=== PATIENT | female | born 1975 | race Caucasian/White ===

== ENCOUNTER 2016-02-19 14:07 | Inpatient (IN) ==
--- NOTE | 2016-02-19 14:31 | Emergency Department Note ---
Disposition Clinical Impression: Rib pain on right side, Anxiety, Acute chest wall pain, Nonproductive cough Asthma Qualifiers: Asthma severity: moderate persistent Asthma complication type: uncomplicated Qualified Code(s): J45.40 - Moderate persistent asthma, uncomplicated COPD (chronic obstructive pulmonary disease) Qualifiers: COPD type: chronic bronchitis Chronic bronchitis type: simple Qualified Code(s) : J41.0 - Simple chronic bronchitis Disposition: Home, Self-Care Condition: Good Reasons to Return/Additional Instructions: Follow-up with Dr. Barnes within 5 days. If her symptoms worsen please come back to the ED for reevaluation. Referrals: Mundo Barnes MD [Primary Care Provider] - Forms: ED Satisfaction Letter General Adult HPI - General Chief complaint: ED Asthma Stated complaint: breathing problems Time Seen by Provider: 02/19/16 14:21 Source: EMS Limitations: no limitations Nursing Notes Reviewed: Yes Vital Signs Reviewed: Yes - History of Present Illness HPI Narrative: Patient is a 41-year-old female complains of right-sided chest pain 1 hour ago. Patient has a past medical history for COPD and asthma. Patient records show that patient has had prior echocardiogram with a EF of 60% secondary to previous chest pain admission. Patient states that last night she had a very bad asthma attack which required the use of 3 inhalers before she can get it to stop. Patient states that earlier this afternoon she had sudden onset of lower rib pain that extends from the anterior right side of her lower costal region to the back along the wrist to her spine but does not cross midline. She states this has never happened before. Pain Scale: 5 - Related Data Home Medications Medication Instructions Recorded Confirmed Docusate [Colace] 100 mg PO BID PRN 02/23/15 12/17/15 Levothyroxine [Synthroid] 125 mcg PO DAILY 02/23/15 12/17/15 Ranitidine HCl [Zantac] 150 mg PO BID 02/23/15 12/17/15 Furosemide [Lasix] 20 mg PO DAILY 12/06/15 12/17/15 Lamotrigine 200 mg PO BID 12/06/15 12/17/15 Potassium Chloride [Klor-Con 10] 10 meq PO DAILY 12/06/15 12/17/15 Trihexyphenidyl HCl 5 mg PO TID 12/06/15 12/17/15 Albuterol Sulfate [Proair 2 puff IH Q4-6H PRN 12/07/15 12/17/15 Respiclick] Aspirin [Ecotrin] 81 mg PO DAILY 12/07/15 12/17/15 Atorvastatin [Lipitor] 40 mg PO HS 12/07/15 12/17/15 Budesonide/Formoterol 160/4.5 2 puff IH BID 12/07/15 12/17/15 [Symbicort 160/4.5] Cetirizine HCl [All Day Allergy] 5 mg PO HS 12/07/15 12/17/15 ClonazePAM [Klonopin] 0.5 mg PO BID 12/07/15 12/17/15 Cyclobenzaprine [Flexeril] 10 mg PO BID 12/07/15 12/17/15 Escitalopram [Lexapro] 20 mg PO DAILY 12/07/15 12/17/15 Gabapentin [Neurontin] 300 mg PO BID 12/07/15 12/17/15 Iloperidone [Fanapt] 8 mg PO BID 12/07/15 12/17/15 L.acidoph,Paracasei, B.lactis 1 cap PO DAILY 12/07/15 12/17/15 [Probiotic] Montelukast [Singulair] 10 mg PO HS 12/07/15 12/17/15 Acetaminophen [Tylenol] 500 mg PO Q6HR PRN 12/17/15 12/17/15 Previous Rx's Medication Instructions Recorded OxyCODONE/APAP 10/325 [Percocet 1 each PO Q6HR PRN #12 tablet 12/17/15 10/325 MG] Allergies Allergy/AdvReac Type Severity Reaction Status Date / Time aripiprazole [From Abilify] Allergy Hallucinati Verified 02/19/16 14:20 ng aspartame Allergy See Verified 02/19/16 14:20 Comments aspirin Allergy See Verified 02/19/16 14:20 Comments Cefprozil [From Cefzil] Allergy See Verified 02/19/16 14:20 Comments codeine Allergy See Verified 02/19/16 14:20 Comments duloxetine [From Cymbalta] Allergy See Verified 02/19/16 14:20 Comments Erythromycin Base Allergy See Verified 02/19/16 14:20 Comments esomeprazole [From Nexium] Allergy See Verified 02/19/16 14:20 Comments oxybutynin Allergy Dizziness Verified 02/19/16 14:20 Penicillins Allergy See Verified 02/19/16 14:20 Comments pregabalin [From Lyrica] Allergy Hallucinati Verified 02/19/16 14:20 ng Sulfa (Sulfonamide Allergy See Verified 02/19/16 14:20 Antibiotics) Comments ziprasidone [From Geodon] Allergy Hallucinati Verified 02/19/16 14:20 ng celecoxib [From Celebrex] AdvReac Hallucinati Verified 02/19/16 14:20 ng metformin AdvReac Diarrhea Verified 02/19/16 14:20 All systems ED: reviewed and negative except as stated. Constitutional: Denies: fever, chills, weakness Eyes: Denies: eye pain, eye discharge ENT ED: Denies: ear pain, throat pain, congestion Cardiovascular: Denies: chest pain, palpitations, syncope Respiratory: Denies: cough, dyspnea, wheezes, hemoptysis, sputum production Gastrointestinal: Reports: nausea. Denies: abdominal pain, vomiting Genitourinary: Denies: urgency, dysuria, frequency Musculoskeletal: Reports: back pain, myalgia. Denies: neck pain, joint swelling Integumentary: Denies: rash, abrasion, lesions Neurological: Denies: headache, weakness Psychiatric: Reports: anxiety Endocrine: Denies: fatigue, heat or cold intolerance Hematological/Lymphatic: Denies: easy bleeding, easy bruising Allergic/Immunologic: Denies: facial swelling, urticaria Past Medical History - Past Medical History Attestation: Yes The following information was validated with the patient. 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: Reports: no SUPERVISOR POULTRY PROCESSING history - Social History Smoking Status: Never smoker Smokeless Tobacco Status: No Alcohol use: Reports: none Drug use: Reports: none Physical Exam Vital Signs Temperature 97.3 F L 02/19/16 14:11 Pulse Rate 112 02/19/16 14:11 Respiratory Rate 18 02/19/16 14:11 Blood Pressure 132/68 02/19/16 14:11 O2 Sat by Pulse Oximetry 94 L 02/19/16 14:11 Temperature 97.3 F L 02/19/16 14:11 Pulse Rate 103 02/19/16 14:20 Respiratory Rate 14 02/19/16 14:20 Blood Pressure 125/77 02/19/16 14:20 O2 Sat by Pulse Oximetry 94 L 02/19/16 14:20 Oxygen Delivery Oxygen Delivery Room Air -General Appearance: Patient is a 41-year-old female who is alert and oriented 3 and in no acute distress. Patient appears comfortable -Neurological exam: Cranial nerves II-12 intact, no focal deficits observed, - Head Head exam: atraumatic, normocephalic, normal inspection - Eye Eye exam: Present: normal appearance, PERRL, EOMI, negative for scleral icterus negative for conjunctival pallor - ENT ENT exam: normal exam, normal oropharynx, mucous membranes dry patient has greenish blue tongue secondary to candy cane consumption - Neck Neck exam: Present: normal inspection, full ROM, trachea midline, negative JVD - Chest Chest inspection: Present: Patient has bilateral equal rise and fall of chest wall. Chest wall tender to palpation along the lower costal margin of the right side of ribs extending from sternum to thoracic spine no cross midline - Respiratory Respiratory exam: Clear to auscultation bilaterally without wheezes rales or rhonchi Cardiovascular Cardiovascular exam: Present: regular rate, normal rhythm, normal heart sounds, without murmurs rubs or gallops. - Abdominal Exam Abdominal exam: Present: soft, nondistended, large pannus Non-Tender light and deep palpation in all quadrants nonspecific. Patient did not have complaints of abdominal pain prior to me palpating. Bowel sounds normoactive throughout all 4 quadrants. Negative for hyper or hyperresonance. - Extremities Exam Extremities exam: Present: normal inspection, full ROM, pedal pulses equal intact regular. Radial pulses equal intact regular. - Back Exam Back exam: Present: normal inspection, full ROM. Absent: tenderness, CVA tenderness (R), CVA tenderness (L) - Psychiatric Psychiatric exam: Present: normal affect, normal mood - Skin Skin exam: Present: warm, dry, intact, normal color - General Limitations: no limitations General appearance: alert, in no apparent distress Course Course Narrative: Patient seen and examined. Chest x-ray CBC BMP and troponin ordered. The patient sitting upright and appears mildly uncomfortable - Reevaluation(s) Reevaluation #1: Patient reassessed. Patient is asking for a diet [place]. Patient was offered water. Time: 15:00 Reevaluation #2: Patient reassessed. Patient's heart rate 92, respirations 14. Patient complaining of throat pain is where an upper chest pain around her clavicles. Patient is still dry. Patient did not want any water earlier. She did except ice chips. Ordered nitroglycerin to see if it helps her pain symptoms. Time: 15:20 Vital Signs Temperature 97.3 F L 02/19/16 14:11 Pulse Rate 112 02/19/16 14:11 Respiratory Rate 18 02/19/16 14:11 Blood Pressure 132/68 02/19/16 14:11 O2 Sat by Pulse Oximetry 94 L 02/19/16 14:11 Temperature 97.3 F L 02/19/16 14:11 Pulse Rate 83 02/19/16 15:49 Respiratory Rate 12 02/19/16 15:49 Blood Pressure 141/83 02/19/16 15:49 O2 Sat by Pulse Oximetry 96 02/19/16 15:49 Oxygen Delivery Oxygen Delivery Room Air Medical Decision Making - [facility] Narrative Medical decision making narrative: Ms. Parkinson is a 41-year-old female who presented with complaints of right- sided chest wall pain that started an hour ago. Patient states that she had a pretty bad asthmatic attack last night which resulted in multiple bouts of heavy coughing and finally resolved secondary to 3 inhalers. Patient's rib pain extends from anterior along the right side of his sternum to the right side of her spine and thoracic region T8 T10. No midline tenderness. Patient has increase in rib pain symptoms with deep breathing. Patient's condition is concerning for possible skeletal rib pain and subcostal pain/irritation secondary to bronchitis, pneumonia. However we will consider possibility of cardiac causes of atypical chest pain, PE, COPD exacerbation, pneumonia. Patient presents afebrile but tachycardic at 112 minute with recheck at 103 beats a minute. Patient appears very well-appearing and does not have an increased work of breathing. Patient is neither coughing currently or has audible wheezing. Patient's SPO2 is 95% at time of examination. Lung sounds clear to auscultation bilaterally. Patient has no complaints of abdominal pain or extremity pain. Patient's local test probability for PE with just tachycardia alone. Chest x-ray Patient denies any precordial chest pain or pressure. Patient denies any radiation of pain symptoms outside of the area previously described. EKG shows a normal sinus rhythm Patient started complaining about pain in her neck along the anterior portion of her neck around her sternal notch up into the anterior throat area. Patient was given 0.4 sublingual nitroglycerin which she says she has had continuous relief after 3 minutes of nitroglycerin administration. Patient's troponin was 0.00. Patient's CBC was positive for a WBC of 14.0. Ordered d-dimer to rule out PE. Patient has a negative d-dimer at 448. His also has low test probability for PE. Patient currently not having any symptoms of tachycardia. Recommended admission for cardiac rule out since patient has resolution of symptoms secondary to nitroglycerin administration. The patient was accepted for admission by . - Medical Records Medical records reviewed: Yes I reviewed the patient's medical records. - Lab Data Lab results reviewed: Yes I reviewed the patient's lab results. Lab results narrative: Short CBC 02/19/16 Range/Units 14:52 WBC 12.4 H (4.3-11.1) K/mcL Hgb 12.0 (11.5-15.4) g/dL Hct 38.3 (35.3-44.9) % Plt Count 320 (140-400) K/mcL Neutrophils # 9.2 H (1.6-8.9) K/mcL BMP 02/19/16 Range/Units 14:52 Sodium 138 (136-145) mEq/L Potassium 3.8 (3.5-4.5) mEq/L Chloride 106 (98-109) mEq/L Carbon Dioxide 23 (19-29) mEq/L BUN 5 L (7-20) mg/dL Creatinine 0.69 (0.57-1.11) mg/dL Glucose 101 H (70-99) mg/dL Calcium 9.2 (8.6-10.8) mg/dL Cardiac Enzymes 02/19/16 Range/Units 14:52 Troponin I 0.00 (0-0.03) ng/mL Result diagrams: 02/19/16 14:52 02/19/16 14:52 Lab Results 02/19/16 02/19/16 02/19/16 Range/Units 14:52 14:52 14:52 WBC 12.4 H (4.3-11.1) K/mcL RBC 4.68 (3.82-4.97) M/mcL Hgb 12.0 (11.5-15.4) g/dL Hct 38.3 (35.3-44.9) % MCV 81.8 L (83.0-100.0) fL MCH 25.6 L (28.0-33.3) pg MCHC 31.3 L (31.6-35.5) g/dL RDW 16.1 H (11.5-14.5) % Plt Count 320 (140-400) K/mcL MPV 8.6 L (9.4-12.4) fL Immature Gran % 0.4 (0-4) % Seg Neutrophils % 74.4 % Lymphocytes % 16.5 % Monocytes % 5.8 % Eosinophils % 2.5 % Basophils % 0.4 % Neutrophils # 9.2 H (1.6-8.9) K/mcL Lymphocytes # 2.1 (0.6-4.6) K/mcL Monocytes # 0.7 (0.0-1.3) K/mcL Eosinophils # 0.3 (0.0-0.6) K/mcL Basophils # 0.1 (0.0-0.2) K/mcL D-Dimer (0-500) ng/mLFEU Sodium 138 (136-145) mEq/L Potassium 3.8 (3.5-4.5) mEq/L Chloride 106 (98-109) mEq/L Carbon Dioxide 23 (19-29) mEq/L BUN 5 L (7-20) mg/dL Creatinine 0.69 (0.57-1.11) mg/dL Est GFR ( Amer) > 60 (> 60) Est GFR (Non-Af Amer) > 60 (> 60) BUN/Creatinine Ratio 7 (6-26) Glucose 101 H (70-99) mg/dL Calculated Osmolality 283 (280-300) Calcium 9.2 (8.6-10.8) mg/dL Troponin I 0.00 (0-0.03) ng/mL 02/19/16 Range/Units 16:14 WBC (4.3-11.1) K/mcL RBC (3.82-4.97) M/mcL Hgb (11.5-15.4) g/dL Hct (35.3-44.9) % MCV (83.0-100.0) fL MCH (28.0-33.3) pg MCHC (31.6-35.5) g/dL RDW (11.5-14.5) % Plt Count (140-400) K/mcL MPV (9.4-12.4) fL Immature Gran % (0-4) % Seg Neutrophils % % Lymphocytes % % Monocytes % % Eosinophils % % Basophils % % Neutrophils # (1.6-8.9) K/mcL Lymphocytes # (0.6-4.6) K/mcL Monocytes # (0.0-1.3) K/mcL Eosinophils # (0.0-0.6) K/mcL Basophils # (0.0-0.2) K/mcL D-Dimer 448 (0-500) ng/mLFEU Sodium (136-145) mEq/L Potassium (3.5-4.5) mEq/L Chloride (98-109) mEq/L Carbon Dioxide (19-29) mEq/L BUN (7-20) mg/dL Creatinine (0.57-1.11) mg/dL Est GFR ( Amer) (> 60) Est GFR (Non-Af Amer) (> 60) BUN/Creatinine Ratio (6-26) Glucose (70-99) mg/dL Calculated Osmolality (280-300) Calcium (8.6-10.8) mg/dL Troponin I (0-0.03) ng/mL - Radiology Data Radiology results reviewed: Yes I reviewed the patient's radiology results. Chest X-Ray 02/19/16 14:25 IMPRESSION: No acute cardiopulmonary process. D/ / 02/19/2016 14:58:54 Lele Mclain MD / Jacqueline Pickens Interpreting Provider: Lele Mclain MD - EKG Data EKG #1 EKG attestation: Yes I reviewed and interpreted this EKG. EKG results narrative: EKG taken in 02/19/2016 at 1413 hrs. shows a ventricular rate of 104 beats a minute with underlying sinus rhythm. Patient's sinus tachycardia with no ST abnormalities. Previous EKG shows sinus rhythm with first-degree AV block at a rate of [address] elevations or depressions, QRS widening or QT prolongation.
[2016-02-19 15:00] LABS: Basophils # 0.1 K/mcL (0.0-0.2); Basophils % 0.4 %; Eosinophils # 0.3 K/mcL (0.0-0.6); Eosinophils % 2.5 %; Hematocrit 38.3 % (35.3-44.9); Immature Granulocytes % 0.4 % (0-4); Lymphocytes # 2.1 K/mcL (0.6-4.6); Lymphocytes % 16.5 %; Mean Corpuscular HGB Conc 31.3 g/dL (31.6-35.5); Mean Corpuscular Hemoglobin 25.6 pg (28.0-33.3); Mean Corpuscular Volume 81.8 fL (83.0-100.0); Mean Platelet Volume 8.6 fL (9.4-12.4); Monocytes # 0.7 K/mcL (0.0-1.3); Monocytes % 5.8 %; Neutrophils # 9.2 K/mcL (1.6-8.9); Platelet Count 320 K/mcL (140-400); Red Blood Count 4.68 M/mcL (3.82-4.97); Red Cell Distribution Width 16.1 % (11.5-14.5); Segmented Neutrophils % 74.4 %
[2016-02-19] MEDS ORDERED: Nitroglycerin 0.4 MG TAB.SUBL SL PRN (15:09)
[2016-02-19 15:13] LABS: BUN/Creatinine Ratio 7 (6-26); Calcium 9.2 mg/dL (8.6-10.8); Carbon Dioxide 23 mEq/L (19-29); Chloride 106 mEq/L (98-109); Glucose 101 mg/dL (70-99); Osmolality,Calculated 283 (280-300); Potassium 3.8 mEq/L (3.5-4.5); Sodium 138 mEq/L (136-145); eGFR For African Americans > 60 (> 60); eGFR For Non-African Americans > 60 (> 60)
[2016-02-19 15:14] LABS: Blood Urea Nitrogen 5 mg/dL (7-20)
[2016-02-19] MEDS ORDERED: Ondansetron ODT 4 MG TAB.RAPDIS SL ONE (15:14)
--- NOTE | 2016-02-19 15:16 | Emergency Department Note ---
Disposition Clinical Impression: Rib pain on right side, Anxiety, Acute chest wall pain, Nonproductive cough Asthma Qualifiers: Asthma severity: moderate persistent Asthma complication type: uncomplicated Qualified Code(s): J45.40 - Moderate persistent asthma, uncomplicated COPD (chronic obstructive pulmonary disease) Qualifiers: COPD type: chronic bronchitis Chronic bronchitis type: simple Qualified Code(s) : J41.0 - Simple chronic bronchitis Disposition: Home, Self-Care Condition: Good General Adult HPI - General Chief complaint: ED Asthma Stated complaint: breathing problems Time Seen by Provider: 02/19/16 14:21 Source: EMS Limitations: no limitations Nursing Notes Reviewed: Yes Vital Signs Reviewed: Yes - History of Present Illness Pain Scale: 5 - Related Data Home Medications Medication Instructions Recorded Confirmed Docusate [Colace] 100 mg PO BID PRN 02/23/15 02/19/16 Levothyroxine [Synthroid] 125 mcg PO DAILY 02/23/15 02/19/16 Ranitidine HCl [Zantac] 150 mg PO BID 02/23/15 02/19/16 Furosemide [Lasix] 20 mg PO DAILY 12/06/15 02/19/16 Lamotrigine 200 mg PO BID 12/06/15 02/19/16 Potassium Chloride [Klor-Con 10] 10 meq PO DAILY 12/06/15 02/19/16 Trihexyphenidyl HCl 5 mg PO TID 12/06/15 02/19/16 Albuterol Sulfate [Proair 2 puff IH Q4-6H PRN 12/07/15 02/19/16 Respiclick] Aspirin [Ecotrin] 81 mg PO DAILY 12/07/15 02/19/16 Atorvastatin [Lipitor] 40 mg PO HS 12/07/15 02/19/16 Cetirizine HCl [All Day Allergy] 5 mg PO HS 12/07/15 02/19/16 ClonazePAM [Klonopin] 0.5 mg PO BID 12/07/15 02/19/16 Cyclobenzaprine [Flexeril] 10 mg PO BID 12/07/15 02/19/16 Escitalopram [Lexapro] 20 mg PO DAILY 12/07/15 02/19/16 Gabapentin [Neurontin] 300 mg PO HS 12/07/15 02/19/16 L.acidoph,Paracasei, B.lactis 1 cap PO DAILY 12/07/15 02/19/16 [Probiotic] Montelukast [Singulair] 10 mg PO HS 12/07/15 02/19/16 Iloperidone [Fanapt] 10 mg PO BID 02/19/16 02/19/16 Mometasone/Formoterol [Dulera 200 1 puff IH BID 02/19/16 02/19/16 Mcg/5 Mcg Inhaler] Naproxen [Naprosyn] 500 mg PO BID 02/19/16 02/19/16 SUMAtriptan [Imitrex] 50 mg PO DAILY PRN 02/19/16 02/19/16 Allergies Allergy/AdvReac Type Severity Reaction Status Date / Time aripiprazole [From Abilify] Allergy Hallucinati Verified 02/19/16 14:20 ng aspartame Allergy See Verified 02/19/16 14:20 Comments aspirin Allergy See Verified 02/19/16 14:20 Comments Cefprozil [From Cefzil] Allergy See Verified 02/19/16 14:20 Comments codeine Allergy See Verified 02/19/16 14:20 Comments duloxetine [From Cymbalta] Allergy See Verified 02/19/16 14:20 Comments Erythromycin Base Allergy See Verified 02/19/16 14:20 Comments esomeprazole [From Nexium] Allergy See Verified 02/19/16 14:20 Comments oxybutynin Allergy Dizziness Verified 02/19/16 14:20 Penicillins Allergy See Verified 02/19/16 14:20 Comments pregabalin [From Lyrica] Allergy Hallucinati Verified 02/19/16 14:20 ng Sulfa (Sulfonamide Allergy See Verified 02/19/16 14:20 Antibiotics) Comments ziprasidone [From Geodon] Allergy Hallucinati Verified 02/19/16 14:20 ng celecoxib [From Celebrex] AdvReac Hallucinati Verified 02/19/16 14:20 ng metformin AdvReac Diarrhea Verified 02/19/16 14:20 Constitutional: Denies: fever, chills, weakness Eyes: Denies: eye pain, eye discharge ENT ED: Denies: ear pain, throat pain, congestion Cardiovascular: Denies: chest pain, palpitations, syncope Respiratory: Denies: cough, dyspnea, wheezes, hemoptysis, sputum production Gastrointestinal: Reports: nausea. Denies: abdominal pain, vomiting Genitourinary: Denies: urgency, dysuria, frequency Musculoskeletal: Reports: back pain, myalgia. Denies: neck pain, joint swelling Integumentary: Denies: rash, abrasion, lesions Neurological: Denies: headache, weakness Psychiatric: Reports: anxiety Endocrine: Denies: fatigue, heat or cold intolerance Hematological/Lymphatic: Denies: easy bleeding, easy bruising Allergic/Immunologic: Denies: facial swelling, urticaria Past Medical History - Past Medical History Medical history: Reports: asthma, diabetes, fibromyalgia, GERD, hyperlipidemia, kidney stones, migraine, seizures, thyroid disease Surgical history: Reports: cholecystectomy Psychiatric history: Reports: anxiety, bipolar, depression, schizophrenia, previous psychiatric hospitalization 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: no PROCESSING ASSISTANT history - Social History Smoking Status: Never smoker Smokeless Tobacco Status: No Alcohol use: Reports: none Drug use: Reports: none Physical Exam - General Limitations: no limitations General appearance: alert, in no apparent distress Course Vital Signs Temperature 97.3 F L 02/19/16 14:11 Pulse Rate 112 02/19/16 14:11 Respiratory Rate 18 02/19/16 14:11 Blood Pressure 132/68 02/19/16 14:11 O2 Sat by Pulse Oximetry 94 L 02/19/16 14:11 Temperature 97.3 F L 02/19/16 14:11 Pulse Rate 83 02/19/16 15:49 Respiratory Rate 12 02/19/16 15:49 Blood Pressure 141/83 02/19/16 15:49 O2 Sat by Pulse Oximetry 96 02/19/16 15:49 Oxygen Delivery Oxygen Delivery Room Air Medical Decision Making - MDM Narrative Medical decision making narrative: I examined this patient and my medical decision-making was reviewed with the INFECTION CONTROL MANAGER/PA/Advanced Practice Nurse/Resident Physician. I agree with the documented findings, disposition and treatment plan as described except to the extent set forth below. Evaluated this patient with Dr. Charles, I agree with his evaluation and management plan, supervise care the patient's stay. Patient presents today with pain along her diaphragm besides. She been coughing here recently and wheezing. Medics that she did not need a breathing treatment she does take aspirin at home despite apparent allergy to she denies any cardiac history. She is resting comfortably at this time. Negative cardiac workup on her then reassess. She is in agreement with this plan. 1650 hrs.: Patient's d-dimer is negative per well's criteria is low. I do not think she needs a CT at this time we will go ahead and continue with admission. Chest X-Ray 02/19/16 14:25 IMPRESSION: No acute cardiopulmonary process. D/ : / 02/19/2016 14:58:54 Lele Mclain MD / Jacqueline Pickens Interpreting Provider: Lele Mclain MD Chest X-Ray 02/19/16 14:25 IMPRESSION: No acute cardiopulmonary process. D/ /19/2016 14:58:54 Lele Mclain MD / Jacqueline Pickens Interpreting Provider: Lele Mclain MD - Lab Data Result diagrams: 02/19/16 14:52 02/19/16 14:52 Lab Results 02/19/16 02/19/16 02/19/16 Range/Units 14:52 14:52 14:52 WBC 12.4 H (4.3-11.1) K/mcL RBC 4.68 (3.82-4.97) M/mcL Hgb 12.0 (11.5-15.4) g/dL Hct 38.3 (35.3-44.9) % MCV 81.8 L (83.0-100.0) fL MCH 25.6 L (28.0-33.3) pg MCHC 31.3 L (31.6-35.5) g/dL RDW 16.1 H (11.5-14.5) % Plt Count 320 (140-400) K/mcL MPV 8.6 L (9.4-12.4) fL Immature Gran % 0.4 (0-4) % Seg Neutrophils % 74.4 % Lymphocytes % 16.5 % Monocytes % 5.8 % Eosinophils % 2.5 % Basophils % 0.4 % Neutrophils # 9.2 H (1.6-8.9) K/mcL Lymphocytes # 2.1 (0.6-4.6) K/mcL Monocytes # 0.7 (0.0-1.3) K/mcL Eosinophils # 0.3 (0.0-0.6) K/mcL Basophils # 0.1 (0.0-0.2) K/mcL D-Dimer (0-500) ng/mLFEU Sodium 138 (136-145) mEq/L Potassium 3.8 (3.5-4.5) mEq/L Chloride 106 (98-109) mEq/L Carbon Dioxide 23 (19-29) mEq/L BUN 5 L (7-20) mg/dL Creatinine 0.69 (0.57-1.11) mg/dL Est GFR ( Amer) > 60 (> 60) Est GFR (Non-Af Amer) > 60 (> 60) BUN/Creatinine Ratio 7 (6-26) Glucose 101 H (70-99) mg/dL Calculated Osmolality 283 (280-300) Calcium 9.2 (8.6-10.8) mg/dL Troponin I 0.00 (0-0.03) ng/mL 02/19/16 Range/Units 16:14 WBC (4.3-11.1) K/mcL RBC (3.82-4.97) M/mcL Hgb (11.5-15.4) g/dL Hct (35.3-44.9) % MCV (83.0-100.0) fL MCH (28.0-33.3) pg MCHC (31.6-35.5) g/dL RDW (11.5-14.5) % Plt Count (140-400) K/mcL MPV (9.4-12.4) fL Immature Gran % (0-4) % Seg Neutrophils % % Lymphocytes % % Monocytes % % Eosinophils % % Basophils % % Neutrophils # (1.6-8.9) K/mcL Lymphocytes # (0.6-4.6) K/mcL Monocytes # (0.0-1.3) K/mcL Eosinophils # (0.0-0.6) K/mcL Basophils # (0.0-0.2) K/mcL D-Dimer 448 (0-500) ng/mLFEU Sodium (136-145) mEq/L Potassium (3.5-4.5) mEq/L Chloride (98-109) mEq/L Carbon Dioxide (19-29) mEq/L BUN (7-20) mg/dL Creatinine (0.57-1.11) mg/dL Est GFR ( Amer) (> 60) Est GFR (Non-Af Amer) (> 60) BUN/Creatinine Ratio (6-26) Glucose (70-99) mg/dL Calculated Osmolality (280-300) Calcium (8.6-10.8) mg/dL Troponin I (0-0.03) ng/mL
[2016-02-19] MEDS ORDERED: Naloxone 0.4 MG/ML INJ IVP PRN (19:13)
[2016-02-19] MEDS ORDERED: Acetaminophen 325 MG TABLET PO PRN (19:13)
[2016-02-19] MEDS ORDERED: Ondansetron ODT 4 MG TAB.RAPDIS SL PRN (19:13)
[2016-02-19] MEDS ORDERED: SUMAtriptan succinate 50 MG TABLET PO PRN (19:18)
[2016-02-19] MEDS ORDERED: Albuterol 2.5 MG/3 ML NEBULIZER IH PRN (19:28)
--- NOTE | 2016-02-19 19:51 | Internal Med History&Physical ---
Date of Encounter: 02/19/16 Time of Encounter: 19:36 Assessment and Plan (1) Acute chest wall pain Current visit: Yes Status: Acute Patient reporting new right sided chest pain radiated around to her back, along with shortness of breath. She reports she has an asthma attack last night with severe coughing. She was tachycardic with HR 104-112, satting 92-96% on room air. CXR showed no acute cardiopulmonary process. EKG showed Sinus tachycardia at [address] abnormalities. D-Dimer normal at 448, troponin negative at 0.0. Lungs clear to auscultation bilaterally. Heart with regular rate and rhythm, tender to palpation on right side. Chest pain differential includes costochondritis related to asthma attack last night, pleurisy, hepatic inflammation, but will rule out ACS as well. Serial troponins for trend continuous clinical research monitor titrate O2 to maintain O2 sat > 92% CT Chest to further evaluate for pleurisy or pneumonia LFTs, CRP ordered (2) Dysuria Current visit: Yes Status: Acute Patient reports some mild burning with urination the last few days. She has a history of multiple UTIs in the past. UA with reflex to culture ordered. (3) Asthma Current visit: Yes Status: Acute Patient reports asthma attack last evening. Today, having shortness of breath, but no coughing. Continue home dose Symbicort. Budesonide/formotorol BID. duoneb treatments QIDR Albuterol nebulizer Q2hr PRN titrate O2 to maintain O2 sat > 92% Qualifiers: Asthma severity: moderate persistent Asthma complication type: uncomplicated Qualified Code(s): J45.40 - Moderate persistent asthma, uncomplicated (4) Dysphagia Current visit: Yes Status: Acute Patient complaining of pain with swallowing. No coughing, choking with eating and able to eat full dinner. Speech evaluation ordered for swallow study. Qualifiers: Dysphagia type: unspecified Qualified Code(s): R13.10 - Dysphagia, unspecified (5) DVT prophylaxis Current visit: No Status: Acute Encourage ambulation anti-embolic stockings 5,000u heparin SQ BID Internal Medicine - H&P: HPI Chief complaint: chest pain Admitted From: Emergency Dept Plans for Post Hospital Care: Home History of present illness: Ms. Parkinson is a 41 year old female with morbid obesity, asthma/COPD, diet controlled diabetes, chronic back pain, hypertension, depression, anxiety and schizoaffective disorder presented to the ED this morning with complaint of pain to her right rib radiating to her back. She reports she had a bad asthma attack last night, with severe coughing which was eventually relieved with her inhalers and a nebulizer treatment. Today, she noted this right sided pain, along with increased shortness of breath. She describes the pain as sharp, and it comes and goes. She denies any coughing today. She denies any fever, chills , night sweats. She states she is having some mild nausea when she eats, along with painful swallowing which just started today as well. She denies any dizziness, lightheadedness. She also endorses some mild burning with urination for the past 2 days. Evaluation in the ED was significant for mildly elevated WBC count of 12.4. She was tachycardic with HR 104-112. Satting 92-95% on room air. CXR showed no acute cardiopulmonary process. EKG showed sinus tachycardia with HR of [address] abnormalities. D-Dimer was negative at 448 and troponin was negative at 0.0. On exam, the patient is alert and oriented X3 in no distress. She is not having any pain currently, but does complain of throat pain when swallowing. Lungs are clear bilaterally and heart has regular rate and rhythm. Past Med Surg Social Fam HX - Past Medical History Medical history: asthma, diabetes, fibromyalgia, GERD, hyperlipidemia, kidney stones, migraine, seizures, thyroid disease Psychiatric history: anxiety, bipolar, depression, schizophrenia, previous psychiatric hospitalization - Past Surgical History Surgical History: cholecystectomy - Social History Smoking Status: Never smoker Smokeless Tobacco Status: No Alcohol use: none Drug use: none - Family History Mother Family Member Ethnicity: Non- Living Status: Still Living Hx Family Cardiac Disorders: Yes Hx Family Respiratory Disorders: Yes Hx Family Cancer: No Hx Family GI Disorders: No Hx Family Endocrine Disorder: Yes (diabetes, adrenal insufficiency) Hx Family Neuromuscular Disorders: No Hx Family Neurologic Disorders: No Hx Family HEENT Disorders: No Hx Family Autoimmune Disorders: Yes Father Family Member Ethnicity: Non- Living Status: Unknown Hx Family Cardiac Disorders: Yes (PR, HTN) Hx Family Respiratory Disorders: Yes (Enphesyma, COPD, Asthma) Hx Family Cancer: Yes (Unknown) Hx Family GI Disorders: Yes (Lactos Intolerant) Hx Family Endocrine Disorder: No Hx Family Neuromuscular Disorders: No Hx Family Neurologic Disorders: No Hx Family HEENT Disorders: No Hx Family Autoimmune Disorders: No Brother Family Member Ethnicity: Non- Living Status: Still Living Hx Family Cardiac Disorders: Yes (heart attack age 29) Internal Medicine - H&P: Meds Docusate [Colace] 100 mg PO BID PRN 02/23/15 [History] Levothyroxine [Synthroid] 125 mcg PO DAILY 02/23/15 [History] Ranitidine HCl [Zantac] 150 mg PO BID 02/23/15 [History] Furosemide [Lasix] 20 mg PO DAILY 12/06/15 [History] Lamotrigine 200 mg PO BID 12/06/15 [History] Potassium Chloride [Klor-Con 10] 10 meq PO DAILY 12/06/15 [History] Trihexyphenidyl HCl 5 mg PO TID 12/06/15 [History] Albuterol Sulfate [Proair Respiclick] 2 puff IH Q4-6H PRN 12/07/15 [History] Aspirin [Ecotrin] 81 mg PO DAILY 12/07/15 [History] Atorvastatin [Lipitor] 40 mg PO HS 12/07/15 [History] Cetirizine HCl [All Day Allergy] 5 mg PO HS 12/07/15 [History] ClonazePAM [Klonopin] 0.5 mg PO BID 12/07/15 [History] Cyclobenzaprine [Flexeril] 10 mg PO BID 12/07/15 [History] Escitalopram [Lexapro] 20 mg PO DAILY 12/07/15 [History] Gabapentin [Neurontin] 300 mg PO HS 12/07/15 [History] L.acidoph,Paracasei, B.lactis [Probiotic] 1 cap PO DAILY 12/07/15 [History] Montelukast [Singulair] 10 mg PO HS 12/07/15 [History] Iloperidone [Fanapt] 10 mg PO BID 02/19/16 [History] Mometasone/Formoterol [Dulera 200 Mcg/5 Mcg Inhaler] 1 puff IH BID 02/19/16 [ History] Naproxen [Naprosyn] 500 mg PO BID 02/19/16 [History] SUMAtriptan [Imitrex] 50 mg PO DAILY PRN 02/19/16 [History] Allergies aripiprazole [From Abilify] Allergy (Verified 02/19/16 14:20) Hallucinating aspartame Allergy (Verified 02/19/16 14:20) See Comments aspirin Allergy (Verified 02/19/16 14:20) See Comments patient states low dose aspirin is ok Cefprozil [From Cefzil] Allergy (Verified 02/19/16 14:20) See Comments codeine Allergy (Verified 02/19/16 14:20) See Comments duloxetine [From Cymbalta] Allergy (Verified 02/19/16 14:20) See Comments Erythromycin Base Allergy (Verified 02/19/16 14:20) See Comments esomeprazole [From Nexium] Allergy (Verified 02/19/16 14:20) See Comments oxybutynin Allergy (Verified 02/19/16 14:20) Dizziness Penicillins Allergy (Verified 02/19/16 14:20) See Comments pregabalin [From Lyrica] Allergy (Verified 02/19/16 14:20) Hallucinating Sulfa (Sulfonamide Antibiotics) Allergy (Verified 02/19/16 14:20) See Comments ziprasidone [From Geodon] Allergy (Verified 02/19/16 14:20) Hallucinating celecoxib [From Celebrex] Adverse Reaction (Verified 02/19/16 14:20) Hallucinating metformin Adverse Reaction (Verified 02/19/16 14:20) Diarrhea All Systems PM: A 10-system review of systems was performed and is negative for pertinent findings except as documented above in the HPI. - Constitutional Constitutional: no chills, no fever(s), no night sweats - EENT Eyes: no change in vision, no discharge, no pain, no photophobia Ears: no ear discharge, no ear pain, no tinnitus Nose, mouth and throat: dysphagia, neck pain, no nasal discharge, no sore throat - Cardiovascular Cardiovascular ROS IM: chest pain, dyspnea, no diaphoresis, no lightheadedness, no palpitations, no syncope - Respiratory Respiratory: dyspnea, no cough, no wheezing, no excessive phlegm production - Gastrointestinal Gastrointestinal: nausea, no abdominal pain, no diarrhea, no hematemesis, no hematochezia, no melena, no vomiting - Genitourinary Genitourinary: dysuria, no change in urinary stream, no flank pain, no hematuria - Musculoskeletal Musculoskeletal ROS IM: back pain, numbness (BLE neuropathy), no tingling - Integumentary Integumentary IM: no rash, no unusual bruising - Neurological Neurological ROS: numbness (BLE neuropathy - chronic), no confusion, no convulsions, no focal weakness, no tingling, no tremor(s) - Hematologic/Lymphatic Hematologic/Lymphatic: no easy bruising - Constitutional Vitals: Temp Pulse Resp BP Pulse Ox 97.9 F 94 14 120/76 92 L 02/19/16 18:58 02/19/16 18:58 02/19/16 18:58 02/19/16 18:58 02/19/16 18:58 General appearance: Present: A&O X 3, morbidly obese, no acute distress - Head Head exam: Present: atraumatic, normocephalic - Eye Eye exam: Present: PERRL, conjuntiva pink, sclera anicteric Pupils: Present: PERRL - Neck Neck exam general surgery: Present: supple, trachea midline. Absent: lymphadenopathy - Respiratory Respiratory exam: Present: CTAB. Absent: accessory muscle use, rales, rhonchi, wheezes - Cardiovascular Cardiovascular exam: Present: RRR, +S1, +S2. Absent: diastolic murmur, gallop, rubs, systolic murmur - GI/Abdominal GI/Abdominal exam: Present: normal bowel sounds, soft, tenderness (right sided) , no peritoneal signs. Absent: distended - Extremities Exam Extremities exam: Present: warm, radial pulses palpable and symetrical. Absent : calf tenderness, cyanotic, pedal edema - Neurological Exam Neurological exam: Present: CN II-XII intact, oriented X3, no focal deficits. Absent: pronater drift, facial droop, speech deficit - Skin Skin exam: Present: dry, intact Internal Med - H&P Results - Labs CBC & Chem 7: 02/19/16 14:52 02/19/16 14:52
[2016-02-19] MEDS ORDERED: NON-FORMULARY MEDICATION 1 EACH EACH (Mometasone/Formoterol [Dulera 200 Mcg/5 Mcg Inhaler] IH SCH (21:00)
[2016-02-19 21:08] LABS: Bilirubin,Urine Negative (Negative); Blood,Urine Negative (Negative); Clarity,Urine Clear (Clear); Color,Urine Yellow (Yellow); Glucose,Urine (UA) Normal (Normal); Ketones,Urine Negative (Negative); Leukocyte Esterase,Urine Negative (Negative); Nitrite,Urine Negative (Negative); Protein,Urine Negative (Neg-Trace); Specific Gravity,Urine 1.008 (1.010-1.025); Urobilinogen,Urine Normal (Normal)
[2016-02-19] MEDS: Ipratropium/Albuterol Neb 3 ML IH SCH (22:08)
[2016-02-19] MEDS: clonazePAM 0.5 MG TABLET PO SCH (22:16)
[2016-02-19] MEDS: Gabapentin 300 MG CAPSULE PO SCH (22:17)
[2016-02-19] MEDS: Famotidine 20 MG TABLET PO SCH (22:17)
[2016-02-19] MEDS: Loratadine 10 MG TABLET PO SCH (22:18)
[2016-02-19 22:19] LABS: Albumin 3.1 g/dL (3.5-5.0); Bilirubin,Direct 0.1 mg/dL (0.0-0.5); Bilirubin,Indirect 0.3 mg/dL (0.0-1.2); Bilirubin,Total 0.4 mg/dL (0.2-1.2); Globulin 3.2 g/dL (2.4-3.5); Total Protein 6.3 g/dL (6.0-8.3)
[2016-02-19] MEDS: lamoTRIgine 100 MG TABLET PO SCH (22:19)
[2016-02-19] MEDS: ILOPERIDONE PO SCH (22:20)
[2016-02-20 04:16] LABS: Basophils % 0.4 %; Eosinophils # 0.3 K/mcL (0.0-0.6); Eosinophils % 2.9 %; Hematocrit 35.9 % (35.3-44.9); Hemoglobin 10.9 g/dL (11.5-15.4); Immature Granulocytes % 0.4 % (0-4); Lymphocytes # 1.9 K/mcL (0.6-4.6); Lymphocytes % 17.1 %; Mean Corpuscular HGB Conc 30.4 g/dL (31.6-35.5); Mean Corpuscular Hemoglobin 25.3 pg (28.0-33.3); Mean Corpuscular Volume 83.5 fL (83.0-100.0); Mean Platelet Volume 9.5 fL (9.4-12.4); Monocytes # 0.6 K/mcL (0.0-1.3); Monocytes % 5.7 %; Neutrophils # 8.1 K/mcL (1.6-8.9); Platelet Count 279 K/mcL (140-400); Red Cell Distribution Width 16.4 % (11.5-14.5); Segmented Neutrophils % 73.5 %
[2016-02-20 04:30] LABS: BUN/Creatinine Ratio 8 (6-26); Blood Urea Nitrogen 6 mg/dL (7-20); Calcium 8.6 mg/dL (8.6-10.8); Carbon Dioxide 23 mEq/L (19-29); Chloride 104 mEq/L (98-109); Glucose 115 mg/dL (70-99); Osmolality,Calculated 285 (280-300); Potassium 3.8 mEq/L (3.5-4.5); Sodium 138 mEq/L (136-145); eGFR For African Americans > 60 (> 60); eGFR For Non-African Americans > 60 (> 60)
[2016-02-20] MEDS: Ipratropium/Albuterol Neb 3 ML IH SCH ×4 (04:47→23:16)
[2016-02-20] MEDS: *HR* Heparin 5,000 UNIT/ML VIAL SQ SCH ×2 (06:19→17:55)
--- NOTE | 2016-02-20 07:39 | Internal Med Progress Note ---
Date of Encounter: 02/20/16 Time of Encounter: 07:35 - Assessment and plan (1) Acute chest wall pain Current Visit: Yes Status: Acute Assessment and plan: Patient is a chest wall pain. Patient has a jaw pain. Echocardiogram 12/07/2015: Ejection fraction 55%. Troponin 3 negative. Plan: -We will get a pharmacological stress test done. -A distress this is positive then we will involve cardiology. -The reason for stress test is within 1 year patient has a second admission for similar symptoms. -Year-old echocardiogram is within normal limits she he has a great potential for underlying coronary artery disease/ischemic heart disease. (2) Right upper quadrant pain Current Visit: Yes Status: Acute Assessment and plan: Patient underwent upper quadrant pain. Noted that patient's liver function is within normal limit. Her CRP is mildly elevated. Plan: -We will get a right upper quadrant ultrasound done. - we will keep patient NPO (3) Bipolar 1 disorder Current Visit: No Status: Acute Assessment and plan: Presently stable. (4) Hypertension Current Visit: No Status: Chronic Assessment and plan: We will continue home dose. Qualifiers: Hypertension type: essential hypertension Qualified Code(s): I10 - Essential (primary) hypertension (5) Obesity, morbid, BMI 50 or higher Current Visit: Yes Status: Acute Assessment and plan: She is morbidly obese. BMI is more than 50. As outpatient she needs a bariatric surgery. (6) DVT prophylaxis Current Visit: No Status: Acute Assessment and plan: On heparin. Medical decision making: Patient has [id number] risk of worsening in spite of being on appropriate. - Subjective Interval history: Patient seen and examined. Chart reviewed. Discussed with the appropriate remember were actively involved in patient care. Patient has a jaw pain. She also has a right-sided chest pain. Patient is a previous admission for chest pain in the month of November 2015. Patient also complained of right upper quadrant abdominal pain. - Constitutional Vitals: Temp Pulse Resp BP Pulse Ox 97.9 F 84 16 109/67 92 L 02/20/16 06:35 02/20/16 06:35 02/20/16 06:35 02/20/16 06:35 02/20/16 06:35 General appearance: Present: A&O X 3, morbidly obese, no acute distress - Head Head exam: Present: atraumatic, normocephalic - Eye Eye exam: Present: PERRL, conjuntiva pink, sclera anicteric Pupils: Present: PERRL - Neck Neck exam general surgery: Present: supple, trachea midline. Absent: lymphadenopathy - Respiratory Respiratory exam: Present: CTAB. Absent: accessory muscle use, rales, rhonchi, wheezes - Cardiovascular Cardiovascular exam: Present: RRR, +S1, +S2. Absent: diastolic murmur, gallop, rubs, systolic murmur - GI/Abdominal GI/Abdominal exam: Present: normal bowel sounds, soft, no peritoneal signs. Absent: distended, tenderness Additional comments: Right upper quadrant abdominal tenderness - Extremities Exam Extremities exam: Present: warm, radial pulses palpable and symetrical. Absent : calf tenderness, cyanotic, pedal edema - Neurological Exam Neurological exam: Present: CN II-XII intact, oriented X3, no focal deficits. Absent: pronater drift, facial droop, speech deficit - Skin Skin exam: Present: dry, intact Internal Medicine: Result - Labs CBC & Chem 7: 02/20/16 03:24 02/20/16 03:24 Labs: Short CBC 02/20/16 Range/Units 03:24 WBC 11.0 (4.3-11.1) K/mcL Hgb 10.9 L (11.5-15.4) g/dL Hct 35.9 (35.3-44.9) % Plt Count 279 (140-400) K/mcL Neutrophils # 8.1 (1.6-8.9) K/mcL BMP 02/20/16 03:24 Sodium 138 Potassium 3.8 Chloride 104 Carbon Dioxide 23 BUN 6 L Creatinine 0.73 Glucose 115 H Calcium 8.6 Cardiac Enzymes 02/19/16 02/20/16 Range/Units 21:48 03:24 Troponin I 0.00 0.01 (0-0.03) ng/mL Liver Function 02/19/16 Range/Units 21:48 Total Bilirubin 0.4 (0.2-1.2) mg/dL Direct Bilirubin 0.1 (0.0-0.5) mg/dL AST 7 (5-34) Units/L ALT 6 (0-55) Units/L Alkaline Phosphatase 66 (38-126) Units/L Albumin 3.1 L (3.5-5.0) g/dL Urine 02/19/16 Range/Units 20:55 Urine Color Yellow (Yellow) Urine Clarity Clear (Clear) Urine pH 6.0 (5.0-8.0) pH Units Ur Specific [place] 1.008 L (1.010-1.025) Urine Protein Negative (Neg-Trace) mg/dL Urine Glucose (UA) Normal (Normal) mg/dL Reviewed - ABG Interpretation ABG results: PT/INR, D-dimer D-Dimer 448 ng/mLFEU (0-500) 02/19/16 16:14 - Impressions Impressions Chest CT 02/19/16 20:42 IMPRESSION: 1. Stable chest CT. No acute thoracic abnormality. 2. Evidence of old granulomatous disease. 3. Stable left lower lobe parenchymal scarring and trace pleural effusion. D/ / 02/19/2016 21:46:24 Ron Davila MD / ankit Interpreting Provider: Ron Davila MD Consult Discharge Plan - Plan Referrals: Mundo Barnes MD [Primary Care Provider] -
[2016-02-20] MEDS: ILOPERIDONE PO SCH ×2 (08:12→20:36)
[2016-02-20] MEDS ORDERED: Regadenoson 0.4 MG/5 ML SYRINGE IVP ONE (10:15)
[2016-02-20 11:05] LABS: Alanine Aminotransferase 8 Units/L (0-55); Alkaline Phosphatase 62 Units/L (38-126); Aspartate Amino Transferase 14 Units/L (5-34); BUN/Creatinine Ratio 6 (6-26); Bilirubin,Total 0.4 mg/dL (0.2-1.2); Calcium 8.6 mg/dL (8.6-10.8); Carbon Dioxide 25 mEq/L (19-29); Chloride 106 mEq/L (98-109); Globulin 3.1 g/dL (2.4-3.5); Glucose 95 mg/dL (70-99); Osmolality,Calculated 285 (280-300); Potassium 4.2 mEq/L (3.5-4.5); Sodium 139 mEq/L (136-145); Total Protein 6.1 g/dL (6.0-8.3); eGFR For African Americans > 60 (> 60); eGFR For Non-African Americans > 60 (> 60)
[2016-02-20 11:06] LABS: Blood Urea Nitrogen 5 mg/dL (7-20)
[2016-02-20] MEDS: lamoTRIgine 100 MG TABLET PO SCH ×2 (12:36→20:35)
[2016-02-20] MEDS: Famotidine 20 MG TABLET PO SCH ×2 (12:36→20:35)
[2016-02-20] MEDS: Furosemide 20 MG TABLET PO SCH (12:36)
[2016-02-20] MEDS: Lactobacillus 1 EACH CAP.SPRINK PO SCH (12:36)
[2016-02-20] MEDS: Aspirin Enteric Coated 81 MG Tablet PO SCH (12:36)
[2016-02-20] MEDS: clonazePAM 0.5 MG TABLET PO SCH ×2 (12:36→20:35)
[2016-02-20] MEDS: Gabapentin 300 MG CAPSULE PO SCH (20:35)
[2016-02-20] MEDS: Loratadine 10 MG TABLET PO SCH (20:36)
[2016-02-21 04:28] LABS: Basophils % 0.3 %; Eosinophils # 0.2 K/mcL (0.0-0.6); Eosinophils % 2.8 %; Hematocrit 35.7 % (35.3-44.9); Hemoglobin 10.9 g/dL (11.5-15.4); Immature Granulocytes % 0.4 % (0-4); Lymphocytes # 1.2 K/mcL (0.6-4.6); Mean Corpuscular HGB Conc 30.5 g/dL (31.6-35.5); Mean Corpuscular Hemoglobin 25.5 pg (28.0-33.3); Mean Corpuscular Volume 83.6 fL (83.0-100.0); Mean Platelet Volume 8.8 fL (9.4-12.4); Monocytes # 0.6 K/mcL (0.0-1.3); Monocytes % 8.1 %; Neutrophils # 4.9 K/mcL (1.6-8.9); Platelet Count 273 K/mcL (140-400); Red Blood Count 4.27 M/mcL (3.82-4.97); Red Cell Distribution Width 16.4 % (11.5-14.5); Segmented Neutrophils % 71.4 %
[2016-02-21] MEDS: Ipratropium/Albuterol Neb 3 ML IH SCH ×4 (04:42→23:38)
[2016-02-21] MEDS: *HR* Heparin 5,000 UNIT/ML VIAL SQ SCH ×2 (05:44→16:40)
[2016-02-21] MEDS ORDERED: Regadenoson 0.4 MG/5 ML SYRINGE IVP ONE (07:20)
[2016-02-21] MEDS ORDERED: 0.9 % Sodium Chloride 500 ML IVC ONE (08:46)
[2016-02-21] MEDS: ILOPERIDONE PO SCH ×2 (09:31→20:27)
[2016-02-21] MEDS: lamoTRIgine 100 MG TABLET PO SCH ×2 (09:33→20:24)
[2016-02-21] MEDS: Lactobacillus 1 EACH CAP.SPRINK PO SCH (09:34)
[2016-02-21] MEDS: clonazePAM 0.5 MG TABLET PO SCH ×2 (09:34→20:27)
[2016-02-21] MEDS: Famotidine 20 MG TABLET PO SCH ×2 (09:34→20:24)
[2016-02-21] MEDS: Aspirin Enteric Coated 81 MG Tablet PO SCH (09:34)
--- NOTE | 2016-02-21 15:06 | Internal Med Progress Note ---
Date of Encounter: 02/21/16 Time of Encounter: 15:02 - Assessment and plan (1) Acute chest wall pain Current Visit: Yes Status: Acute Assessment and plan: Patient is a chest wall pain. Patient has a jaw pain. Echocardiogram 12/07/2015: Ejection fraction 55%. Troponin 3 negative. Plan: -We will get a pharmacological stress test done. - stress this is positive then we will involve cardiology. -The reason for stress test is within 1 year patient has a second admission for similar symptoms. -Year-old echocardiogram is within normal limits she he has a great potential for underlying coronary artery disease/ischemic heart disease. 02/21/2016 - no more chest pain - noted that she was hypotensive at the time of chest pain and hence stress test was abolished. - will hold lasix and antiHTN meds and will get stress test done tomorrow - if stress test is positive then will get cardiology evaluation. (2) Right upper quadrant pain Current Visit: Yes Status: Acute Assessment and plan: Patient underwent upper quadrant pain. Noted that patient's liver function is within normal limit. Her CRP is mildly elevated. Plan: -We will get a right upper quadrant ultrasound done. - we will keep patient NPO 02/21/2016 - occasional right upper quadrant pain. - US right upper quadrant is negative - will continue symptomatic management (3) Bipolar 1 disorder Current Visit: No Status: Acute Assessment and plan: Presently stable. (4) Hypertension Current Visit: No Status: Chronic Assessment and plan: We will continue home dose. Qualifiers: Hypertension type: essential hypertension Qualified Code(s): I10 - Essential (primary) hypertension (5) Obesity, morbid, BMI 50 or higher Current Visit: Yes Status: Acute Assessment and plan: She is morbidly obese. BMI is more than 50. As outpatient she needs a bariatric surgery. (6) DVT prophylaxis Current Visit: No Status: Acute Assessment and plan: On heparin. Medical decision making: Patient has [id number] risk of worsening in spite of being on appropriate. - Subjective Interval history: Patient seen and examined. Chart reviewed. Discussed with the appropriate remember were actively involved in patient care. Patient has a jaw pain. She also has a right-sided chest pain. Patient is a previous admission for chest pain in the month of November 2015. Patient also complained of right upper quadrant abdominal pain. 02/21/2016 seen and examined. still has occasional abdominal pain denies chest pain - Constitutional Vitals: Temp Pulse Resp BP Pulse Ox 97.7 F 104 15 105/63 93 L 02/21/16 11:21 02/21/16 11:21 02/21/16 11:21 02/21/16 11:21 02/21/16 11:21 General appearance: Present: A&O X 3, morbidly obese, no acute distress - Head Head exam: Present: atraumatic, normocephalic - Eye Eye exam: Present: PERRL, conjuntiva pink, sclera anicteric Pupils: Present: PERRL - Neck Neck exam general surgery: Present: supple, trachea midline. Absent: lymphadenopathy - Respiratory Respiratory exam: Present: CTAB. Absent: accessory muscle use, rales, rhonchi, wheezes - Cardiovascular Cardiovascular exam: Present: RRR, +S1, +S2. Absent: diastolic murmur, gallop, rubs, systolic murmur - GI/Abdominal GI/Abdominal exam: Present: normal bowel sounds, soft, no peritoneal signs. Absent: distended, tenderness - Extremities Exam Extremities exam: Present: warm, radial pulses palpable and symetrical. Absent : calf tenderness, cyanotic, pedal edema - Neurological Exam Neurological exam: Present: CN II-XII intact, oriented X3, no focal deficits. Absent: pronater drift, facial droop, speech deficit - Skin Skin exam: Present: dry, intact Internal Medicine: Result - Labs CBC & Chem 7: 02/21/16 03:47 02/20/16 09:53 Labs: Short CBC 02/21/16 Range/Units 03:47 WBC 6.8 (4.3-11.1) K/mcL Hgb 10.9 L (11.5-15.4) g/dL Hct 35.7 (35.3-44.9) % Plt Count 273 (140-400) K/mcL Neutrophils # 4.9 (1.6-8.9) K/mcL - ABG Interpretation ABG results: PT/INR, D-dimer D-Dimer 448 ng/mLFEU (0-500) 02/19/16 16:14 Consult Discharge Plan - Plan Referrals: Mundo Barnes MD [Primary Care Provider] -
[2016-02-21] MEDS: Loratadine 10 MG TABLET PO SCH (20:24)
[2016-02-21] MEDS: Gabapentin 300 MG CAPSULE PO SCH (20:27)
[2016-02-22] MEDS: Ipratropium/Albuterol Neb 3 ML IH SCH ×4 (04:13→23:13)
[2016-02-22 05:31] LABS: Basophils % 0.3 %; Eosinophils # 0.2 K/mcL (0.0-0.6); Eosinophils % 3.6 %; Hematocrit 34.4 % (35.3-44.9); Hemoglobin 10.5 g/dL (11.5-15.4); Immature Granulocytes % 0.5 % (0-4); Lymphocytes # 1.2 K/mcL (0.6-4.6); Lymphocytes % 20.2 %; Mean Corpuscular HGB Conc 30.5 g/dL (31.6-35.5); Mean Corpuscular Hemoglobin 26.4 pg (28.0-33.3); Mean Corpuscular Volume 86.6 fL (83.0-100.0); Mean Platelet Volume 9.7 fL (9.4-12.4); Monocytes # 0.6 K/mcL (0.0-1.3); Monocytes % 10.6 %; Neutrophils # 3.9 K/mcL (1.6-8.9); Red Blood Count 3.97 M/mcL (3.82-4.97); Red Cell Distribution Width 16.5 % (11.5-14.5); Segmented Neutrophils % 64.8 %
[2016-02-22 05:43] LABS: Alanine Aminotransferase 11 Units/L (0-55); Albumin 2.6 g/dL (3.5-5.0); Albumin/Globulin Ratio 0.9 (1.1-2.2); Alkaline Phosphatase 53 Units/L (38-126); Aspartate Amino Transferase 15 Units/L (5-34); BUN/Creatinine Ratio 13 (6-26); Bilirubin,Total 0.4 mg/dL (0.2-1.2); Blood Urea Nitrogen 9 mg/dL (7-20); Calcium 8.3 mg/dL (8.6-10.8); Carbon Dioxide 20 mEq/L (19-29); Chloride 106 mEq/L (98-109); Glucose 74 mg/dL (70-99); Osmolality,Calculated 281 (280-300); Potassium 3.8 mEq/L (3.5-4.5); Sodium 137 mEq/L (136-145); Total Protein 5.6 g/dL (6.0-8.3); eGFR For African Americans > 60 (> 60); eGFR For Non-African Americans > 60 (> 60)
[2016-02-22 05:58] LABS: Platelet Count 215 K/mcL (140-400)
[2016-02-22] MEDS ORDERED: 0.9 % Sodium Chloride 500 ML IVC ONE (06:00)
[2016-02-22] MEDS ORDERED: Regadenoson 0.4 MG/5 ML SYRINGE IVP ONE (06:09)
[2016-02-22] MEDS: *HR* Heparin 5,000 UNIT/ML VIAL SQ SCH ×2 (06:14→18:25)
--- NOTE | 2016-02-22 09:19 | Electrocardiograph Report ---
[facility] Test Date: 2016-02-19 Pat Name: DERIC PEPPER Department: [id number] Room: 3B22 Gender: F Information Assurance Manager: ANDREW : 1975 Requested By: Mel Santos Order Number: [id number] Reading MD: Colton Castaneda MD Measurements Intervals Corn Rate: 104 P: 19 ID: [id number] QRS: 49 QRSD: 93 T: 40 QT: 353 QTc: 414 Interpretive Statements SINUS TACHYCARDIA NONSPECIFIC T-WAVE ABNORMALITY Electronically Signed On 02-22-16 09:17:58 EST by Colton Castaneda MD
--- NOTE | 2016-02-22 10:14 | Internal Med Progress Note ---
<Celso Palafox - Last Filed: 02/22/16 17:41> Date of Encounter: 02/22/16 Time of Encounter: 07:30 - Assessment and plan (1) Painful swallowing Status: Acute Assessment and plan: -Pain for last couple of months, worse over the last couple of weeks. Hallitosis. Trouble swallowing. GI consulted for possible EGD. Patient placed on NPO tonight just in case. Please give daily medication. (2) Acute chest wall pain Status: Acute Assessment and plan: -Patient is a chest wall pain. -Patient has a jaw pain. -Echocardiogram 12/07/2015: Ejection fraction 55%. -Troponin 3 negative. -Stress test negative. No need for another test because of BMI -Plan for discharge home once GI consult for tomorrow is completed. (3) Obesity, morbid, BMI 50 or higher Status: Acute Assessment and plan: She is morbidly obese. BMI is more than 50. As outpatient consider bariatric surgery. (4) Bipolar 1 disorder Status: Acute Assessment and plan: Presently stable. - Subjective Interval history: Patient denies CP, admits to SOB. Her biggest complaint is when she swallows. States that she has been having swallowing difficulty and pain for a few months , worse over the last couple of weeks. States it is worse with swallowing solid food, such as crackers and [employer]. Admits to foul smelling breath and feels like something is caught in her thought. Denies hemophysis or recent injury to the area. Has had an EDG many years ago that "revealed gastritis or something". The SOB has improved since yesterday. Worse with sitting up or doing activity. Alleviated by rest. She is not concerned about it. - Constitutional Vitals: Temp Pulse Resp BP Pulse Ox 98.5 F 70 17 117/77 92 L 02/22/16 06:46 02/22/16 06:59 02/22/16 06:46 02/22/16 06:59 02/22/16 06:46 General appearance: Present: A&O X 3, morbidly obese, no acute distress - Head Head exam: Present: atraumatic, normal inspection - Respiratory Respiratory exam: Present: CTAB. Absent: accessory muscle use - Cardiovascular Cardiovascular exam: Present: RRR. Absent: diastolic murmur, irregular rhythm, systolic murmur - Psychiatric Psychiatric exam: Present: normal affect, normal mood - Other Additional findings: Sitting up at the edge of the bed. Able to complete sentences without being out of breath. Internal Medicine: Result - Labs CBC & Chem 7: 02/22/16 03:31 02/22/16 03:31 Labs: Short CBC 02/22/16 Range/Units 03:31 WBC 6.0 (4.3-11.1) K/mcL Hgb 10.5 L (11.5-15.4) g/dL Hct 34.4 L (35.3-44.9) % Plt Count 215 (140-400) K/mcL Neutrophils # 3.9 (1.6-8.9) K/mcL BMP 02/22/16 03:31 Sodium 137 Potassium 3.8 Chloride 106 Carbon Dioxide 20 BUN 9 Creatinine 0.69 Glucose 74 Calcium 8.3 L Liver Function 02/22/16 Range/Units 03:31 Total Bilirubin 0.4 (0.2-1.2) mg/dL AST 15 (5-34) Units/L ALT 11 (0-55) Units/L Alkaline Phosphatase 53 (38-126) Units/L Albumin 2.6 L (3.5-5.0) g/dL - ABG Interpretation ABG results: PT/INR, D-dimer D-Dimer 448 ng/mLFEU (0-500) 02/19/16 16:14 Consult Discharge Plan - Plan Instructions: Chest Pain (DC), Mood Disorders (DC), Chronic Dysphagia (DC), Chronic Hypertension (DC) Additional Instructions: Follow-up with gastroenterology for esophageal ulcers in 2-3 weeks Referrals: Mundo Barnes MD [Primary Care Provider] - 02/29/16 9:45 am Prescriptions: GI Cocktail [Gi Cocktail] 40 ml PO TID #1000 ml <Silvano Boland P - Last Filed: 02/27/16 23:13> - Assessment and plan (1) Acute chest wall pain Status: Acute (2) Right upper quadrant pain Status: Acute (3) Bipolar 1 disorder Status: Acute (4) Hypertension Status: Chronic Assessment and plan: Controlled Qualifiers: Hypertension type: essential hypertension Qualified Code(s): I10 - Essential (primary) hypertension (5) Obesity, morbid, BMI 50 or higher Status: Chronic (6) DVT prophylaxis Status: Acute - Constitutional Vitals: Temp Pulse Resp BP Pulse Ox 98.0 F 107 18 131/77 99 02/22/16 15:57 02/22/16 15:57 02/22/16 16:53 02/22/16 15:57 02/22/16 16:53 Internal Medicine: Result - Labs CBC & Chem 7: 02/25/16 03:58 02/25/16 03:58 Labs: Short CBC 02/22/16 Range/Units 03:31 WBC 6.0 (4.3-11.1) K/mcL Hgb 10.5 L (11.5-15.4) g/dL Hct 34.4 L (35.3-44.9) % Plt Count 215 (140-400) K/mcL Neutrophils # 3.9 (1.6-8.9) K/mcL BMP 02/22/16 03:31 Sodium 137 Potassium 3.8 Chloride 106 Carbon Dioxide 20 BUN 9 Creatinine 0.69 Glucose 74 Calcium 8.3 L Liver Function 02/22/16 Range/Units 03:31 Total Bilirubin 0.4 (0.2-1.2) mg/dL AST 15 (5-34) Units/L ALT 11 (0-55) Units/L Alkaline Phosphatase 53 (38-126) Units/L Albumin 2.6 L (3.5-5.0) g/dL - ABG Interpretation ABG results: PT/INR, D-dimer D-Dimer 448 ng/mLFEU (0-500) 02/19/16 16:14 - Attending Attestation I examined this patient and my medical decision-making was reviewed with the SEALS ENGRAVER/PA/Advanced Practice Nurse/Resident Physician. I agree with the documented findings, disposition and treatment plan as described except to the extent set forth below.
--- NOTE | 2016-02-22 12:21 | Nuclear Medicine Stress Report ---
Regadenoson Nuclear 2 day Name: DERIC PEPPER Date of Study: 02/20/2016 Date: 1975 Ht: 61.0 in Medical Record#: [id number] Age: 41 Wt: 308.0 lb Gender: Female Order #: [id number] Location: [facility] Room: [facility] Supervising Provider: Drew Diana CNP Reading Physician: Karen Zaldivar DO Ordering Physician: Silvano Boland MD Primary Care Physician: Mundo Barnes MD Stress Technologist: Cece Castañeda, SUPERVISOR OPENING [employer] PICKING, CCT, CPFT Registrar Assistant: Julisa Uriarte Indications: Chest Pain Impression: Technically challenging 2-day study due to body habitus and tachycardia during exam. There is a small sized moderate intensity perfusion defect in the anterolateral wall in which ischemia cannot be ruled out. Hot spot artifact in the lateral wall may be due to breast attenuation. Pharmacologic ECG does not demonstrate ischemic abnormalities. Sinus tachycardia during exam. Gated EF = 59%. Recommend clinical correlation. History: Hypertension Diabetes Hypercholesteremia Stress Test Summary: Stress Test Type: Pharmacologic Regadenoson 0.4mg/5ml given IV Baseline Information: Initial Heart Rate: 97 Blood Pressure: 108/70 Stress Information: Test Terminated Due to (primary): As per protocol Maximum Blood Pressure: 104/60 Maximum Heart Rate: 122 Percent Maximum Heart Rate Achieved: 69 Double Product: 26031 METS Reached: 1 Symptoms: No symptoms Nuclear Summary: SPECT myocardial perfusion imaging using Tc99m Sestamibi given intravenously was performed at rest and following cardiac stress testing. The resting images were obtained following initial dose of 34.8 mCi. Following stress an additional dose of 33.5 mCi was given at peak exercise or 30 seconds post regadenoson infusion. Medication Given: Time Medication Dose Units Route Findings: Stress Note * Resting ECG demonstrated normal sinus rhythm with HR 97 bpm. Otherwise normal findings. * Pharmacologic stress ECG is negative for ischemia at level of heart rate achieved. * No arrhythmias were noted during stress. Sinus tachycardia during testing. * Patient had no chest pain during stress. Hemodynamic responses * Normal hemodynamic responses to pharmacologic stress. Study Quality * Technically difficult/limited study. Gated EF % * Gated EF = 59%. Left Ventricle * The left ventricle is not dilated. TID * No evidence of transient ischemic dilatation. Lung Uptake * There is no evidence of increase lung uptake. NORMALS * Normal wall motion. PERFUSION * There is a fixed defect of increased perfusion uptake in the lateral wall consistent with hot spot artifact. * There is a small sized medium intensity perfusion defect during stress involving the basal and mid anterolateral wall. * There is a medium sized mild intensity fixed defect in the basal to distal inferior wall probably from normalization. Updated by Karen Zaldivar on 02/22/2016 12:11:33 PM electronically signed on 02/22/2016 12:15:39 PM with status of Final
[2016-02-22] MEDS: Lactobacillus 1 EACH CAP.SPRINK PO SCH (13:48)
[2016-02-22] MEDS: Aspirin Enteric Coated 81 MG Tablet PO SCH (13:48)
[2016-02-22] MEDS: ILOPERIDONE PO SCH ×2 (13:49→20:35)
[2016-02-22] MEDS: Famotidine 20 MG TABLET PO SCH ×2 (13:49→20:33)
[2016-02-22] MEDS: clonazePAM 0.5 MG TABLET PO SCH ×2 (13:49→20:35)
[2016-02-22] MEDS: lamoTRIgine 100 MG TABLET PO SCH ×2 (13:49→20:32)
[2016-02-22] MEDS: Gabapentin 300 MG CAPSULE PO SCH (20:32)
[2016-02-22] MEDS: Loratadine 10 MG TABLET PO SCH (20:34)
[2016-02-23] MEDS: Ipratropium/Albuterol Neb 3 ML IH SCH ×4 (04:13→22:11)
[2016-02-23 04:55] LABS: Basophils % 0.4 %; Eosinophils # 0.2 K/mcL (0.0-0.6); Eosinophils % 4.1 %; Hematocrit 36.3 % (35.3-44.9); Immature Granulocytes % 0.6 % (0-4); Lymphocytes # 1.4 K/mcL (0.6-4.6); Lymphocytes % 26.8 %; Mean Corpuscular HGB Conc 30.3 g/dL (31.6-35.5); Mean Corpuscular Hemoglobin 25.6 pg (28.0-33.3); Mean Corpuscular Volume 84.4 fL (83.0-100.0); Mean Platelet Volume 9.3 fL (9.4-12.4); Monocytes # 0.7 K/mcL (0.0-1.3); Monocytes % 12.9 %; Platelet Count 239 K/mcL (140-400); Red Cell Distribution Width 16.8 % (11.5-14.5); Segmented Neutrophils % 55.2 %
[2016-02-23 05:01] LABS: BUN/Creatinine Ratio 9 (6-26); Blood Urea Nitrogen 6 mg/dL (7-20); Calcium 8.4 mg/dL (8.6-10.8); Carbon Dioxide 21 mEq/L (19-29); Chloride 108 mEq/L (98-109); Glucose 81 mg/dL (70-99); Osmolality,Calculated 287 (280-300); Potassium 3.7 mEq/L (3.5-4.5); Sodium 140 mEq/L (136-145); eGFR For African Americans > 60 (> 60); eGFR For Non-African Americans > 60 (> 60)
[2016-02-23] MEDS: *HR* Heparin 5,000 UNIT/ML VIAL SQ SCH ×2 (06:30→18:55)
--- NOTE | 2016-02-23 08:47 | Gastroenterology Consult Note ---
Date of Encounter: 02/23/16 Time of Encounter: 09:40 - Assessment and plan (1) Obesity, morbid, BMI 50 or higher Current Visit: Yes Status: Chronic (2) Painful swallowing Current Visit: Yes Status: Acute Assessment and plan: EGD today to r/o esophagitis, gastritis, duodenitis, PUD, nikolai infection, h. pylori infection, stricture or stenosis (3) Right upper quadrant pain Current Visit: Yes Status: Acute Assessment and plan: negative US GB. Proceed with EGD today to r/o esophagitis, gastritis, duodenitis , PUD (4) Chest pain Current Visit: No Status: Acute Assessment and plan: EGD to r/o esophagitis, gastritis, duodenitis, PUD, nikolai or h. pylori infection, stricture or stenosis Qualifiers: Chest pain type: precordial chest pain Qualified Code(s): R07.2 - Precordial pain - Time Spent With Patient Total time spent is greater than 50% in coordination of care (as documented) at patient's floor/unit and/or counseling patient: less than 15 minutes GI History of Present Illness - Data of Consult Patient: known to practice within the last 3 years Consult date: 02/23/16 Requesting Physician: Dominguez Shannon MD - Consult Narrative Reason for consult: Painful swallowing History of present illness: Ms. Parkinson is a 41 year old female with morbid obesity, asthma/COPD, diet controlled diabetes, chronic back pain, hypertension, depression, anxiety and schizoaffective disorder presented to the ED this morning with complaint of pain to her right rib radiating to her back. She reports she had a bad asthma attack last night, with severe coughing which was eventually relieved with her inhalers and a nebulizer treatment. She also reported R sided pain along with SOB. Mild nausea with food ingestion and painful swallowing which reportedly has been occuring for some time. She had a stress test during this admission which was negative. Mild hepatomegaly and possible hepatic steatosis noted on RUQ US, normal LFTs. Patient states that with food ingestion she feels as if the solid items become 'stuck' in the upper epigastric area causing pain. She must use liquids to get the item to 'pass', alleviating the pain. Pain shoots to RUQ and mid back locations. She does report indigestion/heartburn that is controlled on her current regimen. No N/V. Bowels are regular, daily 1-2x, stools are brown, not black or bloody. Denies lower abdominal pain/cramping. Colonoscopy: 2013 - [facility] - hyperplastic polyp,int hem; repeat 5 yrs EGD: 2013 - [facility] - fundic gland polyp Past Med Surg Social Fam HX - Past Medical History Medical history: asthma, diabetes, fibromyalgia, GERD, hyperlipidemia, kidney stones, migraine, seizures, thyroid disease Psychiatric history: anxiety, bipolar, depression, schizophrenia, previous psychiatric hospitalization - Past Surgical History Surgical History: cholecystectomy - Social History Smoking Status: Never smoker Smokeless Tobacco Status: No Alcohol use: none Drug use: none - Family History Mother Family Member Ethnicity: Non- Living Status: Still Living Hx Family Cardiac Disorders: Yes Hx Family Respiratory Disorders: Yes Hx Family Cancer: No Hx Family GI Disorders: No Hx Family Endocrine Disorder: Yes (diabetes, adrenal insufficiency) Hx Family Neuromuscular Disorders: No Hx Family Neurologic Disorders: No Hx Family HEENT Disorders: No Hx Family Autoimmune Disorders: Yes Father Family Member Ethnicity: Non- Living Status: Unknown Hx Family Cardiac Disorders: Yes (ND, HTN) Hx Family Respiratory Disorders: Yes (Enphesyma, COPD, Asthma) Hx Family Cancer: Yes (Unknown) Hx Family GI Disorders: Yes (Lactos Intolerant) Hx Family Endocrine Disorder: No Hx Family Neuromuscular Disorders: No Hx Family Neurologic Disorders: No Hx Family HEENT Disorders: No Hx Family Autoimmune Disorders: No Brother Family Member Ethnicity: Non- Living Status: Still Living Hx Family Cardiac Disorders: Yes (heart attack age 29) - Gastrointestinal NSAID use: None noted Anticoagulation Use: None noted Number of BM Per Day: 1-2 Gastrointestinal: Present: abdominal pain, dyspepsia - Constitutional Constitutional: as per HPI - EENT Eyes: as per HPI Ears: Present: as per HPI Nose, mouth and throat: Present: dysphagia Additional Comment: w/solids, edentulous - Cardiovascular Cardiovascular ROS: Present: as per HPI - Respiratory Respiratory IM: Present: as per HPI - Neurological ROS Neurological GI: Present: as per HPI - Hematologic/Lymphatic Hematologic/Lymphatic pediatric: Present: as per HPI - Musculoskeletal Musculoskeletal ROS GI: Present: as per HPI - Integumentary Integumentary GI: Present: as per HPI - Psychiatric ROS Psychiatric GI: Present: as per HPI - Endocrine Endocrine IM: Present: as per HPI - Constitutional Vitals: Temp Pulse Resp BP Pulse Ox 97.7 F 52 15 112/69 97 02/23/16 07:04 02/23/16 07:04 02/23/16 07:04 02/23/16 07:04 02/23/16 07:04 General appearance: Present: cooperative, A&O X 3, no acute distress, answers questions appropriately - Head Head exam: Present: atraumatic, normocephalic - Eye Eye exam: Present: normal appearance, sclera anicteric - ENT ENT exam: Present: mucous membranes moist - Neck Neck exam general surgery: Present: normal inspection, trachea midline - Respiratory Respiratory exam: Present: CTAB - Cardiovascular Cardiovascular exam: Present: RRR, +S1, +S2 - GI/Abdominal GI/Abdominal exam: Present: soft, tenderness, no peritoneal signs - Rectal Rectal exam: Present: deferred - Extremities Exam Extremities exam: Present: warm - Neurological Exam Neurological exam: Present: no focal deficits - Psychiatric Psychiatric exam: Present: normal affect, normal mood - Skin Skin exam: Present: dry, intact, normal color, warm Results - Labs CBC & Chem 7: 02/23/16 04:00 02/23/16 04:00 Labs: Last Result Calcium 8.4 mg/dL (8.6-10.8) L 02/23/16 04:00 Troponin I 0.01 ng/mL (0-0.03) 02/20/16 03:24 C-Reactive Protein 16 mg/L (Less than 5) H 02/19/16 21:48 Entire Visit Hgb 11.0 g/dL (11.5-15.4) L 02/23/16 04:00 Hct 36.3 % (35.3-44.9) 02/23/16 04:00 Total Bilirubin 0.4 mg/dL (0.2-1.2) 02/22/16 03:31 AST 15 Units/L (5-34) 02/22/16 03:31 ALT 11 Units/L (0-55) 02/22/16 03:31 - ABG ABG results: PT/INR, D-dimer D-Dimer 448 ng/mLFEU (0-500) 02/19/16 16:14 Consult Discharge Plan - Plan Referrals: Mundo Barnes MD [Primary Care Provider] - 02/29/16 9:45 am
[2016-02-23] MEDS: Famotidine 20 MG TABLET PO SCH ×2 (10:16→21:11)
[2016-02-23] MEDS: Furosemide 20 MG TABLET PO SCH (10:16)
[2016-02-23] MEDS: Aspirin Enteric Coated 81 MG Tablet PO SCH (10:16)
[2016-02-23] MEDS: clonazePAM 0.5 MG TABLET PO SCH ×2 (10:16→21:11)
[2016-02-23] MEDS: Lactobacillus 1 EACH CAP.SPRINK PO SCH (10:16)
[2016-02-23] MEDS: lamoTRIgine 100 MG TABLET PO SCH ×2 (10:16→21:11)
[2016-02-23] MEDS: ILOPERIDONE PO SCH ×2 (10:17→18:55)
--- NOTE | 2016-02-23 11:35 | Cardiology Consult Note ---
Date of Encounter: 02/23/16 Time of Encounter: 11:30 Assessment and Plan (1) Abnormal stress test Current Visit: Yes Status: Acute Stress test 2 day--poor quality study. There was a small sized, moderate intensity perfusion defect in anterolateral wall in which ischemia cannot be ruled out. Gated EF 59%. Diffuse flattening of ST-T waves noted on EKG compared with prior. Risk factors for CAD include obesity, strong family hx, DM and HLD. Symptoms somewhat atypical--midsternal CP and RUQ pain that mainly worsens after meals, although also noted on exertion at times. She does report worsening dyspnea over recent months. EF preserved on stress and on echo in 2016. Discussed medical management with ASA, statin, BB with outpt follow-up vs. C. Pt wishes to proceed with a C. ASA allergy is listed but pt has been on 81mg ASA during hospitalization, tolerating fine. EGD is scheduled for today. Given her GI symptoms and painful swallowing, recommend proceeding with EGD as planned. Her stress test is a low risk finding. If there are no significant findings on EGD, can proceed with C tomorrow. Will discuss with Dr. Recinos. (2) Chest pain Current Visit: Yes Status: Acute Mostly atypical, occurring after meals. Reports it is midsternal and also RUQ pain which radiates to back. Troponins negative. Low risk stress test findings as noted above. EGD today. If no significant findings, LHC tomorrow. Qualifiers: Chest pain type: precordial chest pain Qualified Code(s): R07.2 - Precordial pain Discussion w patient/family: The assessment and plan as outlined above was discussed with the patient and/or family members who expressed understanding and agreement. All questions were answered. Thank you for involving us in the care of your patient. Please call with any questions. I will discuss all the above with Dr. Recinos and make changes as necessary. History of Present Illness Consult date: 02/23/16 Consult reason: Abnormal stress test Chief complaint: chest pain, RUQ pain, painful swallowing History of present illness: Ms. Parkinson is a 41 year old female with PMH morbid obesity, asthma/COPD, diet controlled diabetes, hyperlipidemia, chronic back pain, depression, anxiety and schizoaffective disorder presented to the ED with complaint of pain to her right rib radiating to her back--described as pressure. She reports she had a bad asthma attack recently, with severe coughing which was eventually relieved with her inhalers and a nebulizer treatment. She admits to midsternal chest pain. She reports this pain and the RUQ pain are brought on by food intake and that she also notices it with exertion at times. Dyspnea has worsened over recent months. Mild nausea with food ingestion and painful swallowing, which reportedly has been occurring for months. Mild hepatomegaly and possible hepatic steatosis noted on RUQ US, normal LFTs. Patient states that with food ingestion she feels as if the solid items become 'stuck' in the upper epigastric area causing pain. She must use liquids to get the item to 'pass', alleviating the pain. Pt is scheduled for EGD later today. She had a stress test while inpt--small sized, moderate intensity perfusion defect in anterolateral wall in which ischemia cannot be ruled out. Gated EF 59--this was a poor quality 2 day study. Troponins negative. Strong family history of CAD-- brother had NV in his 40s, father from [place] in his 40s. Past Med Surg Social Fam HX - Past Medical History Medical history: asthma, diabetes, fibromyalgia, GERD, hyperlipidemia, kidney stones, migraine, seizures, thyroid disease Psychiatric history: anxiety, bipolar, depression, schizophrenia, previous psychiatric hospitalization - Past Surgical History Surgical History: cholecystectomy - Social History Smoking Status: Never smoker Smokeless Tobacco Status: No Alcohol use: none Drug use: none - Family History Mother Family Member Ethnicity: Non- Living Status: Still Living Hx Family Cardiac Disorders: Yes Hx Family Respiratory Disorders: Yes Hx Family Cancer: No Hx Family GI Disorders: No Hx Family Endocrine Disorder: Yes (diabetes, adrenal insufficiency) Hx Family Neuromuscular Disorders: No Hx Family Neurologic Disorders: No Hx Family HEENT Disorders: No Hx Family Autoimmune Disorders: Yes Father Family Member Ethnicity: Non- Living Status: Unknown Hx Family Cardiac Disorders: Yes (NV, HTN) Hx Family Respiratory Disorders: Yes (Enphesyma, COPD, Asthma) Hx Family Cancer: Yes (Unknown) Hx Family GI Disorders: Yes (Lactos Intolerant) Hx Family Endocrine Disorder: No Hx Family Neuromuscular Disorders: No Hx Family Neurologic Disorders: No Hx Family HEENT Disorders: No Hx Family Autoimmune Disorders: No Brother Family Member Ethnicity: Non- Living Status: Still Living Hx Family Cardiac Disorders: Yes (heart attack age 29) Medications and Allergies Docusate [Colace] 100 mg PO BID PRN 02/23/15 [History] Levothyroxine [Synthroid] 125 mcg PO DAILY 02/23/15 [History] Ranitidine HCl [Zantac] 150 mg PO BID 02/23/15 [History] Furosemide [Lasix] 20 mg PO DAILY 12/06/15 [History] Lamotrigine 200 mg PO BID 12/06/15 [History] Potassium Chloride [Klor-Con 10] 10 meq PO DAILY 12/06/15 [History] Trihexyphenidyl HCl 5 mg PO TID 12/06/15 [History] Albuterol Sulfate [Proair Respiclick] 2 puff IH Q4-6H PRN 12/07/15 [History] Aspirin [Ecotrin] 81 mg PO DAILY 12/07/15 [History] Atorvastatin [Lipitor] 40 mg PO HS 12/07/15 [History] Cetirizine HCl [All Day Allergy] 5 mg PO HS 12/07/15 [History] ClonazePAM [Klonopin] 0.5 mg PO BID 12/07/15 [History] Cyclobenzaprine [Flexeril] 10 mg PO BID 12/07/15 [History] Escitalopram [Lexapro] 20 mg PO DAILY 12/07/15 [History] Gabapentin [Neurontin] 300 mg PO HS 12/07/15 [History] L.acidoph,Paracasei, B.lactis [Probiotic] 1 cap PO DAILY 12/07/15 [History] Montelukast [Singulair] 10 mg PO HS 12/07/15 [History] Iloperidone [Fanapt] 10 mg PO BID 02/19/16 [History] Mometasone/Formoterol [Dulera 200 Mcg/5 Mcg Inhaler] 1 puff IH BID 02/19/16 [ History] Naproxen [Naprosyn] 500 mg PO BID 02/19/16 [History] SUMAtriptan [Imitrex] 50 mg PO DAILY PRN 02/19/16 [History] Allergies aripiprazole [From Abilify] Allergy (Verified 02/19/16 14:20) Hallucinating aspartame Allergy (Verified 02/19/16 14:20) See Comments aspirin Allergy (Verified 02/19/16 14:20) See Comments patient states low dose aspirin is ok Cefprozil [From Cefzil] Allergy (Verified 02/19/16 14:20) See Comments codeine Allergy (Verified 02/19/16 14:20) See Comments duloxetine [From Cymbalta] Allergy (Verified 02/19/16 14:20) See Comments Erythromycin Base Allergy (Verified 02/19/16 14:20) See Comments esomeprazole [From Nexium] Allergy (Verified 02/19/16 14:20) See Comments oxybutynin Allergy (Verified 02/19/16 14:20) Dizziness Penicillins Allergy (Verified 02/19/16 14:20) See Comments pregabalin [From Lyrica] Allergy (Verified 02/19/16 14:20) Hallucinating Sulfa (Sulfonamide Antibiotics) Allergy (Verified 02/19/16 14:20) See Comments ziprasidone [From Geodon] Allergy (Verified 02/19/16 14:20) Hallucinating celecoxib [From Celebrex] Adverse Reaction (Verified 02/19/16 14:20) Hallucinating metformin Adverse Reaction (Verified 02/19/16 14:20) Diarrhea All Systems Review: A 10-system review of systems was performed and is negative for pertinent findings except as documented above in the HPI. - Cardiovascular Cardiovascular: as per HPI, chest pain at rest, chest pain with exertion, dyspnea at rest, dyspnea on exertion - Respiratory Respiratory: dyspnea - Gastrointestinal Gastrointestinal: abdominal pain, nausea Physical Examination Vital Signs Temp Pulse Resp BP Pulse Ox 02/23/16 07:04 97.7 F 52 15 112/69 97 02/23/16 04:22 97.7 F 83 16 132/75 95 02/23/16 04:13 16 89 L 02/22/16 23:13 16 94 L 02/22/16 23:09 97.9 F 89 16 156/79 94 L 02/22/16 18:32 98.4 F 98 18 128/79 94 L 02/22/16 16:53 18 99 02/22/16 15:57 98.0 F 107 16 131/77 93 L 02/22/16 12:12 16 98 Intake and Output 02/22/16 02/23/16 02/23/16 23:59 07:59 15:59 Intake Total 1850 / 1850 Output Total 850 / 850 Balance 1000 / 1000 Intake: Oral 1849 / 0 Output: Urine 850 / 850 Other: Meal Dinner NPO for breakfast. Percent of Meal Consumed 90% Weight 127.913 kg Blood Glucose* 92 100 Patient Weight 02/23/16 23:59 Weight 127.913 kg General: Conversant, No Apparent Distress HEENT: Atraumatic, Normocephaly, Mucus Membranes Moist Neck: No JVD, Normal carotid pulses Cardiac: Reg Rate and Rhythm, Normal S1 and S2, No Murmur Lungs: Normal Breath Sounds, No Wheeze, Rales, Rhonchi Neuro: Alert and responsive, No focal deficits noted Abdomen: Soft, Non-Tender Skin: No rashes noted on visualized skin Musculoskeletal: No Chest Wall Tenderness Extremities: No Clubbing, No Cyanosis, No Edema, Normal Pulses Results 02/23/16 04:00 02/23/16 04:00 Lab Results 02/23/16 02/23/16 04:00 04:00 WBC 5.3 Hgb 11.0 L Hct 36.3 Plt Count 239 Sodium 140 Potassium 3.7 Chloride 108 Carbon Dioxide 21 BUN 6 L Creatinine 0.67 Glucose 81 Calcium 8.4 L Short CBC 02/23/16 Range/Units 04:00 WBC 5.3 (4.3-11.1) K/mcL Hgb 11.0 L (11.5-15.4) g/dL Hct 36.3 (35.3-44.9) % Plt Count 239 (140-400) K/mcL Neutrophils # 3.0 (1.6-8.9) K/mcL BMP 02/23/16 Range/Units 04:00 Sodium 140 (136-145) mEq/L Potassium 3.7 (3.5-4.5) mEq/L Chloride 108 (98-109) mEq/L Carbon Dioxide 21 (19-29) mEq/L BUN 6 L (7-20) mg/dL Creatinine 0.67 (0.57-1.11) mg/dL Glucose 81 (70-99) mg/dL Calcium 8.4 L (8.6-10.8) mg/dL Active Medications Acetaminophen (Tylenol) 650 mg PO Q6HR PRN PRN Reason: Mild Pain (1-3) Stop: 07/15/17 19:14 Albuterol Sulfate (Proventil Neb) 2.5 mg IH Q2H PRN; Protocol PRN Reason: Shortness Of Breath/Wheezing Stop: 08/20/16 19:29 Albuterol/Ipratropium (Duoneb) 3 ml IH QIDR [place] PRN Reason: Protocol Stop: 08/20/16 23:01 Last Admin: 02/23/16 10:52 Dose: 3 ml Aspirin (Aspirin Ec) 81 mg PO DAILY [place] Stop: 08/21/16 09:01 Last Admin: 02/23/16 10:16 Dose: 81 mg Atorvastatin Calcium (Lipitor) 40 mg PO HS [place] Stop: 08/20/16 21:01 Last Admin: 02/22/16 20:33 Dose: 40 mg Clonazepam (Klonopin) 0.5 mg PO BID [place] Stop: 08/20/16 21:01 Last Admin: 02/23/16 10:16 Dose: 0.5 mg Cyclobenzaprine HCl (Flexeril) 10 mg PO BID [place] Stop: 08/20/16 21:01 Last Admin: 02/23/16 10:16 Dose: 10 mg Docusate Sodium (Colace) 100 mg PO BID PRN PRN Reason: Constipation Stop: 08/20/16 19:14 Escitalopram Oxalate (Lexapro) 20 mg PO DAILY [place] Stop: 08/21/16 09:01 Last Admin: 02/23/16 10:15 Dose: 20 mg Famotidine (Pepcid) 20 mg PO BID [place] Stop: 08/20/16 21:01 Last Admin: 02/23/16 10:16 Dose: 20 mg Furosemide (Lasix) 20 mg PO DAILY [place] Stop: 08/21/16 09:01 Last Admin: 02/23/16 10:16 Dose: 20 mg Gabapentin (Neurontin) 300 mg PO HS [place] Stop: 08/20/16 21:01 Last Admin: 02/22/16 20:32 Dose: 300 mg Heparin Sodium (Porcine) (Heparin) 5,000 unit SQ Q12HR [place] Stop: 08/21/16 06:01 Last Admin: 02/23/16 06:30 Dose: 5,000 unit Lactobacillus Acidophilus/Rhamnosus (Culturelle) 1 each PO DAILY [facility] Stop: 08/21/16 09:01 Last Admin: 02/23/16 10:16 Dose: 1 each Lamotrigine (Lamictal) 200 mg PO BID [facility] Stop: 08/20/16 21:01 Last Admin: 02/23/16 10:16 Dose: 200 mg Levothyroxine Sodium (Synthroid) 125 mcg PO DAILY [facility] Stop: 08/21/16 09:01 Last Admin: 02/23/16 10:15 Dose: 125 mcg Loratadine (Claritin) 10 mg PO HS [facility] Stop: 08/20/16 21:01 Last Admin: 02/22/16 20:34 Dose: 10 mg Montelukast Sodium (Singulair) 10 mg PO HS [facility] Stop: 08/20/16 21:01 Last Admin: 02/22/16 20:32 Dose: 10 mg Naloxone HCl (Narcan) 0.4 mg IVP Q2MIN PRN PRN Reason: Opioid Reversal Stop: 08/20/16 19:14 Naproxen (Naprosyn) 500 mg PO BID [facility] PRN Reason: Protocol Stop: 08/20/16 21:01 Last Admin: 02/23/16 10:16 Dose: 500 mg Nitroglycerin (Nitroglycerin) 0.4 mg SL Q5MIN PRN PRN Reason: Chest Pain Stop: 08/20/16 15:10 Last Admin: 02/19/16 15:29 Dose: 0.4 mg (Iloperidone [Fanapt (] 10 Mg)) 10 mg PO BID [facility] Stop: 08/20/16 21:01 Last Admin: 02/23/16 10:17 Dose: Not Given Ondansetron HCl (Zofran Odt) 4 mg SL Q8HR PRN PRN Reason: Nausea And Vomiting Stop: 08/20/16 19:14 Last Admin: 02/19/16 22:16 Dose: 4 mg Potassium Chloride (Potassium Chloride) 10 meq PO DAILY [facility] Stop: 08/21/16 09:01 Last Admin: 02/23/16 10:16 Dose: 10 meq Sumatriptan Succinate (Imitrex) 50 mg PO DAILY PRN PRN Reason: Migraine Headache Stop: 08/20/16 19:19 Throat Lozenges (Cepacol Sore Throat Lozenge) 1 each MM Q2H PRN PRN Reason: Sore Throat Stop: 08/21/16 17:37 Last Admin: 02/20/16 21:44 Dose: 1 each Trihexyphenidyl HCl (Artane) 5 mg PO TID [facility] Stop: 08/20/16 21:01 Last Admin: 02/23/16 10:15 Dose: 5 mg - Imaging and Cardiology Chest Xray: report reviewed Stress Test: report reviewed (02/23/16--small sized, moderate intensity perfusion defect in the anterolateral wall in which ischemia cannot be ruled out. Gated EF 59%.) Echo: report reviewed (11/2015 EF 60%.) - EKG Interpretation EKG results cardiology: personally reviewed (SR, ST-T flattening noted diffusely throughout), other (12 hour tele AVG HR 89, SR, no significant pauses or arrhythmias.) Consult Discharge Plan - Plan Referrals: Mundo Barnes MD [Primary Care Provider] - 02/29/16 9:45 am
[2016-02-23] MEDS ORDERED: *HR* Propofol 200 MG/20 ML VIAL IVP ONE (12:22)
[2016-02-23] MEDS ORDERED: Lidocaine -MPF 2% 5 ML VIAL INFILT ONE (12:22)
--- NOTE | 2016-02-23 12:42 | Anesthesia Evaluation PreOp ---
Date of Encounter: 02/23/16 Time of Encounter: 12:40 - Past History Planned Operation: EGD Cardiac History: HTN, Hyperlipidemia Pulmonary History: Asthma, COPD [employer] History: Denies Any Significant HX Other Medical History: Thyroid, Other (Morbid Obesity, Schizo Affective Disorder ) Anesthesia History: No Prior Anesthetic Complications Alcohol Use: none Drug use: none Medications and Allergies Docusate [Colace] 100 mg PO BID PRN 02/23/15 [History] Levothyroxine [Synthroid] 125 mcg PO DAILY 02/23/15 [History] Ranitidine HCl [Zantac] 150 mg PO BID 02/23/15 [History] Furosemide [Lasix] 20 mg PO DAILY 12/06/15 [History] Lamotrigine 200 mg PO BID 12/06/15 [History] Potassium Chloride [Klor-Con 10] 10 meq PO DAILY 12/06/15 [History] Trihexyphenidyl HCl 5 mg PO TID 12/06/15 [History] Albuterol Sulfate [Proair Respiclick] 2 puff IH Q4-6H PRN 12/07/15 [History] Aspirin [Ecotrin] 81 mg PO DAILY 12/07/15 [History] Atorvastatin [Lipitor] 40 mg PO HS 12/07/15 [History] Cetirizine HCl [All Day Allergy] 5 mg PO HS 12/07/15 [History] ClonazePAM [Klonopin] 0.5 mg PO BID 12/07/15 [History] Cyclobenzaprine [Flexeril] 10 mg PO BID 12/07/15 [History] Escitalopram [Lexapro] 20 mg PO DAILY 12/07/15 [History] Gabapentin [Neurontin] 300 mg PO HS 12/07/15 [History] L.acidoph,Paracasei, B.lactis [Probiotic] 1 cap PO DAILY 12/07/15 [History] Montelukast [Singulair] 10 mg PO HS 12/07/15 [History] Iloperidone [Fanapt] 10 mg PO BID 02/19/16 [History] Mometasone/Formoterol [Dulera 200 Mcg/5 Mcg Inhaler] 1 puff IH BID 02/19/16 [ History] Naproxen [Naprosyn] 500 mg PO BID 02/19/16 [History] SUMAtriptan [Imitrex] 50 mg PO DAILY PRN 02/19/16 [History] Allergies aripiprazole [From Abilify] Allergy (Verified 02/19/16 14:20) Hallucinating aspartame Allergy (Verified 02/19/16 14:20) See Comments aspirin Allergy (Verified 02/19/16 14:20) See Comments patient states low dose aspirin is ok Cefprozil [From Cefzil] Allergy (Verified 02/19/16 14:20) See Comments codeine Allergy (Verified 02/19/16 14:20) See Comments duloxetine [From Cymbalta] Allergy (Verified 02/19/16 14:20) See Comments Erythromycin Base Allergy (Verified 02/19/16 14:20) See Comments esomeprazole [From Nexium] Allergy (Verified 02/19/16 14:20) See Comments oxybutynin Allergy (Verified 02/19/16 14:20) Dizziness Penicillins Allergy (Verified 02/19/16 14:20) See Comments pregabalin [From Lyrica] Allergy (Verified 02/19/16 14:20) Hallucinating Sulfa (Sulfonamide Antibiotics) Allergy (Verified 02/19/16 14:20) See Comments ziprasidone [From Geodon] Allergy (Verified 02/19/16 14:20) Hallucinating celecoxib [From Celebrex] Adverse Reaction (Verified 02/19/16 14:20) Hallucinating metformin Adverse Reaction (Verified 02/19/16 14:20) Diarrhea - Meds/Allergy Pre-op Review Medications Reviewed: Yes Allergies Reviewed: Yes Beta Blockers on Current Med List: No Anesthesia Results - Labs 02/23/16 04:00 02/23/16 04:00 - Imaging EKG: report reviewed (Sinus Tach non specific changes) Additional studies: EF 59% Anesthesia Exam O2 Sat Weight 127.913 kg O2 Sat by Pulse Oximetry 92 O2 Sat by Pulse Oximetry 97 O2 Sat by Pulse Oximetry 95 O2 Sat by Pulse Oximetry 89 O2 Sat by Pulse Oximetry 94 O2 Sat by Pulse Oximetry 94 O2 Sat by Pulse Oximetry 94 O2 Sat by Pulse Oximetry 99 O2 Sat by Pulse Oximetry 93 Vital Signs Temp Pulse Resp BP Pulse Ox 97.3 F L 112 18 132/68 94 L 02/19/16 14:11 02/19/16 14:11 02/19/16 14:11 02/19/16 14:11 02/19/16 14:11 Height: 5'1 Weight: 282 lbs NPO (# of Hours): MN - HEENT Pupil (Motor): Pupils equal, EOMI Mallampati: III Oral Opening: Less than or equal to 3 - [employer] LOC: Oriented [employer] Motor: Normal RUE, Normal LUE, Normal RLE, Normal LLE, Normal Face [employer] Sensory: Normal: RUE, LUE, RLE, LLE, Face - Cardiac Rhythm: Regular Murmur: None JVD: No Carotid Bruit: No - Pulmonary Breath Sounds: bilateral Clear Respiratory Effort: Symmetrical Anesthesia Assess/Plan ASA Score: 3 (MO Astma COPD) Modified Charu Scale for Level of Consciousness: Cooperative, oriented, and tranquil Anesthetic Plan: MAC Monitoring Plan: Standard Monitors Recovery Plan: Other (Discussed MAC, agrees to proceed)
[2016-02-23] MEDS ORDERED: 0.9 % Sodium Chloride 1,000 ML IVC SCH (13:00)
--- NOTE | 2016-02-23 14:37 | Anesthesia Evaluation Post Op ---
Date of Encounter: 02/23/16 Time of Encounter: 14:04 - Vital Signs Vital Signs: 129/76, HR 93, 91% (baseline), RR 16 - Lungs Lungs: Clear Ascult./Percussion - Airway Airway: Non-obstructed - Cardiovascular Regular Rate - Mental Status Mental Status: Asleep with brisk response to light stimulation - Pain Pain Scale: 4 Pain Scale used: Numeric (1 - 10) - Nausea Vomiting Nausea Vomiting: Not Present - Hydration Hydration: NPO, Has not voided - Discharge PostOp Status: Transfer Patient to floor
--- NOTE | 2016-02-23 15:41 | Internal Med Progress Note ---
Date of Encounter: 02/23/16 Time of Encounter: 12:15 - Assessment and plan (1) Acute chest wall pain Current Visit: Yes Status: Acute Assessment and plan: Patient does have chest wall tenderness. Continue supportive care and pain control. (2) Abnormal stress test Current Visit: Yes Status: Acute Assessment and plan: Consulted cardiology. Will follow their recommendations. (3) Bipolar 1 disorder Current Visit: No Status: Acute Assessment and plan: On Lamictal. (4) Hypertension Current Visit: No Status: Chronic Assessment and plan: Well-controlled. Qualifiers: Hypertension type: essential hypertension Qualified Code(s): I10 - Essential (primary) hypertension (5) Obesity, morbid, BMI 50 or higher Current Visit: Yes Status: Chronic (6) Painful swallowing Current Visit: Yes Status: Acute Assessment and plan: Awaiting upper GI endoscopy planned for later today. - Subjective Interval history: Patient is complaining of heaviness in her chest and trouble with eating. Denies any shortness of breath. No nausea or vomiting. No hematemesis. No melena. - Constitutional Vitals: Temp Pulse Resp BP Pulse Ox 97.6 F 86 16 125/77 93 L 02/23/16 13:55 02/23/16 14:10 02/23/16 14:10 02/23/16 14:10 02/23/16 14:10 General appearance: Present: A&O X 3, morbidly obese, no acute distress, answers questions appropriately - Respiratory Respiratory exam: Present: chest wall tenderness (In the sternal region), CTAB. Absent: accessory muscle use, rales, rhonchi, wheezes - Cardiovascular Cardiovascular exam: Present: RRR, +S1, +S2. Absent: diastolic murmur, gallop, rubs, systolic murmur - GI/Abdominal GI/Abdominal exam: Present: normal bowel sounds, soft, no peritoneal signs. Absent: distended, tenderness - Extremities Exam Extremities exam: Present: warm, radial pulses palpable and symetrical. Absent : calf tenderness, cyanotic, pedal edema - Neurological Exam Neurological exam: Present: CN II-XII intact, oriented X3, no focal deficits. Absent: facial droop, speech deficit Internal Medicine: Result - Labs CBC & Chem 7: 02/23/16 04:00 02/23/16 04:00 - ABG Interpretation ABG results: PT/INR, D-dimer D-Dimer 448 ng/mLFEU (0-500) 02/19/16 16:14 Consult Discharge Plan - Plan Referrals: Mundo Barnes MD [Primary Care Provider] - 02/29/16 9:45 am - Attending Attestation This document has been at least partially created by [employer] recognition technology by Dr. Shannon. Errors in grammar, wording or other phrases may exist. If errors are found after the documentation is signed, they will be addressed individually in the addendum section of this document when appropriate. Medical Decision Making - MDM Narrative Medical decision making narrative: Moderate risk for complications - Lab Data Lab results reviewed: Yes I reviewed the patient's lab results. Result diagrams: 02/23/16 04:00 02/23/16 04:00
[2016-02-23] MEDS: Gabapentin 300 MG CAPSULE PO SCH (21:10)
[2016-02-23] MEDS: Loratadine 10 MG TABLET PO SCH (21:11)
[2016-02-24] MEDS: Ipratropium/Albuterol Neb 3 ML IH SCH ×4 (04:15→22:54)
[2016-02-24] MEDS: *HR* Heparin 5,000 UNIT/ML VIAL SQ SCH ×2 (04:52→17:12)
[2016-02-24 05:23] LABS: Basophils % 0.4 %; Eosinophils # 0.2 K/mcL (0.0-0.6); Eosinophils % 3.8 %; Hematocrit 38.9 % (35.3-44.9); Hemoglobin 11.9 g/dL (11.5-15.4); Immature Granulocytes % 0.8 % (0-4); Lymphocytes # 1.7 K/mcL (0.6-4.6); Lymphocytes % 31.7 %; Mean Corpuscular HGB Conc 30.6 g/dL (31.6-35.5); Mean Corpuscular Hemoglobin 25.9 pg (28.0-33.3); Mean Corpuscular Volume 84.6 fL (83.0-100.0); Mean Platelet Volume 8.9 fL (9.4-12.4); Monocytes # 0.4 K/mcL (0.0-1.3); Monocytes % 8.4 %; Neutrophils # 2.9 K/mcL (1.6-8.9); Platelet Count 259 K/mcL (140-400); Red Cell Distribution Width 16.9 % (11.5-14.5); Segmented Neutrophils % 54.9 %
[2016-02-24 05:45] LABS: BUN/Creatinine Ratio 7 (6-26); Calcium 8.5 mg/dL (8.6-10.8); Carbon Dioxide 23 mEq/L (19-29); Chloride 109 mEq/L (98-109); Glucose 80 mg/dL (70-99); Osmolality,Calculated 290 (280-300); Potassium 3.5 mEq/L (3.5-4.5); Sodium 142 mEq/L (136-145); eGFR For African Americans > 60 (> 60); eGFR For Non-African Americans > 60 (> 60)
[2016-02-24 05:46] LABS: Blood Urea Nitrogen 5 mg/dL (7-20)
[2016-02-24] MEDS: clonazePAM 0.5 MG TABLET PO SCH ×2 (09:01→21:18)
[2016-02-24] MEDS: GI Cocktail 40 ML EACH PO SCH ×3 (09:02→21:24)
[2016-02-24] MEDS: Furosemide 20 MG TABLET PO SCH (09:02)
[2016-02-24] MEDS: Aspirin Enteric Coated 81 MG Tablet PO SCH (09:02)
[2016-02-24] MEDS: Lactobacillus 1 EACH CAP.SPRINK PO SCH (09:02)
[2016-02-24] MEDS: lamoTRIgine 100 MG TABLET PO SCH ×2 (09:02→21:18)
[2016-02-24] MEDS: Famotidine 20 MG TABLET PO SCH ×2 (09:02→21:19)
[2016-02-24] MEDS: ILOPERIDONE PO SCH ×2 (09:04→21:17)
--- NOTE | 2016-02-24 09:10 | Event Note ---
Date of Encounter: 02/24/16 Time of Encounter: 09:09 - Cardiology Event Note EGD results reviewed--nonbleeding ulcers noted on EGD that were biopsied. Discussed with Dr. Blackwood--okay to proceed with C and if PCI is necessary, okay to start DAPT today. LHC today. R/B/A discussed.
--- NOTE | 2016-02-24 11:59 | Internal Med Progress Note ---
Date of Encounter: 02/24/16 Time of Encounter: 11:00 - Assessment and plan (1) Acute chest wall pain Current Visit: Yes Status: Acute Assessment and plan: Plan for cardiac catheter today. (2) Abnormal stress test Current Visit: Yes Status: Acute Assessment and plan: Plan for cardiac cath today. (3) Bipolar 1 disorder Current Visit: No Status: Acute Assessment and plan: On usual home medication regimen (4) Hypertension Current Visit: Yes Status: Chronic Assessment and plan: Controlled Qualifiers: Hypertension type: essential hypertension Qualified Code(s): I10 - Essential (primary) hypertension (5) Obesity, morbid, BMI 50 or higher Current Visit: No Status: Chronic (6) Painful swallowing Current Visit: Yes Status: Acute Assessment and plan: Speech therapy evaluated patient. Recommended mechanically altered diet with thin liquids. Due to esophageal ulcers (7) Esophageal ulcer without bleeding Current Visit: Yes Status: Acute Assessment and plan: Treat with PPI and GI cocktail. - Subjective Interval history: The patient continues to have some chest discomfort. She received GI cocktail this morning with which improved her pain. Denies any palpitations or lightheadedness. She underwent upper GI endoscopy yesterday and was found to have esophageal ulcers. - Constitutional Vitals: Temp Pulse Resp BP Pulse Ox 98.1 F 99 18 90/59 91 L 02/24/16 11:47 02/24/16 11:47 02/24/16 11:47 02/24/16 11:47 02/24/16 11:47 General appearance: Present: A&O X 3, morbidly obese, no acute distress, answers questions appropriately - Respiratory Respiratory exam: Present: chest wall tenderness, CTAB. Absent: accessory muscle use, rales, rhonchi, wheezes - Cardiovascular Cardiovascular exam: Present: RRR, +S1, +S2. Absent: diastolic murmur, gallop, rubs, systolic murmur - GI/Abdominal GI/Abdominal exam: Present: normal bowel sounds, soft, no peritoneal signs. Absent: distended - Extremities Exam Extremities exam: Present: warm, radial pulses palpable and symetrical. Absent : calf tenderness, cyanotic, pedal edema - Neurological Exam Neurological exam: Present: oriented X3, no focal deficits. Absent: facial droop, speech deficit - Skin Skin exam: Present: dry, intact Internal Medicine: Result - Labs CBC & Chem 7: 02/24/16 04:15 02/24/16 04:15 Labs: Short CBC 02/24/16 Range/Units 04:15 WBC 5.2 (4.3-11.1) K/mcL Hgb 11.9 (11.5-15.4) g/dL Hct 38.9 (35.3-44.9) % Plt Count 259 (140-400) K/mcL Neutrophils # 2.9 (1.6-8.9) K/mcL BMP 02/24/16 04:15 Sodium 142 Potassium 3.5 Chloride 109 Carbon Dioxide 23 BUN 5 L Creatinine 0.68 Glucose 80 Calcium 8.5 L - ABG Interpretation ABG results: PT/INR, D-dimer D-Dimer 448 ng/mLFEU (0-500) 02/19/16 16:14 Consult Discharge Plan - Plan Referrals: Mundo Barnes MD [Primary Care Provider] - 02/29/16 9:45 am - Attending Attestation This document has been at least partially created by [employer] recognition technology by Dr. Shannon. Errors in grammar, wording or other phrases may exist. If errors are found after the documentation is signed, they will be addressed individually in the addendum section of this document when appropriate. Medical Decision Making - MDM Narrative Medical decision making narrative: Moderate risk for complications - Lab Data Lab results reviewed: Yes I reviewed the patient's lab results. Result diagrams: 02/24/16 04:15 02/24/16 04:15 Lab Results 02/23/16 02/24/16 02/24/16 Range/Units 17:11 04:15 04:15 WBC 5.2 (4.3-11.1) K/mcL RBC 4.60 (3.82-4.97) M/mcL Hgb 11.9 (11.5-15.4) g/dL Hct 38.9 (35.3-44.9) % MCV 84.6 (83.0-100.0) fL MCH 25.9 L (28.0-33.3) pg MCHC 30.6 L (31.6-35.5) g/dL RDW 16.9 H (11.5-14.5) % Plt Count 259 (140-400) K/mcL MPV 8.9 L (9.4-12.4) fL Immature Gran % 0.8 (0-4) % Seg Neutrophils % 54.9 % Lymphocytes % 31.7 % Monocytes % 8.4 % Eosinophils % 3.8 % Basophils % 0.4 % Neutrophils # 2.9 (1.6-8.9) K/mcL Lymphocytes # 1.7 (0.6-4.6) K/mcL Monocytes # 0.4 (0.0-1.3) K/mcL Eosinophils # 0.2 (0.0-0.6) K/mcL Basophils # 0.0 (0.0-0.2) K/mcL Sodium 142 (136-145) mEq/L Potassium 3.5 (3.5-4.5) mEq/L Chloride 109 (98-109) mEq/L Carbon Dioxide 23 (19-29) mEq/L BUN 5 L (7-20) mg/dL Creatinine 0.68 (0.57-1.11) mg/dL Est GFR ( Amer) > 60 (> 60) Est GFR (Non-Af Amer) > 60 (> 60) BUN/Creatinine Ratio 7 (6-26) Glucose 80 (70-99) mg/dL POC Glucose 82 (58-89) Calculated Osmolality 290 (280-300) Calcium 8.5 L (8.6-10.8) mg/dL 02/24/16 Range/Units 07:51 WBC (4.3-11.1) K/mcL RBC (3.82-4.97) M/mcL Hgb (11.5-15.4) g/dL Hct (35.3-44.9) % MCV (83.0-100.0) fL MCH (28.0-33.3) pg MCHC (31.6-35.5) g/dL RDW (11.5-14.5) % Plt Count (140-400) K/mcL MPV (9.4-12.4) fL Immature Gran % (0-4) % Seg Neutrophils % % Lymphocytes % % Monocytes % % Eosinophils % % Basophils % % Neutrophils # (1.6-8.9) K/mcL Lymphocytes # (0.6-4.6) K/mcL Monocytes # (0.0-1.3) K/mcL Eosinophils # (0.0-0.6) K/mcL Basophils # (0.0-0.2) K/mcL Sodium (136-145) mEq/L Potassium (3.5-4.5) mEq/L Chloride (98-109) mEq/L Carbon Dioxide (19-29) mEq/L BUN (7-20) mg/dL Creatinine (0.57-1.11) mg/dL Est GFR ( Amer) (> 60) Est GFR (Non-Af Amer) (> 60) BUN/Creatinine Ratio (6-26) Glucose (70-99) mg/dL POC Glucose 89 (58-89) Calculated Osmolality (280-300) Calcium (8.6-10.8) mg/dL
[2016-02-24] MEDS ORDERED: 0.9 % Sodium Chloride 1,000 ML ONE ×2 (13:45→14:13)
[2016-02-24] MEDS ORDERED: *HR* Heparin 10,000 UNIT/10 ML VIAL ONE (13:45)
[2016-02-24] MEDS ORDERED: Heparin 1,000 UNITS/500 mL NS 500 ML ONE (13:45)
[2016-02-24] MEDS ORDERED: *HR* Midazolam HCl 5 MG/5 ML VIAL IVP ONE (14:10)
[2016-02-24] MEDS ORDERED: *HR* FentaNYL (PF) 100 MCG/2 ML VIAL ONE (14:10)
[2016-02-24] MEDS ORDERED: Verapamil 5 MG/2 ML VIAL ONE (14:13)
[2016-02-24] MEDS ORDERED: Nitroglycerin 1,000 MCG/10 ML VIAL IV ONE (14:13)
--- NOTE | 2016-02-24 14:25 | Pre-Sedation Evaluation ---
Pre-sedation evaluation - Pre-sedation checklist Date of procedure: 02/24/16 Procedure: [facility] Recent Vitals: Last Vital Signs Temp 98.1 F 02/24/16 11:47 Pulse 99 02/24/16 11:47 Resp 18 02/24/16 11:47 BP 90/59 02/24/16 11:47 Pulse Ox 91 L 02/24/16 11:47 H&P (including ROS) documented in medical record: Yes Previous reaction to sedatives/anesthetics: No Dietary Status: NPO after Midnight Airway Assessment: Patient can open mouth completely, TMJ function normal ASA Classification *see protocol: CLASS II-Mild systemic disease Plan of Care: Pt appropriate candidate for procedure/moderate/conscious sedation , Risks/benefits of procedure/sedation discussed w/ patient/family
--- NOTE | 2016-02-24 14:48 | Event Note ---
Date of Encounter: 02/24/16 Time of Encounter: 14:47 - Cardiology Event Note LHC reveals normal coronaries. Cardiology is signing off. Reconsult PRN.
--- NOTE | 2016-02-24 15:00 | Invasive Diagnostic Lab Proc ---
Name: Radha Parkinson Date of Study: 02/24/2016 Date: 1975 Ht: 61.8in Medical Record#: [id number] Age: 41 Wt: 299.83lb Gender: Female BSA: 2.27 Order #: [id number] BMI: 55.17 Physicians Procedure Physician: Colton Castaneda MD, [facility] Referring MD: Referring MD: Staff Name Position Time In Barbara Donato RT (R) Monitor 02:18 PM Larry Shepherd RN Associate Professor Of Media [employer] 02:18 PM Dipika Michel RT Scrub 02:18 PM Indications Indication Abnormal Test - Stress Procedures Performed Procedure L HRT ARTERY/VENTRICLE ANGIO Pre-Procedure Checklist Informed consent is complete signed and on chart. H\\T\\P is on chart. ID band is on and ID verified with patient. Patient NPO for procedure The procedure was described for the patient and questions were answered. Blood Pressure: 98/65 ECG is on chart. Rhythm: NSR Plan of Care Patient will tolerate the procedure without complications. Adequate level of comfort will be maintained. Hemodynamics will remain stable Patient will recover from procedure without complications. Respiratory function will be maintained. Cardiac rhythm will remain stable. Patient temperature will be maintained. Patient and/or family have verbalized understanding of the procedure. Patient Education Intravenous Access Time IV Size Location DC'd Fluid/Drip Rate Units RN 01:35 PM 20g 1 02/09" Patent On Arrival Rt Antecubital 0.9NaCl 25 ml/hr Larry Shepherd RN Allergies aspirin aspartame PCN, NUTRASWEET,ASA,CODEINE,SULFA,EES Erythromycin Vital Signs Time BP (mmHg) HR (bpm) O2 Sat. RR (bpm) LOC 01:35 PM 98 / 65 88 94 % 18 5 = Fully awake and oriented or at pre-proc level 02:18 PM / % 5 = Fully awake and oriented or at pre-proc level 02:18 PM / % 4 = Oriented but drowsy 02:15 PM 138 / 73 76 97 % 18 02:20 PM 126 / 75 77 95 % 17 02:25 PM 134 / 76 78 95 % 16 02:30 PM 136 / 76 77 95 % 21 02:35 PM 123 / 71 88 95 % 14 02:40 PM 120 / 69 86 96 % 13 02:45 PM 127 / 70 78 96 % 17 Procedural Medications Time Medication Dose Units Method Given By 02:17 PM Oxygen 2 L/min nasal cannula Larry Shepherd RN 02:18 PM Versed 3 mg Intravenous Larry Shepherd RN 02:18 PM Fentanyl 50 mcg Intravenous Larry Shepherd RN 02:32 PM Lidocaine 2% 1 ml Subcutaneous Colton Castaneda MD, [facility] 02:34 PM Heparin 4000 units Nitroglycerin 200 mcg Verapamil 2.5 mg Intraarterial Colton Castaneda MD, [facility] ASA Classification: CLASS II- Mild systemic disease (i.e. well-controlled diabetes, hypertension, asthma, cigarette smoking) Darby Score Preprocedure Postprocedure Activity 2- Moves 4 extremities sustained head lift Activity 2- Moves 4 extremities sustained head lift Circulation 2- SBP +/= 20 points of pre-anesthetic level Circulation 2- SBP +/= 20 points of pre-anesthetic level Consciousness 2- Awake and alert oriented x 3 Consciousness 2- Awake and alert oriented x 3 O2 Saturation 2- Able to maintain O2 satruation of 92% on room air O2 Saturation 2- Able to maintain O2 satruation of 92% on room air Respiratory 2- Able to deep breathe and cough well Respiratory 2- Able to deep breathe and cough well Total Score 10 Total Score 10 Contrast Agent: Isovue Diagnostic Contrast: 48 ml Total Contrast: 48 ml Fluoro Dose: 280 mGy Procedure Log Time Note Enter By 02:09 PM Pt arrived to slab puller 2 at 14:09 [email or web address] 02:09 PM Physician arrived 14:09 [email or web address] 02:09 PM ASA Class CLASS II- Mild systemic disease (i.e. well-controlled diabetes, hypertension, asthma, cigarette smoking) [email or web address] 02:09 PM Meet and greet completed [email or web address] 02:09 PM Sign in performed according to hospital policy. [email or web address] 02:09 PM Procedure start 14:09 [email or web address] 02:09 PM CathStat 02:14 PM Vitals capture started with the following parameters, Patient=Adult, Interval=5 min, Initial Hrbhblge=024 mmHg, Deflation Rate=5 mmHg, Cuff placed on Right Arm 02:15 PM HR=76 bpm, IFKJ=138/73 mmhg, SpO2=97.0 %, Resp=18 B/min 02:17 PM Time: 14:17 Oxygen on at 2 L/min per nasal cannula by Larry Shepherd RN 02:18 PM Time: 14:18 Patient comfortable and pain free: Yes ilson :18 PM Time: 14:18LOC: 5 = Fully awake and oriented or at pre-proc level twilson :18 PM Barbara Donato RT (R) Position: Monitor Time in: :18 twilson 02:18 PM Larry Shepherd RN Position: Associate Professor Of Media [employer] Time in: 14:18 ilson 02:18 PM Dipika Michel RT Position: Scrub Time in: :18 twilson 02:18 PM Patient charges- Angio tray pack, Navilyst 3mm J, Pulse Oximetry and ACIST tubing and transducer twilson 02:18 PM Case Delayed no twilson :18 PM Hair removed from procedure site in procedure lab using clippers. Right wrist prepped with Chloraprep by Barbara Donato (R) then patient draped. Skin intact. ilson :18 PM Time: 14:18 Versed 3 mg Intravenous Given by Larry Shepherd RN ilson 02:19 PM Time: 14:18 Fentanyl 50 mcg Intravenous Given by Larry Shepherd RN twilson 02:20 PM HR=77 bpm, WXZS=593/75 mmhg, SpO2=95.0 %, Resp=17 B/min 02:22 PM Pressure channel 1 zeroed. 02:25 PM HR=78 bpm, AWPF=662/76 mmhg, SpO2=95.0 %, Resp=16 B/min 02:30 PM HR=77 bpm, TNEF=394/76 mmhg, SpO2=95.0 %, Resp=21 B/min 02:30 PM Recorded ECG: HR=78 Condition=Condition 1 02:31 PM Time out performed according to hospital policy twilson 02:32 PM Time: 14:32 1 ml Lidocaine 2% to right radial Subcutaneous Given by Colton Castaneda MD, [facility] twilson 02:33 PM Time: 14:18LOC: 4 = Oriented but drowsy twilson :33 PM Time: 14:18 Patient comfortable and pain free: Yes twilson 02:33 PM Access obtained by percutaneous puncture. 6Fr 10cm Terumo Glidesheath sheath placed in right Radial artery. [id number] twilson 02:34 PM Time: 14:34 Patient given 4,000 units Heparin, 200 mcg Nitroglycerin, and 2.5 mg Verapamil Intraarterial by Colton Castaneda MD, FACC twilson 02:35 PM 5Fr TIG catheter inserted over the wire [facility] twilson 02:35 PM Wire removed, intact. twilson 02:35 PM HR=88 bpm, UTLF=239/71 mmhg, SpO2=95.0 %, Resp=14 B/min 02:36 PM 0.035 150cm VSI Hiram-Torque wire [id number] twilson 02:38 PM Catheter selectively placed in left ventricle twilson 02:38 PM Pressure channel 1 zero failed. 02:38 PM Pressure channel 1 zero failed. 02:38 PM Pressure channel 1 zero failed. 02:38 PM Pressure channel 1 zero failed. 02:38 PM Pressure channel 1 zeroed. 02:38 PM Recorded Pressure: LV, HR=94, Condition=Condition 1 (Left Ventricle) LV 104/7/14 02:38 PM Bolus angiogram of left Ventricle complete: 10 ml/sec for a total of 25 mls twilson 02:39 PM Recorded Pressure: LV, Ao, HR=93, Condition=Condition 1 (Left Ventricle) LV 118/9/17, (Aorta) Ao 109/55/86 02:39 PM RCA angiography performed in multiple views. twilson 02:40 PM Recorded Pressure: Ao, HR=91, Condition=Condition 1 (Aorta) Ao 112/90/101 02:40 PM HR=86 bpm, IEWY=521/69 mmhg, SpO2=96.0 %, Resp=13 B/min 02:40 PM Catheter removed twilson 02:41 PM 5Fr FL3.5 catheter inserted over the wire [id number] twilson 02:42 PM Wire removed, intact. twilson 02:43 PM LCA angiography performed in multiple views. twilson 02:43 PM Recorded Pressure: Ao, HR=77, Condition=Condition 1 (Aorta) Ao 115/91/102 02:43 PM Coronary Dominance: right twilson 02:43 PM Wire reinserted and catheter removed twilson 02:44 PM Procedure completed at 14:44 twilson 02:44 PM Sign out completed: Radiation Dose 280.17 mGy Fluoro Time: 3.5 Isovue 370 - 200ml contrast 48 ml given by Colton Castaneda MD, [facility]. Complications: NoneCardiac Rehab Consult needed: NoConfirmed administered medications: Yes twilson 02:45 PM HR=78 bpm, IOFI=185/70 mmhg, SpO2=96.0 %, Resp=17 B/min 02:46 PM Isovue 370 - 200ml,1 Bottle(s) used. twilson 02:47 PM Arterial sheath pulled, Vasc Band closure device used and was Successful S/N. twilson 02:47 PM 14 ml air in Vasc Band. twilson 02:47 PM Post ECG NSR twilson 02:47 PM Post Blood Pressure 127/70 twilson 02:47 PM 14:47 Post Pulses Bilateral DP \\T\\ PT 2+ twilson 02:47 PM 14:47 Post Pulses Bilateral radial 2+ twilson 02:47 PM Information taught Cardiac Cath and Vasc Band twilson 02:48 PM Education needs Procedure, Plan of Care, and Responsibilities of Patient in Care twilson 02:48 PM Learning barriers :None twilson 02:48 PM Education Methods Verbal twilson 02:48 PM Education evaluation Able to repeat information twilson 02:48 PM Site status No bleeding/hematoma - Rt Wrist as reported by Dipika Michel RT at 14:48 twilson 02:48 PM Family placed in consult room. twilson 02:51 PM Report given to Dalia PARADA Pt taken to 3B Room #22. 14:51 twilson 02:53 PM Delay to floor No twilson 02:53 PM Patient out of room: 14:53 twilson Complications Complication None Hemodynamics Pressures Site Systolic/A Wave Diastolic/V Wave Mean LV 104 7 14 LV 118 9 17 AO 109 55 86 AO 112 90 101 AO 115 91 102 Post Procedure Information Blood Pressure: 127/70 mmHg Rhythm: NSR Post procedural instructions were given Closure Device Time Device Success/Fail 02/24/2016 2:45:00 PM Mechanical Compression Successful Site Checks Time Location Status Staff Sheath In? Note 02:48 PM Rt Wrist No bleeding/hematoma Dipika Michel RT Pulses Time Site Pre-Procedure Post-Procedure Note 02/24/2016 1:35:00 PM Bilateral DP \\T\\ PT 2+ 02/24/2016 1:35:00 PM Bilateral radial 2+ 2:47:00 PM Bilateral DP \\T\\ PT 2+ 2:47:00 PM Bilateral radial 2+ Updated by Barbara Donato RT (R) on 02/24/2016 2:53:43 PM electronically signed on 02/24/2016 2:54:32 PM with status of Final
[2016-02-24] MEDS: Gabapentin 300 MG CAPSULE PO SCH (21:17)
[2016-02-24] MEDS: Loratadine 10 MG TABLET PO SCH (21:19)
[2016-02-25] MEDS: Ipratropium/Albuterol Neb 3 ML IH SCH ×2 (03:34→11:20)
[2016-02-25 04:06] LABS: Basophils % 0.3 %; Eosinophils # 0.2 K/mcL (0.0-0.6); Eosinophils % 2.9 %; Hematocrit 37.1 % (35.3-44.9); Hemoglobin 11.5 g/dL (11.5-15.4); Immature Granulocytes % 0.4 % (0-4); Lymphocytes # 1.6 K/mcL (0.6-4.6); Lymphocytes % 20.6 %; Mean Corpuscular Hemoglobin 26.2 pg (28.0-33.3); Mean Corpuscular Volume 84.5 fL (83.0-100.0); Mean Platelet Volume 8.9 fL (9.4-12.4); Monocytes # 0.5 K/mcL (0.0-1.3); Monocytes % 5.9 %; Neutrophils # 5.5 K/mcL (1.6-8.9); Platelet Count 247 K/mcL (140-400); Red Blood Count 4.39 M/mcL (3.82-4.97); Red Cell Distribution Width 16.7 % (11.5-14.5); Segmented Neutrophils % 69.9 %
[2016-02-25 04:19] LABS: BUN/Creatinine Ratio 10 (6-26); Blood Urea Nitrogen 7 mg/dL (7-20); Carbon Dioxide 22 mEq/L (19-29); Chloride 109 mEq/L (98-109); Potassium 3.8 mEq/L (3.5-4.5); Sodium 141 mEq/L (136-145)
[2016-02-25 04:20] LABS: Calcium 8.4 mg/dL (8.6-10.8); Glucose 106 mg/dL (70-99); Osmolality,Calculated 290 (280-300); eGFR For African Americans > 60 (> 60); eGFR For Non-African Americans > 60 (> 60)
[2016-02-25] MEDS: *HR* Heparin 5,000 UNIT/ML VIAL SQ SCH (05:41)
[2016-02-25] MEDS: clonazePAM 0.5 MG TABLET PO SCH (08:29)
[2016-02-25] MEDS: Lactobacillus 1 EACH CAP.SPRINK PO SCH (08:35)
[2016-02-25] MEDS: Famotidine 20 MG TABLET PO SCH (08:36)
[2016-02-25] MEDS: Aspirin Enteric Coated 81 MG Tablet PO SCH (08:36)
[2016-02-25] MEDS: Furosemide 20 MG TABLET PO SCH (08:36)
[2016-02-25] MEDS: GI Cocktail 40 ML EACH PO SCH (08:37)
[2016-02-25] MEDS: lamoTRIgine 100 MG TABLET PO SCH (08:41)
[2016-02-25] MEDS: ILOPERIDONE PO SCH (10:49)
[2016-02-25 11:08] VITALS: BP 100/67
--- NOTE | 2016-02-25 11:22 | Discharge Summary ---
Date of Encounter: 02/25/16 Time of Encounter: 11:00 - Discharge Diagnosis (1) Esophageal ulcer without bleeding Priority: Primary Status: Acute (2) Acute chest wall pain Priority: Secondary Status: Acute (3) Abnormal stress test Priority: Secondary Status: Acute (4) Bipolar 1 disorder Priority: Secondary Status: Acute (5) Hypertension Priority: Secondary Status: Chronic Qualifiers: Hypertension type: essential hypertension Qualified Code(s): I10 - Essential (primary) hypertension (6) Obesity, morbid, BMI 50 or higher Priority: Secondary Status: Chronic (7) Painful swallowing Priority: Secondary Status: Acute - Discharge Medications Prescriptions: GI Cocktail [Gi Cocktail] 40 ml PO TID #1000 ml Home Medications: Docusate [Colace] 100 mg PO BID PRN 02/23/15 [History] Levothyroxine [Synthroid] 125 mcg PO DAILY 02/23/15 [History] Ranitidine HCl [Zantac] 150 mg PO BID 02/23/15 [History] Furosemide [Lasix] 20 mg PO DAILY 12/06/15 [History] Lamotrigine 200 mg PO BID 12/06/15 [History] Potassium Chloride [Klor-Con 10] 10 meq PO DAILY 12/06/15 [History] Trihexyphenidyl HCl 5 mg PO TID 12/06/15 [History] Albuterol Sulfate [Proair Respiclick] 2 puff IH Q4-6H PRN 12/07/15 [History] Aspirin [Ecotrin] 81 mg PO DAILY 12/07/15 [History] Atorvastatin [Lipitor] 40 mg PO HS 12/07/15 [History] Cetirizine HCl [All Day Allergy] 5 mg PO HS 12/07/15 [History] ClonazePAM [Klonopin] 0.5 mg PO BID 12/07/15 [History] Cyclobenzaprine [Flexeril] 10 mg PO BID 12/07/15 [History] Escitalopram [Lexapro] 20 mg PO DAILY 12/07/15 [History] Gabapentin [Neurontin] 300 mg PO HS 12/07/15 [History] L.acidoph,Paracasei, B.lactis [Probiotic] 1 cap PO DAILY 12/07/15 [History] Montelukast [Singulair] 10 mg PO HS 12/07/15 [History] Iloperidone [Fanapt] 10 mg PO BID 02/19/16 [History] Mometasone/Formoterol [Dulera 200 Mcg/5 Mcg Inhaler] 1 puff IH BID 02/19/16 [ History] SUMAtriptan [Imitrex] 50 mg PO DAILY PRN 02/19/16 [History] GI Cocktail [Gi Cocktail] 40 ml PO TID #1000 ml 02/25/16 [Rx] Allergies/Adverse Reactions: Allergies aripiprazole [From Abilify] Allergy (Verified 02/19/16 14:20) Hallucinating aspartame Allergy (Verified 02/19/16 14:20) See Comments aspirin Allergy (Verified 02/19/16 14:20) See Comments patient states low dose aspirin is ok Cefprozil [From Cefzil] Allergy (Verified 02/19/16 14:20) See Comments codeine Allergy (Verified 02/19/16 14:20) See Comments duloxetine [From Cymbalta] Allergy (Verified 02/19/16 14:20) See Comments Erythromycin Base Allergy (Verified 02/19/16 14:20) See Comments esomeprazole [From Nexium] Allergy (Verified 02/19/16 14:20) See Comments oxybutynin Allergy (Verified 02/19/16 14:20) Dizziness Penicillins Allergy (Verified 02/19/16 14:20) See Comments pregabalin [From Lyrica] Allergy (Verified 02/19/16 14:20) Hallucinating Sulfa (Sulfonamide Antibiotics) Allergy (Verified 02/19/16 14:20) See Comments ziprasidone [From Geodon] Allergy (Verified 02/19/16 14:20) Hallucinating celecoxib [From Celebrex] Adverse Reaction (Verified 02/19/16 14:20) Hallucinating metformin Adverse Reaction (Verified 02/19/16 14:20) Diarrhea Procedures/tests Complete & Pending: Procedures Performed prior 72 hours Category Date Time Status CL Cardiac Catheterization [CL] Routine 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 Date of admission: 02/23/16 14:28 Primary care physician: Mundo Barnes MD Consults: 02/24/16 14:49 Consult to Cardiac Rehabilitation-Phase1 [CONS] Routine Comment: Reason for Consult: post op cath Call Completed: Yes Discharging clinician: Dominguez Shannon Anticipated date of discharge: 02/25/16 - Patient Status Disposition: Home, Self-Care Condition: Good Functional capacity at discharge: independent ambulation Overall status at discharge: patient is progressing back to baseline - Discharge Instructions Instructions: Chest Pain (DC), Chronic Dysphagia (DC), Chronic Hypertension (DC ), Mood Disorders (DC) Follow Up With: Mundo Barnes MD [Primary Care Provider] - 02/29/16 9:45 am Additional Instructions: Follow-up with gastroenterology for esophageal ulcers in 2-3 weeks - Diet and Activity Activity: increase activity as tolerated Diet: low fat, low cholesterol, low salt diet Hospital course: Ms. Parkinson is a 41 year old female with history of obesity, bipolar disorder, hypertension who presented with complaints of acute chest pain. She was treated symptomatically and her troponins were trended. They have been negative. She then underwent cardiac stress test which was abnormal and suggestive of possible ischemia. Cardiology was consulted. After discussing with the patient, they decided to cardiac catheterization to look for any significant coronary artery disease. Patient underwent cardiac catheterization yesterday and did not have any significant blockage. As such cardiology recommended no further evaluation at this time. Patient also was evaluated by GI endoscopy as she had been having painful swallowing. She was found to have esophageal ulcers. Patient takes naproxen twice daily. This has now been stopped. Patient is also allergic to proton pump inhibitors. As such she will will be placed on GI cocktail and Pepcid to treat her symptoms. She will also follow up with GI for further management. - Time Spent with Patient Total time spent providing and/or coordinating discharge services: Greater than 30 minutes (40 min) - Constitutional Vitals: Temp Pulse Resp BP Pulse Ox 98.1 F 67 19 100/67 93 L 02/25/16 11:07 02/25/16 11:07 02/25/16 11:07 02/25/16 11:07 02/25/16 11:07 General appearance: Present: A&O X 3, morbidly obese, no acute distress, answers questions appropriately - Respiratory Respiratory exam: Present: CTAB. Absent: accessory muscle use, rales, rhonchi, wheezes - Cardiovascular Cardiovascular exam: Present: RRR, +S1, +S2. Absent: diastolic murmur, gallop, rubs, systolic murmur - GI/Abdominal GI/Abdominal exam: Present: normal bowel sounds, soft, tenderness (Epigastric), no peritoneal signs. Absent: distended - Attending Attestation This document has been at least partially created by [employer] recognition technology by Dr. Shannon. Errors in grammar, wording or other phrases may exist. If errors are found after the documentation is signed, they will be addressed individually in the addendum section of this document when appropriate.
--- NOTE | 2016-03-02 09:39 | Invasive Diagnostic Lab ---
Name: Radha Parkinson Date of Study: 02/24/2016 Date: 1975 Ht: 157.0 cm /61.8 in Medical Record#: [id number] Age: 41 Wt: 136. kg / 299.83 lb Account/Order#: [id number] Gender: Female BSA: 2.27 Order #: [id number] Fluoro Dose: 280 mGy BMI: 55.17 Procedure Physician: Colton Castaneda MD, [facility]ACC Referring MD: Referring MD: Procedures Performed: LEFT HEART CATH Moderate sedation Indications: Abnormal Test - Stress Impressions: Coronary arteries are angiographically normal. The left ventricle is normal and has normal contractility EF 50% Recommendations: Optimal medical therapy of patient's disease. Aggressive risk factor modification. History/Risk Factors: asthma GERD seizures Diabetes Dyslipidemia Procedure Access obtained in the right Radial artery by percutaneous puncture Complications: None Contrast: Isovue 48ml Closure Device: Mechanical Compression Hemodynamics: Pressures Site Systolic/ A Wave Diastolic/ V Wave End Diastolic/ Mean HR LV 104 7 14 94 LV 118 9 17 93 AO 109 55 86 92 AO 112 90 101 91 AO 115 91 102 77 LV Ventriculography Ejection Method: LV Gram Ejection Fraction: 50% Wall Motion: CALLAWAY Anterobasal Normal Anterolateral Normal Apical: Normal Inferoapical Normal Inferobasal Normal Coronary Dominance: right Lesion Findings/Interventions * Left Main Coronary Artery The LMCA is angiographically free of disease. * Left Anterior Descending The LAD is angiographically free of disease. The Mid-Distal LAD is small in size. The 1st Diagonal is angiographically free of disease. * Circumflex The Circumflex is angiographically free of disease. The 1st Marginal is angiographically free of disease. * Right Coronary Artery The RCA is angiographically free of disease. The Right PDA is angiographically free of disease. Updated by RT Elvis (R) on 02/24/2016 2:53:21 PM Colton Castaneda MD, FACC electronically signed on 03/02/2016 9:32:08 AM with status of Final
== END 2016-02-25 13:24 | disposition home or self-care (01) | DRG 381 ==
LOC: 3BNU 14:07 → EMEROO 14:07 → SUATTDRO 16:58 → 3BNU 17:50
PROVIDERS: ADMIT Internal Medicine; ATTEND Internal Medicine
PROC: ENDOEBX (2016-02-23 13:00)

== ENCOUNTER 2016-09-29 12:08 | Observation (INO) ==
--- NOTE | 2016-09-29 12:58 | Emergency Department Note ---
Disposition Clinical Impression: Vertigo, Loss of consciousness Disposition: Admitted As Inpatient Condition: Good Reasons to Return/Additional Instructions: Return to the ED if symptoms worsen or new symptoms arise. . Referrals: [facility] [Outside] Forms: ED Satisfaction Letter Dizziness HPI - General Chief Complaint: ED Dizziness Stated Complaint: FALL/DIZZINESS Time Seen by Provider: 09/29/16 12:14 Source: patient, EMS Limitations: no limitations Vital Signs Reviewed: Yes - History of Present Illness HPI Narrative: Patient is a 39-year-old female has medical history of seizures, schizoaffective presented to the ED today with vertigo and multiple episodes of syncope. Patient was in theED 09/25/16 for a bump on her head that she does not remember any associated trauma. CT of her head was negative. Patient was discharged home. Over the past 4 days patient has had new onset syncope about 4- 5 times perday that can occur when sitting or walking. Patient says that this morning around 8am she had a syncopal episode with loss of bladder and came in today due to worsening vertigo and feeling like she is on a rollercoaster. She denies recent illness but has been coughing with white sputum for a couple of days. She has had no recent changes in medications. She denies dysuria, hematuria, vomiting, SOB, CP, hemooptysis. Patient denies alcohol or drug use. - Related Data Home Medications Medication Instructions Recorded Confirmed Docusate [Colace] 100 mg PO BID PRN 02/23/15 02/19/16 Levothyroxine [Synthroid] 125 mcg PO DAILY 02/23/15 02/19/16 Ranitidine HCl [Zantac] 150 mg PO BID 02/23/15 02/19/16 Furosemide [Lasix] 20 mg PO DAILY 12/06/15 02/19/16 Potassium Chloride [Klor-Con 10] 10 meq PO DAILY 12/06/15 02/19/16 Trihexyphenidyl HCl 5 mg PO TID 12/06/15 02/19/16 lamoTRIgine [Lamotrigine] 200 mg PO BID 12/06/15 02/19/16 Albuterol Sulfate [Proair 2 puff IH Q4-6H PRN 12/07/15 02/19/16 Respiclick] Aspirin [Ecotrin] 81 mg PO DAILY 12/07/15 02/19/16 Atorvastatin [Lipitor] 40 mg PO HS 12/07/15 02/19/16 Cetirizine HCl [All Day Allergy] 5 mg PO HS 12/07/15 02/19/16 Cyclobenzaprine [Flexeril] 10 mg PO BID 12/07/15 02/19/16 Escitalopram [Lexapro] 20 mg PO DAILY 12/07/15 02/19/16 Gabapentin [Neurontin] 300 mg PO HS 12/07/15 02/19/16 L.acidoph,Paracasei, B.lactis 1 cap PO DAILY 12/07/15 02/19/16 [Probiotic] Montelukast [Singulair] 10 mg PO HS 12/07/15 02/19/16 clonazePAM [Klonopin] 0.5 mg PO BID 12/07/15 02/19/16 Iloperidone [Fanapt] 10 mg PO BID 02/19/16 02/19/16 Mometasone/Formoterol [Dulera 200 1 puff IH BID 02/19/16 02/19/16 Mcg/5 Mcg Inhaler] SUMAtriptan succinate [Imitrex] 50 mg PO DAILY PRN 02/19/16 02/19/16 Previous Rx's Medication Instructions Recorded GI Cocktail [Gi Cocktail] 40 ml PO TID #1000 ml 02/25/16 Azithromycin [Azithromycin 6-Tab 250 mg PO PER PKG DI #6 tab 06/12/16 Pack] GuaiFENesin ER [Mucinex] 1,200 mg PO BID #20 tbbp.12hr 06/12/16 Allergies Allergy/AdvReac Type Severity Reaction Status Date / Time aripiprazole [From Abilify] Allergy Hallucinati Verified 09/25/16 09:52 ng aspartame Allergy See Verified 09/25/16 09:52 Comments aspirin Allergy See Verified 09/25/16 09:52 Comments Cefprozil [From Cefzil] Allergy See Verified 09/25/16 09:52 Comments codeine Allergy See Verified 09/25/16 09:52 Comments duloxetine [From Cymbalta] Allergy See Verified 09/25/16 09:52 Comments Erythromycin Base Allergy See Verified 09/25/16 09:52 Comments esomeprazole [From Nexium] Allergy See Verified 09/25/16 09:52 Comments oxybutynin Allergy Dizziness Verified 09/25/16 09:52 Penicillins Allergy See Verified 09/25/16 09:52 Comments pregabalin [From Lyrica] Allergy Hallucinati Verified 09/25/16 09:52 ng Sulfa (Sulfonamide Allergy See Verified 09/25/16 09:52 Antibiotics) Comments ziprasidone [From Geodon] Allergy Hallucinati Verified 09/25/16 09:52 ng celecoxib [From Celebrex] AdvReac Hallucinati Verified 09/25/16 09:52 ng metformin AdvReac Diarrhea Verified 09/25/16 09:52 Review of Systems: ROS: constitutional: Denies fever, chills, weakness, dizziness HEENT: denies Headaches, changes in vision Resp: admits to coughing, denies shortness of breath, CV: Denies chest pain, lower extremity edema GI: admits to nausea, Denies vomiting, diarrhea, constipation, hematochezia, abdominal pain Skin: Denies rashes, new lesions All systems ED: reviewed and negative except as stated. Review of Systems: As Per HPI Past Medical History - Past Medical History Medical history: Reports: asthma, diabetes, GERD, hyperlipidemia, hypertension, other Surgical history: Reports: cholecystectomy Psychiatric history: Reports: anxiety, bipolar, depression, schizophrenia, previous psychiatric hospitalization [employer] history: Reports: no [employer] history - Social History Smoking Status: Never smoker Smokeless Tobacco Status: No Alcohol use: Reports: none Drug use: Reports: none Physical Exam Constitutional: Alert, in no acute distress, well nourished, well developed. Head: Normocephalic, atraumatic, normal contour and symmetric, no masses, lesions or scars EENT: mucous membranes dry with mild cracking, PERRL, EOMI, no nystagmus Heart: Normal, regular rate and rhythm, no murmurs Lungs: Clear to auscultation, no wheezes, rales, or rhonchi Abdomen: mild tenderness diffusely, Soft, nondistended, and no masses palpable , bowel sounds present and normal, no guarding or rigidity. Extremities: bilateral calf tenderness anteriorly and posteriorly, no erythema , increase warmth, or unilateral swelling, No clubbing, cyanosis, or edema, radial pulse +2/4, capillary refill <2sec. Skin: Skin warm and dry, no lesions, no rashes, no jaundice Neurologic: dizziness with raising arms and turning head, Cranial nerves II through XII intact, finger to nose test normal, no focal deficits, strength within normal limits in all extremities Psych: Cooperative with exam, good eye contact, cognitive function intact, judgment good insight good, speech clear, thought process logical, and goal directed - General Limitations: no limitations General appearance: alert Course Course Narrative: Cardiac workup was obtained and was negative. EKG showed normal sinus rhythm with no changes compared to prior EKG and troponin was negative. Chest x-ray was concerned for a mass but CT of chest confirmed not mass or acute process. CBCs showed no acute infectious process. CT of her head was determined unnecessary at this time due to prior study 4 days ago, and a GCS of 15. Urine drug screen negative. Ectopic was ruled out as test was negative. Due to patient's recurrent new onset of multiple episodes of loss of consciousness patient with uncertainty of seizure vs. syncope episode and patient living alone, patient will be admitted to the hospital floor. Dr. Welch the neurologist was contacted and agreed to consult on patient. Dr. Ruffin agreed to admit patient to the medical floor. - Consultations Consultation #1: Stressed with , who will see the patient in consult were going to admit the patient as the patient has had multiple episodes she lives by herself she's been blacking out it's unclear whether this represents seizure versus a syncopal episode. Time: 16:04 Vital Signs Temperature 98 F 09/29/16 12:13 Pulse Rate 93 09/29/16 12:13 Respiratory Rate 16 09/29/16 12:13 Blood Pressure 120/62 09/29/16 12:13 O2 Sat by Pulse Oximetry 94 09/29/16 12:13 Temperature 98 F 09/29/16 12:13 Pulse Rate 85 09/29/16 15:59 Respiratory Rate 16 09/29/16 14:26 Blood Pressure 104/58 09/29/16 15:59 O2 Sat by Pulse Oximetry 96 09/29/16 15:59 Oxygen Delivery Oxygen Delivery Room Air Dizziness - Medical Records Medical records reviewed: Yes I reviewed the patient's medical records. - Lab Data Lab results reviewed: Yes I reviewed the patient's lab results. Result diagrams: 09/29/16 12:57 09/29/16 12:57 Lab Results 09/29/16 09/29/16 09/29/16 Range/Units 12:57 12:57 12:57 WBC 9.8 (4.3-11.1) K/mcL RBC 4.75 (3.82-4.97) M/mcL Hgb 12.0 (11.5-15.4) g/dL Hct 39.9 (35.3-44.9) % MCV 84.0 (83.0-100.0) fL MCH 25.3 L (28.0-33.3) pg MCHC 30.1 L (31.6-35.5) g/dL RDW 15.9 H (11.5-14.5) % Plt Count 306 (140-400) K/mcL MPV 8.7 L (9.4-12.4) fL Immature Gran % 0.5 (0-4) % Seg Neutrophils % 75.8 % Lymphocytes % 14.1 % Monocytes % 6.7 % Eosinophils % 2.5 % Basophils % 0.4 % Neutrophils # 7.4 (1.6-8.9) K/mcL Lymphocytes # 1.4 (0.6-4.6) K/mcL Monocytes # 0.7 (0.0-1.3) K/mcL Eosinophils # 0.2 (0.0-0.6) K/mcL Basophils # 0.0 (0.0-0.2) K/mcL Sodium 140 (136-145) mEq/L Potassium 4.0 (3.5-4.5) mEq/L Chloride 105 (98-109) mEq/L Carbon Dioxide 26 (19-29) mEq/L BUN 5 L (7-20) mg/dL Creatinine 0.75 (0.57-1.11) mg/dL Est GFR ( Amer) > 60 (> 60) Est GFR (Non-Af Amer) > 60 (> 60) BUN/Creatinine Ratio 7 (6-26) Glucose 100 H (70-99) mg/dL Calculated Osmolality 287 (280-300) Calcium 8.9 (8.6-10.8) mg/dL Troponin I 0.00 (0-0.03) ng/mL Serum , Qual (Negative) Urine Color (Yellow) Urine Clarity (Clear) Urine pH (5.0-8.0) pH Units Ur Specific [place] (1.010-1.025) Urine Protein (Neg-Trace) mg/dL Urine Glucose (UA) (Normal) mg/dL Urine Ketones (Negative) mg/dL Urine Blood (Negative) Urine Nitrite (Negative) Urine Bilirubin (Negative) Urine Urobilinogen (Normal) mg/dL Ur Leukocyte Esterase (Negative) Urine Microscopic RBC (0-3) per hpf Urine Microscopic WBC (0-3) per hpf Ur Squamous Epith Cells (None-Few) per lpf Amorphous Sediment (Few) Urine Bacteria (None-Few) per hpf Ur Culture Indicated? (NO) Urine Opiates Screen (Znhyvf=607) ng/mL Ur Barbiturates Screen (Gzqxnm=662) ng/mL Ur Phencyclidine Scrn (Cutoff=25) ng/mL Ur Amphetamines Screen (Zdifqy=6966) ng/mL U Benzodiazepines Scrn (Pbtxjx=586) ng/mL Urine Cocaine Screen (Cutoff= 300) ng/mL U Marijuana (THC) Screen (Cutoff = 50) ng/mL 09/29/16 09/29/16 09/29/16 Range/Units 12:57 14:12 14:12 WBC (4.3-11.1) K/mcL RBC (3.82-4.97) M/mcL Hgb (11.5-15.4) g/dL Hct (35.3-44.9) % MCV (83.0-100.0) fL MCH (28.0-33.3) pg MCHC (31.6-35.5) g/dL RDW (11.5-14.5) % Plt Count (140-400) K/mcL MPV (9.4-12.4) fL Immature Gran % (0-4) % Seg Neutrophils % % Lymphocytes % % Monocytes % % Eosinophils % % Basophils % % Neutrophils # (1.6-8.9) K/mcL Lymphocytes # (0.6-4.6) K/mcL Monocytes # (0.0-1.3) K/mcL Eosinophils # (0.0-0.6) K/mcL Basophils # (0.0-0.2) K/mcL Sodium (136-145) mEq/L Potassium (3.5-4.5) mEq/L Chloride (98-109) mEq/L Carbon Dioxide (19-29) mEq/L BUN (7-20) mg/dL Creatinine (0.57-1.11) mg/dL Est GFR ( Amer) (> 60) Est GFR (Non-Af Amer) (> 60) BUN/Creatinine Ratio (6-26) Glucose (70-99) mg/dL Calculated Osmolality (280-300) Calcium (8.6-10.8) mg/dL Troponin I (0-0.03) ng/mL Serum , Qual Negative (Negative) Urine Color Yellow (Yellow) Urine Clarity Cloudy A (Clear) Urine pH 6.0 (5.0-8.0) pH Units Ur Specific [place] 1.011 (1.010-1.025) Urine Protein Trace (Neg-Trace) mg/dL Urine Glucose (UA) Normal (Normal) mg/dL Urine Ketones Negative (Negative) mg/dL Urine Blood Large H (Negative) Urine Nitrite Negative (Negative) Urine Bilirubin Negative (Negative) Urine Urobilinogen Normal (Normal) mg/dL Ur Leukocyte Esterase Trace H (Negative) Urine Microscopic RBC 5-15 H (0-3) per hpf Urine Microscopic WBC 0-3 (0-3) per hpf Ur Squamous Epith Cells Few (None-Few) per lpf Amorphous Sediment Few (Few) Urine Bacteria Few (None-Few) per hpf Ur Culture Indicated? YES A (NO) Urine Opiates Screen Negative (Kqibza=702) ng/mL Ur Barbiturates Screen Negative (Wcdpzm=106) ng/mL Ur Phencyclidine Scrn Negative (Cutoff=25) ng/mL Ur Amphetamines Screen Negative (Ftkdyg=8214) ng/mL U Benzodiazepines Scrn Negative (Jaeqtm=287) ng/mL Urine Cocaine Screen Negative (Cutoff= 300) ng/mL U Marijuana (THC) Screen Negative (Cutoff = 50) ng/mL - Radiology Data Radiology results reviewed: Yes I reviewed the patient's radiology results. Chest X-Ray 09/29/16 12:46 IMPRESSION: 1. Subtle asymmetric density involving the right apex, could represent evolving infiltrate or nodule. Chest CT correlation is recommended. D/ / 09/29/2016 13:45:19 Lele Mclain MD / nara Interpreting Provider: Lele Mclain MD - EKG Data EKG attestation: Yes I reviewed and interpreted this EKG. EKG shows normal: sinus rhythm Rate: normal Rhythm: NSR [place]/QRS: normal When compared to previous EKG there are: no significant changes Interpretation: normal EKG Attestation Statement - Attestation Attestation: I examined this patient and my medical decision-making was reviewed with the Resident Physician. I agree with the documented findings, disposition and treatment plan as described except to the extent set forth below. I had face to face time with the patient. Patient presents with multiple episodes of syncope states that she blacks out and dizziness. Patient didn't fall and hit her head was seen here had a CT scan that was negative. Currently the patient is awake and alert her Zach Coma Scale 15. He has no localizing signs on her exam. X- ray shows a possible mass or infiltrate in the apex of the lung. We will obtain a CT of the chest. Lab work all is within normal limits. Consultation Dr. Porter.
[2016-09-29 13:03] LABS: Basophils % 0.4 %; Eosinophils # 0.2 K/mcL (0.0-0.6); Eosinophils % 2.5 %; Hematocrit 39.9 % (35.3-44.9); Immature Granulocytes % 0.5 % (0-4); Lymphocytes # 1.4 K/mcL (0.6-4.6); Lymphocytes % 14.1 %; Mean Corpuscular HGB Conc 30.1 g/dL (31.6-35.5); Mean Corpuscular Hemoglobin 25.3 pg (28.0-33.3); Mean Platelet Volume 8.7 fL (9.4-12.4); Monocytes # 0.7 K/mcL (0.0-1.3); Monocytes % 6.7 %; Neutrophils # 7.4 K/mcL (1.6-8.9); Platelet Count 306 K/mcL (140-400); Red Blood Count 4.75 M/mcL (3.82-4.97); Red Cell Distribution Width 15.9 % (11.5-14.5); Segmented Neutrophils % 75.8 %
[2016-09-29] MEDS ORDERED: 0.9 % Sodium Chloride 1,000 ML IVC ONE (13:14)
[2016-09-29 13:20] LABS: BUN/Creatinine Ratio 7 (6-26); Calcium 8.9 mg/dL (8.6-10.8); Carbon Dioxide 26 mEq/L (19-29); Chloride 105 mEq/L (98-109); Glucose 100 mg/dL (70-99); Osmolality,Calculated 287 (280-300); Sodium 140 mEq/L (136-145); eGFR For African Americans > 60 (> 60); eGFR For Non-African Americans > 60 (> 60)
[2016-09-29 13:22] LABS: Blood Urea Nitrogen 5 mg/dL (7-20)
[2016-09-29 14:21] LABS: Bilirubin,Urine Negative (Negative); Blood,Urine Large (Negative); Clarity,Urine Cloudy (Clear); Color,Urine Yellow (Yellow); Glucose,Urine (UA) Normal (Normal); Ketones,Urine Negative (Negative); Leukocyte Esterase,Urine Trace (Negative); Nitrite,Urine Negative (Negative); Protein,Urine Trace mg/dL (Neg-Trace); Specific Gravity,Urine 1.011 (1.010-1.025); Urobilinogen,Urine Normal (Normal)
[2016-09-29 14:30] LABS: Amphetamine Screen,Urine Negative ng/mL (Cutoff=1000); Barbiturate Screen,Urine Negative ng/mL (Cutoff=200); Benzodiazepines Screen,Urine Negative ng/mL (Cutoff=200); Cannabinoid Screen,Urine Negative ng/mL (Cutoff = 50); Cocaine Screen,Urine Negative ng/mL (Cutoff= 300); Opiate Screen,Urine Negative ng/mL (Cutoff=300); Phencyclidine Screen,Urine Negative ng/mL (Cutoff=25)
[2016-09-29 14:46] LABS: Amorphous Sediment,Urine Few (Few); Bacteria,Urine Few per hpf (None-Few); Squamous Epithelial Cell,Urine Few per lpf (None-Few); WBC,Urine 0-3 per hpf (0-3)
[2016-09-29] MEDS ORDERED: Naloxone 0.4 MG/ML INJ IVP PRN (17:57)
[2016-09-29] MEDS ORDERED: *HR* LORazepam 2 MG/ML VIAL IVP PRN (17:59)
--- NOTE | 2016-09-29 18:35 | Internal Med History&Physical ---
Date of Encounter: 09/29/16 Time of Encounter: 18:20 Assessment and Plan (1) Seizure-like activity Current visit: Yes Status: Acute Patient had episode earlier today where she "blacked out" while watching television and was incontinent. She reports history of seizures in the past that were described as absence seizures. She reports no seizures in the last 17 years and reports she is not on any seizure medications. She does take lamictal for her bipolar disorder. She is on a lot of psychological medications for bipolar disorder, schizo-affective disorder. Seizure precautions 1mg Ativan IVP PRN for seizure activity CT head EEG neurology consult. (2) Loss of consciousness Current visit: Yes Status: Acute Patient reports "blacking out" while sitting and watching TV this morning and had incontinence of urine. EKG showed NSR. Troponin negative at 0.00. Concerning for seizure activity, but will also do syncope workup. continuous manager cardiac CT head echocardiogram carotid dopplers Neuro consult and EEG. (3) Asthma Current visit: Yes Status: Chronic Patient denies any increased shortness of breath or cough. Continue home doses of medications. Qualifiers: Asthma severity: unspecified severity Asthma complication type: uncomplicated Qualified Code(s): J45.909 - Unspecified asthma, uncomplicated (4) Bipolar 1 disorder Current visit: Yes Status: Chronic Continue home doses of medications. (5) Obesity, morbid, BMI 50 or higher Current visit: Yes Status: Chronic Nutrition consult ordered. (6) Vertigo Current visit: Yes Status: Acute Patient reports increased dizziness with room spinning and feeling like she is on a roller coaster while walking. Neurology consulted. (7) DVT prophylaxis Current visit: Yes Status: Acute anti-embolic stockings lovenox daily. Internal Medicine - H&P: HPI Chief complaint: seizure like activity Admitted From: Emergency Dept Plans for Post Hospital Care: Home History of present illness: Ms. Parkinson is a 41 year old female with hypertension, hyperlipidemia, asthma, thyroid disease, type 2 diabetes, history of seizure disorder in the past, schizoaffective disorder, bipolar disorder, anxiety and depression presented to the emergency department today with complaints of dizziness, lightheadedness, and an episode of losing consciousness. Patient reports that for the last several days she has had increased dizziness, and lightheadedness. She reports that she feels like the room is spinning or she is on a roller coaster when she is walking down the [place]. She reports that this morning she was sitting and watching TV and she "blacked out" and was incontinent of urine. She reports she had a history of seizures in the past that had similar activity but reports she has not had a seizure in 17 years. She reports she is not taking any medications for seizures however she is on Lamictal for bipolar disorder. She denies any chest pain, palpitations, increased shortness of breath, abdominal pain, diarrhea, numbness or tingling. She reports nausea. Evaluation in emergency department included an EKG which showed normal sinus rhythm. Chest x- ray showed questionable density in the right apex, CT of the chest was obtained and did not demonstrate any pneumonia or acute abnormality. Troponin was negative at 0.00. Dr. Porter of neurology was consulted and plans to see the patient. On exam, patient is alert and oriented, in no acute distress. She is morbidly obese, heart has regular rate and rhythm, lungs are clear bilaterally to auscultation. Cranial nerves are intact, strength is equal bilaterally, no focal neurological deficits. Past Med Surg Social Fam HX - Past Medical History Medical history: asthma, diabetes, GERD, hyperlipidemia, hypertension, seizures , other Psychiatric history: anxiety, bipolar, depression, schizophrenia, previous psychiatric hospitalization - Past Surgical History Surgical History: cholecystectomy - Social History Smoking Status: Never smoker Smokeless Tobacco Status: No Alcohol use: none Drug use: none - Family History Mother Name: Ester Alvarado Age: 59 Family Member Ethnicity: Non- Living Status: Still Living Hx Family Cardiac Disorders: Yes Hx Family Respiratory Disorders: Yes Hx Family Cancer: No Hx Family GI Disorders: No Hx Family Endocrine Disorder: Yes Hx Family Neuromuscular Disorders: No Hx Family Neurologic Disorders: No Hx Family HEENT Disorders: No Hx Family Autoimmune Disorders: Yes Father Family Member Ethnicity: Non- Living Status: Unknown Hx Family Cardiac Disorders: Yes (SC, HTN) Hx Family Respiratory Disorders: Yes (Enphesyma, COPD, Asthma) Hx Family Cancer: Yes (Unknown) Hx Family GI Disorders: Yes (Lactos Intolerant) Hx Family Endocrine Disorder: No Hx Family Neuromuscular Disorders: No Hx Family Neurologic Disorders: No Hx Family HEENT Disorders: No Hx Family Autoimmune Disorders: No Brother Family Member Ethnicity: Non- Living Status: Still Living Hx Family Cardiac Disorders: Yes (heart attack age 29) Internal Medicine - H&P: Meds Docusate [Colace] 100 mg PO BID PRN 02/23/15 [History] Levothyroxine [Synthroid] 125 mcg PO DAILY 02/23/15 [History] Ranitidine HCl [Zantac] 150 mg PO BID 02/23/15 [History] Furosemide [Lasix] 20 mg PO DAILY 12/06/15 [History] Potassium Chloride [Klor-Con 10] 10 meq PO DAILY 12/06/15 [History] Trihexyphenidyl HCl 5 mg PO TID 12/06/15 [History] lamoTRIgine [Lamotrigine] 200 mg PO BID 12/06/15 [History] Albuterol Sulfate [Proair Respiclick] 2 puff IH Q4-6H PRN 12/07/15 [History] Aspirin [Ecotrin] 81 mg PO DAILY 12/07/15 [History] Atorvastatin [Lipitor] 40 mg PO HS 12/07/15 [History] Cetirizine HCl [All Day Allergy] 5 mg PO HS 12/07/15 [History] Cyclobenzaprine [Flexeril] 10 mg PO BID 12/07/15 [History] Escitalopram [Lexapro] 20 mg PO DAILY 12/07/15 [History] Gabapentin [Neurontin] 300 mg PO HS 12/07/15 [History] L.acidoph,Paracasei, B.lactis [Probiotic] 1 cap PO DAILY 12/07/15 [History] Montelukast [Singulair] 10 mg PO HS 12/07/15 [History] clonazePAM [Klonopin] 0.5 mg PO BID 12/07/15 [History] Iloperidone [Fanapt] 10 mg PO BID 02/19/16 [History] SUMAtriptan succinate [Imitrex] 50 mg PO DAILY PRN 02/19/16 [History] Beclomethasone Diprop 40mcg [Qvar 40 mcg] 1 puff IH BID 09/29/16 [History] Cyanocobalamin (Vitamin B-12) [Vitamin B12] 2,500 mcg PO DAILY 09/29/16 [History ] Multivitamin [Multi-Day Vitamins] 1 each PO DAILY 09/29/16 [History] Norethindrone-E.estradiol-Iron [Junel Fe 1.5 mg-30 Mcg Tablet] 1 each PO DAILY 09/29/16 [History] Pantoprazole Sodium [Protonix] 40 mg PO DAILY 09/29/16 [History] Prazosin [Minipress] 1 mg PO HS 09/29/16 [History] 3 Allergy/AdvReac Type Severity Reaction Status Date / Time aripiprazole [From Abilify] Allergy Hallucinati Verified 09/25/16 09:52 ng aspartame Allergy See Verified 09/25/16 09:52 Comments aspirin Allergy See Verified 09/25/16 09:52 Comments Cefprozil [From Cefzil] Allergy See Verified 09/25/16 09:52 Comments codeine Allergy See Verified 09/25/16 09:52 Comments duloxetine [From Cymbalta] Allergy See Verified 09/25/16 09:52 Comments Erythromycin Base Allergy See Verified 09/25/16 09:52 Comments esomeprazole [From Nexium] Allergy See Verified 09/25/16 09:52 Comments oxybutynin Allergy Dizziness Verified 09/25/16 09:52 Penicillins Allergy See Verified 09/25/16 09:52 Comments pregabalin [From Lyrica] Allergy Hallucinati Verified 09/25/16 09:52 ng Sulfa (Sulfonamide Allergy See Verified 09/25/16 09:52 Antibiotics) Comments ziprasidone [From Geodon] Allergy Hallucinati Verified 09/25/16 09:52 ng celecoxib [From Celebrex] AdvReac Hallucinati Verified 09/25/16 09:52 ng metformin AdvReac Diarrhea Verified 09/25/16 09:52 All Systems PM: A 10-system review of systems was performed and is negative for pertinent findings except as documented above in the HPI. - Constitutional Constitutional: no chills, no fever(s), no night sweats - EENT Eyes: blurry vision, no change in vision, no discharge, no pain, no photophobia Ears: no ear discharge, no ear pain, no tinnitus Nose, mouth and throat: no dysphagia, no nasal discharge, no neck pain, no sore throat - Cardiovascular Cardiovascular ROS IM: lightheadedness, syncope, no chest pain, no diaphoresis, no dyspnea, no palpitations - Respiratory Respiratory: no cough, no dyspnea, no wheezing, no excessive phlegm production - Gastrointestinal Gastrointestinal: nausea, no abdominal pain, no diarrhea, no hematemesis, no hematochezia, no melena, no vomiting - Genitourinary Genitourinary: urinary incontinence, no change in urinary stream, no dysuria, no flank pain, no hematuria - Musculoskeletal Musculoskeletal ROS IM: no numbness, no tingling - Integumentary Integumentary IM: no rash, no unusual bruising - Neurological Neurological ROS: disequilibrium, dizziness, headache(s), no confusion, no convulsions, no focal weakness, no numbness, no tingling, no tremor(s) - Hematologic/Lymphatic Hematologic/Lymphatic: no easy bruising - Constitutional Vitals: Temp Pulse Resp BP Pulse Ox 97.3 F L 84 16 106/71 96 09/29/16 16:51 09/29/16 16:51 09/29/16 16:51 09/29/16 16:51 09/29/16 16:51 General appearance: Present: A&O X 3, morbidly obese, pleasant, no acute distress - Head Head exam: Present: atraumatic, normocephalic - Eye Eye exam: Present: PERRL, conjuntiva pink, sclera anicteric Pupils: Present: PERRL - Neck Neck exam general surgery: Present: supple, trachea midline. Absent: lymphadenopathy - Respiratory Respiratory exam: Present: CTAB. Absent: accessory muscle use, rales, rhonchi, wheezes - Cardiovascular Cardiovascular exam: Present: RRR, +S1, +S2. Absent: diastolic murmur, gallop, rubs, systolic murmur - GI/Abdominal GI/Abdominal exam: Present: normal bowel sounds, soft, no peritoneal signs. Absent: distended, tenderness - Extremities Exam Extremities exam: Present: warm, radial pulses palpable and symmetrical. Absent : calf tenderness, cyanotic, pedal edema - Neurological Exam Neurological exam: Present: CN II-XII intact, oriented X3, no focal deficits. Absent: pronater drift, facial droop, speech deficit - Expanded Neurological Exam Cranial Nerves: EOM's intact PM: Normal, gag reflex PM: Normal, nystagmus PM: Normal, tongue deviation PM: Normal Cerebellar function: finger to nose: Normal Neuro motor strength exam: LUE: 5, RUE: 5, LLE: 5, RLE: 5 - Skin Skin exam: Present: dry, intact Internal Med - H&P Results - Labs CBC & Chem 7: 09/29/16 12:57 09/29/16 12:57 Labs: All Lab Results (24 Hours) 09/29/16 09/29/16 09/29/16 Range/Units 12:57 12:57 12:57 WBC 9.8 (4.3-11.1) K/mcL RBC 4.75 (3.82-4.97) M/mcL Hgb 12.0 (11.5-15.4) g/dL Hct 39.9 (35.3-44.9) % MCV 84.0 (83.0-100.0) fL MCH 25.3 L (28.0-33.3) pg MCHC 30.1 L (31.6-35.5) g/dL RDW 15.9 H (11.5-14.5) % Plt Count 306 (140-400) K/mcL MPV 8.7 L (9.4-12.4) fL Immature Gran % 0.5 (0-4) % Seg Neutrophils % 75.8 % Lymphocytes % 14.1 % Monocytes % 6.7 % Eosinophils % 2.5 % Basophils % 0.4 % Neutrophils # 7.4 (1.6-8.9) K/mcL Lymphocytes # 1.4 (0.6-4.6) K/mcL Monocytes # 0.7 (0.0-1.3) K/mcL Eosinophils # 0.2 (0.0-0.6) K/mcL Basophils # 0.0 (0.0-0.2) K/mcL Sodium 140 (136-145) mEq/L Potassium 4.0 (3.5-4.5) mEq/L Chloride 105 (98-109) mEq/L Carbon Dioxide 26 (19-29) mEq/L BUN 5 L (7-20) mg/dL Creatinine 0.75 (0.57-1.11) mg/dL Est GFR ( Amer) > 60 (> 60) Est GFR (Non-Af Amer) > 60 (> 60) BUN/Creatinine Ratio 7 (6-26) Glucose 100 H (70-99) mg/dL Calculated Osmolality 287 (280-300) Calcium 8.9 (8.6-10.8) mg/dL Troponin I 0.00 (0-0.03) ng/mL Serum , Qual (Negative) Urine Color (Yellow) Urine Clarity (Clear) Urine pH (5.0-8.0) pH Units Ur Specific [place] (1.010-1.025) Urine Protein (Neg-Trace) mg/dL Urine Glucose (UA) (Normal) mg/dL Urine Ketones (Negative) mg/dL Urine Blood (Negative) Urine Nitrite (Negative) Urine Bilirubin (Negative) Urine Urobilinogen (Normal) mg/dL Ur Leukocyte Esterase (Negative) Urine Microscopic RBC (0-3) per hpf Urine Microscopic WBC (0-3) per hpf Ur Squamous Epith Cells (None-Few) per lpf Amorphous Sediment (Few) Urine Bacteria (None-Few) per hpf Ur Culture Indicated? (NO) Urine Opiates Screen ([place]=344) ng/mL Ur Barbiturates Screen (Qwjcie=873) ng/mL Ur Phencyclidine Scrn (Cutoff=25) ng/mL Ur Amphetamines Screen (Uxnmmn=1755) ng/mL U Benzodiazepines Scrn (Hnzbsg=849) ng/mL Urine Cocaine Screen (Cutoff= 300) ng/mL U Marijuana (THC) Screen (Cutoff = 50) ng/mL 09/29/16 09/29/16 09/29/16 Range/Units 12:57 14:12 14:12 WBC (4.3-11.1) K/mcL RBC (3.82-4.97) M/mcL Hgb (11.5-15.4) g/dL Hct (35.3-44.9) % MCV (83.0-100.0) fL MCH (28.0-33.3) pg MCHC (31.6-35.5) g/dL RDW (11.5-14.5) % Plt Count (140-400) K/mcL MPV (9.4-12.4) fL Immature Gran % (0-4) % Seg Neutrophils % % Lymphocytes % % Monocytes % % Eosinophils % % Basophils % % Neutrophils # (1.6-8.9) K/mcL Lymphocytes # (0.6-4.6) K/mcL Monocytes # (0.0-1.3) K/mcL Eosinophils # (0.0-0.6) K/mcL Basophils # (0.0-0.2) K/mcL Sodium (136-145) mEq/L Potassium (3.5-4.5) mEq/L Chloride (98-109) mEq/L Carbon Dioxide (19-29) mEq/L BUN (7-20) mg/dL Creatinine (0.57-1.11) mg/dL Est GFR ( Amer) (> 60) Est GFR (Non-Af Amer) (> 60) BUN/Creatinine Ratio (6-26) Glucose (70-99) mg/dL Calculated Osmolality (280-300) Calcium (8.6-10.8) mg/dL Troponin I (0-0.03) ng/mL Serum , Qual Negative (Negative) Urine Color Yellow (Yellow) Urine Clarity Cloudy A (Clear) Urine pH 6.0 (5.0-8.0) pH Units Ur Specific [place] 1.011 (1.010-1.025) Urine Protein Trace (Neg-Trace) mg/dL Urine Glucose (UA) Normal (Normal) mg/dL Urine Ketones Negative (Negative) mg/dL Urine Blood Large H (Negative) Urine Nitrite Negative (Negative) Urine Bilirubin Negative (Negative) Urine Urobilinogen Normal (Normal) mg/dL Ur Leukocyte Esterase Trace H (Negative) Urine Microscopic RBC 5-15 H (0-3) per hpf Urine Microscopic WBC 0-3 (0-3) per hpf Ur Squamous Epith Cells Few (None-Few) per lpf Amorphous Sediment Few (Few) Urine Bacteria Few (None-Few) per hpf Ur Culture Indicated? YES A (NO) Urine Opiates Screen Negative (Zjdlgv=352) ng/mL Ur Barbiturates Screen Negative (Qlfmuo=541) ng/mL Ur Phencyclidine Scrn Negative (Cutoff=25) ng/mL Ur Amphetamines Screen Negative (Dzkmyi=8458) ng/mL U Benzodiazepines Scrn Negative (Bbvfff=724) ng/mL Urine Cocaine Screen Negative (Cutoff= 300) ng/mL U Marijuana (THC) Screen Negative (Cutoff = 50) ng/mL - Diagnostic Studies Chest x-ray Additional comments: Chest X-Ray 09/29/16 12:46 IMPRESSION: 1. Subtle asymmetric density involving the right apex, could represent evolving infiltrate or nodule. Chest CT correlation is recommended. D/ / 09/29/2016 13:45:19 Lele Mclain MD / [facility] Interpreting Provider: Lele Mclain MD CT scan - chest Additional comments: Chest CT 09/29/16 14:01 IMPRESSION: 1. Stable left lower lobe posterior basal pleural thickening and chronic atelectasis versus scarring consistent with sequela of prior infectious/inflammatory process. There is no acute thoracic abnormality. 2. No finding concerning for thoracic malignancy. 3. The developing vague density of the right upper lobe seen on the recent chest radiograph may represent overlapping body wall soft tissues. D/ / 09/29/2016 16:03:54 Amrit Menjivar MD / [facility] Interpre[place] Provider: Amrit Menjivar MD
[2016-09-29] MEDS: Beclomethasone 40mcg MDI IH SCH (19:48)
[2016-09-29] MEDS: ILOPERIDONE PO SCH (21:21)
[2016-09-29] MEDS: clonazePAM 0.5 MG TABLET PO SCH (21:23)
[2016-09-29] MEDS: Gabapentin 300 MG CAPSULE PO SCH (21:24)
[2016-09-29] MEDS: Loratadine 10 MG TABLET PO SCH (21:24)
[2016-09-29] MEDS: Famotidine 20 MG TABLET PO SCH (21:24)
[2016-09-29] MEDS: lamoTRIgine 100 MG TABLET PO SCH (21:24)
[2016-09-29] MEDS: Acetaminophen 325 MG TABLET PO PRN (22:13)
[2016-09-30 03:29] LABS: Basophils # 0.1 K/mcL (0.0-0.2); Basophils % 0.5 %; Eosinophils # 0.3 K/mcL (0.0-0.6); Eosinophils % 3.4 %; Hemoglobin 11.5 g/dL (11.5-15.4); Immature Granulocytes % 0.6 % (0-4); Lymphocytes # 2.2 K/mcL (0.6-4.6); Lymphocytes % 23.5 %; Mean Corpuscular HGB Conc 30.3 g/dL (31.6-35.5); Mean Corpuscular Hemoglobin 25.6 pg (28.0-33.3); Mean Corpuscular Volume 84.4 fL (83.0-100.0); Mean Platelet Volume 8.7 fL (9.4-12.4); Monocytes # 0.8 K/mcL (0.0-1.3); Monocytes % 8.2 %; Platelet Count 303 K/mcL (140-400); Segmented Neutrophils % 63.8 %
[2016-09-30 03:42] LABS: BUN/Creatinine Ratio 8 (6-26); Blood Urea Nitrogen 6 mg/dL (7-20); Calcium 8.9 mg/dL (8.6-10.8); Carbon Dioxide 27 mEq/L (19-29); Chloride 105 mEq/L (98-109); Glucose 94 mg/dL (70-99); Osmolality,Calculated 291 (280-300); Potassium 3.8 mEq/L (3.5-4.5); Sodium 142 mEq/L (136-145); eGFR For African Americans > 60 (> 60); eGFR For Non-African Americans > 60 (> 60)
[2016-09-30 03:44] LABS: Magnesium 1.8 mg/dL (1.6-2.6); Phosphorous 4.4 mg/dL (2.3-4.7)
--- NOTE | 2016-09-30 06:29 | Electrocardiograph Report ---
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
[2016-09-30] MEDS: Beclomethasone 40mcg MDI IH SCH ×2 (07:36→19:56)
[2016-09-30] MEDS: Acetaminophen 325 MG TABLET PO PRN ×2 (08:59→17:43)
[2016-09-30] MEDS: Famotidine 20 MG TABLET PO SCH ×2 (08:59→21:01)
[2016-09-30] MEDS: Furosemide 20 MG TABLET PO SCH (08:59)
[2016-09-30] MEDS: Aspirin Enteric Coated 81 MG Tablet PO SCH (08:59)
[2016-09-30] MEDS: ILOPERIDONE PO SCH ×2 (09:00→21:00)
[2016-09-30] MEDS: ACIDOPH PARACASEI B LACTIS PO SCH (09:00)
[2016-09-30] MEDS: lamoTRIgine 100 MG TABLET PO SCH ×2 (09:00→21:02)
[2016-09-30] MEDS: (Pantoprazole Sodium [Protonix] 40 MG) PO SCH (09:00)
[2016-09-30] MEDS: clonazePAM 0.5 MG TABLET PO SCH ×2 (09:00→21:01)
[2016-09-30] MEDS ORDERED: SUMAtriptan succinate 50 MG TABLET PO PRN (09:56)
--- NOTE | 2016-09-30 11:11 | EEG/EMG/Oth Biometrics Report ---
EEG Procedure Report Date of procedure: 09/30/16 EEG Procedure: Routine EEG Procedure Note: Medication: no anticonvulsants listed. Report: This EEG was acquired with standard international 10-20 electrode placement system with EKG recording. The Background activity during this EEG was characterized by the presence of posterior dominant alpha rhythm with best frequency up to 11 Hz. The background activity was reactive to eye openings. Sleep stages were characterized by the presence of background fragmentation, Vertex waves, K-complexes and sleep spindles. There are no electrographic seizures identified during this tracing. There are, however, intermittent sharp/slow wave activity at the left anterior temporal region. Photic stimulation produced no abnormalities. HV not performed during this study. EKG tracing showed no significant cardiac dysarrhythmia. Impression: This is an abnormal EEG due to presence of intermittent focal sharp/ slow wave at the left anterior temporal region. Clinical Correlation: This EEG is consistent with focal neuronal dysfunction at the left anterior temporal region. This pattern can be as an interictal phenomenon of partial seizure disorder. Clinical correlation advised.
--- NOTE | 2016-09-30 16:14 | Neurology - Consult Note ---
Date of Encounter: 09/30/16 Time of Encounter: 16:03 Assessment and Plan (1) Loss of consciousness Current Visit: Yes Status: Acute Patient developed an episode of passing out spell with urinary incontinence. No convulsion, or motor activity reported. No tongue biting. EEG showed mild sharp/ slow wave at the left temporal region, which may be related to increased risk of partial epilepsy. However, patient has not had any seizures for more than 10 years and this episode does occur with ongoing medical conditions and considering the fact that she also takes lamotrigine and gabapentin and clonezapam it is my feeling that this episode likely not due to a seizure. At this time, will recommend no additional antiepilpetic therapy. Continue Lamotrigine 200mg bid and gabapentin 300mg bid and clonozepam. It is noted that her urine drug screen showed no benzo activity. Patient states that she takes clonopin regularly. Please continue medical and supportive care. She is to follow up with me i October/2016. Appointment already scheduled. History of Present Illness Chief complaint: passing out, dizziness HPI: Ms. Parkinson is a 41 year old female with PMH significant for obesity, seizure disorder, schizophrenia, migraine headaches who developed an episode of passing out while watching TV, associated with urinary incontinence. Also been experiencing dizziness described as vertigo, worse when sitting up. Patient known to me and she has bipolar disorder ad schizophrenia and has been treated with multiple psychotrophic medications. This include lamotrigine and clonazepam which she takes on regular basis for her psychiatric illnesses. She has history of 'absence seizure' when younger but she has not had any seizures since last at least 10 years. No tongue biting reported. CT of head was read as no acute intracranial abnormality. She has had MRI of brain last year, showed unremarkable study. Today EEG showed intermittent sharp/ slow wave activity which may be associated with increased risk of partial epilepsy Past Med Surg Social Fam HX - Past Medical History Medical history: asthma, diabetes, GERD, hyperlipidemia, hypertension, seizures , other Psychiatric history: anxiety, bipolar, depression, schizophrenia, previous psychiatric hospitalization - Past Surgical History Surgical History: cholecystectomy - Social History Smoking Status: Never smoker Smokeless Tobacco Status: No Alcohol use: none Drug use: none - Family History Mother Name: Ester Alvarado Age: 59 Family Member Ethnicity: Non- Living Status: Still Living Hx Family Cardiac Disorders: Yes Hx Family Respiratory Disorders: Yes Hx Family Cancer: No Hx Family GI Disorders: No Hx Family Endocrine Disorder: Yes Hx Family Neuromuscular Disorders: No Hx Family Neurologic Disorders: No Hx Family HEENT Disorders: No Hx Family Autoimmune Disorders: Yes Father Family Member Ethnicity: Non- Living Status: Unknown Hx Family Cardiac Disorders: Yes ([place], HTN) Hx Family Respiratory Disorders: Yes (Enphesyma, COPD, Asthma) Hx Family Cancer: Yes (Unknown) Hx Family GI Disorders: Yes (Lactos Intolerant) Hx Family Endocrine Disorder: No Hx Family Neuromuscular Disorders: No Hx Family Neurologic Disorders: No Hx Family HEENT Disorders: No Hx Family Autoimmune Disorders: No Brother Family Member Ethnicity: Non- Living Status: Still Living Hx Family Cardiac Disorders: Yes (heart attack age 29) Medications and Allergies Docusate [Colace] 100 mg PO BID PRN 02/23/15 [History] Levothyroxine [Synthroid] 125 mcg PO DAILY 02/23/15 [History] Ranitidine HCl [Zantac] 150 mg PO BID 02/23/15 [History] Furosemide [Lasix] 20 mg PO DAILY 12/06/15 [History] Potassium Chloride [Klor-Con 10] 10 meq PO DAILY 12/06/15 [History] Trihexyphenidyl HCl 5 mg PO TID 12/06/15 [History] lamoTRIgine [Lamotrigine] 200 mg PO BID 12/06/15 [History] Albuterol Sulfate [Proair Respiclick] 2 puff IH Q4-6H PRN 12/07/15 [History] Aspirin [Ecotrin] 81 mg PO DAILY 12/07/15 [History] Atorvastatin [Lipitor] 40 mg PO HS 12/07/15 [History] Cetirizine HCl [All Day Allergy] 5 mg PO HS 12/07/15 [History] Cyclobenzaprine [Flexeril] 10 mg PO BID 12/07/15 [History] Escitalopram [Lexapro] 20 mg PO DAILY 12/07/15 [History] Gabapentin [Neurontin] 300 mg PO HS 12/07/15 [History] L.acidoph,Paracasei, B.lactis [Probiotic] 1 cap PO DAILY 12/07/15 [History] Montelukast [Singulair] 10 mg PO HS 12/07/15 [History] clonazePAM [Klonopin] 0.5 mg PO BID 12/07/15 [History] Iloperidone [Fanapt] 10 mg PO BID 02/19/16 [History] SUMAtriptan succinate [Imitrex] 50 mg PO DAILY PRN 02/19/16 [History] Beclomethasone Diprop 40mcg [Qvar 40 mcg] 1 puff IH BID 09/29/16 [History] Cyanocobalamin (Vitamin B-12) [Vitamin B12] 2,500 mcg PO DAILY 09/29/16 [History ] Multivitamin [Multi-Day Vitamins] 1 each PO DAILY 09/29/16 [History] Norethindrone-E.estradiol-Iron [Junel Fe 1.5 mg-30 Mcg Tablet] 1 each PO DAILY 09/29/16 [History] Pantoprazole Sodium [Protonix] 40 mg PO DAILY 09/29/16 [History] Prazosin [Minipress] 1 mg PO HS 09/29/16 [History] 3 Allergy/AdvReac Type Severity Reaction Status Date / Time aripiprazole [From Abilify] Allergy Hallucinati Verified 09/25/16 09:52 ng aspartame Allergy See Verified 09/25/16 09:52 Comments aspirin Allergy See Verified 09/25/16 09:52 Comments Cefprozil [From Cefzil] Allergy See Verified 09/25/16 09:52 Comments codeine Allergy See Verified 09/25/16 09:52 Comments duloxetine [From Cymbalta] Allergy See Verified 09/25/16 09:52 Comments Erythromycin Base Allergy See Verified 09/25/16 09:52 Comments esomeprazole [From Nexium] Allergy See Verified 09/25/16 09:52 Comments oxybutynin Allergy Dizziness Verified 09/25/16 09:52 Penicillins Allergy See Verified 09/25/16 09:52 Comments pregabalin [From Lyrica] Allergy Hallucinati Verified 09/25/16 09:52 ng Sulfa (Sulfonamide Allergy See Verified 09/25/16 09:52 Antibiotics) Comments ziprasidone [From Geodon] Allergy Hallucinati Verified 09/25/16 09:52 ng celecoxib [From Celebrex] AdvReac Hallucinati Verified 09/25/16 09:52 ng metformin AdvReac Diarrhea Verified 09/25/16 09:52 All Systems: A 10-system review of systems was performed and is negative for pertinent findings except as documented above in the HPI. Physical Examination - Vital Signs Vital Signs: Initial Vital Signs Temp Pulse Resp BP Pulse Ox 98 F 93 16 120/62 94 09/29/16 12:13 09/29/16 12:13 09/29/16 12:13 09/29/16 12:13 09/29/16 12:13 - Constitutional General appearance: comfortable - Neurologic Sensorimotor examination: intact Detailed motor examination: full strength in all major muscle groups Motor examination - right side: 5/5: deltoids, biceps, triceps, wrist flexion, wrist extension, media services director, hip flexors, tibialis Anterior, quadriceps, toe extension (EHL), plantarflexion Motor examination - left side: 5/5: deltoids, biceps, triceps, wrist flexion, wrist extension, hip flexors, media services director, quadriceps, tibialis Anterior, toe extension (EHL), plantarflexion Detailed sensory examination: intact Posture: other (None) Reflexes: Biceps: 1+, Triceps: 1+, Brachioradialis: 1+, Patella: 1+, Achilles: 1 + Mental Status Examination: awake, alert, oriented to person, oriented to place, oriented to time, follows commands appropriately, answers questions appropriately, no agnosia, no aphasia, no aproxia Cranial nerve examination: PERRL, EOMI, visual alvarado intact, corneal reflexes brisk symmetrically, sensory to face intact, mastication intact, no facial asymmetry is present, no dysarthria, hearing is intact symmetrically, soft palate elevates bilaterally upon phonation, gag reflex intact, flexes SCM and trapezius muscles symmetrically with full power, tongue protrudes midline, no atrophy or facial fasiculations present Results - Laboratory Findings CBC and BMP: 09/30/16 02:43 09/30/16 02:43 Abnormal lab findings: Abnormal lab results MCH 25.6 pg (28.0-33.3) L 09/30/16 02:43 MCHC 30.3 g/dL (31.6-35.5) L 09/30/16 02:43 RDW 16.0 % (11.5-14.5) H 09/30/16 02:43 MPV 8.7 fL (9.4-12.4) L 09/30/16 02:43 BUN 6 mg/dL (7-20) L 09/30/16 02:43 POC Glucose 97 (58-89) H 09/30/16 11:18 Urine Clarity Cloudy (Clear) A 09/29/16 14:12 Urine Blood Large (Negative) H 09/29/16 14:12 Ur Leukocyte Esterase Trace (Negative) H 09/29/16 14:12 Urine Microscopic RBC 5-15 per hpf (0-3) H 09/29/16 14:12 Ur Culture Indicated? YES (NO) A 09/29/16 14:12 Consult Discharge Plan - Plan Referrals: NONE,PCP [Primary Care Provider] -
--- NOTE | 2016-09-30 17:56 | Internal Med Progress Note ---
Date of Encounter: 09/30/16 Time of Encounter: 16:00 - Assessment and plan (1) Loss of consciousness Current Visit: Yes Status: Acute Assessment and plan: Unclear causation at this time. Given that she was incontinent of urine, concern for possible seizure-like activity. Chest x-ray negative. Chest CT negative. Head CT negative. Head CT did reveal sinus infection. Patient endorsing sinus pressure and pain. Carotid duplex unremarkable. Echocardiogram unremarkable with ejection fraction of 55%. EEG abnormal and possibly consistent with seizure disorder. Patient stating she has not had seizures in approximately 15 years. Neurology is on board and do not feel that seizure medications are indicated at this time and they will follow up closely with her outpatient. Suspect UTI-repeating urinalysis at this time. Tox screen negative despite the fact that the patient is on benzos. She endorses compliance. Patient denies lightheadedness or dizziness at this time. Will observe overnight and likely discharge tomorrow pending clinical outcomes. ITS Impressions Chest X-Ray 09/29/16 12:46 IMPRESSION: 1. Subtle asymmetric density involving the right apex, could represent evolving infiltrate or nodule. Chest CT correlation is recommended. D/ / 09/29/2016 13:45:19 Lele Mclain MD / nara Interpreting Provider: Lele Mclain MD Chest CT 09/29/16 14:01 IMPRESSION: 1. Stable left lower lobe posterior basal pleural thickening and chronic atelectasis versus scarring consistent with sequela of prior infectious/inflammatory process. There is no acute thoracic abnormality. 2. No finding concerning for thoracic malignancy. 3. The developing vague density of the right upper lobe seen on the recent chest radiograph may represent overlapping body wall soft tissues. D/ / 09/29/2016 16:03:54 Amrit Menjivar MD / mikki Interpreting Provider: Amrit Menjivar MD Head CT 09/29/16 19:01 IMPRESSION: No acute intracranial abnormality. Continued evidence of paranasal sinus disease. D/ / Jewel Hernandes MD / Jewel Hernandes MD Interpreting Provider: Jewel Hernandes MD Echocardiogram Date of Study: 09/30/2016 Impressions: LVEF 55%. Normal left ventricular size and systolic function. Normal diastolic function of the left ventricle. Normal right ventricular size and function. No significant valvular dysfunction. No pulmonary hypertension. EEG Procedure Report Date of procedure: 09/30/16 EEG Procedure: Routine EEG Impression: This is an abnormal EEG due to presence of intermittent focal sharp/ slow wave at the left anterior temporal region. Clinical Correlation: This EEG is consistent with focal neuronal dysfunction at the left anterior temporal region. This pattern can be as an interictal phenomenon of partial seizure disorder. Clinical correlation advised. 2 Documented By: Michael Porter MD Signed By: <Electronically signed by Michael Porter> [id number] (2) Seizure-like activity Current Visit: Yes Status: Suspected (3) Vertigo Current Visit: Yes Status: Resolved (4) Muscle strain, shoulder region Current Visit: No Status: Chronic Assessment and plan: Patient complaining of chronic left-sided shoulder pain worsened with movement and palpitation. Patient denies change to this chronic pain. (5) UTI (urinary tract infection) Current Visit: No Status: Acute Assessment and plan: Patient complains of dysuria. Urinalysis abnormal-initial urine culture grossly mixed and unable to be interpreted. Repeat urinalysis at this time but will initiate antibiotics given that she is symptomatic. Patient with documented allergies to cephalosporins, erythromycin, penicillin, sulfa. No documented allergies to fluoroquinolones-will initiate Cipro Qualifiers: Urinary tract infection type: acute cystitis Hematuria presence: with hematuria Qualified Code(s): N30.01 - Acute cystitis with hematuria (6) Dysuria Current Visit: No Status: Acute (7) Migraine Current Visit: No Status: Chronic Assessment and plan: chronic and unchanged. abated with home Imitrex. Follows with Dr Porter outpatient (8) Schizophrenia Current Visit: No Status: Chronic Assessment and plan: Mood and affect stable, continue home medications Qualifiers: Schizophrenia type: unspecified Qualified Code(s): F20.9 - Schizophrenia, unspecified (9) Bipolar 1 disorder Current Visit: Yes Status: Chronic (10) Asthma Current Visit: Yes Status: Chronic Assessment and plan: No acute exacerbation. Tolerating room air and denies shortness of breath above her norm. Qualifiers: Asthma severity: unspecified severity Asthma complication type: uncomplicated Qualified Code(s): J45.909 - Unspecified asthma, uncomplicated (11) Low back pain Current Visit: No Status: Chronic Assessment and plan: Patient denies change to the type of her pain. She denies any numbness or tingling down her legs. No change to bowel or bladder habits. Home medications continued. (12) Hypertension Current Visit: No Status: Chronic Assessment and plan: Controlled/borderline hypotensive at times. We will continue to trend and adjust medications as indicated. Qualifiers: Hypertension type: essential hypertension Qualified Code(s): I10 - Essential (primary) hypertension (13) GERD (gastroesophageal reflux disease) Current Visit: No Status: Chronic Assessment and plan: Denies current symptoms Qualifiers: Esophagitis presence: esophagitis presence not specified Qualified Code(s) : K21.9 - Gastro-esophageal reflux disease without esophagitis (14) Morbid obesity with BMI of 60.0-69.9, adult Current Visit: Yes Status: Chronic (15) DVT prophylaxis Current Visit: Yes Status: Acute Assessment and plan: Subcutaneous Lovenox ordered - Subjective Interval history: Patient seen and examined. On examination, patient resting in high holman's watching television. She is alert and oriented x3 and complains of her chronic low back pain and left shoulder pain. She denies shortness of breath. She denies dizziness or lightheadedness. She is endorsing a normal appetite. - Constitutional Vitals: Temp Pulse Resp BP Pulse Ox 97.5 F L 99 14 109/73 93 09/30/16 14:50 09/30/16 14:50 09/30/16 16:16 09/30/16 14:50 09/30/16 16:16 General appearance: Present: A&O X 3, morbidly obese, pleasant, no acute distress, answers questions appropriately - Head Head exam: Present: atraumatic, normocephalic - Eye Eye exam: Present: PERRL, conjuntiva pink, sclera anicteric Pupils: Present: PERRL - Expanded ENT Exam Teeth exam: Present: edentulous - Neck Neck exam general surgery: Present: supple, trachea midline. Absent: lymphadenopathy - Respiratory Respiratory exam: Present: decreased breath sounds (2/2 body habitus). Absent: accessory muscle use, rales, respiratory distress, rhonchi, wheezes - Cardiovascular Cardiovascular exam: Present: RRR, +S1, +S2. Absent: diastolic murmur, gallop, rubs, systolic murmur - GI/Abdominal GI/Abdominal exam: Present: distended, normal bowel sounds, soft, no peritoneal signs. Absent: tenderness - Extremities Exam Extremities exam: Present: pedal edema (1-2+ pitting- patient states she usually wears compression hose), warm, radial pulses palpable and symmetrical. Absent: calf tenderness, cyanotic - Neurological Exam Neurological exam: Present: alert, CN II-XII intact, oriented X3, no focal deficits, strengths equal and symetr throughout. Absent: pronater drift, facial droop, speech deficit - Skin Skin exam: Present: dry, intact, normal color, warm Internal Medicine: Result - Labs CBC & Chem 7: 09/30/16 02:43 09/30/16 02:43 Labs: Short CBC 09/30/16 Range/Units 02:43 WBC 9.4 (4.3-11.1) K/mcL Hgb 11.5 (11.5-15.4) g/dL Hct 38.0 (35.3-44.9) % Plt Count 303 (140-400) K/mcL Neutrophils # 6.0 (1.6-8.9) K/mcL BMP 09/30/16 02:43 Sodium 142 Potassium 3.8 Chloride 105 Carbon Dioxide 27 BUN 6 L Creatinine 0.74 Glucose 94 Calcium 8.9 - Impressions Impressions Head CT 09/29/16 19:01 IMPRESSION: No acute intracranial abnormality. Continued evidence of paranasal sinus disease. D/ / Jewel Hernandes MD / Jewel Hernandes MD Interpreting Provider: Jewel Hernandes MD Consult Discharge Plan - Plan Referrals: NONE,PCP [Primary Care Provider] -
[2016-09-30 20:57] LABS: Bilirubin,Urine Negative (Negative); Blood,Urine Large (Negative); Clarity,Urine Clear (Clear); Color,Urine Yellow (Yellow); Glucose,Urine (UA) Normal (Normal); Ketones,Urine Negative (Negative); Leukocyte Esterase,Urine Negative (Negative); Nitrite,Urine Negative (Negative); Protein,Urine Negative (Neg-Trace); Specific Gravity,Urine 1.009 (1.010-1.025); Urobilinogen,Urine Normal (Normal)
[2016-09-30] MEDS: Gabapentin 300 MG CAPSULE PO SCH (21:01)
[2016-09-30] MEDS: Loratadine 10 MG TABLET PO SCH (21:01)
[2016-09-30 21:02] LABS: Bacteria,Urine None Seen per hpf (None-Few); Hyaline Casts,Urine None Seen per lpf (None-Few); RBC,Urine 0-3 per hpf (0-3); Squamous Epithelial Cell,Urine Few per lpf (None-Few); WBC,Urine 0-3 per hpf (0-3)
[2016-10-01] MEDS ORDERED: *HR* Enoxaparin 40 MG/0.4 ML SYRINGE SQ SCH (07:00)
[2016-10-01 07:05] VITALS: BP 139/80
[2016-10-01] MEDS: Beclomethasone 40mcg MDI IH SCH (07:44)
[2016-10-01] MEDS: Acetaminophen 325 MG TABLET PO PRN (07:52)
[2016-10-01] MEDS: Aspirin Enteric Coated 81 MG Tablet PO SCH (07:52)
[2016-10-01] MEDS: Furosemide 20 MG TABLET PO SCH (07:52)
[2016-10-01] MEDS: clonazePAM 0.5 MG TABLET PO SCH (07:52)
[2016-10-01] MEDS: lamoTRIgine 100 MG TABLET PO SCH (07:52)
[2016-10-01] MEDS: ACIDOPH PARACASEI B LACTIS PO SCH (07:53)
[2016-10-01] MEDS: ILOPERIDONE PO SCH (07:53)
[2016-10-01] MEDS: (Pantoprazole Sodium [Protonix] 40 MG) PO SCH (07:53)
[2016-10-01] MEDS: Famotidine 20 MG TABLET PO SCH (10:14)
--- NOTE | 2016-10-01 10:27 | Discharge Summary ---
Date of Encounter: 10/01/16 Time of Encounter: 09:15 - Discharge Diagnosis (1) Loss of consciousness Priority: Primary Status: Acute Comments: Unclear causation. Given that she was incontinent of urine, concern for possible seizure-like activity. Chest x-ray negative. Chest CT negative. Head CT negative. Head CT did reveal sinus infection. Patient endorsing sinus pressure and pain. Carotid duplex unremarkable. Echocardiogram unremarkable with ejection fraction of 55%. EEG abnormal and possibly consistent with seizure disorder- no seizure medications added per neurology who cleared her for outpatient followup. (2) Acute sinusitis Priority: Primary Status: Acute (3) Seizure-like activity Priority: Primary Status: Suspected (4) Vertigo Priority: Primary Status: Resolved Comments: Patient was able to ambulate around her room freely without any lightheadedness or dizziness or difficulty with her ambulation. (5) Muscle strain, shoulder region Priority: Secondary Status: Chronic (6) UTI (urinary tract infection) Priority: Primary Status: Ruled-out Comments: Initial urine culture mixed, repeat urinalysis negative. Qualifiers: Urinary tract infection type: acute cystitis Hematuria presence: with hematuria Qualified Code(s): N30.01 - Acute cystitis with hematuria (7) Dysuria Priority: Primary Status: Ruled-out (8) Migraine Priority: Secondary Status: Chronic Comments: Abated with Imitrex. Follow up outpatient with Dr. Porter. (9) Schizophrenia Priority: Secondary Status: Chronic Comments: Mood and affect stable during this admission. Qualifiers: Schizophrenia type: unspecified Qualified Code(s): F20.9 - Schizophrenia, unspecified (10) Bipolar 1 disorder Priority: Secondary Status: Chronic (11) Asthma Priority: Secondary Status: Chronic Comments: No acute exacerbation. Patient denied shortness of breath above her norm and tolerated room air while admitted Qualifiers: Asthma severity: unspecified severity Asthma complication type: uncomplicated Qualified Code(s): J45.909 - Unspecified asthma, uncomplicated (12) Low back pain Priority: Secondary Status: Chronic (13) Hypertension Priority: Secondary Status: Chronic Comments: Controlled/borderline hypotensive at times. Normotensive on day of discharge, follow-up outpatient Qualifiers: Hypertension type: essential hypertension Qualified Code(s): I10 - Essential (primary) hypertension (14) GERD (gastroesophageal reflux disease) Priority: Secondary Status: Chronic Comments: Denied symptoms while admitted Qualifiers: Esophagitis presence: esophagitis presence not specified Qualified Code(s) : K21.9 - Gastro-esophageal reflux disease without esophagitis (15) Morbid obesity with BMI of 60.0-69.9, adult Priority: Secondary Status: Chronic (16) DVT prophylaxis Priority: Primary Status: Acute Comments: Subcutaneous Lovenox while admitted - Discharge Medications Prescriptions: Levofloxacin [Levaquin] 500 mg PO DAILY #7 tablet Home Medications: Docusate [Colace] 100 mg PO BID PRN 02/23/15 [History] Levothyroxine [Synthroid] 125 mcg PO DAILY 02/23/15 [History] Ranitidine HCl [Zantac] 150 mg PO BID 02/23/15 [History] Furosemide [Lasix] 20 mg PO DAILY 12/06/15 [History] Potassium Chloride [Klor-Con 10] 10 meq PO DAILY 12/06/15 [History] Trihexyphenidyl HCl 5 mg PO TID 12/06/15 [History] lamoTRIgine [Lamotrigine] 200 mg PO BID 12/06/15 [History] Albuterol Sulfate [Proair Respiclick] 2 puff IH Q4-6H PRN 12/07/15 [History] Aspirin [Ecotrin] 81 mg PO DAILY 12/07/15 [History] Atorvastatin [Lipitor] 40 mg PO HS 12/07/15 [History] Cetirizine HCl [All Day Allergy] 5 mg PO HS 12/07/15 [History] Cyclobenzaprine [Flexeril] 10 mg PO BID 12/07/15 [History] Escitalopram [Lexapro] 20 mg PO DAILY 12/07/15 [History] Gabapentin [Neurontin] 300 mg PO HS 12/07/15 [History] L.acidoph,Paracasei, B.lactis [Probiotic] 1 cap PO DAILY 12/07/15 [History] Montelukast [Singulair] 10 mg PO HS 12/07/15 [History] clonazePAM [Klonopin] 0.5 mg PO BID 12/07/15 [History] Iloperidone [Fanapt] 10 mg PO BID 02/19/16 [History] SUMAtriptan succinate [Imitrex] 50 mg PO DAILY PRN 02/19/16 [History] Beclomethasone Diprop 40mcg [QVAR 40 mcg] 1 puff IH BID 08/24/17 [History] Cyanocobalamin (Vitamin B-12) [Vitamin B12] 2,500 mcg PO DAILY 09/29/16 [History ] Multivitamin [Multi-Day Vitamins] 1 each PO DAILY 09/29/16 [History] Norethindrone-E.estradiol-Iron [Junel Fe 1.5 mg-30 Mcg Tablet] 1 each PO DAILY 09/29/16 [History] Pantoprazole Sodium [Protonix] 40 mg PO DAILY 09/29/16 [History] Prazosin [Minipress] 1 mg PO HS 09/29/16 [History] Levofloxacin [Levaquin] 500 mg PO DAILY #7 tablet 10/01/16 [Rx] Allergies/Adverse Reactions: 3 Allergy/AdvReac Type Severity Reaction Status Date / Time aripiprazole [From Abilify] Allergy Hallucinati Verified 09/25/16 09:52 ng aspartame Allergy See Verified 09/25/16 09:52 Comments aspirin Allergy See Verified 09/25/16 09:52 Comments Cefprozil [From Cefzil] Allergy See Verified 09/25/16 09:52 Comments codeine Allergy See Verified 09/25/16 09:52 Comments duloxetine [From Cymbalta] Allergy See Verified 09/25/16 09:52 Comments Erythromycin Base Allergy See Verified 09/25/16 09:52 Comments esomeprazole [From Nexium] Allergy See Verified 09/25/16 09:52 Comments oxybutynin Allergy Dizziness Verified 09/25/16 09:52 Penicillins Allergy See Verified 09/25/16 09:52 Comments pregabalin [From Lyrica] Allergy Hallucinati Verified 09/25/16 09:52 ng Sulfa (Sulfonamide Allergy See Verified 09/25/16 09:52 Antibiotics) Comments ziprasidone [From Geodon] Allergy Hallucinati Verified 09/25/16 09:52 ng celecoxib [From Celebrex] AdvReac Hallucinati Verified 09/25/16 09:52 ng metformin AdvReac Diarrhea Verified 09/25/16 09:52 Procedures/tests Complete & Pending: Procedures Performed prior 72 hours Category Date Time Status CT head/brain wo con [CT] Routine Cat Scan 09/29/16 19:01 Completed EV carotid duplex imaging BI Routine Y 09/30/16 18:00 Completed EV echocardiogram Routine Y 09/30/16 18:00 Completed Date of admission: 09/29/16 16:19 Primary care physician: PCP NONE Consults: 09/30/16 12:19 Consult to Interpret Exam [CONS] Routine Consulting Provider: Rogers Luis I Consult to Interpret Exam: Interpret EEG Discharging clinician: Mel Santos Anticipated date of discharge: 10/01/16 - Patient Status Disposition: Home, Self-Care Condition: Good Functional capacity at discharge: independent ambulation Overall status at discharge: patient is back to baseline - Discharge Instructions Follow Up With: Mundo Barnes MD [Partnered Physician] - Michael Porter MD [Partnered Physician] - Additional Instructions: Follow-up with primary care provider within one to 2 weeks, follow-up with neurology as scheduled - Diet and Activity Activity: increase activity as tolerated Diet: diabetic diet, low fat, low cholesterol, low salt diet Hospital course: Ms. Parkinson is a 41 year old female with past medical hypertension, hyperlipidemia, asthma, hypothyroidism, diabetes, history of seizure disorder in the past, schizoaffective disorder, bipolar disorder, anxiety and depression , recurrent migraines, morbid obesity BMI of 62. Patient presented to the emergency department chief complaint of dizziness, lightheadedness, and an episode of losing consciousness. Patient stating for the past several days prior to presentation, that she had increased dizziness and lightheadedness. Patient states that she felt as if the room was spinning or felt as if she was on a roller coaster when she was walking down the [place]. She states on the morning of presentation, she was sitting and watching television when she states that she "blacked out" and was incontinent of urine at that time. Patient stating she has a history of seizures in the past but has not had a seizure in 17 years. She does not take any medications for seizures but is on Lamictal for her bipolar disorder. She denied chest pain, palpitations, shortness of breath above her norm, abdominal pain. She did endorse nausea without vomiting. Workup in the emergency department with a slightly abnormal chest x-ray so chest CT was obtained which was unremarkable for acute processes. Head CT unremarkable other than a sinus infection. Patient was admitted to the hospitalist service for further evaluation and management. Carotid duplex unremarkable. Echocardiogram unremarkable with ejection fraction of 55%. EEG abnormal and possibly consistent with seizure disorder. Patient was seen and evaluated by neurology who deemed that antiepileptic medications were not indicated at this time and will follow up closely with her outpatient. While admitted, patient remained alert and oriented 3 and was asymptomatic over the course of her too night admission. She did have an abnormal urinalysis but the first urine culture was grossly mixed, repeat urinalysis negative. Urinary tract infection was ruled out. She did have symptoms consistent with sinus infection with her penicillin allergy, she was treated with levofloxacin. She was ambulatory without symptoms or difficulties. She was discharged home in stable condition with close outpatient follow-up recommended. Of note, the patient's mom called in several times while the patient was admitted and continually asked that the patient had serotonin syndrome. This was not in the list of differentials. Patient is on Lexapro but otherwise no other medications that could result in this syndrome and no recent changes to her medications. ITS Impressions Chest X-Ray 09/29/16 12:46 IMPRESSION: 1. Subtle asymmetric density involving the right apex, could represent evolving infiltrate or nodule. Chest CT correlation is recommended. D/ / 09/29/2016 13:45:19 Lele Mclain MD / nara Interpreting Provider: Lele Mclain MD Chest CT 09/29/16 14:01 IMPRESSION: 1. Stable left lower lobe posterior basal pleural thickening and chronic atelectasis versus scarring consistent with sequela of prior infectious/inflammatory process. There is no acute thoracic abnormality. 2. No finding concerning for thoracic malignancy. 3. The developing vague density of the right upper lobe seen on the recent chest radiograph may represent overlapping body wall soft tissues. D/ / 09/29/2016 16:03:54 Amrit Menjivar MD / mikki Interpreting Provider: Amrit Menjivar MD Head CT 09/29/16 19:01 IMPRESSION: No acute intracranial abnormality. Continued evidence of paranasal sinus disease. D/ / Jewel Hernandes MD / Jewel Hernandes MD Interpreting Provider: Jeewl Hernandes MD Echocardiogram Date of Study: 09/30/2016 Impressions: LVEF 55%. Normal left ventricular size and systolic function. Normal diastolic function of the left ventricle. Normal right ventricular size and function. No significant valvular dysfunction. No pulmonary hypertension. EEG Procedure Report Date of procedure: 09/30/16 EEG Procedure: Routine EEG Impression: This is an abnormal EEG due to presence of intermittent focal sharp/ slow wave at the left anterior temporal region. Clinical Correlation: This EEG is consistent with focal neuronal dysfunction at the left anterior temporal region. This pattern can be as an interictal phenomenon of partial seizure disorder. Clinical correlation advised. 2 Documented By: Michael Porter MD Signed By: <Electronically signed by Michael Porter> 1111 - Time Spent with Patient Total time spent providing and/or coordinating discharge services: - Constitutional Vitals: Temp Pulse Resp BP Pulse Ox 98.5 F 107 16 139/80 93 10/01/16 07:02 10/01/16 07:02 10/01/16 07:45 10/01/16 07:45 10/01/16 07:45 General appearance: Present: A&O X 3, morbidly obese, pleasant, no acute distress, answers questions appropriately - Head Head exam: Present: atraumatic, normocephalic - Eye Eye exam: Present: PERRL, conjuntiva pink, sclera anicteric Pupils: Present: PERRL - Neck Neck exam general surgery: Present: supple, trachea midline. Absent: lymphadenopathy - Respiratory Respiratory exam: Present: decreased breath sounds (2/2 body habitus). Absent: accessory muscle use, rales, respiratory distress, rhonchi, wheezes - Cardiovascular Cardiovascular exam: Present: RRR, +S1, +S2. Absent: diastolic murmur, gallop, rubs, systolic murmur - GI/Abdominal GI/Abdominal exam: Present: distended, normal bowel sounds, soft, no peritoneal signs. Absent: tenderness - Extremities Exam Extremities exam: Present: pedal edema (Trace, nonpitting), warm, radial pulses palpable and symmetrical. Absent: calf tenderness, cyanotic - Neurological Exam Neurological exam: Present: alert, CN II-XII intact, normal gait, oriented X3, no focal deficits, strengths equal and symetr throughout. Absent: pronater drift, facial droop, speech deficit - Skin Skin exam: Present: dry, intact, normal color, warm
--- NOTE | 2016-10-01 10:55 | Physician Discharge Referral ---
Home Health/Hosp Referral Info Transfer to: Home Health Attending Provider: Jayne Santos CNP Provider in Charge Post Discharge: PCP - Diagnosis (1) Loss of consciousness Priority: Primary Status: Acute (2) Acute sinusitis Priority: Primary Status: Acute (3) Seizure-like activity Priority: Primary Status: Suspected (4) Vertigo Priority: Primary Status: Resolved (5) Muscle strain, shoulder region Priority: Secondary Status: Chronic (6) UTI (urinary tract infection) Priority: Primary Status: Ruled-out (7) Dysuria Priority: Primary Status: Ruled-out (8) Migraine Priority: Secondary Status: Chronic (9) Schizophrenia Priority: Secondary Status: Chronic (10) Bipolar 1 disorder Priority: Secondary Status: Chronic (11) Asthma Priority: Secondary Status: Chronic (12) Low back pain Priority: Secondary Status: Chronic (13) Hypertension Priority: Secondary Status: Chronic (14) GERD (gastroesophageal reflux disease) Priority: Secondary Status: Chronic (15) Morbid obesity with BMI of 60.0-69.9, adult Priority: Secondary Status: Chronic (16) DVT prophylaxis Priority: Primary Status: Acute - Respiratory Orders Smoking Cessation: Smoking cessation has been advised. For more information, call the [place] Tobacco Quit Line at 9-412-SNRE-NOW. - Diet/Nutrition Diet/Nutrition Orders: No Added Salt (BELLA), No Concentrated Sweets - Activity Activity Orders: Up ad alpa - Services Needed Following services are medically necessary services: Nursing, Home Health Aide - Transfer Medications Prescriptions: Levofloxacin [Levaquin] 500 mg PO DAILY #7 tablet Home Medications: Docusate [Colace] 100 mg PO BID PRN 02/23/15 [History] Levothyroxine [Synthroid] 125 mcg PO DAILY 02/23/15 [History] Ranitidine HCl [Zantac] 150 mg PO BID 02/23/15 [History] Furosemide [Lasix] 20 mg PO DAILY 12/06/15 [History] Potassium Chloride [Klor-Con 10] 10 meq PO DAILY 12/06/15 [History] Trihexyphenidyl HCl 5 mg PO TID 12/06/15 [History] lamoTRIgine [Lamotrigine] 200 mg PO BID 12/06/15 [History] Albuterol Sulfate [Proair Respiclick] 2 puff IH Q4-6H PRN 12/07/15 [History] Aspirin [Ecotrin] 81 mg PO DAILY 12/07/15 [History] Atorvastatin [Lipitor] 40 mg PO HS 12/07/15 [History] Cetirizine HCl [All Day Allergy] 5 mg PO HS 12/07/15 [History] Cyclobenzaprine [Flexeril] 10 mg PO BID 12/07/15 [History] Escitalopram [Lexapro] 20 mg PO DAILY 12/07/15 [History] Gabapentin [Neurontin] 300 mg PO HS 12/07/15 [History] L.acidoph,Paracasei, B.lactis [Probiotic] 1 cap PO DAILY 12/07/15 [History] Montelukast [Singulair] 10 mg PO HS 12/07/15 [History] clonazePAM [Klonopin] 0.5 mg PO BID 12/07/15 [History] Iloperidone [Fanapt] 10 mg PO BID 02/19/16 [History] SUMAtriptan succinate [Imitrex] 50 mg PO DAILY PRN 02/19/16 [History] Beclomethasone Diprop 40mcg [QVAR 40 mcg] 1 puff IH BID 09/29/16 [History] Cyanocobalamin (Vitamin B-12) [Vitamin B12] 2,500 mcg PO DAILY 09/29/16 [History ] Multivitamin [Multi-Day Vitamins] 1 each PO DAILY 09/29/16 [History] Norethindrone-E.estradiol-Iron [Junel Fe 1.5 mg-30 Mcg Tablet] 1 each PO DAILY 09/29/16 [History] Pantoprazole Sodium [Protonix] 40 mg PO DAILY 09/29/16 [History] Prazosin [Minipress] 1 mg PO HS 09/29/16 [History] Levofloxacin [Levaquin] 500 mg PO DAILY #7 tablet 10/01/16 [Rx] Allergies/Adverse Reactions: 3 Allergy/AdvReac Type Severity Reaction Status Date / Time aripiprazole [From Abilify] Allergy Hallucinati Verified 09/25/16 09:52 ng aspartame Allergy See Verified 09/25/16 09:52 Comments aspirin Allergy See Verified 09/25/16 09:52 Comments Cefprozil [From Cefzil] Allergy See Verified 09/25/16 09:52 Comments codeine Allergy See Verified 09/25/16 09:52 Comments duloxetine [From Cymbalta] Allergy See Verified 09/25/16 09:52 Comments Erythromycin Base Allergy See Verified 09/25/16 09:52 Comments esomeprazole [From Nexium] Allergy See Verified 09/25/16 09:52 Comments oxybutynin Allergy Dizziness Verified 09/25/16 09:52 Penicillins Allergy See Verified 09/25/16 09:52 Comments pregabalin [From Lyrica] Allergy Hallucinati Verified 09/25/16 09:52 ng Sulfa (Sulfonamide Allergy See Verified 09/25/16 09:52 Antibiotics) Comments ziprasidone [From Geodon] Allergy Hallucinati Verified 09/25/16 09:52 ng celecoxib [From Celebrex] AdvReac Hallucinati Verified 09/25/16 09:52 ng metformin AdvReac Diarrhea Verified 09/25/16 09:52 Certification: Further, I certify that my clinical findings support that this patient is homebound (i.e. absences from home require considerable and taxing effort and are for medical reasons or yarsanism services or infrequently or short duration when for other reasons) because: Homebound Reason: Leaving home requires considerable and taxing effort due to condition Attestation: My signature below is to certify that this patient is under my care and that I, or nurse practitioner, or a physician's assistant professor of english working with me, has a face-to -face encounter with this patient.
--- NOTE | 2016-10-03 08:32 | Carotid Imaging Report ---
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 Recommendations: Test completed on 09/30/2016 at 7:55:00 am. Findings Carotid Duplex: Hall scale imaging combined with Doppler flow analysis suggests normal findings bilaterally. Right: The right proximal common carotid artery has a PSV of 121 cm/s and a EDV of 17 cm/s. The right mid common carotid artery has a PSV of 99 cm/s and a EDV of 27 cm/s. The right distal common carotid artery has a PSV of 76 cm/s and a EDV of 20 cm/s. The right bifurcation has a PSV of 49 cm/s and a EDV of 13 cm/s. The right proximal internal carotid artery has a PSV of 82 cm/s and a EDV of 18 cm/s. The right mid internal carotid artery has a PSV of 72 cm/s and a EDV of 27 cm/s. The right distal internal carotid artery has a PSV of 63 cm/s and a EDV of 21 cm/s. The right eca has a PSV of 144 cm/s and a EDV of 17 cm/s. The right vertebral artery has a PSV of 49 cm/s and a EDV of 16 cm/s. Left: The left proximal common carotid artery has a PSV of 131 cm/s and a EDV of 20 cm/s. The left mid common carotid artery has a PSV of 90 cm/s and a EDV of 18 cm/s. The left distal common carotid artery has a PSV of 91 cm/s and a EDV of 21 cm/s. The left bifurcation has a PSV of 85 cm/s and a EDV of 23 cm/s. The left proximal internal carotid artery has a PSV of 92 cm/s and a EDV of 21 cm/s. The left mid internal carotid artery has a PSV of 75 cm/s and a EDV of 20 cm/s. The left distal internal carotid artery has a PSV of 92 cm/s and a EDV of 28 cm/s. The left eca has a PSV of 166 cm/s and a EDV of 21 cm/s. The left vertebral artery has a PSV of 53 cm/s and a EDV of 17 cm/s. Prior Study: No prior study available for comparison. Carotid Results Right PSV EDV Assessment Proximal CCA 121 17 Normal Mid CCA 99 27 Normal Distal CCA 76 20 Normal Bifurcation 49 13 Normal Proximal ICA 82 18 Normal Mid ICA 72 27 Normal Distal ICA 63 21 Normal ECA 144 17 Normal Vertebral Artery 49 16 Normal Left PSV EDV Assessment Proximal CCA 131 20 Normal Mid CCA 90 18 Normal Distal CCA 91 21 Normal Bifurcation 85 23 Normal Proximal ICA 92 21 Normal Mid ICA 75 20 Normal Distal ICA 92 28 Normal ECA 166 21 Normal Vertebral Artery 53 17 Normal Ratio's Right ICA/CCA Ratio: 0.83 ICA/CCA Values: 82/99 Left ICA/CCA Ratio: 1.02 ICA/CCA Values: 92/90 Updated by Flaquito Alcala MD on 10/01/2016 5:38:47 PM electronically signed on 10/01/2016 5:39:09 PM with status of Final
== END 2016-10-01 12:00 | disposition home health service (06) ==
LOC: 3BNU 12:08 → EMEROO 12:08 → 3BNU 16:40
PROVIDERS: ADMIT Internal Medicine; ATTEND Nurse Practitioner Family

== ENCOUNTER 2017-04-09 09:48 | Observation (INO) ==
--- NOTE | 2017-04-09 10:25 | Emergency Department Note ---
Disposition Clinical Impression: Weakness Urinary incontinence Qualifiers: Urinary Incontinence type: unspecified incontinence Qualified Code(s): R32 - Unspecified urinary incontinence Disposition: Admitted As Inpatient Condition: Good General Adult HPI - General Chief complaint: ED Urogenital-Female Stated complaint: UTI, weakness, dizzy Time Seen by Provider: 04/09/17 09:53 Source: patient, EMS Mode of arrival: EMS Limitations: other (Patient reports difficulty ambulating secondary to bilateral lower abdominal pain and groin pain.) Nursing Notes Reviewed: Yes Vital Signs Reviewed: Yes - History of Present Illness HPI Narrative: Patient is a 42-year-old morbidly obese diabetic female who presents to emergency department brought by EMS today for complaints of pelvic pain and urinary incontinence that began last night. 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 Upon returning home last night patient began complaining of some generalized lower abdominal pelvic pain and discomfort associated with an episode of urinary incontinence. When talking to the patient more detail she states that the pain at times was severe enough that ambulating was difficult due to the pain and not because she was feeling any weakness or inability to ambulate. Patient denies any history of falls or trauma prior to these symptoms. Patient states she was feeling warm and cold off and on but did not take her temperature, feeling mild nausea but no vomiting. Patient denies any flank pain but does complain of some very mild generalized low back pain bilaterally. Patient states that she has this frequently and did not feel that this is significantly worse and is not causing any radiating pain into the lower extremities weakness or numbness. Patient states upon awakening this morning she had to urinate felt some urgency but was unable to get to the bathroom due to her abdominal pain and could not reach the toilet in time and so she ended up having an episode of urinary incontinence. Patient also thinks she is having a little bit of a vaginal discharge but denies any burning or abnormal vaginal bleeding. Last menstrual period was approximately 2 weeks ago and normal timing and duration. Patient's not had any recent surgeries or procedures performed and no recent hospitalizations. Patient states she really has not had anything to eat this morning due to the nausea. Patient denies any other associated symptoms is hemodynamically stable awake alert and oriented 4. Pain Scale: 8 - Related Data Home Medications Medication Instructions Recorded Confirmed Docusate [Colace] 100 mg PO BID PRN 02/23/15 04/09/17 Levothyroxine [Synthroid] 125 mcg PO DAILY 02/23/15 04/09/17 Ranitidine HCl [Zantac] 150 mg PO BID 02/23/15 04/09/17 Furosemide [Lasix] 40 mg PO DAILY 12/06/15 04/09/17 Potassium Chloride [Klor-Con 10] 10 meq PO DAILY 12/06/15 04/09/17 Trihexyphenidyl HCl 5 mg PO TID 12/06/15 04/09/17 lamoTRIgine [Lamotrigine] 200 mg PO BID 12/06/15 04/09/17 Albuterol Sulfate [Proair 2 puff IH Q4-6H PRN 12/07/15 04/09/17 Respiclick] Aspirin [Ecotrin] 81 mg PO DAILY 12/07/15 04/09/17 Atorvastatin [Lipitor] 40 mg PO HS 12/07/15 04/09/17 Cetirizine HCl [All Day Allergy] 5 mg PO HS 12/07/15 04/09/17 Cyclobenzaprine [Flexeril] 10 mg PO BID 12/07/15 04/09/17 Escitalopram [Lexapro] 20 mg PO DAILY 12/07/15 04/09/17 Gabapentin [Neurontin] 300 mg PO HS 12/07/15 04/09/17 L.acidoph,Paracasei, B.lactis 1 cap PO DAILY 12/07/15 04/09/17 [Probiotic] Montelukast [Singulair] 10 mg PO HS 12/07/15 04/09/17 clonazePAM [Klonopin] 0.5 mg PO BID 12/07/15 04/09/17 SUMAtriptan succinate [Imitrex] 50 mg PO DAILY PRN 02/19/16 04/09/17 Beclomethasone Diprop 40mcg [QVAR 1 puff IH BID 09/29/16 04/09/17 40 mcg] Cyanocobalamin (Vitamin B-12) 2,500 mcg PO DAILY 09/29/16 04/09/17 [Vitamin B12] Multivitamin [Multi-Day Vitamins] 1 tab PO DAILY 09/29/16 04/09/17 Norethindrone-E.estradiol-Iron 1 tab PO DAILY 09/29/16 04/09/17 [Junel Fe 1.5 mg-30 Mcg Tablet] Pantoprazole Sodium [Protonix] 40 mg PO DAILY 09/29/16 04/09/17 Prazosin [Minipress] 1 mg PO HS 09/29/16 04/09/17 Diclofenac Sodium [Voltaren] 75 mg PO BID 04/09/17 04/09/17 Iloperidone [Fanapt] 12 mg PO BID 04/09/17 04/09/17 Oxybutynin Chloride [Ditropan Xl] 10 mg PO DAILY 04/09/17 04/09/17 SitaGLIPtin [Januvia] 100 mg PO DAILY 04/09/17 04/09/17 Previous Rx's Medication Instructions Recorded Amoxicillin/Clavulanate [Augmentin] 875 mg PO BIDWM #14 tablet 04/11/17 Allergies Allergy/AdvReac Type Severity Reaction Status Date / Time aripiprazole [From Abilify] Allergy Hallucinati Verified 09/25/16 09:52 ng Cefprozil [From Cefzil] Allergy See Verified 09/25/16 09:52 Comments codeine Allergy See Verified 09/25/16 09:52 Comments duloxetine [From Cymbalta] Allergy See Verified 09/25/16 09:52 Comments Erythromycin Base Allergy See Verified 09/25/16 09:52 Comments esomeprazole [From Nexium] Allergy See Verified 09/25/16 09:52 Comments Penicillins Allergy See Verified 09/25/16 09:52 Comments pregabalin [From Lyrica] Allergy Hallucinati Verified 09/25/16 09:52 ng Sulfa (Sulfonamide Allergy See Verified 09/25/16 09:52 Antibiotics) Comments ziprasidone [From Geodon] Allergy Hallucinati Verified 09/25/16 09:52 ng celecoxib [From Celebrex] AdvReac Hallucinati Verified 09/25/16 09:52 ng metformin AdvReac Diarrhea Verified 09/25/16 09:52 All systems ED: reviewed and negative except as stated. Review of Systems: As Per HPI Past Medical History - Past Medical History Medical history: Reports: asthma, diabetes, GERD, hyperlipidemia, hypertension, seizures, other Surgical history: Reports: cholecystectomy Psychiatric history: Reports: anxiety, bipolar, depression, schizophrenia, previous psychiatric hospitalization EMERGENCY ROOM SPECIALIST history: Reports: no EMERGENCY ROOM SPECIALIST history - Social History Smoking Status: Never smoker Smokeless Tobacco Status: No Alcohol use: Reports: none Drug use: Reports: none Physical Exam - General Limitations: no limitations General appearance: alert, in no apparent distress - Head Head exam: atraumatic, normocephalic, normal inspection - Eye Eye exam: Present: normal appearance, PERRL, EOMI - ENT ENT exam: normal exam, normal oropharynx - Neck Neck exam: Present: normal inspection, full ROM - Chest Chest inspection: Present: normal inspection, symmetric chest wall rise - Respiratory Respiratory exam: Present: normal lung sounds bilaterally. Absent: respiratory distress, wheezes - Cardiovascular Cardiovascular exam: Present: regular rate, normal rhythm, normal heart sounds - Abdominal Exam Abdominal exam: Present: soft, tenderness, normal bowel sounds. Absent: distention, guarding, rebound, rigidity (Patient with mild tenderness to palpation of the lower abdomen without peritoneal signs. Patient also with bilateral groin pain although no palpable lymphadenopathy was appreciated.) - Female Brain Picker present during exam: Yes External Exam: Present: normal external exam. Absent: swelling, lesions, lacerations Speculum Exam: Present: cervical OS closed, vaginal discharge, vaginal bleeding - Extremities Exam Extremities exam: Present: normal inspection. Absent: tenderness, calf tenderness - Back Exam Back exam: Present: normal inspection. Absent: CVA tenderness (R), CVA tenderness (L) - Neurological Exam Neurological exam: Present: alert, oriented X3, CN II-XII intact, reflexes normal. Absent: motor sensory deficit - Psychiatric Psychiatric exam: Present: normal affect, normal mood - Skin Skin exam: Present: warm, dry, intact, normal color Course Course Narrative: Patient hemodynamically stable and in no acute distress at this time. Due to concern for possible pelvic complaints we will perform a pelvic exam and obtained vaginal cultures for wet prep and GC chlamydia. We will also straight catheter for urine and an Accu-Chek was performed on arrival which was 109. - Reevaluation(s) Reevaluation #1: At 1300 the patient began complaining of right-sided chest pain, pain in her right arm, and acute onset of headache. She describes the chest pain as sharp, but this resolved after a few minutes. She states this headache is slightly different than her migraines. She reports that she is having some blurred vision, nausea, and had urinated as well. She also states that she is having some tremors of her right arm and hand, but she is able to lift her right arm and move normally. Patient denies loss of consciousness. Pupils are equal and reactive to light, and she is able to answer questions appropriately. We will give medications to help with her headache including Benadryl and Reglan. And will order a head CT. Time: 13:20 Vital Signs Temperature 98.4 F 04/09/17 09:49 Pulse Rate 101 04/09/17 09:49 Respiratory Rate 17 04/09/17 09:49 Blood Pressure 135/82 04/09/17 09:49 O2 Sat by Pulse Oximetry 94 04/09/17 09:49 Temperature 98.6 F 04/11/17 16:24 Pulse Rate 109 04/11/17 16:24 Respiratory Rate 16 04/11/17 16:24 Blood Pressure 122/80 04/11/17 16:24 O2 Sat by Pulse Oximetry 93 04/11/17 16:24 Oxygen Delivery Oxygen Delivery Room Air Medical Decision Making - MDM Narrative Medical decision making narrative: CBC, chemistry, hepatic function, UA, and vaginosis swabs are all negative. Initially there was concern that this could be related to a UTI. Now, the atient symptoms are similar to a prior episode in September 2016, however this time she is not reporting a known event of loss of consciousness, but she is questioning whether she may have passed out earlier this morning while she was in bed. With the patient's migraine here in the hospital and associated right upper extremity tremors, there is concern this is a seizure. Head CT shows no acute abnormality. Prolactin level is mildly elevated however. She continues to feel very weak and lightheaded, and at this time would be unsafe to go home. She will be admitted to the hospital for further evaluation monitor her symptoms and treatment, and evaluation by neurology. Discussed the case with neurology and they have agreed to be consulted and evaluated the patient. - Medical Records Medical records reviewed: Yes I reviewed the patient's medical records. Patient was evaluated by neurology in the hospital in September 2016 for an episode of loss of consciousness and urinary incontinence. EEG showed mild sharp /slow wave at the left temporal region, which may be related to increased risk of partial epilepsy. There was concern of possible seizure at that time the patient has a history of seizures in her teenage years, but has not been on any antiepileptic drugs for several years because she has been seizure free for so long. At that time there was no antiepileptic drugs and initiated. - Lab Data Lab results reviewed: Yes I reviewed the patient's lab results. Result diagrams: 04/10/17 06:41 04/10/17 06:41 Lab Results 04/09/17 04/09/17 04/09/17 Range/Units 10:04 10:04 10:04 WBC 10.2 (4.3-11.1) K/mcL RBC 4.32 (3.82-4.97) M/mcL Hgb 11.8 (11.5-15.4) g/dL Hct 38.2 (35.3-44.9) % MCV 88.4 (83.0-100.0) fL MCH 27.3 L (28.0-33.3) pg MCHC 30.9 L (31.6-35.5) g/dL RDW 14.5 (11.5-14.5) % Plt Count 316 (140-400) K/mcL MPV 9.5 (9.4-12.4) fL Immature Gran % 0.5 (0-4) % Seg Neutrophils % 75.6 % Lymphocytes % 13.2 % Monocytes % 5.9 % Eosinophils % 4.4 % Basophils % 0.4 % Neutrophils # 7.7 (1.6-8.9) K/mcL Lymphocytes # 1.3 (0.6-4.6) K/mcL Monocytes # 0.6 (0.0-1.3) K/mcL Eosinophils # 0.5 (0.0-0.6) K/mcL Basophils # 0.0 (0.0-0.2) K/mcL Sodium 138 (136-145) mEq/L Potassium 3.8 (3.5-5.1) mEq/L Chloride 103 (98-107) mEq/L Carbon Dioxide 25 (23-29) mEq/L BUN 9 (6-20) mg/dL Creatinine 0.73 (0.60-1.20) mg/dL Est GFR ( Amer) > 60 (> 60) Est GFR (Non-Af Amer) > 60 (> 60) BUN/Creatinine Ratio 12 (6-26) Glucose 110 H (70-105) mg/dL POC Glucose (58-89) Est Mean Plasma Glucose mg/dl Hemoglobin A1c ( - 5.6) % Calculated Osmolality 285 (280-300) Calcium 8.9 (8.6-10.3) mg/dL Total Bilirubin 0.3 (0.3-1.0) mg/dL AST 17 (13-39) Units/L ALT 13 (7-52) Units/L Alkaline Phosphatase 62 (34-104) Units/L Serum Total Protein 6.1 L (6.4-8.9) g/dL Albumin 3.7 (3.5-5.7) g/dL Globulin 2.4 (2.4-3.5) g/dL Albumin/Globulin Ratio 1.5 (1.1-2.2) Prolactin 23.84 H (3.80-23.20) ng/mL Urine Color (Yellow) Urine Clarity (Clear) Urine pH (5.0-8.0) pH Units Ur Specific [place] (1.010-1.025) Urine Protein (Neg-Trace) mg/dL Urine Glucose (UA) (Normal) mg/dL Urine Ketones (Negative) mg/dL Urine Blood (Negative) Urine Nitrite (Negative) Urine Bilirubin (Negative) Urine Urobilinogen (Normal) mg/dL Ur Leukocyte Esterase (Negative) Urine Test (Negative) Maggie species DNA (Not Detect) Chlam trachomat DNA PCR (Not Detect) Gardnerella DNA Probe (Not Detect) N.gonorrhoeae DNA (PCR) (Not Detect) Trichomonas DNA Probe (Not Detect) 04/09/17 04/09/17 04/09/17 Range/Units 10:04 10:05 10:28 WBC (4.3-11.1) K/mcL RBC (3.82-4.97) M/mcL Hgb (11.5-15.4) g/dL Hct (35.3-44.9) % MCV (83.0-100.0) fL MCH (28.0-33.3) pg MCHC (31.6-35.5) g/dL RDW (11.5-14.5) % Plt Count (140-400) K/mcL MPV (9.4-12.4) fL Immature Gran % (0-4) % Seg Neutrophils % % Lymphocytes % % Monocytes % % Eosinophils % % Basophils % % Neutrophils # (1.6-8.9) K/mcL Lymphocytes # (0.6-4.6) K/mcL Monocytes # (0.0-1.3) K/mcL Eosinophils # (0.0-0.6) K/mcL Basophils # (0.0-0.2) K/mcL Sodium (136-145) mEq/L Potassium (3.5-5.1) mEq/L Chloride (98-107) mEq/L Carbon Dioxide (23-29) mEq/L BUN (6-20) mg/dL Creatinine (0.60-1.20) mg/dL Est GFR ( Amer) (> 60) Est GFR (Non-Af Amer) (> 60) BUN/Creatinine Ratio (6-26) Glucose (70-105) mg/dL POC Glucose 109 H (58-89) Est Mean Plasma Glucose 123 mg/dl Hemoglobin A1c 5.9 H ( - 5.6) % Calculated Osmolality (280-300) Calcium (8.6-10.3) mg/dL Total Bilirubin (0.3-1.0) mg/dL AST (13-39) Units/L ALT (7-52) Units/L Alkaline Phosphatase (34-104) Units/L Serum Total Protein (6.4-8.9) g/dL Albumin (3.5-5.7) g/dL Globulin (2.4-3.5) g/dL Albumin/Globulin Ratio (1.1-2.2) Prolactin (3.80-23.20) ng/mL Urine Color Yellow (Yellow) Urine Clarity Clear (Clear) Urine pH 6.5 (5.0-8.0) pH Units Ur Specific [place] 1.013 (1.010-1.025) Urine Protein Negative (Neg-Trace) mg/dL Urine Glucose (UA) Normal (Normal) mg/dL Urine Ketones Negative (Negative) mg/dL Urine Blood Negative (Negative) Urine Nitrite Negative (Negative) Urine Bilirubin Negative (Negative) Urine Urobilinogen Normal (Normal) mg/dL Ur Leukocyte Esterase Negative (Negative) Urine Test (Negative) Maggie species DNA (Not Detect) Chlam trachomat DNA PCR (Not Detect) Gardnerella DNA Probe (Not Detect) N.gonorrhoeae DNA (PCR) (Not Detect) Trichomonas DNA Probe (Not Detect) 04/09/17 04/09/17 04/09/17 Range/Units 10:28 10:32 10:32 WBC (4.3-11.1) K/mcL RBC (3.82-4.97) M/mcL Hgb (11.5-15.4) g/dL Hct (35.3-44.9) % MCV (83.0-100.0) fL MCH (28.0-33.3) pg MCHC (31.6-35.5) g/dL RDW (11.5-14.5) % Plt Count (140-400) K/mcL MPV (9.4-12.4) fL Immature Gran % (0-4) % Seg Neutrophils % % Lymphocytes % % Monocytes % % Eosinophils % % Basophils % % Neutrophils # (1.6-8.9) K/mcL Lymphocytes # (0.6-4.6) K/mcL Monocytes # (0.0-1.3) K/mcL Eosinophils # (0.0-0.6) K/mcL Basophils # (0.0-0.2) K/mcL Sodium (136-145) mEq/L Potassium (3.5-5.1) mEq/L Chloride (98-107) mEq/L Carbon Dioxide (23-29) mEq/L BUN (6-20) mg/dL Creatinine (0.60-1.20) mg/dL Est GFR ( Amer) (> 60) Est GFR (Non-Af Amer) (> 60) BUN/Creatinine Ratio (6-26) Glucose (70-105) mg/dL POC Glucose (58-89) Est Mean Plasma Glucose mg/dl Hemoglobin A1c ( - 5.6) % Calculated Osmolality (280-300) Calcium (8.6-10.3) mg/dL Total Bilirubin (0.3-1.0) mg/dL AST (13-39) Units/L ALT (7-52) Units/L Alkaline Phosphatase (34-104) Units/L Serum Total Protein (6.4-8.9) g/dL Albumin (3.5-5.7) g/dL Globulin (2.4-3.5) g/dL Albumin/Globulin Ratio (1.1-2.2) Prolactin (3.80-23.20) ng/mL Urine Color (Yellow) Urine Clarity (Clear) Urine pH (5.0-8.0) pH Units Ur Specific [place] (1.010-1.025) Urine Protein (Neg-Trace) mg/dL Urine Glucose (UA) (Normal) mg/dL Urine Ketones (Negative) mg/dL Urine Blood (Negative) Urine Nitrite (Negative) Urine Bilirubin (Negative) Urine Urobilinogen (Normal) mg/dL Ur Leukocyte Esterase (Negative) Urine Test Negative (Negative) Maggie species DNA Not Detected (Not Detect) Chlam trachomat DNA PCR NOT DETECTED (Not Detect) Gardnerella DNA Probe Not Detected (Not Detect) N.gonorrhoeae DNA (PCR) NOT DETECTED (Not Detect) Trichomonas DNA Probe Not Detected (Not Detect) - Radiology Data Radiology results reviewed: Yes I reviewed the patient's radiology results. CTA head/brain shows no acute abnormality. Attestation Statement - Attestation Attestation: I examined this patient and my medical decision-making was reviewed with the Resident Physician, Dr. Verdugo. I agree with the documented findings, disposition and treatment plan as described except to the extent set forth below. Pt was harley nd examined by myself in conjunction with Dr. Verdugo. I agree with documentation and final disposition.
[2017-04-09] MEDS ORDERED: Ondansetron 4 MG/2 ML VIAL IVP ONE (10:28)
[2017-04-09 10:44] LABS: Bilirubin,Urine Negative (Negative); Blood,Urine Negative (Negative); Clarity,Urine Clear (Clear); Color,Urine Yellow (Yellow); Glucose,Urine (UA) Normal (Normal); Ketones,Urine Negative (Negative); Leukocyte Esterase,Urine Negative (Negative); Nitrite,Urine Negative (Negative); PH,Urine 6.5 pH Units (5.0-8.0); Protein,Urine Negative (Neg-Trace); Specific Gravity,Urine 1.013 (1.010-1.025); Urobilinogen,Urine Normal (Normal)
[2017-04-09 11:33] LABS: Candida DNA Not Detected (Not Detect); Gardnerella DNA Not Detected (Not Detect); Trichomonas DNA Not Detected (Not Detect)
[2017-04-09 13:15] LABS: Basophils % 0.4 %; Eosinophils # 0.5 K/mcL (0.0-0.6); Eosinophils % 4.4 %; Hematocrit 38.2 % (35.3-44.9); Hemoglobin 11.8 g/dL (11.5-15.4); Immature Granulocytes % 0.5 % (0-4); Lymphocytes # 1.3 K/mcL (0.6-4.6); Lymphocytes % 13.2 %; Mean Corpuscular HGB Conc 30.9 g/dL (31.6-35.5); Mean Corpuscular Hemoglobin 27.3 pg (28.0-33.3); Mean Corpuscular Volume 88.4 fL (83.0-100.0); Mean Platelet Volume 9.5 fL (9.4-12.4); Monocytes # 0.6 K/mcL (0.0-1.3); Monocytes % 5.9 %; Neutrophils # 7.7 K/mcL (1.6-8.9); Platelet Count 316 K/mcL (140-400); Red Blood Count 4.32 M/mcL (3.82-4.97); Red Cell Distribution Width 14.5 % (11.5-14.5); Segmented Neutrophils % 75.6 %
[2017-04-09] MEDS ORDERED: Metoclopramide 10 MG/2 ML VIAL IVP ONE (13:23)
[2017-04-09 13:28] LABS: Alanine Aminotransferase 13 Units/L (7-52); Albumin 3.7 g/dL (3.5-5.7); Albumin/Globulin Ratio 1.5 (1.1-2.2); Alkaline Phosphatase 62 Units/L (34-104); Aspartate Amino Transferase 17 Units/L (13-39); BUN/Creatinine Ratio 12 (6-26); Bilirubin,Total 0.3 mg/dL (0.3-1.0); Blood Urea Nitrogen 9 mg/dL (6-20); Calcium 8.9 mg/dL (8.6-10.3); Carbon Dioxide 25 mEq/L (23-29); Chloride 103 mEq/L (98-107); Globulin 2.4 g/dL (2.4-3.5); Glucose 110 mg/dL (70-105); Osmolality,Calculated 285 (280-300); Potassium 3.8 mEq/L (3.5-5.1); Sodium 138 mEq/L (136-145); Total Protein 6.1 g/dL (6.4-8.9); eGFR For African Americans > 60 (> 60); eGFR For Non-African Americans > 60 (> 60)
[2017-04-09] MEDS ORDERED: Acetaminophen 325 MG TABLET PO PRN (16:00)
[2017-04-09] MEDS ORDERED: Naloxone 0.4 MG/ML INJ IVP PRN (16:00)
[2017-04-09] MEDS ORDERED: *HR* OxyCODONE Immed Rel 5 MG TABLET PO PRN (16:00)
[2017-04-09] MEDS ORDERED: Dextrose Gel 15 GM/37.5 ML TUBE PO PRN ×2 (16:01)
[2017-04-09] MEDS ORDERED: *HR* Dextrose 50 % in Water (Syg) 50 ML SYRINGE IVP PRN (16:01)
[2017-04-09] MEDS ORDERED: D5% in Water 1,000 ML IVC PRN (16:01)
--- NOTE | 2017-04-09 16:50 | Internal Med History&Physical ---
Date of Encounter: 04/09/17 Time of Encounter: 16:50 Assessment and Plan (1) Low back pain Current visit: No Status: Chronic acute onset lower back pain that started day prior to arrival with 5 episodes of bladder incontinence (although unclear if true bladder incontinence versus urinary frequency). Appears neurologically intact, no neurological deficits apparent. Lumbar MRI pending. Neurology consult Qualifiers: Chronicity: unspecified Back pain laterality: unspecified Sciatica presence: unspecified whether sciatica present Qualified Code(s): M54.5 - Low back pain (2) Lower abdominal pain Current visit: Yes Status: Acute with lower ABD pain that radiates to right vaginal wall. No loose stool/ constipation. UA unremarkable, chlamydia, gonorrhea, Trichomonas negative. Etiology unknown at this time. ABD CT pending. Supportive pain control (3) Seizure-like activity Current visit: No Status: Suspected patient reports remote history of seizures. Last seizure over 18 years ago. Now with bilateral hand tremors which patient is concerned for seizure activity. Does not follow with neurology. Head CT non-acute. Check EEG. Continue home Lamictal. Neurology consulted (4) Hypertension Current visit: No Status: Chronic per hx. BP controlled. Cont home BP medications. Monitor BP and titrate PRN Qualifiers: Hypertension type: essential hypertension Qualified Code(s): I10 - Essential (primary) hypertension (5) COPD (chronic obstructive pulmonary disease) Current visit: No Status: Acute per hx. No evidence of exacerbation. Continue home inhalers. Qualifiers: COPD type: chronic bronchitis Chronic bronchitis type: unspecified Qualified Code(s): J42 - Unspecified chronic bronchitis (6) Schizophrenia Current visit: No Status: Chronic per hx. Sx's stable. Cont home medication regimen. Qualifiers: Schizophrenia type: unspecified Qualified Code(s): F20.9 - Schizophrenia, unspecified (7) Bipolar 1 disorder Current visit: No Status: Chronic (8) DVT prophylaxis Current visit: No Status: Acute heparin Internal Medicine - H&P: HPI Chief complaint: lower back pain with bladder incont Admitted From: Home Plans for Post Hospital Care: Home History of present illness: Ms. Parkinson is a 42 year old female with PMH diabetes, morbid obesity hypothyroidism, seizure disorder and schizophrenia with bipolar who presented to [facility] on 04/09/2017 with complaints of lower back pain with associated bladder incontinence and abdominal pain. She was placed in observation status for further workup and treatment. Summation obtained from chart review and patient report. Patient says she was in her usual state health until yesterday evening around 9 PM when she had acute onset of lower back pain with 5 episodes of bladder incontinence. She also reports lower abdominal pain with associated nausea. No diarrhea or constipation. Upon further investigation of ABD pain, patient actually reports right side vaginal pain. She describes pain as a searing sensation, rates 9 out of 10. No alleviating or aggravating factors. No chest pain or shortness of breath. Past Med Surg Social Fam HX - Past Medical History Medical history: asthma, diabetes, GERD, hyperlipidemia, hypertension, seizures , other Psychiatric history: anxiety, bipolar, depression, schizophrenia, previous psychiatric hospitalization - Past Surgical History Surgical History: cholecystectomy - Social History Smoking Status: Never smoker Smokeless Tobacco Status: No Alcohol use: none Drug use: none - Family History Mother Family Member Ethnicity: Non- Living Status: Still Living Hx Family Cardiac Disorders: Yes Hx Family Respiratory Disorders: Yes Hx Family Cancer: No Hx Family GI Disorders: No Hx Family Endocrine Disorder: Yes Hx Family Neuromuscular Disorders: No Hx Family Neurologic Disorders: No Hx Family HEENT Disorders: No Hx Family Autoimmune Disorders: Yes Father Family Member Ethnicity: Non- Living Status: Unknown Hx Family Cardiac Disorders: Yes ([place], HTN) Hx Family Respiratory Disorders: Yes (Enphesyma, COPD, Asthma) Hx Family Cancer: Yes (Unknown) Hx Family GI Disorders: Yes (Lactos Intolerant) Hx Family Endocrine Disorder: No Hx Family Neuromuscular Disorders: No Hx Family Neurologic Disorders: No Hx Family HEENT Disorders: No Hx Family Autoimmune Disorders: No Brother Family Member Ethnicity: Non- Living Status: Still Living Hx Family Cardiac Disorders: Yes (heart attack age 29) Internal Medicine - H&P: Meds Docusate [Colace] 100 mg PO BID PRN 02/23/15 [History] Levothyroxine [Synthroid] 125 mcg PO DAILY 02/23/15 [History] Ranitidine HCl [Zantac] 150 mg PO BID 02/23/15 [History] Furosemide [Lasix] 40 mg PO DAILY 12/06/15 [History] Potassium Chloride [Klor-Con 10] 10 meq PO DAILY 12/06/15 [History] Trihexyphenidyl HCl 5 mg PO TID 12/06/15 [History] lamoTRIgine [Lamotrigine] 200 mg PO BID 12/06/15 [History] Albuterol Sulfate [Proair Respiclick] 2 puff IH Q4-6H PRN 12/07/15 [History] Aspirin [Ecotrin] 81 mg PO DAILY 12/07/15 [History] Atorvastatin [Lipitor] 40 mg PO HS 12/07/15 [History] Cetirizine HCl [All Day Allergy] 5 mg PO HS 12/07/15 [History] Cyclobenzaprine [Flexeril] 10 mg PO BID 12/07/15 [History] Escitalopram [Lexapro] 20 mg PO DAILY 12/07/15 [History] Gabapentin [Neurontin] 300 mg PO HS 12/07/15 [History] L.acidoph,Paracasei, B.lactis [Probiotic] 1 cap PO DAILY 12/07/15 [History] Montelukast [Singulair] 10 mg PO HS 12/07/15 [History] clonazePAM [Klonopin] 0.5 mg PO BID 12/07/15 [History] SUMAtriptan succinate [Imitrex] 50 mg PO DAILY PRN 02/19/16 [History] Beclomethasone Diprop 40mcg [QVAR 40 mcg] 1 puff IH BID 09/29/16 [History] Cyanocobalamin (Vitamin B-12) [Vitamin B12] 2,500 mcg PO DAILY 09/29/16 [History ] Multivitamin [Multi-Day Vitamins] 1 tab PO DAILY 09/29/16 [History] Norethindrone-E.estradiol-Iron [Junel Fe 1.5 mg-30 Mcg Tablet] 1 tab PO DAILY [History] Pantoprazole Sodium [Protonix] 40 mg PO DAILY 09/29/16 [History] Prazosin [Minipress] 1 mg PO HS 09/29/16 [History] Diclofenac Sodium [Voltaren] 75 mg PO BID 04/09/17 [History] Iloperidone [Fanapt] 12 mg PO BID 04/09/17 [History] Oxybutynin Chloride [Ditropan Xl] 10 mg PO DAILY 04/09/17 [History] SitaGLIPtin [Januvia] 100 mg PO DAILY 04/09/17 [History] 3 Allergy/AdvReac Type Severity Reaction Status Date / Time aripiprazole [From Abilify] Allergy Hallucinati Verified 09/25/16 09:52 ng Cefprozil [From Cefzil] Allergy See Verified 09/25/16 09:52 Comments codeine Allergy See Verified 09/25/16 09:52 Comments duloxetine [From Cymbalta] Allergy See Verified 09/25/16 09:52 Comments Erythromycin Base Allergy See Verified 09/25/16 09:52 Comments esomeprazole [From Nexium] Allergy See Verified 09/25/16 09:52 Comments Penicillins Allergy See Verified 09/25/16 09:52 Comments pregabalin [From Lyrica] Allergy Hallucinati Verified 09/25/16 09:52 ng Sulfa (Sulfonamide Allergy See Verified 09/25/16 09:52 Antibiotics) Comments ziprasidone [From Geodon] Allergy Hallucinati Verified 09/25/16 09:52 ng celecoxib [From Celebrex] AdvReac Hallucinati Verified 09/25/16 09:52 ng metformin AdvReac Diarrhea Verified 09/25/16 09:52 All Systems PM: A 10-system review of systems was performed and is negative for pertinent findings except as documented above in the HPI. - Constitutional Constitutional: no chills, no fever(s), no night sweats - EENT Eyes: no change in vision, no discharge, no pain, no photophobia Ears: no ear discharge, no ear pain, no tinnitus Nose, mouth and throat: no dysphagia, no nasal discharge, no neck pain, no sore throat - Cardiovascular Cardiovascular ROS IM: no chest pain, no diaphoresis, no dyspnea, no lightheadedness, no palpitations, no syncope - Respiratory Respiratory: no cough, no dyspnea, no wheezing, no excessive phlegm production - Gastrointestinal Gastrointestinal: abdominal pain, no diarrhea, no hematemesis, no hematochezia, no melena, no nausea, no vomiting - Genitourinary Genitourinary: urinary frequency, urinary incontinence, no change in urinary stream, no dysuria, no flank pain, no hematuria - Musculoskeletal Musculoskeletal ROS IM: back pain, no numbness, no tingling - Integumentary Integumentary IM: no rash, no unusual bruising - Neurological Neurological ROS: no confusion, no convulsions, no focal weakness, no numbness, no tingling, no tremor(s) - Hematologic/Lymphatic Hematologic/Lymphatic: no easy bruising - Constitutional Vitals: Temp Pulse Resp BP Pulse Ox 98.4 F 110 14 135/82 96 04/09/17 10:25 04/09/17 15:29 04/09/17 15:29 04/09/17 15:29 04/09/17 15:29 General appearance: Present: A&O X 3, morbidly obese - Head Head exam: Present: atraumatic, normocephalic - Eye Eye exam: Present: PERRL, conjuntiva pink, sclera anicteric Pupils: Present: PERRL - Neck Neck exam general surgery: Present: supple, trachea midline. Absent: lymphadenopathy - Respiratory Respiratory exam: Present: CTAB. Absent: accessory muscle use, rales, rhonchi, wheezes - Cardiovascular Cardiovascular exam: Present: RRR, +S1, +S2. Absent: diastolic murmur, gallop, rubs, systolic murmur - GI/Abdominal GI/Abdominal exam: Present: normal bowel sounds, soft, no peritoneal signs. Absent: distended, tenderness - Extremities Exam Extremities exam: Present: warm, radial pulses palpable and symmetrical. Absent : calf tenderness, cyanotic, pedal edema - Neurological Exam Neurological exam: Present: CN II-XII intact, oriented X3, no focal deficits. Absent: pronater drift, facial droop, speech deficit - Skin Skin exam: Present: dry, intact Internal Med - H&P Results - Labs CBC & Chem 7: 04/09/17 10:04 04/09/17 10:04
[2017-04-09] MEDS ORDERED: Doxycycline 100 MG in 0.9 % Sodium Chloride Mini Bag 100 ML IVPB SCH (18:00)
[2017-04-09] MEDS: Insulin LISPRO 300 UNITS/3 ML VIAL SQ SCH ×2 (18:48→21:37)
[2017-04-09] MEDS: Beclomethasone 40mcg MDI IH SCH (19:54)
--- NOTE | 2017-04-09 20:21 | Neurology - Consult Note ---
Date of Encounter: 04/09/17 Time of Encounter: 19:00 Assessment and Plan (1) Back pain Current Visit: Yes Status: Acute This appears mechanical and not radicular type of lumbar pain. She has had some similar pain in the past and an MRI of lumbar spine was done during 2016. She also has history of chronic pelvic pain which may attribute to her low abdominal pain. Agree with getting lumbar MRI and she may benefit from orthopedic or PT evaluation depending what MRI of lumbar spine would identify. There does not appear to be any new primary neurological deficits at this time Total time spent on this patient is approximately 50 minutes Qualifiers: Back pain location: low back pain Chronicity: acute Back pain laterality : right Sciatica presence: without sciatica Qualified Code(s): M54.5 - Low back pain (2) Seizure-like activity Current Visit: No Status: Suspected Patient is known to me and she does not have typical presentation of epileptic seizure disorder. During the shaky episodes, her consciousness was preserved and this is likely tremors instead of seizure. Will not consider antiepileptic therapy. No further testing will be ordered at this time. History of Present Illness Chief complaint: back pain and urinary incontinence HPI: Ms. Parkinson is a 42 year old female known to me, with PMH significant for morbid obesity, DM, chronic migraine, schizoaffective disorder, pelvic pain in female, who presented to the ER with CC of back pain associated with frequent urinary incontinence. This occurred last night. She describes the pain at the right side of her back which does not radiate. She also has lower abdominal pain bilaterally resembling pelvic pain a condition which she does have. She has had complaints of back pain in the past, MRI of lumbar spine during 2016 showed some mild disc disease but no significant spinal canal narrowing. ER physician mentioned about possibility of seizure disorder due to her having hand shakes. She has no known history of seizure disorder. The reported shakes are clearly not epileptic seizures. At the time of this interview her mental status appears intact. She has no focal neurological deficits. She may have difficulty walking due to having back pain and her morbid obesity but overal speaking her neurological status is at her baseline. She is currently being treated for UTI Past Med Surg Social Fam HX - Past Medical History Medical history: asthma, diabetes, GERD, hyperlipidemia, hypertension, seizures , other Psychiatric history: anxiety, bipolar, depression, schizophrenia, previous psychiatric hospitalization - Past Surgical History Surgical History: cholecystectomy - Social History Smoking Status: Never smoker Smokeless Tobacco Status: No Alcohol use: none Drug use: none - Family History Mother Family Member Ethnicity: Non- Living Status: Still Living Hx Family Cardiac Disorders: Yes Hx Family Respiratory Disorders: Yes Hx Family Cancer: No Hx Family GI Disorders: No Hx Family Endocrine Disorder: Yes Hx Family Neuromuscular Disorders: No Hx Family Neurologic Disorders: No Hx Family HEENT Disorders: No Hx Family Autoimmune Disorders: Yes Father Family Member Ethnicity: Non- Living Status: Unknown Hx Family Cardiac Disorders: Yes ([place], HTN) Hx Family Respiratory Disorders: Yes (Enphesyma, COPD, Asthma) Hx Family Cancer: Yes (Unknown) Hx Family GI Disorders: Yes (Lactos Intolerant) Hx Family Endocrine Disorder: No Hx Family Neuromuscular Disorders: No Hx Family Neurologic Disorders: No Hx Family HEENT Disorders: No Hx Family Autoimmune Disorders: No Brother Family Member Ethnicity: Non- Living Status: Still Living Hx Family Cardiac Disorders: Yes (heart attack age 29) Medications and Allergies Docusate [Colace] 100 mg PO BID PRN 02/23/15 [History] Levothyroxine [Synthroid] 125 mcg PO DAILY 02/23/15 [History] Ranitidine HCl [Zantac] 150 mg PO BID 02/23/15 [History] Furosemide [Lasix] 40 mg PO DAILY 12/06/15 [History] Potassium Chloride [Klor-Con 10] 10 meq PO DAILY 12/06/15 [History] Trihexyphenidyl HCl 5 mg PO TID 12/06/15 [History] lamoTRIgine [Lamotrigine] 200 mg PO BID 12/06/15 [History] Albuterol Sulfate [Proair Respiclick] 2 puff IH Q4-6H PRN 12/07/15 [History] Aspirin [Ecotrin] 81 mg PO DAILY 12/07/15 [History] Atorvastatin [Lipitor] 40 mg PO HS 12/07/15 [History] Cetirizine HCl [All Day Allergy] 5 mg PO HS 12/07/15 [History] Cyclobenzaprine [Flexeril] 10 mg PO BID 12/07/15 [History] Escitalopram [Lexapro] 20 mg PO DAILY 12/07/15 [History] Gabapentin [Neurontin] 300 mg PO HS 12/07/15 [History] L.acidoph,Paracasei, B.lactis [Probiotic] 1 cap PO DAILY 12/07/15 [History] Montelukast [Singulair] 10 mg PO HS 12/07/15 [History] clonazePAM [Klonopin] 0.5 mg PO BID 12/07/15 [History] SUMAtriptan succinate [Imitrex] 50 mg PO DAILY PRN 02/19/16 [History] Beclomethasone Diprop 40mcg [QVAR 40 mcg] 1 puff IH BID 09/29/16 [History] Cyanocobalamin (Vitamin B-12) [Vitamin B12] 2,500 mcg PO DAILY 09/29/16 [History ] Multivitamin [Multi-Day Vitamins] 1 tab PO DAILY 09/29/16 [History] Norethindrone-E.estradiol-Iron [Junel Fe 1.5 mg-30 Mcg Tablet] 1 tab PO DAILY [History] Pantoprazole Sodium [Protonix] 40 mg PO DAILY 09/29/16 [History] Prazosin [Minipress] 1 mg PO HS 09/29/16 [History] Diclofenac Sodium [Voltaren] 75 mg PO BID 04/09/17 [History] Iloperidone [Fanapt] 12 mg PO BID 04/09/17 [History] Oxybutynin Chloride [Ditropan Xl] 10 mg PO DAILY 04/09/17 [History] SitaGLIPtin [Januvia] 100 mg PO DAILY 04/09/17 [History] 3 Allergy/AdvReac Type Severity Reaction Status Date / Time aripiprazole [From Abilify] Allergy Hallucinati Verified 09/25/16 09:52 ng Cefprozil [From Cefzil] Allergy See Verified 09/25/16 09:52 Comments codeine Allergy See Verified 09/25/16 09:52 Comments duloxetine [From Cymbalta] Allergy See Verified 09/25/16 09:52 Comments Erythromycin Base Allergy See Verified 09/25/16 09:52 Comments esomeprazole [From Nexium] Allergy See Verified 09/25/16 09:52 Comments Penicillins Allergy See Verified 09/25/16 09:52 Comments pregabalin [From Lyrica] Allergy Hallucinati Verified 09/25/16 09:52 ng Sulfa (Sulfonamide Allergy See Verified 09/25/16 09:52 Antibiotics) Comments ziprasidone [From Geodon] Allergy Hallucinati Verified 09/25/16 09:52 ng celecoxib [From Celebrex] AdvReac Hallucinati Verified 09/25/16 09:52 ng metformin AdvReac Diarrhea Verified 09/25/16 09:52 All Systems: The remainder of the systems were reviewed and are negative Physical Examination - Vital Signs Vital Signs: Initial Vital Signs Temp Pulse Resp BP Pulse Ox 98.4 F 101 17 135/82 94 04/09/17 09:49 04/09/17 09:49 04/09/17 09:49 04/09/17 09:49 04/09/17 09:49 - Constitutional General appearance: comfortable - Neurologic Sensorimotor examination: intact Detailed motor examination: full strength in all major muscle groups Detailed sensory examination: intact Posture: other (None) Reflexes: Biceps: 1+, Triceps: 1+, Brachioradialis: 1+, Patella: 1+, Achilles: 1 + Mental Status Examination: awake, alert, oriented to person, oriented to place, oriented to time, follows commands appropriately, answers questions appropriately, no agnosia, no aphasia, no aproxia Cranial nerve examination: PERRL, EOMI, visual alvarado intact, corneal reflexes brisk symmetrically, sensory to face intact, mastication intact, no facial asymmetry is present, no dysarthria, hearing is intact symmetrically, soft palate elevates bilaterally upon phonation, gag reflex intact, flexes SCM and trapezius muscles symmetrically with full power, tongue protrudes midline, no atrophy or facial fasiculations present Results - Laboratory Findings CBC and BMP: 04/09/17 10:04 04/09/17 10:04 Abnormal lab findings: Abnormal lab results MCH 27.3 pg (28.0-33.3) L 04/09/17 10:04 MCHC 30.9 g/dL (31.6-35.5) L 04/09/17 10:04 Glucose 110 mg/dL (70-105) H 04/09/17 10:04 POC Glucose 109 (58-89) H 04/09/17 10:05 Serum Total Protein 6.1 g/dL (6.4-8.9) L 04/09/17 10:04 Prolactin 23.84 ng/mL (3.80-23.20) H 04/09/17 10:04 Consult Discharge Plan - Plan Referrals: Mundo Barnes MD [Primary Care Provider] -
[2017-04-09] MEDS: Loratadine 10 MG TABLET PO SCH (20:27)
[2017-04-09] MEDS: *HR* HYDROcodone/Acet 5/325 mg TABLET PO PRN (20:28)
[2017-04-09] MEDS: clonazePAM 0.5 MG TABLET PO SCH (20:28)
[2017-04-09] MEDS: lamoTRIgine 100 MG TABLET PO SCH (20:28)
[2017-04-09] MEDS: Diclofenac Sodium 75 MG TABLET PO SCH (20:28)
[2017-04-09] MEDS ORDERED: ILOPERIDONE 12 MG PO SCH (21:00)
[2017-04-09] MEDS: *HR* Heparin 5,000 UNIT/ML VIAL SQ SCH (22:57)
[2017-04-10] MEDS: Doxycycline 100 MG in 0.9 % Sodium Chloride Mini Bag 100 ML IVPB SCH ×2 (00:05→12:10)
[2017-04-10] MEDS: *HR* Heparin 5,000 UNIT/ML VIAL SQ SCH ×3 (05:58→21:57)
[2017-04-10] MEDS: Insulin LISPRO 300 UNITS/3 ML VIAL SQ SCH ×4 (07:51→21:58)
[2017-04-10] MEDS: *HR* HYDROcodone/Acet 5/325 mg TABLET PO PRN ×2 (07:58→18:36)
[2017-04-10] MEDS: Furosemide 20 MG TABLET PO SCH (07:58)
[2017-04-10] MEDS: Diclofenac Sodium 75 MG TABLET PO SCH ×2 (07:58→21:56)
[2017-04-10] MEDS: clonazePAM 0.5 MG TABLET PO SCH ×2 (07:58→21:56)
[2017-04-10] MEDS: lamoTRIgine 100 MG TABLET PO SCH ×2 (07:59→21:57)
[2017-04-10] MEDS: Aspirin Enteric Coated 81 MG Tablet PO SCH (07:59)
[2017-04-10] MEDS: Beclomethasone 40mcg MDI IH SCH ×2 (08:11→20:10)
[2017-04-10 08:27] LABS: Hematocrit 36.3 % (35.3-44.9); Hemoglobin 11.1 g/dL (11.5-15.4); Mean Corpuscular HGB Conc 30.6 g/dL (31.6-35.5); Mean Corpuscular Hemoglobin 27.3 pg (28.0-33.3); Mean Corpuscular Volume 89.2 fL (83.0-100.0); Mean Platelet Volume 10.6 fL (9.4-12.4); Platelet Count 213 K/mcL (140-400); Red Blood Count 4.07 M/mcL (3.82-4.97); Red Cell Distribution Width 14.6 % (11.5-14.5)
[2017-04-10] MEDS: ILOPERIDONE 12 MG PO SCH ×2 (08:47→21:57)
[2017-04-10 08:49] LABS: BUN/Creatinine Ratio 17 (6-26); Blood Urea Nitrogen 12 mg/dL (6-20); Calcium 8.4 mg/dL (8.6-10.3); Carbon Dioxide 22 mEq/L (23-29); Chloride 104 mEq/L (98-107); Glucose 77 mg/dL (70-105); Osmolality,Calculated 283 (280-300); Potassium 4.2 mEq/L (3.5-5.1); Sodium 137 mEq/L (136-145); eGFR For African Americans > 60 (> 60); eGFR For Non-African Americans > 60 (> 60)
--- NOTE | 2017-04-10 09:41 | Neurology Progress Note ---
<NirajJohnnie Ye - Last Filed: 04/10/17 11:14> Date of Encounter: 04/10/17 Time of Encounter: 09:41 Assessment and Plan (1) Back pain Current Visit: Yes Status: Acute Mrs. Parkinson 41-year-old female with history of chronic back pain. On examination there are no neurologic deficits to make note of at this time. MRI of the lumbar spine has been ordered and awaiting results. She would likely benefit from dietary changes and increased activity to reduce her weight which is likely contributing to her back pain. At this time there does not appear to be any new neurologic deficits. Qualifiers: Back pain location: low back pain Chronicity: acute Back pain laterality : right Sciatica presence: without sciatica Qualified Code(s): M54.5 - Low back pain (2) Seizure-like activity Current Visit: No Status: Suspected Subjective Interval history: Mrs. Parkinson 42-year-old female seen and evaluated patient bedside this morning. She complains of a headache which she states is typical migraine headache for her. She said she usually receives dilaudid for her migraine headaches which helps when she is nostril. At home she uses Imitrex but says it no longer helps her. She continues to express lower extremity back pain and states she usually has weakness when standing and the back pain has been chronic in nature. Just worse more recently. When discussing her loss of bladder control she says that she has been passing out the last 3 days and wakes up without any altered mental status or biting of her tongue. She says that when she wakes up she has what her self but normally is able to control her bladder. She admits to a history of seizure disorders when she is a child and takes Lamictal currently without any known recent seizure activity. Through our discussion her story alternates quite frequently and is not always consistent. Objective - Constitutional Vitals: Temp Pulse Resp BP Pulse Ox 98.2 F 82 18 115/77 94 04/10/17 06:45 04/10/17 06:45 04/10/17 08:13 04/10/17 06:45 04/10/17 08:13 General appearance: Present: cooperative, A&O X 3, no acute distress, obese, answers questions appropriately - Head Head exam: Present: atraumatic, normocephalic - Eye Eye exam: Present: PERRL, conjuntiva pink, sclera anicteric Pupils: Present: PERRL - Extremities Exam Extremities exam: Present: warm, radial pulses palpable and symmetrical. Absent : calf tenderness, cyanotic, pedal edema - Neurological Exam Sensorimotor examination: Present: intact Motor Examination: Present: full strength in all major muscle groups Motor examination - right side: 5/5: deltoids, biceps, triceps, wrist flexion, wrist extension, finisher hot strip, hip flexors, tibialis Anterior, quadriceps, toe extension (EHL), plantarflexion Motor examination - left side: 5/5: deltoids, biceps, triceps, wrist flexion, wrist extension, hip flexors, finisher hot strip, quadriceps, tibialis Anterior, toe extension (EHL), plantarflexion Sensation intact: Present: intact Posture: Present: other (None) Reflexes: Biceps: 2+, Triceps: 2+, Brachioradialis: 2+, Patella: 2+, Achilles: 2 + Mental Status Examination: Present: awake, alert, oriented to person, oriented to place, oriented to time, follows commands appropriately, answers questions appropriately, no agnosia, no aphasia, no aproxia Cranial nerve examination: Present: PERRL, EOMI, visual alvarado intact, corneal reflexes brisk symmetrically, sensory to face intact, mastication intact, no facial asymmetry is present, no dysarthria, hearing is intact symmetrically, soft palate elevates bilaterally upon phonation, gag reflex intact, flexes SCM and trapezius muscles symmetrically with full power, tongue protrudes midline, no atrophy or facial fasiculations present Results - Laboratory Findings CBC and BMP: 04/10/17 06:41 04/10/17 06:41 Abnormal lab findings: Abnormal lab results Hgb 11.1 g/dL (11.5-15.4) L 04/10/17 06:41 MCH 27.3 pg (28.0-33.3) L 04/10/17 06:41 MCHC 30.6 g/dL (31.6-35.5) L 04/10/17 06:41 RDW 14.6 % (11.5-14.5) H 04/10/17 06:41 Carbon Dioxide 22 mEq/L (23-29) L 04/10/17 06:41 POC Glucose 91 (58-89) H 04/09/17 20:47 Calcium 8.4 mg/dL (8.6-10.3) L 04/10/17 06:41 Serum Total Protein 6.1 g/dL (6.4-8.9) L 04/09/17 10:04 Prolactin 23.84 ng/mL (3.80-23.20) H 04/09/17 10:04 Consult Discharge Plan - Plan Instructions: Weight Management (DC), Acute Abdominal Pain (DC), Acute Low Back Pain (DC), Obesity (DC) Referrals: Mundo Barnes MD [Primary Care Provider] - 04/17/17 2:00 pm <Rogers Luis I - Last Filed: 04/11/17 15:43> Date of Encounter: 04/10/17 Assessment and Plan (1) Back pain Current Visit: Yes Status: Acute Pt was seen and examined, my medical decision was reviewed with the Resident Physician, I agree with the documented findings, disposition and treatment plas as described except to the extent set forth below Rogers Luis MD Qualifiers: Back pain location: low back pain Chronicity: acute Back pain laterality : right Sciatica presence: without sciatica Qualified Code(s): M54.5 - Low back pain Objective - Constitutional Vitals: Temp Pulse Resp BP Pulse Ox 98.1 F 93 18 97/67 95 04/11/17 11:52 04/11/17 11:52 04/11/17 15:39 04/11/17 11:52 04/11/17 15:39 Results - Laboratory Findings CBC and BMP: 04/10/17 06:41 04/10/17 06:41 Abnormal lab findings: Abnormal lab results Hgb 11.1 g/dL (11.5-15.4) L 04/10/17 06:41 MCH 27.3 pg (28.0-33.3) L 04/10/17 06:41 MCHC 30.6 g/dL (31.6-35.5) L 04/10/17 06:41 RDW 14.6 % (11.5-14.5) H 04/10/17 06:41 Carbon Dioxide 22 mEq/L (23-29) L 04/10/17 06:41 POC Glucose 111 (58-89) H 04/10/17 21:08 Hemoglobin A1c 5.9 % (-5.6) H 04/09/17 10:04 Calcium 8.4 mg/dL (8.6-10.3) L 04/10/17 06:41 Serum Total Protein 6.1 g/dL (6.4-8.9) L 04/09/17 10:04 Prolactin 23.84 ng/mL (3.80-23.20) H 04/09/17 10:04
[2017-04-10 11:33] LABS: Hemoglobin A1C 5.9 %
--- NOTE | 2017-04-10 17:20 | Internal Med Progress Note ---
Date of Encounter: 04/10/17 Time of Encounter: 17:17 - Assessment and plan (1) COPD (chronic obstructive pulmonary disease) Current Visit: No Status: Acute Assessment and plan: with acute toxic respiratory failure. Has known COPD. Does not wear oxygen at home. Now requiring supplemental oxygen to maintain saturations 92% or above. No evidence of COPD exacerbation. Suspect secondary to morbid obesity. CXR pending, encourage aggressive I-S. Wean O2 as possible. Qualifiers: COPD type: chronic bronchitis Chronic bronchitis type: unspecified Qualified Code(s): J42 - Unspecified chronic bronchitis (2) Low back pain Current Visit: No Status: Chronic Assessment and plan: presented with lower back pain that radiated to bilateral legs with reported bladder incontinence. Lumbar MRI with minimal degenerative changes, no significant stenosis. Suspect this is chronic pain most likely secondary to morbid obesity. Strongly encouraged [place] modifications. Symptom control with pain management. PT/OT consult for therapy recommendations. Qualifiers: Chronicity: unspecified Back pain laterality: unspecified Sciatica presence: unspecified whether sciatica present Qualified Code(s): M54.5 - Low back pain (3) Lower abdominal pain Current Visit: Yes Status: Acute Assessment and plan: with lower ABD pain that radiates to right vaginal wall. No loose stool/ constipation. UA unremarkable, chlamydia, gonorrhea, Trichomonas negative. ABD CT non-acute. Symptoms improved without intervention. Given follow-up with PCP. (4) Seizure-like activity Current Visit: No Status: Suspected Assessment and plan: patient reports remote history of seizures. Last seizure over 18 years ago. Now with bilateral hand tremors which patient is concerned for seizure activity. Patient is known to Dr. Porter who noted patient does not have typical presentation of epileptic seizure disorder. No indication for antiepileptic therapy. No further testing will be ordered at this time. (5) Hypertension Current Visit: No Status: Chronic Assessment and plan: per hx. BP controlled. Cont home BP medication. Monitor BP and titrate PRN Qualifiers: Hypertension type: essential hypertension Qualified Code(s): I10 - Essential (primary) hypertension (6) Schizophrenia Current Visit: No Status: Chronic Assessment and plan: per hx. Suspect this maybe concerning to complaints of low back pain and abdominal pain. Continue home medications. Qualifiers: Schizophrenia type: unspecified Qualified Code(s): F20.9 - Schizophrenia, unspecified (7) DVT prophylaxis Current Visit: No Status: Acute Assessment and plan: heparin - Subjective Interval history: Seen and examined at bedside, still with complaint of lower back pain and lower abdominal pain but overall improved. Has not been out of bed much walking. Still on oxygen. Says she overall doesn't feel well. - Constitutional Vitals: Temp Pulse Resp BP Pulse Ox 98.8 F 93 15 119/80 93 04/10/17 15:39 04/10/17 15:39 04/10/17 15:39 04/10/17 15:39 04/10/17 15:39 General appearance: Present: A&O X 3, morbidly obese - Head Head exam: Present: atraumatic, normocephalic - Eye Eye exam: Present: PERRL, conjuntiva pink, sclera anicteric Pupils: Present: PERRL - Neck Neck exam general surgery: Present: supple, trachea midline. Absent: lymphadenopathy - Respiratory Respiratory exam: Present: CTAB. Absent: accessory muscle use, rales, rhonchi, wheezes - Cardiovascular Cardiovascular exam: Present: RRR, +S1, +S2. Absent: diastolic murmur, gallop, rubs, systolic murmur - GI/Abdominal GI/Abdominal exam: Present: normal bowel sounds, soft, no peritoneal signs. Absent: distended, tenderness - Extremities Exam Extremities exam: Present: warm, radial pulses palpable and symmetrical. Absent : calf tenderness, cyanotic, pedal edema - Neurological Exam Neurological exam: Present: CN II-XII intact, oriented X3, no focal deficits. Absent: pronater drift, facial droop, speech deficit - Skin Skin exam: Present: dry, intact Internal Medicine: Result - Labs CBC & Chem 7: 04/10/17 06:41 04/10/17 06:41 Labs: Short CBC 04/10/17 Range/Units 06:41 WBC 7.1 (4.3-11.1) K/mcL Hgb 11.1 L (11.5-15.4) g/dL Hct 36.3 (35.3-44.9) % Plt Count 213 (140-400) K/mcL BMP 04/10/17 06:41 Sodium 137 Potassium 4.2 Chloride 104 Carbon Dioxide 22 L BUN 12 Creatinine 0.72 Glucose 77 Calcium 8.4 L - Impressions Impressions Abdomen/Pelvis CT 04/09/17 19:30 IMPRESSION: Hepatic steatosis with hepatomegaly. Evidence of chronic granulomatous disease. No source of patient's hematuria detected. Trace left pleural effusion. D/ / Joseph Nick MD / Joseph Nick MD Interpreting Provider: Joseph Nick MD Lumbar Spine MRI 04/10/17 15:59 IMPRESSION: Minimal degenerative changes of the disc at L3-L4, L4-L5, and L5-S1 with minimal narrowing of the neural foramina as discussed above. No significant stenosis of the thecal sac in the lumbar region. D/ / 04/10/2017 11:38:32 Maxine Ramos MD / mikki Interpreting Provider: Maxine Ramos MD Consult Discharge Plan - Plan Referrals: Mundo Barnes MD [Primary Care Provider] -
[2017-04-10] MEDS: Ipratropium/Albuterol Neb 3 ML IH SCH ×2 (20:11→23:08)
[2017-04-10] MEDS: Loratadine 10 MG TABLET PO SCH (21:57)
[2017-04-11] MEDS: Doxycycline 100 MG in 0.9 % Sodium Chloride Mini Bag 100 ML IVPB SCH ×2 (00:24→14:00)
[2017-04-11] MEDS: Ipratropium/Albuterol Neb 3 ML IH SCH ×4 (03:56→15:38)
[2017-04-11] MEDS: *HR* Heparin 5,000 UNIT/ML VIAL SQ SCH ×2 (05:33→14:01)
[2017-04-11] MEDS: Beclomethasone 40mcg MDI IH SCH (07:50)
[2017-04-11] MEDS: Insulin LISPRO 300 UNITS/3 ML VIAL SQ SCH ×3 (08:22→17:42)
[2017-04-11] MEDS: Furosemide 20 MG TABLET PO SCH (10:02)
[2017-04-11] MEDS: clonazePAM 0.5 MG TABLET PO SCH (10:02)
[2017-04-11] MEDS: Diclofenac Sodium 75 MG TABLET PO SCH (10:03)
[2017-04-11] MEDS: Aspirin Enteric Coated 81 MG Tablet PO SCH (10:03)
[2017-04-11] MEDS: lamoTRIgine 100 MG TABLET PO SCH (10:06)
--- NOTE | 2017-04-11 10:29 | Neurology Progress Note ---
<Johnnie Healy Ephraim - Last Filed: 04/11/17 10:29> Date of Encounter: 04/11/17 Time of Encounter: 09:20 Assessment and Plan (1) Back pain Current Visit: Yes Status: Acute Mrs. Parkinson 41-year-old female with history of chronic back pain. On examination there are no neurologic deficits to make note of at this time. MRI of the lumbar spine has been ordered and awaiting results. She would likely benefit from dietary changes and increased activity to reduce her weight which is likely contributing to her back pain. She denies any seizure-like activity, history does not correlate with any seizure-like activity. At this time there does not appear to be any new neurologic deficits. Neurology to reevaluate the patient at discretion of primary team. Qualifiers: Back pain location: low back pain Chronicity: acute Back pain laterality : right Sciatica presence: without sciatica Qualified Code(s): M54.5 - Low back pain Subjective Interval history: Mrs. Parkinson 42-year-old female seen and evaluated patient bedside this morning. She denies any acute concerns or complaints at this time. She feels that her headaches have much improved, denies any difficulty with ambulation, weakness in her lower extremities or loss of bladder control. She has no further concerns or questions for neurology at this time. Objective - Constitutional Vitals: Temp Pulse Resp BP Pulse Ox 97.7 F 114 20 133/83 95 04/11/17 08:03 04/11/17 08:03 04/11/17 08:03 04/11/17 08:03 04/11/17 08:03 General appearance: Present: cooperative, A&O X 3, no acute distress, obese, answers questions appropriately - Neurological Exam Sensorimotor examination: Present: intact Motor Examination: Present: full strength in all major muscle groups Motor examination - right side: 5/5: deltoids, biceps, triceps, wrist flexion, wrist extension, consumer recruiter, hip flexors, tibialis Anterior, quadriceps, toe extension (EHL), plantarflexion Motor examination - left side: 5/5: deltoids, biceps, triceps, wrist flexion, wrist extension, hip flexors, consumer recruiter, quadriceps, tibialis Anterior, toe extension (EHL), plantarflexion Sensation intact: Present: intact Posture: Present: other (None) Reflexes: Biceps: 2+, Triceps: 2+, Brachioradialis: 2+, Patella: 2+, Achilles: 2 + Mental Status Examination: Present: awake, alert, oriented to person, oriented to place, oriented to time, follows commands appropriately, answers questions appropriately, no agnosia, no aphasia, no aproxia Cranial nerve examination: Present: PERRL, EOMI, visual alvarado intact, corneal reflexes brisk symmetrically, sensory to face intact, mastication intact, no facial asymmetry is present, no dysarthria, hearing is intact symmetrically, soft palate elevates bilaterally upon phonation, gag reflex intact, flexes SCM and trapezius muscles symmetrically with full power, tongue protrudes midline, no atrophy or facial fasiculations present Results - Laboratory Findings CBC and BMP: 04/10/17 06:41 04/10/17 06:41 Abnormal lab findings: Abnormal lab results Hgb 11.1 g/dL (11.5-15.4) L 04/10/17 06:41 MCH 27.3 pg (28.0-33.3) L 04/10/17 06:41 MCHC 30.6 g/dL (31.6-35.5) L 04/10/17 06:41 RDW 14.6 % (11.5-14.5) H 04/10/17 06:41 Carbon Dioxide 22 mEq/L (23-29) L 04/10/17 06:41 POC Glucose 111 (58-89) H 04/10/17 21:08 Hemoglobin A1c 5.9 % (-5.6) H 04/09/17 10:04 Calcium 8.4 mg/dL (8.6-10.3) L 04/10/17 06:41 Serum Total Protein 6.1 g/dL (6.4-8.9) L 04/09/17 10:04 Prolactin 23.84 ng/mL (3.80-23.20) H 04/09/17 10:04 Consult Discharge Plan - Plan Instructions: Weight Management (DC), Acute Abdominal Pain (DC), Acute Low Back Pain (DC), Obesity (DC) Referrals: Mundo Barnes MD [Primary Care Provider] - 04/17/17 2:00 pm <Rogers Luis I - Last Filed: 04/11/17 15:42> Date of Encounter: 04/11/17 Assessment and Plan (1) Back pain Current Visit: Yes Status: Acute Pt was seen and examined, my medical decision was reviewed with the Resident Physician, I agree with the documented findings, disposition and treatment plas as described except to the extent set forth below pt know to neurology service f/u jamesht Dr Porter at discharge Rogers Luis MD Qualifiers: Back pain location: low back pain Chronicity: acute Back pain laterality : right Sciatica presence: without sciatica Qualified Code(s): M54.5 - Low back pain Objective - Constitutional Vitals: Temp Pulse Resp BP Pulse Ox 98.1 F 93 18 97/67 95 04/11/17 11:52 04/11/17 11:52 04/11/17 15:39 04/11/17 11:52 04/11/17 15:39 Results - Laboratory Findings CBC and BMP: 04/10/17 06:41 04/10/17 06:41 Abnormal lab findings: Abnormal lab results Hgb 11.1 g/dL (11.5-15.4) L 04/10/17 06:41 MCH 27.3 pg (28.0-33.3) L 04/10/17 06:41 MCHC 30.6 g/dL (31.6-35.5) L 04/10/17 06:41 RDW 14.6 % (11.5-14.5) H 04/10/17 06:41 Carbon Dioxide 22 mEq/L (23-29) L 04/10/17 06:41 POC Glucose 111 (58-89) H 04/10/17 21:08 Hemoglobin A1c 5.9 % (-5.6) H 04/09/17 10:04 Calcium 8.4 mg/dL (8.6-10.3) L 04/10/17 06:41 Serum Total Protein 6.1 g/dL (6.4-8.9) L 04/09/17 10:04 Prolactin 23.84 ng/mL (3.80-23.20) H 04/09/17 10:04
[2017-04-11] MEDS: ILOPERIDONE 12 MG PO SCH (10:48)
--- NOTE | 2017-04-11 15:01 | Discharge Summary ---
- NOTES TO OUTPATIENT PROVIDER Notes to Outpatient Provider: Recommend repeat CXR within 1-2 weeks. Date of Encounter: 04/09/17 Time of Encounter: 15:05 - Discharge Diagnosis (1) COPD (chronic obstructive pulmonary disease) Priority: Primary Status: Acute Comments: with acute toxic respiratory failure. Has known COPD. Does not wear oxygen at home. Required supplemental oxygen to maintain saturations 92% or above. No evidence of COPD exacerbation. Suspect secondary to morbid obesity. CXR suspicious for elevated left hemidiaphragm (with motion artifact) although difficult to exclude pneumonia. See plan as noted below. Recommend outpatient pulmonology referral Qualifiers: COPD type: chronic bronchitis Chronic bronchitis type: unspecified Qualified Code(s): J42 - Unspecified chronic bronchitis (2) Aspiration pneumonia Priority: Primary Status: Acute Comments: CXR with left basilar opacities have a somewhat arched appearance, suspicious for elevated left hemidiaphragm (with motion artifact) although difficult to exclude airspace disease such as aspiration or pneumonia. Was recently treated bilateral lobe pneumonia 2 months ago. No evidence of aspiration, patient denied choking or coughing with oral intake. Afebrile, no elevated WBC however given her hypoxia will treat with 7 day course of Augmentin. Recommend repeat CXR in 1-2 weeks Qualifiers: Aspiration pneumonia type: unspecified Laterality: left Lung location: lower lobe of lung Qualified Code(s): J69.0 - Pneumonitis due to inhalation of food and vomit (3) Low back pain Priority: Secondary Status: Chronic Comments: presented with lower back pain that radiated to bilateral legs with reported bladder incontinence. Lumbar MRI with minimal degenerative changes, no significant stenosis. Suspect this is chronic pain most likely secondary to morbid obesity. Strongly encouraged lifestyle and dietary modifications. PT/ OT at discharge Qualifiers: Chronicity: unspecified Back pain laterality: unspecified Sciatica presence: unspecified whether sciatica present Qualified Code(s): M54.5 - Low back pain (4) Lower abdominal pain Priority: Secondary Status: Chronic Comments: with lower ABD pain that radiates to right vaginal wall. No loose stool/ constipation. UA unremarkable, chlamydia, gonorrhea, Trichomonas negative. ABD CT non-acute. Symptoms improved without intervention. recommend follow-up with PCP (5) Seizure-like activity Priority: Secondary Status: Ruled-out Comments: patient reports remote history of seizures. Last seizure over 18 years ago. Now with bilateral hand tremors which patient is concerned for seizure activity. Patient is known to Dr. Porter who noted patient does not have typical presentation of epileptic seizure disorder. No indication for antiepileptic therapy. No further testing will be ordered at this time. (6) Hypertension Priority: Primary Status: Chronic Comments: per hx. BP controlled. Cont home BP medication. Qualifiers: Hypertension type: essential hypertension Qualified Code(s): I10 - Essential (primary) hypertension (7) Schizophrenia Priority: Secondary Status: Chronic Comments: per hx. Suspect her mental health illness could be contributing to low back pain and abdominal pain. Continue home medications. Qualifiers: Schizophrenia type: unspecified Qualified Code(s): F20.9 - Schizophrenia, unspecified Hospital course: Ms. Parkinson is a 42 year old female with PMH diabetes, morbid obesity hypothyroidism, seizure disorder and schizophrenia with bipolar who presented to [facility] on 04/09/2017 with complaints of lower back pain with associated bladder incontinence and abdominal pain. She was placed in observation status for further workup and treatment. She had an unremarkable workup including a negative abdomen/pelvis CT, unremarkable lumbar spine MRI. She was evaluated by neurology who had no additional rectal medications. I suspect her back and abdominal pain is chronic and most likely secondary to her morbid obesity. Symptoms improved spontaneously without intervention. She was discharged home in stable condition with outpatient follow-up. Please see assessment and plan for further details. - Time Spent with Patient Total time spent providing and/or coordinating discharge services: - Discharge Medications Prescriptions: Amoxicillin/Clavulanate [Augmentin] 875 mg PO BIDWM #14 tablet Home Medications: Docusate [Colace] 100 mg PO BID PRN 02/23/15 [History] Levothyroxine [Synthroid] 125 mcg PO DAILY 02/23/15 [History] Ranitidine HCl [Zantac] 150 mg PO BID 02/23/15 [History] Furosemide [Lasix] 40 mg PO DAILY 12/06/15 [History] Potassium Chloride [Klor-Con 10] 10 meq PO DAILY 12/06/15 [History] Trihexyphenidyl HCl 5 mg PO TID 12/06/15 [History] lamoTRIgine [Lamotrigine] 200 mg PO BID 12/06/15 [History] Albuterol Sulfate [Proair Respiclick] 2 puff IH Q4-6H PRN 12/07/15 [History] Aspirin [Ecotrin] 81 mg PO DAILY 12/07/15 [History] Atorvastatin [Lipitor] 40 mg PO HS 12/07/15 [History] Cetirizine HCl [All Day Allergy] 5 mg PO HS 12/07/15 [History] Cyclobenzaprine [Flexeril] 10 mg PO BID 12/07/15 [History] Escitalopram [Lexapro] 20 mg PO DAILY 12/07/15 [History] Gabapentin [Neurontin] 300 mg PO HS 12/07/15 [History] L.acidoph,Paracasei, B.lactis [Probiotic] 1 cap PO DAILY 12/07/15 [History] Montelukast [Singulair] 10 mg PO HS 12/07/15 [History] clonazePAM [Klonopin] 0.5 mg PO BID 12/07/15 [History] SUMAtriptan succinate [Imitrex] 50 mg PO DAILY PRN 02/19/16 [History] Beclomethasone Diprop 40mcg [QVAR 40 mcg] 1 puff IH BID 09/29/16 [History] Cyanocobalamin (Vitamin B-12) [Vitamin B12] 2,500 mcg PO DAILY 09/29/16 [History ] Multivitamin [Multi-Day Vitamins] 1 tab PO DAILY 09/29/16 [History] Norethindrone-E.estradiol-Iron [Junel Fe 1.5 mg-30 Mcg Tablet] 1 tab PO DAILY [History] Pantoprazole Sodium [Protonix] 40 mg PO DAILY 09/29/16 [History] Prazosin [Minipress] 1 mg PO HS 09/29/16 [History] Diclofenac Sodium [Voltaren] 75 mg PO BID 04/09/17 [History] Iloperidone [Fanapt] 12 mg PO BID 04/09/17 [History] Oxybutynin Chloride [Ditropan Xl] 10 mg PO DAILY 04/09/17 [History] SitaGLIPtin [Januvia] 100 mg PO DAILY 04/09/17 [History] Amoxicillin/Clavulanate [Augmentin] 875 mg PO BIDWM #14 tablet 04/11/17 [Rx] Allergies/Adverse Reactions: 3 Allergy/AdvReac Type Severity Reaction Status Date / Time aripiprazole [From Abilify] Allergy Hallucinati Verified 09/25/16 09:52 ng Cefprozil [From Cefzil] Allergy See Verified 09/25/16 09:52 Comments codeine Allergy See Verified 09/25/16 09:52 Comments duloxetine [From Cymbalta] Allergy See Verified 09/25/16 09:52 Comments Erythromycin Base Allergy See Verified 09/25/16 09:52 Comments esomeprazole [From Nexium] Allergy See Verified 09/25/16 09:52 Comments Penicillins Allergy See Verified 09/25/16 09:52 Comments pregabalin [From Lyrica] Allergy Hallucinati Verified 09/25/16 09:52 ng Sulfa (Sulfonamide Allergy See Verified 09/25/16 09:52 Antibiotics) Comments ziprasidone [From Geodon] Allergy Hallucinati Verified 09/25/16 09:52 ng celecoxib [From Celebrex] AdvReac Hallucinati Verified 09/25/16 09:52 ng metformin AdvReac Diarrhea Verified 09/25/16 09:52 Date of admission: 04/09/17 15:43 Primary care physician: Mundo Barnes MD Consults: 04/09/17 15:54 Consult to Neurology [CONS] Routine Consulting Provider: Neurology [facility] Reason for Consult: Weakness, urinary incontinence, history of seizures. Concern for new presentation of seizure. Call Completed: Yes 04/09/17 19:03 Consult to Dietitian Therapeutic [CONS] Routine Reason for SW Consult: Home health 04/10/17 17:22 Consult to Physical Therapy [CONS] Routine Comment: Evaluate, develop and implement POC Reason for Consult: lumbar back pain. Exercise/stretching recommendations OT [Consult to Occupational Therapy] [CONS] Routine Comment: Evaluate, develop and implement POC Reason for Consult: Exercise/stretching recommendations Discharging clinician: Zari Beaulieu Anticipated date of discharge: 04/11/17 - Constitutional Vitals: Temp Pulse Resp BP Pulse Ox 98.1 F 93 16 97/67 96 04/11/17 11:52 04/11/17 11:52 04/11/17 11:52 04/11/17 11:52 04/11/17 11:52 General appearance: Present: A&O X 3, morbidly obese - Head Head exam: Present: atraumatic, normocephalic - Eye Eye exam: Present: PERRL, conjuntiva pink, sclera anicteric Pupils: Present: PERRL - Neck Neck exam general surgery: Present: supple, trachea midline. Absent: lymphadenopathy - Respiratory Respiratory exam: Present: CTAB. Absent: accessory muscle use, rales, rhonchi, wheezes - Cardiovascular Cardiovascular exam: Present: RRR, +S1, +S2. Absent: diastolic murmur, gallop, rubs, systolic murmur - GI/Abdominal GI/Abdominal exam: Present: normal bowel sounds, soft, no peritoneal signs. Absent: distended, tenderness - Extremities Exam Extremities exam: Present: warm, radial pulses palpable and symmetrical. Absent : calf tenderness, cyanotic, pedal edema - Neurological Exam Neurological exam: Present: CN II-XII intact, oriented X3, no focal deficits. Absent: pronater drift, facial droop, speech deficit - Skin Skin exam: Present: dry, intact - Patient Status Disposition: Home, Self-Care Condition: Good Functional capacity at discharge: uses cane/walker Overall status at discharge: patient is back to baseline - Discharge Instructions Instructions: Weight Management (DC), Acute Abdominal Pain (DC), Acute Low Back Pain (DC), Obesity (DC) Follow Up With: Mundo Barnes MD [Primary Care Provider] - 04/17/17 2:00 pm - Diet and Activity Activity: as per physical therapy, increase activity as tolerated Diet: diabetic diet, low fat, low cholesterol
[2017-04-11 16:25] VITALS: BP 122/80
== END 2017-04-11 19:18 | disposition home or self-care (01) ==
LOC: 3BNU 09:48 → EMEROO 09:48 → SUATTDRO 15:43 → 3BNU 18:32
PROVIDERS: ADMIT Nurse Practitioner Family; ATTEND Registered Nurse

== ENCOUNTER 2017-05-08 09:20 | Observation (INO) ==
--- NOTE | 2017-05-08 09:45 | Emergency Department Note ---
Disposition Clinical Impression: Hypoxia, Bilateral lower extremity edema Chest pain Qualifiers: Chest pain type: other chest pain Qualified Code(s): R07.89 - Other chest pain Disposition: Admitted As Inpatient Condition: Fair Referrals: Mundo Barnes MD [Primary Care Provider] - Forms: ED Satisfaction Letter Time of Disposition: 12:44 General Adult HPI - General Chief complaint: ED Shortness of Breath/Dyspnea Stated complaint: SOB Time Seen by Provider: 05/08/17 09:25 Source: EMS Mode of arrival: EMS Limitations: no limitations Nursing Notes Reviewed: Yes Vital Signs Reviewed: Yes - History of Present Illness HPI Narrative: Patient is a 41-year-old female with a past medical history of asthma, COPD, diabetes, HLD, and HTN presenting to the emergency department by eliza for the presentation of difficulty in breathing. The patient states that at 7:30 AM this morning she had sudden onset of shortness of breath has been constant since that time. She also describes a chest pain that is substernal with radiation to her neck that is a 2 out of 10 aching pain. States that this is also been constant since onset. She states that over the past 2 days she is also noticed increase in bilateral lower extremity swelling with mild lower extremity pain greater in the right side. She denies any fevers, chills, cough , congestion, abdominal pain, nausea, vomiting, dysuria or calf tenderness. Denies a history of blood clots in the past. According to squnader the patient came from home and her oxygen saturation was 92% so they placed her on 2 L. The patient does have oxygen at home according to past medical records which she is to use intermittently for COPD. Pain Scale: 7 - Related Data Home Medications Medication Instructions Recorded Confirmed Docusate [Colace] 100 mg PO BID PRN 02/23/15 04/09/17 Levothyroxine [Synthroid] 125 mcg PO DAILY 02/23/15 04/09/17 Ranitidine HCl [Zantac] 150 mg PO BID 02/23/15 04/09/17 Furosemide [Lasix] 40 mg PO DAILY 12/06/15 04/09/17 Potassium Chloride [Klor-Con 10] 10 meq PO DAILY 12/06/15 04/09/17 Trihexyphenidyl HCl 5 mg PO TID 12/06/15 04/09/17 lamoTRIgine [Lamotrigine] 200 mg PO BID 12/06/15 04/09/17 Albuterol Sulfate [Proair 2 puff IH Q4-6H PRN 12/07/15 04/09/17 Respiclick] Aspirin [Ecotrin] 81 mg PO DAILY 12/07/15 04/09/17 Atorvastatin [Lipitor] 40 mg PO HS 12/07/15 04/09/17 Cetirizine HCl [All Day Allergy] 5 mg PO HS 12/07/15 04/09/17 Cyclobenzaprine [Flexeril] 10 mg PO BID 12/07/15 04/09/17 Escitalopram [Lexapro] 20 mg PO DAILY 12/07/15 04/09/17 Gabapentin [Neurontin] 300 mg PO HS 12/07/15 04/09/17 L.acidoph,Paracasei, B.lactis 1 cap PO DAILY 12/07/15 04/09/17 [Probiotic] Montelukast [Singulair] 10 mg PO HS 12/07/15 04/09/17 clonazePAM [Klonopin] 0.5 mg PO BID 12/07/15 04/09/17 SUMAtriptan succinate [Imitrex] 50 mg PO DAILY PRN 02/19/16 04/09/17 Beclomethasone Diprop 40mcg [QVAR 1 puff IH BID 09/29/16 04/09/17 40 mcg] Cyanocobalamin (Vitamin B-12) 2,500 mcg PO DAILY 09/29/16 04/09/17 [Vitamin B12] Multivitamin [Multi-Day Vitamins] 1 tab PO DAILY 09/29/16 04/09/17 Norethindrone-E.estradiol-Iron 1 tab PO DAILY 09/29/16 04/09/17 [Junel Fe 1.5 mg-30 Mcg Tablet] Pantoprazole Sodium [Protonix] 40 mg PO DAILY 09/29/16 04/09/17 Prazosin [Minipress] 1 mg PO HS 09/29/16 04/09/17 Diclofenac Sodium [Voltaren] 75 mg PO BID 04/09/17 04/09/17 Iloperidone [Fanapt] 12 mg PO BID 04/09/17 04/09/17 Oxybutynin Chloride [Ditropan Xl] 10 mg PO DAILY 04/09/17 04/09/17 SitaGLIPtin [Januvia] 100 mg PO DAILY 04/09/17 04/09/17 Previous Rx's Medication Instructions Recorded Amoxicillin/Clavulanate [Augmentin] 875 mg PO BIDWM #14 tablet 04/11/17 Allergies Allergy/AdvReac Type Severity Reaction Status Date / Time aripiprazole [From Abilify] Allergy Hallucinati Verified 05/08/17 09:38 ng Cefprozil [From Cefzil] Allergy See Verified 05/08/17 09:38 Comments codeine Allergy See Verified 05/08/17 09:38 Comments duloxetine [From Cymbalta] Allergy See Verified 05/08/17 09:38 Comments Erythromycin Base Allergy See Verified 05/08/17 09:38 Comments esomeprazole [From Nexium] Allergy See Verified 05/08/17 09:38 Comments Penicillins Allergy See Verified 05/08/17 09:38 Comments pregabalin [From Lyrica] Allergy Hallucinati Verified 05/08/17 09:38 ng Sulfa (Sulfonamide Allergy See Verified 05/08/17 09:38 Antibiotics) Comments ziprasidone [From Geodon] Allergy Hallucinati Verified 05/08/17 09:38 ng celecoxib [From Celebrex] AdvReac Hallucinati Verified 05/08/17 09:38 ng metformin AdvReac Diarrhea Verified 05/08/17 09:38 All systems ED: reviewed and negative except as stated. Review of Systems: As Per HPI Constitutional: Denies: fever, chills ENT ED: Denies: congestion Cardiovascular: Reports: chest pain Respiratory: Reports: dyspnea. Denies: cough, wheezes Gastrointestinal: Denies: abdominal pain, nausea, vomiting Genitourinary: Denies: urgency, dysuria Musculoskeletal: Denies: back pain, neck pain Past Medical History - Past Medical History Attestation: Yes The following information was validated with the patient. 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 Patient is severely obese. She is currently at 97% on 2LNC. Vitals are within normal limits otherwise. HEAD: Normocephalic; atraumatic EYES: PERRL, no scleral icterus NOSE: The nose is normal in appearance without rhinorrhea NECK: No JVD or distended neck veins RESP: Normal chest excursion with respiration; breath sounds clear and equal bilaterally; no wheezes, rhonchi, or rales CARD: Regular rhythm, without murmurs, rub or gallop ABD: Non-distended; non-tender, soft, without rigidity, rebound or guarding,no pulsatile mass CHEST: No pain with palpation SKIN: Normal for age and race; warm and dry without diaphoresis ; no apparent lesions EXTREMITIES: Pulses are 2 plus and equal times 4 extremities. No calf muscle pain. Patient has bilateral 1+ pitting edema bilaterally. Calf's appear equal in size. NEUROLOGICAL: Patient is alert and oriented times three. Sensory and motor functions are intact. - General Limitations: no limitations General appearance: alert, in no apparent distress Course Course Narrative: Patient is presenting with the main complaint of shortness of breath associated with chest pain and lower extremity swelling. Her PERC is positive for Ox saturation < 95% on RA and WELLs DVT score is 0. Plan at this time is to perform a cardiorespiratory workup which will include a chest x-ray, EKG, troponin and basic lab work. We will also order a d-dimer to rule out a blood clot. Suspect that this is a blood clot versus CHF exacerbation, however patient did have a normal echocardiogram done within the last year that showed an ejection fraction of 55%. She states that she is on a water pill which she takes at home but does not remember the dose. No other interventions at this time the patient is in no acute distress sitting up in bed and speaking in full sentences. - Reevaluation(s) Reevaluation #1: Patient's d-dimer came back elevated in the 600s. Given patient's presentation and WELL's PE criteria with PE be most likely consideration at this time. Plan is to have patient undergo a CTA of the chest. Patient other lab work at this time is unremarkable, therefore I find it is necessary to r/o PE. Time: 11:18 Reevaluation #2: Patient was ambulated in the emergency department on pulse ox. Her heart rate went up to the 130s and her oxygen saturation dropped to 90% on room air. Discussed with the patient that this is concerning and something and prefer the patient be admitted to the hospital for further evaluation and workup. Patient agrees with that plan. I also discussed giving her a dose of IV Lasix for her lower extremity swelling and a small pleural effusion seen on CTA. Patient agrees with the plan at this time. Time: 12:45 Vital Signs Temperature 98.4 F 05/08/17 09:31 Pulse Rate 98 05/08/17 09:31 Respiratory Rate 20 05/08/17 09:31 Blood Pressure 149/91 05/08/17 09:31 O2 Sat by Pulse Oximetry 96 05/08/17 09:31 Temperature 98.4 F 05/08/17 09:31 Pulse Rate 99 05/08/17 12:33 Respiratory Rate 27 05/08/17 12:33 Blood Pressure 142/92 05/08/17 12:33 O2 Sat by Pulse Oximetry 96 05/08/17 12:33 Oxygen Delivery Oxygen Delivery Room Air Medical Decision Making - Medical Records Medical records reviewed: Yes I reviewed the patient's medical records. - Lab Data Lab results reviewed: Yes I reviewed the patient's lab results. Result diagrams: 05/08/17 09:54 05/08/17 09:54 Lab Results 05/08/17 05/08/17 05/08/17 Range/Units 09:54 09:54 09:54 WBC 9.8 (4.3-11.1) K/mcL RBC 4.25 (3.82-4.97) M/mcL Hgb 11.6 (11.5-15.4) g/dL Hct 36.9 (35.3-44.9) % MCV 86.8 (83.0-100.0) fL MCH 27.3 L (28.0-33.3) pg MCHC 31.4 L (31.6-35.5) g/dL RDW 15.2 H (11.5-14.5) % Plt Count 250 (140-400) K/mcL MPV 8.8 L (9.4-12.4) fL Immature Gran % 0.7 (0-4) % Seg Neutrophils % 72.1 % Lymphocytes % 14.1 % Monocytes % 7.2 % Eosinophils % 5.5 % Basophils % 0.4 % Neutrophils # 7.1 (1.6-8.9) K/mcL Lymphocytes # 1.4 (0.6-4.6) K/mcL Monocytes # 0.7 (0.0-1.3) K/mcL Eosinophils # 0.5 (0.0-0.6) K/mcL Basophils # 0.0 (0.0-0.2) K/mcL D-Dimer 619 H (0-500) ng/mLFEU Sodium 138 (136-145) mEq/L Potassium 3.9 (3.5-5.1) mEq/L Chloride 102 (98-107) mEq/L Carbon Dioxide 29 (23-29) mEq/L BUN 9 (6-20) mg/dL Creatinine 0.69 (0.60-1.20) mg/dL Est GFR ( Amer) > 60 (> 60) Est GFR (Non-Af Amer) > 60 (> 60) BUN/Creatinine Ratio 13 (6-26) Glucose 107 H (70-105) mg/dL Calculated Osmolality 285 (280-300) Lactic Acid (0.5-2.2) mmol/L Calcium 9.0 (8.6-10.3) mg/dL Troponin I < 0.03 (< 0.04) ng/mL B-Natriuretic Peptide (Less than 100) pg/mL 05/08/17 05/08/17 Range/Units 09:54 09:54 WBC (4.3-11.1) K/mcL RBC (3.82-4.97) M/mcL Hgb (11.5-15.4) g/dL Hct (35.3-44.9) % MCV (83.0-100.0) fL MCH (28.0-33.3) pg MCHC (31.6-35.5) g/dL RDW (11.5-14.5) % Plt Count (140-400) K/mcL MPV (9.4-12.4) fL Immature Gran % (0-4) % Seg Neutrophils % % Lymphocytes % % Monocytes % % Eosinophils % % Basophils % % Neutrophils # (1.6-8.9) K/mcL Lymphocytes # (0.6-4.6) K/mcL Monocytes # (0.0-1.3) K/mcL Eosinophils # (0.0-0.6) K/mcL Basophils # (0.0-0.2) K/mcL D-Dimer (0-500) ng/mLFEU Sodium (136-145) mEq/L Potassium (3.5-5.1) mEq/L Chloride (98-107) mEq/L Carbon Dioxide (23-29) mEq/L BUN (6-20) mg/dL Creatinine (0.60-1.20) mg/dL Est GFR ( Amer) (> 60) Est GFR (Non-Af Amer) (> 60) BUN/Creatinine Ratio (6-26) Glucose (70-105) mg/dL Calculated Osmolality (280-300) Lactic Acid 1.5 (0.5-2.2) mmol/L Calcium (8.6-10.3) mg/dL Troponin I (< 0.04) ng/mL B-Natriuretic Peptide 11 (Less than 100) pg/mL - Radiology Data Radiology results reviewed: Yes I reviewed the patient's radiology results. Chest X-Ray 05/08/17 09:40 IMPRESSION: 1. Low lung volumes. D/ / Ben Fortune MD / Ben Fortune MD Interpreting Provider: Ben Fortune MD Chest X-Ray 05/08/17 09:40 IMPRESSION: 1. Low lung volumes. D/ / Ben Fortune MD / Ben Fortune MD Interpreting Provider: Ben Fortune MD Chest CTA 05/08/17 11:15 IMPRESSION: Negative for acute pulmonary embolism. Stable tiny left pleural effusion. Mosaic lung attenuation is favored to reflect air trapping and obstructive small airways disease given the patient is in partial expiration. Hepatic steatosis. D/ / Sundar Aguirre / Sundar Aguirre Interpreting Provider: Sundar Aguirre - EKG Data EKG #1 EKG attestation: Yes I reviewed and interpreted this EKG. EKG results narrative: EKG done at 9:31 shows sinus tachycardia at a rate of 105 bpm. His normal axis. VA is 193, QRS is 93, QT is 347 and QTc is 408 and these are within normal limits. No signs of ST elevation, ST depression or Q waves present at this time. This is unchanged when compared to EKG done on September 292016.
--- NOTE | 2017-05-08 09:59 | Emergency Department Note ---
Disposition Clinical Impression: Intestinal infection due to bacteria causing bloody diarrhea Disposition: Still a Patient Referrals: Mundo Barnes MD [Primary Care Provider] - General Adult HPI - General Chief complaint: ED Shortness of Breath/Dyspnea Stated complaint: SOB Time Seen by Provider: 05/08/17 09:25 Source: EMS Mode of arrival: EMS Limitations: no limitations - History of Present Illness Pain Scale: 7 - Related Data Home Medications Medication Instructions Recorded Confirmed Docusate [Colace] 100 mg PO BID PRN 02/23/15 04/09/17 Levothyroxine [Synthroid] 125 mcg PO DAILY 02/23/15 04/09/17 Ranitidine HCl [Zantac] 150 mg PO BID 02/23/15 04/09/17 Furosemide [Lasix] 40 mg PO DAILY 12/06/15 04/09/17 Potassium Chloride [Klor-Con 10] 10 meq PO DAILY 12/06/15 04/09/17 Trihexyphenidyl HCl 5 mg PO TID 12/06/15 04/09/17 lamoTRIgine [Lamotrigine] 200 mg PO BID 12/06/15 04/09/17 Albuterol Sulfate [Proair 2 puff IH Q4-6H PRN 12/07/15 04/09/17 Respiclick] Aspirin [Ecotrin] 81 mg PO DAILY 12/07/15 04/09/17 Atorvastatin [Lipitor] 40 mg PO HS 12/07/15 04/09/17 Cetirizine HCl [All Day Allergy] 5 mg PO HS 12/07/15 04/09/17 Cyclobenzaprine [Flexeril] 10 mg PO BID 12/07/15 04/09/17 Escitalopram [Lexapro] 20 mg PO DAILY 12/07/15 04/09/17 Gabapentin [Neurontin] 300 mg PO HS 12/07/15 04/09/17 L.acidoph,Paracasei, B.lactis 1 cap PO DAILY 12/07/15 04/09/17 [Probiotic] Montelukast [Singulair] 10 mg PO HS 12/07/15 04/09/17 clonazePAM [Klonopin] 0.5 mg PO BID 12/07/15 04/09/17 SUMAtriptan succinate [Imitrex] 50 mg PO DAILY PRN 02/19/16 04/09/17 Beclomethasone Diprop 40mcg [QVAR 1 puff IH BID 09/29/16 04/09/17 40 mcg] Cyanocobalamin (Vitamin B-12) 2,500 mcg PO DAILY 09/29/16 04/09/17 [Vitamin B12] Multivitamin [Multi-Day Vitamins] 1 tab PO DAILY 09/29/16 04/09/17 Norethindrone-E.estradiol-Iron 1 tab PO DAILY 09/29/16 04/09/17 [Junel Fe 1.5 mg-30 Mcg Tablet] Pantoprazole Sodium [Protonix] 40 mg PO DAILY 09/29/16 04/09/17 Prazosin [Minipress] 1 mg PO HS 09/29/16 04/09/17 Diclofenac Sodium [Voltaren] 75 mg PO BID 04/09/17 04/09/17 Iloperidone [Fanapt] 12 mg PO BID 04/09/17 04/09/17 Oxybutynin Chloride [Ditropan Xl] 10 mg PO DAILY 04/09/17 04/09/17 SitaGLIPtin [Januvia] 100 mg PO DAILY 04/09/17 04/09/17 Previous Rx's Medication Instructions Recorded Amoxicillin/Clavulanate [Augmentin] 875 mg PO BIDWM #14 tablet 04/11/17 Allergies Allergy/AdvReac Type Severity Reaction Status Date / Time aripiprazole [From Abilify] Allergy Hallucinati Verified 05/08/17 09:38 ng Cefprozil [From Cefzil] Allergy See Verified 05/08/17 09:38 Comments codeine Allergy See Verified 05/08/17 09:38 Comments duloxetine [From Cymbalta] Allergy See Verified 05/08/17 09:38 Comments Erythromycin Base Allergy See Verified 05/08/17 09:38 Comments esomeprazole [From Nexium] Allergy See Verified 05/08/17 09:38 Comments Penicillins Allergy See Verified 05/08/17 09:38 Comments pregabalin [From Lyrica] Allergy Hallucinati Verified 05/08/17 09:38 ng Sulfa (Sulfonamide Allergy See Verified 05/08/17 09:38 Antibiotics) Comments ziprasidone [From Geodon] Allergy Hallucinati Verified 05/08/17 09:38 ng celecoxib [From Celebrex] AdvReac Hallucinati Verified 05/08/17 09:38 ng metformin AdvReac Diarrhea Verified 05/08/17 09:38 Past Medical History - Past Medical History Medical history: Reports: asthma, diabetes, GERD, hyperlipidemia, hypertension, seizures, other Surgical history: Reports: cholecystectomy Psychiatric history: Reports: anxiety, bipolar, depression, schizophrenia, previous psychiatric hospitalization 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 We had independent face-to- face examination and discussion. The patient was seen with the emergency medicine resident Dr. Ramesh Maradiaga I examined this patient and my medical decision-making was reviewed with the Resident Physician/SPRAYER AUTOMATIC SPRAY MACHINE/PA. I agree with the documented findings, disposition and treatment plan as described except to the extent set forth below. Briefly: 42-year-old female came back from a 10 [place] cruise to [place]. Upon return she started having URI type symptoms of abdominal cramping nausea vomiting and diarrhea with blood that stains the toilet bowl water red. Patient declined rectal examination. Patient's abdomen is surgically benign which appears dehydrated but nontoxic in appearance. Patient will get IV rehydration IV antiemetics and screening labs. No imaging being contemplated at this time. Disposition pending. Time: 09:57 Vital Signs Temperature 98.4 F 05/08/17 09:31 Pulse Rate 98 05/08/17 09:31 Respiratory Rate 20 05/08/17 09:31 Blood Pressure 149/91 05/08/17 09:31 O2 Sat by Pulse Oximetry 96 05/08/17 09:31 Temperature 98.4 F 05/08/17 09:31 Pulse Rate 98 05/08/17 09:31 Respiratory Rate 20 05/08/17 09:31 Blood Pressure 149/91 05/08/17 09:31 O2 Sat by Pulse Oximetry 96 05/08/17 09:31 Oxygen Delivery Oxygen Delivery Nasal Cannula
--- NOTE | 2017-05-08 10:03 | Emergency Department Note ---
Disposition Clinical Impression: Chest pain Qualifiers: Chest pain type: other chest pain Qualified Code(s): R07.89 - Other chest pain ; R07.8 - Other chest pain Disposition: Still a Patient Referrals: Mundo Barnes MD [Primary Care Provider] - Forms: ED Satisfaction Letter General Adult HPI - General Chief complaint: ED Shortness of Breath/Dyspnea Stated complaint: SOB Time Seen by Provider: 05/08/17 09:25 Source: EMS Mode of arrival: EMS Limitations: no limitations - History of Present Illness Pain Scale: 7 - Related Data Home Medications Medication Instructions Recorded Confirmed Docusate [Colace] 100 mg PO BID PRN 02/23/15 04/09/17 Levothyroxine [Synthroid] 125 mcg PO DAILY 02/23/15 04/09/17 Ranitidine HCl [Zantac] 150 mg PO BID 02/23/15 04/09/17 Furosemide [Lasix] 40 mg PO DAILY 12/06/15 04/09/17 Potassium Chloride [Klor-Con 10] 10 meq PO DAILY 12/06/15 04/09/17 Trihexyphenidyl HCl 5 mg PO TID 12/06/15 04/09/17 lamoTRIgine [Lamotrigine] 200 mg PO BID 12/06/15 04/09/17 Albuterol Sulfate [Proair 2 puff IH Q4-6H PRN 12/07/15 04/09/17 Respiclick] Aspirin [Ecotrin] 81 mg PO DAILY 12/07/15 04/09/17 Atorvastatin [Lipitor] 40 mg PO HS 12/07/15 04/09/17 Cetirizine HCl [All Day Allergy] 5 mg PO HS 12/07/15 04/09/17 Cyclobenzaprine [Flexeril] 10 mg PO BID 12/07/15 04/09/17 Escitalopram [Lexapro] 20 mg PO DAILY 12/07/15 04/09/17 Gabapentin [Neurontin] 300 mg PO HS 12/07/15 04/09/17 L.acidoph,Paracasei, B.lactis 1 cap PO DAILY 12/07/15 04/09/17 [Probiotic] Montelukast [Singulair] 10 mg PO HS 12/07/15 04/09/17 clonazePAM [Klonopin] 0.5 mg PO BID 12/07/15 04/09/17 SUMAtriptan succinate [Imitrex] 50 mg PO DAILY PRN 02/19/16 04/09/17 Beclomethasone Diprop 40mcg [QVAR 1 puff IH BID 09/29/16 04/09/17 40 mcg] Cyanocobalamin (Vitamin B-12) 2,500 mcg PO DAILY 09/29/16 04/09/17 [Vitamin B12] Multivitamin [Multi-Day Vitamins] 1 tab PO DAILY 09/29/16 04/09/17 Norethindrone-E.estradiol-Iron 1 tab PO DAILY 09/29/16 04/09/17 [Junel Fe 1.5 mg-30 Mcg Tablet] Pantoprazole Sodium [Protonix] 40 mg PO DAILY 09/29/16 04/09/17 Prazosin [Minipress] 1 mg PO HS 09/29/16 04/09/17 Diclofenac Sodium [Voltaren] 75 mg PO BID 04/09/17 04/09/17 Iloperidone [Fanapt] 12 mg PO BID 04/09/17 04/09/17 Oxybutynin Chloride [Ditropan Xl] 10 mg PO DAILY 04/09/17 04/09/17 SitaGLIPtin [Januvia] 100 mg PO DAILY 04/09/17 04/09/17 Previous Rx's Medication Instructions Recorded Amoxicillin/Clavulanate [Augmentin] 875 mg PO BIDWM #14 tablet 04/11/17 Allergies Allergy/AdvReac Type Severity Reaction Status Date / Time aripiprazole [From Abilify] Allergy Hallucinati Verified 05/08/17 09:38 ng Cefprozil [From Cefzil] Allergy See Verified 05/08/17 09:38 Comments codeine Allergy See Verified 05/08/17 09:38 Comments duloxetine [From Cymbalta] Allergy See Verified 05/08/17 09:38 Comments Erythromycin Base Allergy See Verified 05/08/17 09:38 Comments esomeprazole [From Nexium] Allergy See Verified 05/08/17 09:38 Comments Penicillins Allergy See Verified 05/08/17 09:38 Comments pregabalin [From Lyrica] Allergy Hallucinati Verified 05/08/17 09:38 ng Sulfa (Sulfonamide Allergy See Verified 05/08/17 09:38 Antibiotics) Comments ziprasidone [From Geodon] Allergy Hallucinati Verified 05/08/17 09:38 ng celecoxib [From Celebrex] AdvReac Hallucinati Verified 05/08/17 09:38 ng metformin AdvReac Diarrhea Verified 05/08/17 09:38 Past Medical History - Past Medical History Medical history: Reports: asthma, diabetes, GERD, hyperlipidemia, hypertension, seizures, other Surgical history: Reports: cholecystectomy Psychiatric history: Reports: anxiety, bipolar, depression, schizophrenia, previous psychiatric hospitalization KITCHEN MANAGER history: Reports: no KITCHEN MANAGER history - Social History Smoking Status: Never smoker Smokeless Tobacco Status: No Alcohol use: Reports: none Drug use: Reports: none Physical Exam - General Limitations: no limitations General appearance: alert, in no apparent distress Course - Reevaluation(s) Reevaluation #1: Attestation note I did independently examine and verified the physical examination findings evaluation workup and disposition of this patient. We had independent face-to- face examination and discussion. The patient was seen with the emergency medicine resident Dr. Ramesh Maradiaga I examined this patient and my medical decision-making was reviewed with the Resident Physician/SUPERVISOR COAL HANDLING/PA. I agree with the documented findings, disposition and treatment plan as described except to the extent set forth below. Briefly: A morbidly obese 42-year-old female history of COPD peripheral edema via EMS for shortness of breath and chest discomfort. Patient stated that she had a cardiac echo within the past year with normal ejection fraction. Patient has mild chest pain and pressure without radiation shortness of breath and swelling in her legs. Patient has no wheezing on her lung exam. Patient's EKG shows no acute ischemic changes. Patient will get screening labs including troponin chest x-ray and a d-dimer. Disposition pending. Time: 10:01 Vital Signs Temperature 98.4 F 05/08/17 09:31 Pulse Rate 98 05/08/17 09:31 Respiratory Rate 20 05/08/17 09:31 Blood Pressure 149/91 05/08/17 09:31 O2 Sat by Pulse Oximetry 96 05/08/17 09:31 Temperature 98.4 F 05/08/17 09:31 Pulse Rate 91 05/08/17 09:41 Respiratory Rate 18 05/08/17 09:41 Blood Pressure 149/84 05/08/17 09:41 O2 Sat by Pulse Oximetry 97 05/08/17 09:58 Oxygen Delivery Oxygen Delivery Room Air
[2017-05-08 10:06] LABS: Basophils % 0.4 %; Eosinophils # 0.5 K/mcL (0.0-0.6); Eosinophils % 5.5 %; Hematocrit 36.9 % (35.3-44.9); Hemoglobin 11.6 g/dL (11.5-15.4); Immature Granulocytes % 0.7 % (0-4); Lymphocytes # 1.4 K/mcL (0.6-4.6); Lymphocytes % 14.1 %; Mean Corpuscular HGB Conc 31.4 g/dL (31.6-35.5); Mean Corpuscular Hemoglobin 27.3 pg (28.0-33.3); Mean Corpuscular Volume 86.8 fL (83.0-100.0); Mean Platelet Volume 8.8 fL (9.4-12.4); Monocytes # 0.7 K/mcL (0.0-1.3); Monocytes % 7.2 %; Neutrophils # 7.1 K/mcL (1.6-8.9); Platelet Count 250 K/mcL (140-400); Red Blood Count 4.25 M/mcL (3.82-4.97); Red Cell Distribution Width 15.2 % (11.5-14.5); Segmented Neutrophils % 72.1 %
[2017-05-08 10:35] LABS: BUN/Creatinine Ratio 13 (6-26); Blood Urea Nitrogen 9 mg/dL (6-20); Carbon Dioxide 29 mEq/L (23-29); Chloride 102 mEq/L (98-107); Glucose 107 mg/dL (70-105); Osmolality,Calculated 285 (280-300); Potassium 3.9 mEq/L (3.5-5.1); Sodium 138 mEq/L (136-145); Troponin I < 0.03 ng/mL (< 0.04); eGFR For African Americans > 60 (> 60); eGFR For Non-African Americans > 60 (> 60)
[2017-05-08] MEDS ORDERED: Furosemide 40 MG in 0.9 % Sodium Chloride 50 ML IVPB ONE (12:40)
[2017-05-08] MEDS ORDERED: Furosemide 40 MG/4 ML VIAL IV ONE (13:00)
[2017-05-08] MEDS ORDERED: Acetaminophen 325 MG TABLET PO PRN (14:55)
[2017-05-08] MEDS ORDERED: Naloxone 0.4 MG/ML INJ IVP PRN (14:55)
[2017-05-08] MEDS ORDERED: Rizatriptan Benzoate [Maxalt Mlt] 10 MG PO PRN (15:01)
[2017-05-08] MEDS ORDERED: (Albuterol Sulfate [Proair Respiclick] 2 PUFF) IH PRN (15:01)
[2017-05-08] MEDS ORDERED: D5% in Water 1,000 ML IVC PRN (15:05)
[2017-05-08] MEDS ORDERED: *HR* Dextrose 50 % in Water (Syg) 50 ML SYRINGE IVP PRN (15:05)
[2017-05-08] MEDS ORDERED: Dextrose Gel 15 GM/37.5 ML TUBE PO PRN ×2 (15:05)
--- NOTE | 2017-05-08 15:26 | Internal Med History&Physical ---
<Johnnie Encinas - Last Filed: 05/08/17 16:41> Date of Encounter: 05/08/17 Time of Encounter: 14:15 Assessment and Plan (1) Acute exacerbation of COPD with asthma Current visit: Yes Status: Acute Acute exacerbation of COPD. Pt. reports finishing abx for bronchitis 2 weeks ago. Denies cough or congestion. Albuterol neb 2.5 mg IH every 2 when necessary. Solu-Medrol 80 mg IVP every 8 hours. Supplemental O2 with titration and SPO2 monitoring. Falls/safety precautions d/t SOB. Continue pts. inhalers. Monitor pt. and f/u labs. Pt. discussed w/Dr. Henry who agrees w/plan of care. Pt. is moderate risk for further morbidity d/t current SOB/dyspnea sx, morbid obesity, hx, and risk factors. Observation. (2) Chest pain Current visit: Yes Status: Acute Acute CP the patient described as centralized in chest with radiation to right neck. Denies previous history. Initial troponin less than 0.03. We will trend. Echocardiogram ordered. Continue daily aspirin and Lipitor. Continuous cardiac telemetry. Consider Cardiology consult if troponins and/or Echocardiogram results abnormal. Qualifiers: Chest pain type: other chest pain Qualified Code(s): R07.89 - Other chest pain; R07.8 - Other chest pain (3) Elevated d-dimer Current visit: Yes Status: Acute Acutely elevated D-Dimer of 619 on admission. Denies hx of PE/DVT. CTA of chest negative for PE. Bilateral Dopplers of LEs ordered d/t D-dimer and pts. report of RLE pain. Weight-based Lovenox ordered 140 mg SQ ONCE. Will continue Lovenox SQ daily if no DVT in LEs. Will start heparin drip if Dopplers show DVT(s). (4) Bilateral lower extremity edema Current visit: Yes Status: Acute Acute on chronic bilateral LE edema. Pt. takes 40 mg PO daily of Lasix. Given IVP lasix in ED. Monitor I&O and daily weight. (5) Leg weakness, bilateral Current visit: Yes Status: Acute Acute on chronic bilateral leg weakness. Pt. reports difficulty w/ambulation. Falls/safety precautions, up with assist, bed rest w/bedside commode w/assist only. PT/OT consults ordered. (6) HTN (hypertension) Current visit: Yes Status: Chronic Hx of chronic HTN. Monitor pt. and VS. Continue pts. Prazosin. Qualifiers: Hypertension type: essential hypertension Qualified Code(s): I10 - Essential (primary) hypertension (7) HLD (hyperlipidemia) Current visit: Yes Status: Chronic Hx of chronic HLD. Lipid panel in a.m. labs. Continue pts. Lipitor. Qualifiers: Hyperlipidemia type: pure hypercholesterolemia Qualified Code(s): E78.00 - Pure hypercholesterolemia, unspecified; E78.0 - Pure hypercholesterolemia (8) Diabetes Current visit: Yes Status: Chronic Hx of chronic DM controlled w/oral medications. Hold oral anti-hyperglycemics and add low-dose correction insulin sliding scale and hypoglycemic protocol. A1c in a.m. labs. BG checks ACHS. Qualifiers: Diabetes mellitus type: type 2 Diabetes mellitus fdc insulin use: without exterminator termite use Diabetes mellitus complication status: with unspecified complications Qualified Code(s): E11.8 - Type 2 diabetes mellitus with unspecified complications (9) History of seizures Current visit: Yes Status: Chronic Hx of seizures w/last one during previous hospitalization one month ago. Continue pts. Lamotrigine, Neurontin, Klonopin. (10) Thyroid disease Current visit: Yes Status: Chronic Hx of chronic thyroid disease. TSH and Free T 4 ordered. Continue pts. Synthroid. (11) Bilateral lower leg cellulitis Current visit: Yes Status: Chronic Acute on chronic cellulitis of bilateral LEs. Clindamycin 900 mg IVPB Q8HR. (12) GERD (gastroesophageal reflux disease) Current visit: Yes Status: Chronic Hx of chronic GERD. Zofran 4 mg IVP Q6HR PRN for N/V. Continue pts. Zantac and Protonix. Qualifiers: Esophagitis presence: esophagitis presence not specified Qualified Code(s) : K21.9 - Gastro-esophageal reflux disease without esophagitis (13) Anxiety and depression Current visit: Yes Status: Chronic Hx of chronic anxiety and depression. Continue pts. Lamotrigine, Fanapt, Lexapro and Klonopin. (14) Hx of migraines Current visit: Yes Status: Chronic Hx of migraines. Monitor pt. and continue Voltaren and Maxalt. (15) DVT prophylaxis Current visit: Yes Status: Acute Lovenox weight-based dosing (140 mg SQ) NOW d/t elevated D-dimer and RLE pain. Monitor pt. for signs of bleeding. Internal Medicine - H&P: HPI Chief complaint: SOB/Dyspnea Admitted From: Emergency Dept Plans for Post Hospital Care: Home History of present illness: Ms. Parkinson is a 42 year old female w/PMH of asthma, diabetes controlled with oral antihyperglycemic medications, GERD, HLD, HTN, history of seizures (last episode last month during hospitalization), and thyroid disease presents from ED with chief complaint of shortness of breath and dyspnea this morning as well as bilateral pedal edema for the past 2-3 days. Pt. also reports chest pain that is centralized in chest w/radiation to right neck. No alleviating or aggravating factors. Pt. reports bilateral weakness in LEs and pain in RLE. Denies recent illness, fever, chills, nausea, vomiting, cough, congestion, palpitations, headache, changes in vision, abdominal pain, dizziness, lightheadedness, numbness, tingling, history of DVT/PE, pre-syncope, syncope. Past Med Surg Social Fam HX - Past Medical History Source: patient, old records reviewed Medical history: asthma, diabetes (Controlled w/oral medications), GERD, hyperlipidemia, hypertension, seizures (Last one in hospital approxiamtely one month ago), other Psychiatric history: anxiety, bipolar, depression, schizophrenia, previous psychiatric hospitalization - Past Surgical History Surgical History: cholecystectomy - Social History Smoking Status: Never smoker Smokeless Tobacco Status: No Alcohol use: none Drug use: none Current living situation: Home Activity Level: Uses cane/walker Recent Out of Country Travel Within the Last 8 Weeks: No Exposure or Possible Exposure to Illness During Travel: No - Family History Mother Race: Family Member Ethnicity: Non- Living Status: Still Living Hx Family Genitourinary Disorders: Yes (CKD) Hx Family Endocrine Disorder: Yes (DM) Father Race: Family Member Ethnicity: Non- Living Status: Age at : 49 Hx Family Cardiac Disorders: Yes ([place], HTN, HLD) Brother Race: Family Member Ethnicity: Non- Living Status: Still Living Hx Family Cardiac Disorders: Yes (TX @ 29, HLD, HTN) Hx Family Genitourinary Disorders: Yes (CKD) Hx Family Endocrine Disorder: Yes (DM) Internal Medicine - H&P: Meds Docusate [Colace] 100 mg PO BID PRN 02/23/15 [History] Levothyroxine [Synthroid] 125 mcg PO DAILY 02/23/15 [History] Ranitidine HCl [Zantac] 150 mg PO BID 02/23/15 [History] Furosemide [Lasix] 40 mg PO DAILY 12/06/15 [History] Potassium Chloride [Klor-Con 10] 10 meq PO DAILY 12/06/15 [History] lamoTRIgine [Lamotrigine] 200 mg PO BID 12/06/15 [History] Albuterol Sulfate [Proair Respiclick] 2 puff IH Q4-6H PRN 12/07/15 [History] Aspirin [Ecotrin] 81 mg PO DAILY 12/07/15 [History] Atorvastatin [Lipitor] 40 mg PO HS 12/07/15 [History] Cetirizine HCl [All Day Allergy] 5 mg PO HS 12/07/15 [History] Cyclobenzaprine [Flexeril] 10 mg PO BID 12/07/15 [History] Escitalopram [Lexapro] 20 mg PO DAILY 12/07/15 [History] Gabapentin [Neurontin] 300 mg PO HS 12/07/15 [History] L.acidoph,Paracasei, B.lactis [Probiotic] 1 cap PO DAILY 12/07/15 [History] Montelukast [Singulair] 10 mg PO HS 12/07/15 [History] clonazePAM [Klonopin] 0.5 mg PO BID 12/07/15 [History] Beclomethasone Diprop 40mcg [QVAR 40 mcg] 1 puff IH BID 09/29/16 [History] Cyanocobalamin (Vitamin B-12) [Vitamin B12] 2,500 mcg PO DAILY 09/29/16 [History ] Multivitamin [Multi-Day Vitamins] 1 tab PO DAILY 09/29/16 [History] Pantoprazole Sodium [Protonix] 40 mg PO DAILY 09/29/16 [History] Prazosin [Minipress] 1 mg PO HS 09/29/16 [History] Diclofenac Sodium [Voltaren] 75 mg PO BID 04/09/17 [History] Iloperidone [Fanapt] 12 mg PO BID 04/09/17 [History] Oxybutynin Chloride [Ditropan Xl] 10 mg PO DAILY 04/09/17 [History] SitaGLIPtin [Januvia] 100 mg PO DAILY 04/09/17 [History] Rizatriptan Benzoate [Maxalt Energy Systems Engineer] 10 mg PO DAILY PRN 05/08/17 [History] 3 Allergy/AdvReac Type Severity Reaction Status Date / Time aripiprazole [From Abilify] Allergy Hallucinati Verified 05/08/17 09:38 ng Cefprozil [From Cefzil] Allergy See Verified 05/08/17 09:38 Comments codeine Allergy See Verified 05/08/17 09:38 Comments duloxetine [From Cymbalta] Allergy See Verified 05/08/17 09:38 Comments Erythromycin Base Allergy See Verified 05/08/17 09:38 Comments esomeprazole [From Nexium] Allergy See Verified 05/08/17 09:38 Comments Penicillins Allergy See Verified 05/08/17 09:38 Comments pregabalin [From Lyrica] Allergy Hallucinati Verified 05/08/17 09:38 ng Sulfa (Sulfonamide Allergy See Verified 05/08/17 09:38 Antibiotics) Comments ziprasidone [From Geodon] Allergy Hallucinati Verified 05/08/17 09:38 ng celecoxib [From Celebrex] AdvReac Hallucinati Verified 05/08/17 09:38 ng metformin AdvReac Diarrhea Verified 05/08/17 09:38 All Systems PM: A 10-system review of systems was performed and is negative for pertinent findings except as documented above in the HPI. - Constitutional Constitutional: as per HPI, weakness (Bilateral LEs), no chills, no fever(s), no night sweats - EENT Eyes: no change in vision, no discharge, no pain, no photophobia Ears: no ear discharge, no ear pain, no tinnitus Nose, mouth and throat: no dysphagia, no nasal discharge, no neck pain, no sore throat - Breasts Breasts: as per HPI - Cardiovascular Cardiovascular ROS IM: as per HPI, dyspnea, dyspnea on exertion, edema ( Bialteral pedal edema for past 2-3 days), no chest pain, no diaphoresis, no lightheadedness, no palpitations, no syncope - Respiratory Respiratory: as per HPI, dyspnea, dyspnea on exertion, no cough, no wheezing, no excessive phlegm production - Gastrointestinal Gastrointestinal: no abdominal pain, no diarrhea, no hematemesis, no hematochezia, no melena, no nausea, no vomiting - Genitourinary Genitourinary: no change in urinary stream, no dysuria, no flank pain, no hematuria Menstruation: as per HPI - Musculoskeletal Musculoskeletal ROS IM: no numbness, no tingling - Integumentary Integumentary IM: no rash, no unusual bruising - Neurological Neurological ROS: as per HPI, weakness (Bilateral LEs), no confusion, no convulsions, no focal weakness, no numbness, no tingling, no tremor(s) - Psychiatric Psychiatric: as per HPI, anxiety, depression, hallucinations, suicidal ideation (W/several attempts in past. Pt. denies current SI/HI.), other (Schizophrenia, Prior psychiatric hospitalizations (last one 6 years ago).) - Endocrine Endocrine IM: as per HPI - Hematologic/Lymphatic Hematologic/Lymphatic: no easy bruising - Allergic/Immunologic Allergic/Immunologic: as per HPI - Constitutional Vitals: Temp Pulse Resp BP Pulse Ox 98.4 F 103 18 130/92 97 05/08/17 09:31 05/08/17 15:08 05/08/17 15:08 05/08/17 15:08 05/08/17 15:08 General appearance: Present: cooperative, mild distress (Respiratory), A&O X 3, morbidly obese, pleasant, answers questions appropriately - Head Head exam: Present: atraumatic, normocephalic - Eye Eye exam: Present: PERRL, conjuntiva pink, sclera anicteric Pupils: Present: PERRL - ENT ENT exam: Present: normal exam - Neck Neck exam general surgery: Present: normal inspection, supple, trachea midline. Absent: lymphadenopathy - Respiratory Respiratory exam: Present: accessory muscle use, decreased breath sounds. Absent: rales, rhonchi, wheezes - Cardiovascular Cardiovascular exam: Present: +S1, +S2, tachycardia. Absent: diastolic murmur, gallop, rubs, systolic murmur - GI/Abdominal GI/Abdominal exam: Present: normal bowel sounds, soft, no peritoneal signs. Absent: distended, tenderness - Rectal Rectal exam: Present: deferred - Additional comments: exam deferred. - Extremities Exam Extremities exam: Present: pedal edema, tenderness (RLE), warm, radial pulses palpable and symmetrical. Absent: calf tenderness, cyanotic Additional comments: Bilateral cellulitis of LEs. - Back Exam Back exam: Present: normal inspection - Neurological Exam Neurological exam: Present: CN II-XII intact, oriented X3, no focal deficits. Absent: pronater drift, facial droop, speech deficit - Psychiatric Psychiatric exam: Present: normal affect, normal mood - Skin Skin exam: Present: dry, intact Internal Med - H&P Results - Labs CBC & Chem 7: 05/08/17 09:54 05/08/17 09:54 - EKG Data EKG shows normal: sinus rhythm Rate: tachycardia - EKG Data Prior EKG available for review: yes EKG comments: 05/08/17 16:06 EKG dated 09/29/16 shows sinus rhythm. EKG dated /05/08/17 shows sinus tachycardia and abnormal rhythm ECG. - Diagnostic Studies Chest x-ray Additional comments: Impressions Chest X-Ray 05/08/17 09:40 IMPRESSION: 1. Low lung volumes. D/ / Ben Fortune MD / Ben Fortune MD Interpreting Provider: Ben Fortune MD Other Images Additional comments: Impressions Chest CTA 05/08/17 11:15 IMPRESSION: Negative for acute pulmonary embolism. Stable tiny left pleural effusion. Mosaic lung attenuation is favored to reflect air trapping and obstructive small airways disease given the patient is in partial expiration. Hepatic steatosis. D/ / Sundar Aguirre / Sundar Aguirre Interpreting Provider: Sundar Aguirre <Radha Henry - Last Filed: 05/08/17 17:12> Date of Encounter: 05/08/17 Internal Medicine - H&P: HPI History of present illness: Ms. Parkinson is a 42 year old female All Systems PM: A 10-system review of systems was performed and is negative for pertinent findings except as documented above in the HPI. - Constitutional Vitals: Temp Pulse Resp BP Pulse Ox 98.4 F 99 15 107/70 95 05/08/17 16:24 04/02/18 16:24 05/08/17 16:24 05/08/17 16:24 05/08/17 16:24 Internal Med - H&P Results - Labs CBC & Chem 7: 05/08/17 09:54 05/08/17 09:54 - Attending Attestation Patient is seen and examined independently. Patient complains of bilateral lower extremity redness and the painful T2 days. Physical examination reveals clear lungs, regular heart rate, right lower extremity has erythema and tenderness. Most likely cellulitis we will start antibiotics, patient has multiple drug allergies we will start clindamycin and also do a Doppler to rule out DVT. case discussed mai PEREZ, agrees with Johnnie's H&P.
[2017-05-08] MEDS ORDERED: *HR* Enoxaparin 150 MG/ML SYRINGE SQ STA (15:37)
[2017-05-08] MEDS ORDERED: Albuterol 2.5 MG/3 ML NEBULIZER IH PRN (15:44)
[2017-05-08] MEDS ORDERED: methylPREDNISolone 125 MG/2 ML VIAL IVP SCH (16:00)
[2017-05-08] MEDS: Insulin LISPRO 300 UNITS/3 ML VIAL SQ SCH ×2 (16:32→20:15)
[2017-05-08] MEDS: Famotidine 20 MG TABLET PO SCH (16:44)
[2017-05-08] MEDS: MethylPREDNISolone 40 MG/ML VIAL IVP SCH (16:44)
[2017-05-08] MEDS: Clindamycin 900 MG/50 ML 900 MG/50 ML IV.SOLN IVPB SCH (16:45)
[2017-05-08] MEDS ORDERED: Permethrin Cream Rinse 60 ML LIQUID TP ONE (16:59)
[2017-05-08] MEDS ORDERED: Furosemide 40 MG/4 ML VIAL IVP SCH (17:00)
[2017-05-08] MEDS: lamoTRIgine 100 MG TABLET PO SCH (20:14)
[2017-05-08] MEDS: Diclofenac Sodium 75 MG TABLET PO SCH (20:14)
[2017-05-08] MEDS: Gabapentin 300 MG CAPSULE PO SCH (20:14)
[2017-05-08] MEDS: Loratadine 10 MG TABLET PO SCH (20:15)
[2017-05-08] MEDS: clonazePAM 0.5 MG TABLET PO SCH (20:15)
[2017-05-08] MEDS: ILOPERIDONE 12 MG PO SCH (20:18)
[2017-05-08] MEDS: Beclomethasone 40mcg MDI IH SCH (22:20)
[2017-05-09] MEDS: Clindamycin 900 MG/50 ML 900 MG/50 ML IV.SOLN IVPB SCH ×2 (00:02→07:44)
[2017-05-09] MEDS: MethylPREDNISolone 40 MG/ML VIAL IVP SCH ×3 (00:04→16:32)
[2017-05-09 04:26] LABS: Basophils % 0.3 %; Hematocrit 39.9 % (35.3-44.9); Hemoglobin 12.7 g/dL (11.5-15.4); Immature Granulocytes % 0.8 % (0-4); Lymphocytes % 7.6 %; Mean Corpuscular HGB Conc 31.8 g/dL (31.6-35.5); Mean Corpuscular Hemoglobin 27.9 pg (28.0-33.3); Mean Corpuscular Volume 87.5 fL (83.0-100.0); Mean Platelet Volume 9.2 fL (9.4-12.4); Monocytes # 0.2 K/mcL (0.0-1.3); Monocytes % 1.4 %; Platelet Count 275 K/mcL (140-400); Red Blood Count 4.56 M/mcL (3.82-4.97); Red Cell Distribution Width 14.9 % (11.5-14.5); Segmented Neutrophils % 89.9 %
[2017-05-09 04:46] LABS: Alanine Aminotransferase 20 Units/L (7-52); Albumin 3.9 g/dL (3.5-5.7); Albumin/Globulin Ratio 1.3 (1.1-2.2); Alkaline Phosphatase 73 Units/L (34-104); Aspartate Amino Transferase 19 Units/L (13-39); BUN/Creatinine Ratio 18 (6-26); Bilirubin,Total 0.3 mg/dL (0.3-1.0); Blood Urea Nitrogen 13 mg/dL (6-20); Calcium 9.1 mg/dL (8.6-10.3); Carbon Dioxide 26 mEq/L (23-29); Chloride 101 mEq/L (98-107); Chol/HDL Ratio 3.9 (0-4.9); Cholesterol 143 mg/dL (< 200); Globulin 2.9 g/dL (2.4-3.5); Glucose 162 mg/dL (70-105); HDL Cholesterol 37 mg/dL (40-59); LDL Cholesterol,Calculated 75 mg/dL (0-99); Magnesium 1.9 mg/dL (1.6-2.6); Osmolality,Calculated 288 (280-300); Potassium 4.2 mEq/L (3.5-5.1); Sodium 137 mEq/L (136-145); Total Protein 6.8 g/dL (6.4-8.9); Triglycerides 156 mg/dL (< 150); eGFR For African Americans > 60 (> 60); eGFR For Non-African Americans > 60 (> 60)
[2017-05-09 04:59] LABS: Thyroid Stimulating Hormone 0.872 mcIU/mL (0.340-5.600)
[2017-05-09] MEDS: Levothyroxine 25 MCG TABLET PO SCH (05:33)
[2017-05-09] MEDS: lamoTRIgine 100 MG TABLET PO SCH ×2 (07:40→22:24)
[2017-05-09] MEDS: Furosemide 20 MG TABLET PO SCH (07:41)
[2017-05-09] MEDS: clonazePAM 0.5 MG TABLET PO SCH ×2 (07:41→22:24)
[2017-05-09] MEDS: Cyanocobalamin (B-12) 1,000 MCG TABLET PO SCH (07:42)
[2017-05-09] MEDS: Diclofenac Sodium 75 MG TABLET PO SCH (07:42)
[2017-05-09] MEDS: Famotidine 20 MG TABLET PO SCH ×2 (07:43→16:33)
[2017-05-09] MEDS: Lactobacillus 1 EACH CAP.SPRINK PO SCH (07:43)
[2017-05-09] MEDS: Multivit/Ca/Min/Fe/FA 1 TAB TABLET PO SCH (07:43)
[2017-05-09] MEDS: Aspirin Enteric Coated 81 MG Tablet PO SCH (07:48)
[2017-05-09] MEDS: Insulin LISPRO 300 UNITS/3 ML VIAL SQ SCH ×4 (07:59→22:24)
[2017-05-09] MEDS: ILOPERIDONE 12 MG PO SCH ×2 (08:06→22:25)
[2017-05-09 09:12] LABS: Estimated Average Glucose 120 mg/dl; Hemoglobin A1C 5.8 %
[2017-05-09] MEDS: Beclomethasone 40mcg MDI IH SCH ×2 (11:56→20:57)
--- NOTE | 2017-05-09 14:06 | Internal Med Progress Note ---
Date of Encounter: 05/09/17 Time of Encounter: 13:50 - Assessment and plan (1) Acute exacerbation of COPD with asthma Current Visit: Yes Status: Acute Assessment and plan: Pt clinically improving will decrease Solumedrol dose to 40mg IV q12h continue bronchodilator support will obtain respiratory viral panel O2 supplementation as needed titrate Off O2 therapy as tolerated monitor O2 saturation, goal O2 sat: 88-92% will continue to closely monitor respiratory status (2) Chest pain Current Visit: Yes Status: Resolved Assessment and plan: Denies any chest pain serial TNI unremarkable 2D echo: LVEF 55%. Indeterminate diastolic function. Normal right ventricular size and function. No significant valvular dysfunction. No pulmonary hypertension Qualifiers: Chest pain type: other chest pain Qualified Code(s): R07.89 - Other chest pain; R07.8 - Other chest pain (3) Bilateral lower extremity edema Current Visit: Yes Status: Chronic Assessment and plan: non pitting edema, likely lymphedema vs. obesity b/l LE venous doppler negative for DVT (4) GERD (gastroesophageal reflux disease) Current Visit: Yes Status: Chronic Assessment and plan: continue home dose of omeprazole Qualifiers: Esophagitis presence: esophagitis presence not specified Qualified Code(s) : K21.9 - Gastro-esophageal reflux disease without esophagitis (5) HTN (hypertension) Current Visit: Yes Status: Chronic Assessment and plan: BP within acceptable range continue home medications Qualifiers: Hypertension type: essential hypertension Qualified Code(s): I10 - Essential (primary) hypertension (6) HLD (hyperlipidemia) Current Visit: Yes Status: Chronic Assessment and plan: continue home dose of lipitor Qualifiers: Hyperlipidemia type: pure hypercholesterolemia Qualified Code(s): E78.00 - Pure hypercholesterolemia, unspecified; E78.0 - Pure hypercholesterolemia (7) Diabetes Current Visit: Yes Status: Chronic Assessment and plan: continue sliding scale insulin algorithm monitor FS and BG ADA diet Qualifiers: Diabetes mellitus type: type 2 Diabetes mellitus salvage determiner insulin use: without salvage determiner use Diabetes mellitus complication status: with unspecified complications Qualified Code(s): E11.8 - Type 2 diabetes mellitus with unspecified complications (8) Thyroid disease Current Visit: Yes Status: Chronic Assessment and plan: continue home dose of levothyroxine (9) Elevated d-dimer Current Visit: Yes Status: Acute Assessment and plan: CTA chest negative for PE b/l LE venous doppler negative for DVT (10) Anxiety and depression Current Visit: Yes Status: Chronic Assessment and plan: continue home meds (11) DVT prophylaxis Current Visit: Yes Status: Acute Assessment and plan: lovenox SQ (12) Morbid obesity with BMI of 60.0-69.9, adult Current Visit: Yes Status: Chronic - Time Spent With Patient Total time spent is greater than 50% in coordination of care (as documented) at patient's floor/unit and/or counseling patient: - Subjective Interval history: Pt seen and examined at bedside. Resting in chair and reports of significant improvement in her respiratory status. Pt was sitting in chair and breathing comfortably on room air as I entered the room. She reports of not having any home oxygen. Will closely monitor patient's O2 saturation via continuous pulse ox and titrate off oxygen therapy as tolerated. Pt also reported of having difficulty urinating, states she is not able to urinate but denies any pain. Will obtain urinary bladder scan and insert rogers catheter if noted to have urinary retention. Pt denies any lower extremity pain or discomfort. No erythema or skin changes noted consistent with b/l LE cellulitis. - Constitutional Vitals: Temp Pulse Resp BP Pulse Ox 98.1 F 93 16 104/43 95 05/09/17 11:35 05/09/17 11:35 05/09/17 11:59 05/09/17 11:35 05/09/17 11:59 General appearance: Present: cooperative, A&O X 3, morbidly obese, pleasant, no acute distress, answers questions appropriately - Head Head exam: Present: atraumatic, normocephalic - Eye Eye exam: Present: conjuntiva pink, sclera anicteric - Respiratory Respiratory exam: Absent: respiratory distress, wheezes (equal air entry bilaterally ) - Cardiovascular Cardiovascular exam: Present: RRR, +S1, +S2. Absent: diastolic murmur, gallop, rubs, systolic murmur - GI/Abdominal GI/Abdominal exam: Present: normal bowel sounds, soft, no peritoneal signs. Absent: distended, tenderness - Extremities Exam Extremities exam: Present: pedal edema, warm, radial pulses palpable and symmetrical. Absent: calf tenderness, tenderness - Neurological Exam Neurological exam: Present: oriented X3 Internal Medicine: Result - Labs CBC & Chem 7: 05/09/17 03:38 05/09/17 03:38 Labs: Short CBC 05/09/17 Range/Units 03:38 WBC 13.4 H (4.3-11.1) K/mcL Hgb 12.7 (11.5-15.4) g/dL Hct 39.9 (35.3-44.9) % Plt Count 275 (140-400) K/mcL Neutrophils # 12.0 H (1.6-8.9) K/mcL BMP 05/09/17 03:38 Sodium 137 Potassium 4.2 Chloride 101 Carbon Dioxide 26 BUN 13 Creatinine 0.71 Glucose 162 H Calcium 9.1 Cardiac Enzymes 05/08/17 05/08/17 Range/Units 18:41 21:32 Troponin I < 0.03 < 0.03 (< 0.04) ng/mL Liver Function 05/09/17 Range/Units 03:38 Total Bilirubin 0.3 (0.3-1.0) mg/dL AST 19 (13-39) Units/L ALT 20 (7-52) Units/L Alkaline Phosphatase 73 (34-104) Units/L Albumin 3.9 (3.5-5.7) g/dL - ABG Interpretation ABG results: PT/INR, D-dimer D-Dimer 619 ng/mLFEU (0-500) H 05/08/17 09:54 - Impressions Impressions Echocardiogram 05/08/17 14:30 Impressions: LVEF 55%. Indeterminate diastolic function. Normal right ventricular size and function. No significant valvular dysfunction. No pulmonary hypertension. Left Ventricular Wall Motion: Rest Echo Findings All wall segments showed normal motion. Findings: Study Quality * Technically challenging due to body habitus. ECG Findings * Normal sinus rhythm. Left Ventricle * LVEF 55%. * Indeterminate diastolic function. * Normal LV chamber size, wall thickness and function. Right Ventricle * Normal right ventricular structure and function. Left Atrium * Normal left atrial size. Right Atrium * Normal right atrial size. Aortic Valve * No aortic regurgitation. * Aortic valve not well visualized. * No aortic stenosis. Mitral Valve * No mitral regurgitation. * Normal mitral valve structure. * No mitral stenosis. Tricuspid Valve * Tricuspid valve not well visualized. * Trace tricuspid regurgitation. Pulmonic Valve * Pulmonic valve is not well visualized. * No pulmonic stenosis. * No pulmonic regurgitation. Pulmonary Artery * Pulmonary artery not well visualized. Aorta * Not well visualized. Pericardium * There is no pericardial effusion present. Interatrial Septum * Interatrial septum not well evaluated. IVC * The IVC is not well evaluated. Consult Discharge Plan - Plan Referrals: Mundo Barnes MD [Primary Care Provider] - (web request sent on 05/09/17)
[2017-05-09] MEDS: *HR* Heparin 5,000 UNIT/ML VIAL SQ SCH (16:32)
--- NOTE | 2017-05-09 19:20 | Electrocardiograph Report ---
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
[2017-05-09] MEDS: Loratadine 10 MG TABLET PO SCH (22:24)
[2017-05-09] MEDS: Gabapentin 300 MG CAPSULE PO SCH (22:24)
[2017-05-10] MEDS: MethylPREDNISolone 40 MG/ML VIAL IVP SCH (04:32)
[2017-05-10] MEDS: *HR* Heparin 5,000 UNIT/ML VIAL SQ SCH ×2 (04:32→16:37)
[2017-05-10] MEDS: Levothyroxine 25 MCG TABLET PO SCH (04:32)
[2017-05-10 05:39] LABS: Basophils % 0.2 %; Eosinophils % 0.1 %; Hematocrit 36.7 % (35.3-44.9); Hemoglobin 11.6 g/dL (11.5-15.4); Immature Granulocytes % 0.9 % (0-4); Lymphocytes # 2.5 K/mcL (0.6-4.6); Lymphocytes % 16.7 %; Mean Corpuscular HGB Conc 31.6 g/dL (31.6-35.5); Mean Corpuscular Hemoglobin 27.6 pg (28.0-33.3); Mean Corpuscular Volume 87.2 fL (83.0-100.0); Mean Platelet Volume 9.1 fL (9.4-12.4); Monocytes # 1.3 K/mcL (0.0-1.3); Monocytes % 8.5 %; Neutrophils # 11.1 K/mcL (1.6-8.9); Platelet Count 295 K/mcL (140-400); Red Blood Count 4.21 M/mcL (3.82-4.97); Red Cell Distribution Width 15.2 % (11.5-14.5); Segmented Neutrophils % 73.6 %
[2017-05-10 05:43] LABS: Adenovirus Not Detected (Not Detect); Bordetella Pertussis Not Detected (Not Detect); Chlamydophila pneumoniae Not Detected (Not Detect); Coronavirus 229E Not Detected (Not Detect); Coronavirus HKU1 Not Detected (Not Detect); Coronavirus NL63 Not Detected (Not Detect); Coronavirus OC43 Not Detected (Not Detect); Human Metapneumovirus Not Detected (Not Detect); Human Rhinovirus/Enterovirus Not Detected (Not Detect); Influenza A Subtype 2009 H1 Not Detected (Not Detect); Influenza A Untypeable Not Detected (Not Detect); Influenza B Not Detected (Not Detect); Mycoplasma pneumoniae Not Detected (Not Detect); Parainfluenza Virus 1 Not Detected (Not Detect); Parainfluenza Virus 2 Not Detected (Not Detect); Parainfluenza Virus 3 Not Detected (Not Detect); Parainfluenza Virus 4 Not Detected (Not Detect); Respiratory Syncytial Virus Not Detected (Not Detect)
[2017-05-10 05:51] LABS: Phosphorous 3.4 mg/dL (2.7-4.5)
[2017-05-10 05:52] LABS: Alanine Aminotransferase 17 Units/L (7-52); Albumin 3.5 g/dL (3.5-5.7); Albumin/Globulin Ratio 1.3 (1.1-2.2); Alkaline Phosphatase 59 Units/L (34-104); Aspartate Amino Transferase 15 Units/L (13-39); BUN/Creatinine Ratio 22 (6-26); Bilirubin,Total 0.2 mg/dL (0.3-1.0); Blood Urea Nitrogen 16 mg/dL (6-20); Calcium 8.8 mg/dL (8.6-10.3); Carbon Dioxide 27 mEq/L (23-29); Chloride 105 mEq/L (98-107); Globulin 2.7 g/dL (2.4-3.5); Glucose 119 mg/dL (70-105); Osmolality,Calculated 290 (280-300); Sodium 139 mEq/L (136-145); Total Protein 6.2 g/dL (6.4-8.9); eGFR For African Americans > 60 (> 60); eGFR For Non-African Americans > 60 (> 60)
[2017-05-10] MEDS: Insulin LISPRO 300 UNITS/3 ML VIAL SQ SCH ×4 (07:39→22:14)
[2017-05-10] MEDS: Lactobacillus 1 EACH CAP.SPRINK PO SCH (07:40)
[2017-05-10] MEDS: Cyanocobalamin (B-12) 1,000 MCG TABLET PO SCH (07:40)
[2017-05-10] MEDS: Multivit/Ca/Min/Fe/FA 1 TAB TABLET PO SCH (07:40)
[2017-05-10] MEDS: Aspirin Enteric Coated 81 MG Tablet PO SCH (07:41)
[2017-05-10] MEDS: Furosemide 20 MG TABLET PO SCH (07:41)
[2017-05-10] MEDS: lamoTRIgine 100 MG TABLET PO SCH ×2 (07:41→21:06)
[2017-05-10] MEDS: clonazePAM 0.5 MG TABLET PO SCH ×2 (07:41→21:07)
[2017-05-10] MEDS: Famotidine 20 MG TABLET PO SCH ×2 (07:42→16:37)
[2017-05-10] MEDS: Beclomethasone 40mcg MDI IH SCH ×2 (11:07→20:12)
--- NOTE | 2017-05-10 11:35 | Internal Med Progress Note ---
Date of Encounter: 05/10/17 Time of Encounter: 11:34 - Assessment and plan (1) Acute exacerbation of COPD with asthma Current Visit: Yes Status: Acute Assessment and plan: Pt clinically improving d/c solumedrol and start Prednisone 40mg PO qd continue bronchodilator support respiratory viral panel negative O2 supplementation as needed titrate Off O2 therapy as tolerated monitor O2 saturation, goal O2 sat: 88-92% will continue to closely monitor respiratory status will obtain 6 minute walk test for O2 qualification (2) Chest pain Current Visit: Yes Status: Resolved Assessment and plan: Denies any chest pain serial TNI unremarkable 2D echo: LVEF 55%. Indeterminate diastolic function. Normal right ventricular size and function. No significant valvular dysfunction. No pulmonary hypertension Qualifiers: Chest pain type: other chest pain Qualified Code(s): R07.89 - Other chest pain; R07.8 - Other chest pain (3) Bilateral lower extremity edema Current Visit: Yes Status: Chronic Assessment and plan: non pitting edema, likely lymphedema vs. obesity b/l LE venous doppler negative for DVT (4) GERD (gastroesophageal reflux disease) Current Visit: Yes Status: Chronic Assessment and plan: continue home dose of omeprazole Qualifiers: Esophagitis presence: esophagitis presence not specified Qualified Code(s) : K21.9 - Gastro-esophageal reflux disease without esophagitis (5) HTN (hypertension) Current Visit: Yes Status: Chronic Assessment and plan: BP within acceptable range continue home medications Qualifiers: Hypertension type: essential hypertension Qualified Code(s): I10 - Essential (primary) hypertension (6) HLD (hyperlipidemia) Current Visit: Yes Status: Chronic Assessment and plan: continue home dose of lipitor Qualifiers: Hyperlipidemia type: pure hypercholesterolemia Qualified Code(s): E78.00 - Pure hypercholesterolemia, unspecified; E78.0 - Pure hypercholesterolemia (7) Diabetes Current Visit: Yes Status: Chronic Assessment and plan: continue sliding scale insulin algorithm monitor FS and BG ADA diet Qualifiers: Diabetes mellitus type: type 2 Diabetes mellitus assisted insulin use: without assisted use Diabetes mellitus complication status: with unspecified complications Qualified Code(s): E11.8 - Type 2 diabetes mellitus with unspecified complications (8) Thyroid disease Current Visit: Yes Status: Chronic Assessment and plan: continue home dose of levothyroxine (9) Elevated d-dimer Current Visit: Yes Status: Acute Assessment and plan: CTA chest negative for PE b/l LE venous doppler negative for DVT (10) Anxiety and depression Current Visit: Yes Status: Chronic Assessment and plan: continue home meds (11) DVT prophylaxis Current Visit: Yes Status: Acute Assessment and plan: lovenox SQ (12) Morbid obesity with BMI of 60.0-69.9, adult Current Visit: Yes Status: Chronic - Time Spent With Patient Total time spent is greater than 50% in coordination of care (as documented) at patient's floor/unit and/or counseling patient: - Subjective Interval history: Pt seen and examined at bedside. Resting in bed and reports of feeling better compared to previous day. Remains O2 dependent however pt has not even tried sitting or walking without Oxygen support. will obtain six minute walk test for O2 qualification. Pt is reported to have bed bugs and lice manifestation prior to hospitalization. States she took care of both of those issues prior to hospitalization. tentative d/c in am. - Constitutional Vitals: Temp Pulse Resp BP Pulse Ox 99.2 F 111 15 118/67 92 05/10/17 10:00 05/10/17 10:00 05/10/17 10:00 05/10/17 10:05/10/17 10:00 General appearance: Present: cooperative, A&O X 3, morbidly obese, pleasant, no acute distress, answers questions appropriately - Head Head exam: Present: atraumatic, normocephalic - Eye Eye exam: Present: conjuntiva pink, sclera anicteric - Respiratory Respiratory exam: Present: decreased breath sounds (equal air entry bilaterally ). Absent: respiratory distress, wheezes - Cardiovascular Cardiovascular exam: Present: +S1, +S2, tachycardia - GI/Abdominal GI/Abdominal exam: Present: normal bowel sounds, soft, no peritoneal signs. Absent: distended, tenderness - Extremities Exam Extremities exam: Present: warm, radial pulses palpable and symmetrical. Absent : calf tenderness, tenderness - Neurological Exam Neurological exam: Present: oriented X3 Internal Medicine: Result - Labs CBC & Chem 7: 05/10/17 05:01 05/10/17 05:01 Labs: Short CBC 05/10/17 Range/Units 05:01 WBC 15.1 H (4.3-11.1) K/mcL Hgb 11.6 (11.5-15.4) g/dL Hct 36.7 (35.3-44.9) % Plt Count 295 (140-400) K/mcL Neutrophils # 11.1 H (1.6-8.9) K/mcL BMP 05/10/17 05:01 Sodium 139 Potassium 4.0 Chloride 105 Carbon Dioxide 27 BUN 16 Creatinine 0.72 Glucose 119 H Calcium 8.8 Liver Function 05/10/17 Range/Units 05:01 Total Bilirubin 0.2 L (0.3-1.0) mg/dL AST 15 (13-39) Units/L ALT 17 (7-52) Units/L Alkaline Phosphatase 59 (34-104) Units/L Albumin 3.5 (3.5-5.7) g/dL - ABG Interpretation ABG results: PT/INR, D-dimer D-Dimer 619 ng/mLFEU (0-500) H 05/08/17 09:54 Consult Discharge Plan - Plan Referrals: Mundo Barnes MD [Primary Care Provider] - (web request sent on 05/09/17)
[2017-05-10] MEDS: ILOPERIDONE 12 MG PO SCH ×2 (12:34→21:04)
[2017-05-10] MEDS: predniSONE 20 MG TABLET PO SCH (16:37)
[2017-05-10] MEDS: Loratadine 10 MG TABLET PO SCH (21:06)
[2017-05-10] MEDS: Gabapentin 300 MG CAPSULE PO SCH (21:07)
[2017-05-11] MEDS: *HR* Heparin 5,000 UNIT/ML VIAL SQ SCH (05:59)
[2017-05-11] MEDS: Levothyroxine 25 MCG TABLET PO SCH (05:59)
[2017-05-11] MEDS: Famotidine 20 MG TABLET PO SCH (05:59)
[2017-05-11] MEDS: Insulin LISPRO 300 UNITS/3 ML VIAL SQ SCH (07:09)
[2017-05-11] MEDS: Lactobacillus 1 EACH CAP.SPRINK PO SCH (07:36)
[2017-05-11] MEDS: predniSONE 20 MG TABLET PO SCH (07:37)
[2017-05-11] MEDS: Multivit/Ca/Min/Fe/FA 1 TAB TABLET PO SCH (07:37)
[2017-05-11] MEDS: Beclomethasone 40mcg MDI IH SCH (07:37)
[2017-05-11] MEDS: Aspirin Enteric Coated 81 MG Tablet PO SCH (07:37)
[2017-05-11] MEDS: Furosemide 20 MG TABLET PO SCH (07:37)
[2017-05-11] MEDS: ILOPERIDONE 12 MG PO SCH (07:38)
[2017-05-11] MEDS: lamoTRIgine 100 MG TABLET PO SCH (07:38)
[2017-05-11] MEDS: Cyanocobalamin (B-12) 1,000 MCG TABLET PO SCH (07:38)
[2017-05-11] MEDS: clonazePAM 0.5 MG TABLET PO SCH (07:38)
[2017-05-11 07:50] LABS: Basophils % 0.3 %; Eosinophils % 0.3 %; Hematocrit 37.9 % (35.3-44.9); Hemoglobin 11.9 g/dL (11.5-15.4); Immature Granulocytes % 1.1 % (0-4); Lymphocytes # 2.7 K/mcL (0.6-4.6); Lymphocytes % 23.6 %; Mean Corpuscular HGB Conc 31.4 g/dL (31.6-35.5); Mean Corpuscular Hemoglobin 27.4 pg (28.0-33.3); Mean Corpuscular Volume 87.3 fL (83.0-100.0); Monocytes % 8.4 %; Neutrophils # 7.7 K/mcL (1.6-8.9); Platelet Count 289 K/mcL (140-400); Red Blood Count 4.34 M/mcL (3.82-4.97); Red Cell Distribution Width 15.3 % (11.5-14.5); Segmented Neutrophils % 66.3 %
[2017-05-11 08:23] LABS: Alanine Aminotransferase 21 Units/L (7-52); Albumin 3.8 g/dL (3.5-5.7); Albumin/Globulin Ratio 1.5 (1.1-2.2); Alkaline Phosphatase 56 Units/L (34-104); Aspartate Amino Transferase 27 Units/L (13-39); BUN/Creatinine Ratio 29 (6-26); Bilirubin,Total 0.3 mg/dL (0.3-1.0); Blood Urea Nitrogen 18 mg/dL (6-20); Calcium 9.1 mg/dL (8.6-10.3); Carbon Dioxide 26 mEq/L (23-29); Chloride 107 mEq/L (98-107); Globulin 2.5 g/dL (2.4-3.5); Glucose 96 mg/dL (70-105); Magnesium 2.1 mg/dL (1.6-2.6); Osmolality,Calculated 292 (280-300); Phosphorous 3.7 mg/dL (2.7-4.5); Potassium 4.5 mEq/L (3.5-5.1); Sodium 140 mEq/L (136-145); Total Protein 6.3 g/dL (6.4-8.9); eGFR For African Americans > 60 (> 60); eGFR For Non-African Americans > 60 (> 60)
[2017-05-11 11:13] VITALS: BP 142/88
--- NOTE | 2017-05-11 11:23 | Discharge Summary ---
Orders not resulted at time of discharge: Pending orders 05/12/17 04:00 Complete Blood Count [HEME] AM 0400 Comprehensive Metabolic Panel AM 0400 Date of Encounter: 05/11/17 Time of Encounter: 11:19 - Discharge Diagnosis (1) Acute exacerbation of COPD with asthma Priority: Primary Status: Acute (2) Chest pain Priority: Secondary Status: Resolved Qualifiers: Chest pain type: other chest pain Qualified Code(s): R07.89 - Other chest pain; R07.8 - Other chest pain (3) Bilateral lower extremity edema Priority: Secondary Status: Chronic (4) GERD (gastroesophageal reflux disease) Priority: Secondary Status: Chronic Qualifiers: Esophagitis presence: esophagitis presence not specified Qualified Code(s) : K21.9 - Gastro-esophageal reflux disease without esophagitis (5) HTN (hypertension) Priority: Secondary Status: Chronic Qualifiers: Hypertension type: essential hypertension Qualified Code(s): I10 - Essential (primary) hypertension (6) HLD (hyperlipidemia) Priority: Secondary Status: Chronic Qualifiers: Hyperlipidemia type: pure hypercholesterolemia Qualified Code(s): E78.00 - Pure hypercholesterolemia, unspecified; E78.0 - Pure hypercholesterolemia (7) Diabetes Priority: Secondary Status: Chronic Qualifiers: Diabetes mellitus type: type 2 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 Parkinson is a 42 year old female with PMH of asthma, DM, GERD, HTN, HLD, COPD , thyroid disease who was admitted for acute respiratory distress secondary to COPD exacerbation. She was started on systemic steroids and bronchodilators to which responded appropriately. She initially was noted to have an elevated D- dimer and had a CTA chest and lower extremity venous doppler, both were negative for PE and b/l DVT. She initially required O2 supplementation which was titrated off as she improved. She underwent six minute walk test and did not qualify for home oxygen. She is back to her baseline respiratory status and medically stable for discharge to home. She will be discharge with outpatient follow up with PCP and pulmonary. Pt in agreement with the discharge care and plan. Discharge discussed with: patient, family, nurse, case management - Time Spent with Patient Total time spent providing and/or coordinating discharge services: Less than 30 minutes - Discharge Medications Prescriptions: predniSONE [PredniSONE] 40 mg PO DAILY #4 tablet Home Medications: Docusate [Colace] 100 mg PO BID PRN 02/23/15 [History] Levothyroxine [Synthroid] 125 mcg PO DAILY 02/23/15 [History] Ranitidine HCl [Zantac] 150 mg PO BID 02/23/15 [History] Furosemide [Lasix] 40 mg PO DAILY 12/06/15 [History] Potassium Chloride [Klor-Con 10] 10 meq PO DAILY 12/06/15 [History] lamoTRIgine [Lamotrigine] 200 mg PO BID 12/06/15 [History] Albuterol Sulfate [Proair Respiclick] 2 puff IH Q4-6H PRN 12/07/15 [History] Aspirin [Ecotrin] 81 mg PO DAILY 12/07/15 [History] Atorvastatin [Lipitor] 40 mg PO HS 12/07/15 [History] Cetirizine HCl [All Day Allergy] 5 mg PO HS 12/07/15 [History] Cyclobenzaprine [Flexeril] 10 mg PO BID 12/07/15 [History] Escitalopram [Lexapro] 20 mg PO DAILY 12/07/15 [History] Gabapentin [Neurontin] 300 mg PO HS 12/07/15 [History] L.acidoph,Paracasei, B.lactis [Probiotic] 1 cap PO DAILY 12/07/15 [History] Montelukast [Singulair] 10 mg PO HS 12/07/15 [History] clonazePAM [Klonopin] 0.5 mg PO BID 12/07/15 [History] Beclomethasone Diprop 40mcg [QVAR 40 mcg] 1 puff IH BID 09/29/16 [History] Cyanocobalamin (Vitamin B-12) [Vitamin B12] 2,500 mcg PO DAILY 09/29/16 [History ] Multivitamin [Multi-Day Vitamins] 1 tab PO DAILY 09/29/16 [History] Pantoprazole Sodium [Protonix] 40 mg PO DAILY 09/29/16 [History] Prazosin [Minipress] 1 mg PO HS 09/29/16 [History] Diclofenac Sodium [Voltaren] 75 mg PO BID 04/09/17 [History] Iloperidone [Fanapt] 12 mg PO BID 04/09/17 [History] Oxybutynin Chloride [Ditropan Xl] 10 mg PO DAILY 04/09/17 [History] SitaGLIPtin [Januvia] 100 mg PO DAILY 04/09/17 [History] Rizatriptan Benzoate [Maxalt Inspector Balance Wheel Motion] 10 mg PO DAILY PRN 05/08/17 [History] predniSONE [PredniSONE] 40 mg PO DAILY #4 tablet 05/11/17 [Rx] Allergies/Adverse Reactions: 3 Allergy/AdvReac Type Severity Reaction Status Date / Time aripiprazole [From Abilify] Allergy Hallucinati Verified 05/08/17 09:38 ng Cefprozil [From Cefzil] Allergy See Verified 05/08/17 09:38 Comments codeine Allergy See Verified 05/08/17 09:38 Comments duloxetine [From Cymbalta] Allergy See Verified 05/08/17 09:38 Comments Erythromycin Base Allergy See Verified 05/08/17 09:38 Comments esomeprazole [From Nexium] Allergy See Verified 05/08/17 09:38 Comments Penicillins Allergy See Verified 05/08/17 09:38 Comments pregabalin [From Lyrica] Allergy Hallucinati Verified 05/08/17 09:38 ng Sulfa (Sulfonamide Allergy See Verified 05/08/17 09:38 Antibiotics) Comments ziprasidone [From Geodon] Allergy Hallucinati Verified 05/08/17 09:38 ng celecoxib [From Celebrex] AdvReac Hallucinati Verified 05/08/17 09:38 ng metformin AdvReac Diarrhea Verified 05/08/17 09:38 Date of admission: 05/08/17 14:11 Primary care physician: Mundo Barnes MD Consults: 05/08/17 14:57 Consult to Plunger Shovel Operator [CONS] Routine Reason for SW Consult: Please assess patient for possible home needs for post -discharge planning. Pt. would also like information regarding bariatric surgery/ diet coaching/weight loss education. 05/08/17 14:58 Consult to Occupational Therapy [CONS] Routine Comment: Evaluate, develop and implement POC Reason for Consult: Patient reports having to use walker w/ambulation and states she has difficulty w/ambulation. Please assess patient for ambulation strength, stability, safety, and possible home assistive/rehabilitation needs for post- discharge planning. Does patient have active BEDREST order?: Yes Is patient medically & hemodynamically stable?: Yes Patient assessed for mobility or mobilized this visit?: No 05/08/17 15:10 Consult to Nutrition [CONS] Routine Comment: Consulting Provider: NUTRITION Reason for Dietary Consult: Diet Education 05/08/17 16:43 Consult to Pastoral Services [CONS] Routine Comment: Discharging clinician: Marielle Ruffin Anticipated date of discharge: 05/11/17 - Constitutional Vitals: Temp Pulse Resp BP Pulse Ox 97.6 F 99 16 142/88 95 05/11/17 11:07 05/11/17 11:07 05/11/17 11:07 05/11/17 11:07 05/11/17 11:07 General appearance: Present: cooperative, A&O X 3, morbidly obese, pleasant, no acute distress, answers questions appropriately - Head Head exam: Present: atraumatic, normocephalic - Eye Eye exam: Present: conjuntiva pink, sclera anicteric - Respiratory Respiratory exam: Absent: respiratory distress, wheezes (equal entry bilaterally ) - Cardiovascular Cardiovascular exam: Present: RRR, +S1, +S2. Absent: diastolic murmur, gallop, rubs, systolic murmur - GI/Abdominal GI/Abdominal exam: Present: normal bowel sounds, soft, no peritoneal signs. Absent: distended, tenderness - Extremities Exam Extremities exam: Present: warm, radial pulses palpable and symmetrical. Absent : calf tenderness - Neurological Exam Neurological exam: Present: oriented X3 - Psychiatric Psychiatric exam: Present: normal affect, normal mood - Patient Status Disposition: Home Health Service Condition: Good Functional capacity at discharge: independent ambulation Overall status at discharge: patient is back to baseline - Discharge Instructions Instructions: Chest Pain (DC), Chronic Obstructive Pulmonary Disease (DC) Follow Up With: Mundo Barnes MD [Primary Care Provider] - (web request sent on 05/09/17) Additional Instructions: Please follow up with your primary care physician within five days after your discharge from the hospital. Please follow up with pulmonology within one to two weeks after your discharge from the hospital. Please continue oral steroids as prescribed for four more days. Resume all other home medications as prescribed by your primary care physician. - Diet and Activity Activity: increase activity as tolerated Diet: diabetic diet, low fat, low cholesterol, low salt diet
--- NOTE | 2017-05-11 11:30 | Physician Discharge Referral ---
Home Health/Hosp Referral Info Transfer to: Home Health Provider in Charge Post Discharge: PCP - Diagnosis (1) Acute exacerbation of COPD with asthma Priority: Primary Status: Acute (2) Chest pain Priority: Secondary Status: Resolved (3) Bilateral lower extremity edema Priority: Secondary Status: Chronic (4) GERD (gastroesophageal reflux disease) Priority: Secondary Status: Chronic (5) HTN (hypertension) Priority: Secondary Status: Chronic (6) HLD (hyperlipidemia) Priority: Secondary Status: Chronic (7) Diabetes Priority: Secondary Status: Chronic (8) Thyroid disease Priority: Secondary Status: Chronic (9) Elevated d-dimer Priority: Secondary Status: Acute (10) Anxiety and depression Priority: Secondary Status: Chronic (11) DVT prophylaxis Priority: Secondary Status: Acute (12) Morbid obesity with BMI of 60.0-69.9, adult Priority: Secondary Status: Chronic - Respiratory Orders Smoking Cessation: Smoking cessation has been advised. For more information, call the [place] Tobacco Quit Line at 6-314-JZKJ-NOW. - Services Needed Following services are medically necessary services: Nursing, Home Health Aide - Transfer Medications Prescriptions: predniSONE [PredniSONE] 40 mg PO DAILY #4 tablet Home Medications: Docusate [Colace] 100 mg PO BID PRN 02/23/15 [History] Levothyroxine [Synthroid] 125 mcg PO DAILY 02/23/15 [History] Ranitidine HCl [Zantac] 150 mg PO BID 02/23/15 [History] Furosemide [Lasix] 40 mg PO DAILY 12/06/15 [History] Potassium Chloride [Klor-Con 10] 10 meq PO DAILY 12/06/15 [History] lamoTRIgine [Lamotrigine] 200 mg PO BID 12/06/15 [History] Albuterol Sulfate [Proair Respiclick] 2 puff IH Q4-6H PRN 12/07/15 [History] Aspirin [Ecotrin] 81 mg PO DAILY 12/07/15 [History] Atorvastatin [Lipitor] 40 mg PO HS 12/07/15 [History] Cetirizine HCl [All Day Allergy] 5 mg PO HS 12/07/15 [History] Cyclobenzaprine [Flexeril] 10 mg PO BID 12/07/15 [History] Escitalopram [Lexapro] 20 mg PO DAILY 12/07/15 [History] Gabapentin [Neurontin] 300 mg PO HS 12/07/15 [History] L.acidoph,Paracasei, B.lactis [Probiotic] 1 cap PO DAILY 12/07/15 [History] Montelukast [Singulair] 10 mg PO HS 12/07/15 [History] clonazePAM [Klonopin] 0.5 mg PO BID 12/07/15 [History] Beclomethasone Diprop 40mcg [QVAR 40 mcg] 1 puff IH BID 09/29/16 [History] Cyanocobalamin (Vitamin B-12) [Vitamin B12] 2,500 mcg PO DAILY 09/29/16 [History ] Multivitamin [Multi-Day Vitamins] 1 tab PO DAILY 09/29/16 [History] Pantoprazole Sodium [Protonix] 40 mg PO DAILY 09/29/16 [History] Prazosin [Minipress] 1 mg PO HS 09/29/16 [History] Diclofenac Sodium [Voltaren] 75 mg PO BID 04/09/17 [History] Iloperidone [Fanapt] 12 mg PO BID 04/09/17 [History] Oxybutynin Chloride [Ditropan Xl] 10 mg PO DAILY 04/09/17 [History] SitaGLIPtin [Januvia] 100 mg PO DAILY 04/09/17 [History] Rizatriptan Benzoate [Maxalt Jewel Bearing Driller] 10 mg PO DAILY PRN 05/08/17 [History] predniSONE [PredniSONE] 40 mg PO DAILY #4 tablet 05/11/17 [Rx] Allergies/Adverse Reactions: 3 Allergy/AdvReac Type Severity Reaction Status Date / Time aripiprazole [From Abilify] Allergy Hallucinati Verified 05/08/17 09:38 ng Cefprozil [From Cefzil] Allergy See Verified 05/08/17 09:38 Comments codeine Allergy See Verified 05/08/17 09:38 Comments duloxetine [From Cymbalta] Allergy See Verified 05/08/17 09:38 Comments Erythromycin Base Allergy See Verified 05/08/17 09:38 Comments esomeprazole [From Nexium] Allergy See Verified 05/08/17 09:38 Comments Penicillins Allergy See Verified 05/08/17 09:38 Comments pregabalin [From Lyrica] Allergy Hallucinati Verified 05/08/17 09:38 ng Sulfa (Sulfonamide Allergy See Verified 05/08/17 09:38 Antibiotics) Comments ziprasidone [From Geodon] Allergy Hallucinati Verified 05/08/17 09:38 ng celecoxib [From Celebrex] AdvReac Hallucinati Verified 05/08/17 09:38 ng metformin AdvReac Diarrhea Verified 05/08/17 09:38 Certification: Further, I certify that my clinical findings support that this patient is homebound (i.e. absences from home require considerable and taxing effort and are for medical reasons or scientologist services or infrequently or short duration when for other reasons) because: Homebound Reason: Patient requires assistance of a person or device to safely leave home Attestation: My signature below is to certify that this patient is under my care and that I, or nurse practitioner, or a physician's general surgery physician assistant working with me, has a face-to -face encounter with this patient.
== END 2017-05-11 12:16 | disposition home health service (06) ==
LOC: EMEROO 09:20 → 2ANU 09:20
PROVIDERS: ADMIT Hospitalist; ATTEND Internal Medicine

== ENCOUNTER 2017-05-28 07:40 | Inpatient (IN) ==
[2017-05-28] MEDS ORDERED: Ibuprofen 600 MG TABLET PO ONE (07:43)
--- NOTE | 2017-05-28 07:49 | Emergency Department Note ---
Disposition Clinical Impression: UTI (urinary tract infection) Qualifiers: Urinary tract infection type: acute cystitis Hematuria presence: without hematuria Qualified Code(s): N30.00 - Acute cystitis without hematuria Sepsis Qualifiers: Sepsis type: sepsis due to unspecified organism Qualified Code(s): A41.9 - Sepsis, unspecified organism Disposition: Admitted As Inpatient Condition: Good Referrals: Mundo Barnes MD [Primary Care Provider] - Forms: ED Satisfaction Letter Time of Disposition: 10:47 General Adult HPI - General Chief complaint: ED Fever Stated complaint: Urinary S/Sx, fever Time Seen by Provider: 05/28/17 07:43 Nursing Notes Reviewed: Yes Vital Signs Reviewed: Yes - History of Present Illness HPI Narrative: 2-3 day history of fevers. She states she is nauseated at this time his diagnoses of vomiting or diarrhea. Denies any abdominal pain. Does report burning and pain on urination. - Related Data Home Medications Medication Instructions Recorded Confirmed Docusate [Colace] 100 mg PO BID PRN 02/23/15 05/08/17 Levothyroxine [Synthroid] 125 mcg PO DAILY 02/23/15 05/08/17 Ranitidine HCl [Zantac] 150 mg PO BID 02/23/15 05/08/17 Furosemide [Lasix] 40 mg PO DAILY 12/06/15 05/08/17 Potassium Chloride [Klor-Con 10] 10 meq PO DAILY 12/06/15 05/08/17 lamoTRIgine [Lamotrigine] 200 mg PO BID 12/06/15 05/08/17 Albuterol Sulfate [Proair 2 puff IH Q4-6H PRN 12/07/15 05/08/17 Respiclick] Aspirin [Ecotrin] 81 mg PO DAILY 12/07/15 05/08/17 Atorvastatin [Lipitor] 40 mg PO HS 12/07/15 05/08/17 Cetirizine HCl [All Day Allergy] 5 mg PO HS 12/07/15 05/08/17 Cyclobenzaprine [Flexeril] 10 mg PO BID 12/07/15 05/08/17 Escitalopram [Lexapro] 20 mg PO DAILY 12/07/15 05/08/17 Gabapentin [Neurontin] 300 mg PO HS 12/07/15 05/08/17 L.acidoph,Paracasei, B.lactis 1 cap PO DAILY 12/07/15 05/08/17 [Probiotic] Montelukast [Singulair] 10 mg PO HS 12/07/15 05/08/17 clonazePAM [Klonopin] 0.5 mg PO BID 12/07/15 05/08/17 Beclomethasone Diprop 40mcg [QVAR 1 puff IH BID 09/29/16 05/08/17 40 mcg] Cyanocobalamin (Vitamin B-12) 2,500 mcg PO DAILY 09/29/16 05/08/17 [Vitamin B12] Multivitamin [Multi-Day Vitamins] 1 tab PO DAILY 09/29/16 05/08/17 Pantoprazole Sodium [Protonix] 40 mg PO DAILY 09/29/16 05/08/17 Prazosin [Minipress] 1 mg PO HS 09/29/16 05/08/17 Diclofenac Sodium [Voltaren] 75 mg PO BID 04/09/17 05/08/17 Iloperidone [Fanapt] 12 mg PO BID 04/09/17 05/08/17 Oxybutynin Chloride [Ditropan Xl] 10 mg PO DAILY 04/09/17 05/08/17 SitaGLIPtin [Januvia] 100 mg PO DAILY 04/09/17 05/08/17 Rizatriptan Benzoate [Maxalt [employer] Photo Mask Maker] 10 mg PO DAILY PRN 05/08/17 05/08/17 Previous Rx's Medication Instructions Recorded predniSONE [PredniSONE] 40 mg PO DAILY #4 tablet 05/11/17 Allergies Allergy/AdvReac Type Severity Reaction Status Date / Time aripiprazole [From Abilify] Allergy Hallucinati Verified 05/28/17 07:55 ng Cefprozil [From Cefzil] Allergy See Verified 05/28/17 07:55 Comments codeine Allergy See Verified 05/28/17 07:55 Comments duloxetine [From Cymbalta] Allergy See Verified 05/28/17 07:55 Comments Erythromycin Base Allergy See Verified 05/28/17 07:55 Comments esomeprazole [From Nexium] Allergy See Verified 05/28/17 07:55 Comments Penicillins Allergy See Verified 05/28/17 07:55 Comments pregabalin [From Lyrica] Allergy Hallucinati Verified 05/28/17 07:55 ng Sulfa (Sulfonamide Allergy See Verified 05/08/17 09:38 Antibiotics) Comments ziprasidone [From Geodon] Allergy Hallucinati Verified 05/28/17 07:55 ng celecoxib [From Celebrex] AdvReac Hallucinati Verified 05/28/17 07:55 ng metformin AdvReac Diarrhea Verified 05/28/17 07:55 All systems ED: reviewed and negative except as stated. Constitutional: Reports: fever. Denies: chills ENT ED: Denies: congestion Cardiovascular: Denies: chest pain, syncope Respiratory: Denies: cough, dyspnea, sputum production Gastrointestinal: Reports: nausea. Denies: abdominal pain, vomiting, diarrhea, hematemesis, melena, hematochezia Genitourinary: Reports: dysuria (Occasional burning). Denies: urgency, frequency, hematuria, dyspareunia Musculoskeletal: Denies: back pain, neck pain Integumentary: Denies: rash, abrasion Neurological: Denies: headache, weakness Past Medical History - Past Medical History Attestation: Yes The following information was validated with the patient. Source: patient Medical history: Reports: asthma, diabetes (Controlled w/oral medications), GERD , hyperlipidemia, hypertension, seizures (Last one in hospital [facility] one month ago), other Surgical history: Reports: cholecystectomy Psychiatric history: Reports: anxiety, bipolar, depression, schizophrenia, previous psychiatric hospitalization CHLORINATOR history: Reports: no CHLORINATOR history - Social History Smoking Status: Never smoker Smokeless Tobacco Status: No Alcohol use: Reports: none Drug use: Reports: none Physical Exam - General Limitations: no limitations General appearance: alert, in no apparent distress - Head Head exam: atraumatic, normocephalic, normal inspection - Eye Eye exam: Present: normal appearance, PERRL, EOMI. Absent: scleral icterus - ENT ENT exam: normal exam, normal oropharynx, mucous membranes moist - Neck Neck exam: Present: normal inspection, full ROM, trachea midline - Chest Chest inspection: Present: normal inspection, symmetric chest wall rise. Absent : tenderness - Respiratory Respiratory exam: Present: normal lung sounds bilaterally. Absent: respiratory distress, accessory muscle use - Cardiovascular Cardiovascular exam: Present: normal rhythm, tachycardia, normal heart sounds - Abdominal Exam Abdominal exam: Present: soft, Non-Tender, other (Abdominal exam inhibited by patient's body habitus.). Absent: distention, rigidity - Extremities Exam Extremities exam: Present: normal inspection, full ROM, normal capillary refill , pedal edema (Mild bilaterally. Nonpitting). Absent: tenderness - Back Exam Back exam: Present: normal inspection, full ROM. Absent: tenderness, CVA tenderness (R), CVA tenderness (L) - Neurological Exam Neurological exam: Present: alert, oriented X3 - Psychiatric Psychiatric exam: Present: normal affect, normal mood - Skin Skin exam: Present: warm, dry, intact, normal color. Absent: rash, cyanosis Course Course Narrative: Female patient presents emergency department complaining of a fever. She states that she has had a fever for 2-3 days. She is now just tired and unable to care for herself at home. She states she does have a burning on urination as well as a foul odor to her urine. She denies any shortness of breath however is requiring 2 L of oxygen to maintain an oxygen saturation greater than 93%. She is tachycardic on arrival here. She is mentating appropriately. She denies any shortness of breath or cough. Her lung sounds are clear. Her heart tones are tachycardic but normal. Her abdomen is soft nontender on evaluation however patient's body habitus him hinders an adequate exam. She is non-peritoneal. She does have some mild edema to her lower extremities that is nonpitting. Patient was given ibuprofen for her fever and 3 L of fluid. She is still tachycardic despite the fluid. She does not have a lactic acidosis however she does have urinary tract infection. Her fever responded appropriately to the Motrin. We have started her on Levaquin for her urinary tract infection. I discussed admission to the hospital with the patient and she is agreeable at this time. She urinated again while here in emergency department and complains again of pain and burning on urination. I do not appreciate any signs of rash to her body. She is mentating appropriately. She appears nontoxic. - Consultations Consultation #1: Dr Yoder accepted Pt in stable condition. Time: 10:51 Vital Signs Temperature 102.5 F H 05/28/17 07:42 Pulse Rate 123 05/28/17 07:42 Respiratory Rate 20 05/28/17 07:42 Blood Pressure 135/71 05/28/17 07:42 O2 Sat by Pulse Oximetry 85 05/28/17 07:42 Temperature 99.3 F 05/28/17 09:26 Pulse Rate 114 05/28/17 09:26 Respiratory Rate 19 05/28/17 09:26 Blood Pressure 131/64 05/28/17 09:26 O2 Sat by Pulse Oximetry 93 05/28/17 09:26 Oxygen Delivery Oxygen Delivery Nasal Cannula Medical Decision Making - Medical Records Medical records reviewed: Yes I reviewed the patient's medical records. - Lab Data Lab results reviewed: Yes I reviewed the patient's lab results. Result diagrams: 05/28/17 08:41 05/28/17 08:41 Lab Results 05/28/17 05/28/17 05/28/17 Range/Units 07:50 07:50 08:41 WBC 10.7 (4.3-11.1) K/mcL RBC 3.83 (3.82-4.97) M/mcL Hgb 10.5 L (11.5-15.4) g/dL Hct 32.8 L (35.3-44.9) % MCV 85.6 (83.0-100.0) fL MCH 27.4 L (28.0-33.3) pg MCHC 32.0 (31.6-35.5) g/dL RDW 15.3 H (11.5-14.5) % Plt Count 180 (140-400) K/mcL MPV 9.1 L (9.4-12.4) fL Immature Gran % 0.6 (0-4) % Seg Neutrophils % 79.5 % Lymphocytes % 6.7 % Monocytes % 10.9 % Eosinophils % 2.0 % Basophils % 0.3 % Neutrophils # 8.5 (1.6-8.9) K/mcL Lymphocytes # 0.7 (0.6-4.6) K/mcL Monocytes # 1.2 (0.0-1.3) K/mcL Eosinophils # 0.2 (0.0-0.6) K/mcL Basophils # 0.0 (0.0-0.2) K/mcL Sodium (136-145) mEq/L Potassium (3.5-5.1) mEq/L Chloride (98-107) mEq/L Carbon Dioxide (23-29) mEq/L BUN (6-20) mg/dL Creatinine (0.60-1.20) mg/dL Est GFR ( Amer) (> 60) Est GFR (Non-Af Amer) (> 60) BUN/Creatinine Ratio (6-26) Glucose (70-105) mg/dL Calculated Osmolality (280-300) Lactic Acid (0.5-2.2) mmol/L Calcium (8.6-10.3) mg/dL Phosphorus (2.7-4.5) mg/dL Magnesium (1.6-2.6) mg/dL Total Bilirubin (0.3-1.0) mg/dL Direct Bilirubin (0.0-0.2) mg/dL Indirect Bilirubin (0.0-1.2) mg/dL AST (13-39) Units/L ALT (7-52) Units/L Alkaline Phosphatase (34-104) Units/L Troponin I (< 0.04) ng/mL Serum Total Protein (6.4-8.9) g/dL Albumin (3.5-5.7) g/dL Globulin (2.4-3.5) g/dL Albumin/Globulin Ratio (1.1-2.2) Urine Color Dark Yellow (Yellow) Urine Clarity Turbid A (Clear) Urine pH 6.0 (5.0-8.0) pH Units Ur Specific [place] 1.024 (1.010-1.025) Urine Protein 30 H (Neg-Trace) mg/dL Urine Glucose (UA) Normal (Normal) mg/dL Urine Ketones Negative (Negative) mg/dL Urine Blood Small H (Negative) Urine Nitrite Negative (Negative) Urine Bilirubin Negative (Negative) Urine Urobilinogen Normal (Normal) mg/dL Ur Leukocyte Esterase Large H (Negative) Urine Microscopic RBC 0-3 (0-3) per hpf Urine Microscopic WBC TNTC H (0-3) per hpf Ur Squamous Epith Cells Many H (None-Few) per lpf Urine Bacteria Many H (None-Few) per hpf Hyaline Casts None Seen (None-Few) per lpf Ur Culture Indicated? NO. A (NO) Urine Test Negative (Negative) 05/28/17 05/28/17 Range/Units 08:41 08:41 WBC (4.3-11.1) K/mcL RBC (3.82-4.97) M/mcL Hgb (11.5-15.4) g/dL Hct (35.3-44.9) % MCV (83.0-100.0) fL MCH (28.0-33.3) pg MCHC (31.6-35.5) g/dL RDW (11.5-14.5) % Plt Count (140-400) K/mcL MPV (9.4-12.4) fL Immature Gran % (0-4) % Seg Neutrophils % % Lymphocytes % % Monocytes % % Eosinophils % % Basophils % % Neutrophils # (1.6-8.9) K/mcL Lymphocytes # (0.6-4.6) K/mcL Monocytes # (0.0-1.3) K/mcL Eosinophils # (0.0-0.6) K/mcL Basophils # (0.0-0.2) K/mcL Sodium 136 (136-145) mEq/L Potassium 3.4 L (3.5-5.1) mEq/L Chloride 101 (98-107) mEq/L Carbon Dioxide 27 (23-29) mEq/L BUN 8 (6-20) mg/dL Creatinine 0.74 (0.60-1.20) mg/dL Est GFR ( Amer) > 60 (> 60) Est GFR (Non-Af Amer) > 60 (> 60) BUN/Creatinine Ratio 11 (6-26) Glucose 112 H (70-105) mg/dL Calculated Osmolality 281 (280-300) Lactic Acid 1.3 (0.5-2.2) mmol/L Calcium 8.2 L (8.6-10.3) mg/dL Phosphorus 1.6 L (2.7-4.5) mg/dL Magnesium 1.7 (1.6-2.6) mg/dL Total Bilirubin 0.5 (0.3-1.0) mg/dL Direct Bilirubin 0.2 (0.0-0.2) mg/dL Indirect Bilirubin 0.3 (0.0-1.2) mg/dL AST 12 L (13-39) Units/L ALT 15 (7-52) Units/L Alkaline Phosphatase 49 (34-104) Units/L Troponin I < 0.03 (< 0.04) ng/mL Serum Total Protein 5.9 L (6.4-8.9) g/dL Albumin 3.4 L (3.5-5.7) g/dL Globulin 2.5 (2.4-3.5) g/dL Albumin/Globulin Ratio 1.4 (1.1-2.2) Urine Color (Yellow) Urine Clarity (Clear) Urine pH (5.0-8.0) pH Units Ur Specific [place] (1.010-1.025) Urine Protein (Neg-Trace) mg/dL Urine Glucose (UA) (Normal) mg/dL Urine Ketones (Negative) mg/dL Urine Blood (Negative) Urine Nitrite (Negative) Urine Bilirubin (Negative) Urine Urobilinogen (Normal) mg/dL Ur Leukocyte Esterase (Negative) Urine Microscopic RBC (0-3) per hpf Urine Microscopic WBC (0-3) per hpf Ur Squamous Epith Cells (None-Few) per lpf Urine Bacteria (None-Few) per hpf Hyaline Casts (None-Few) per lpf Ur Culture Indicated? (NO) Urine Test (Negative) - Radiology Data Radiology results reviewed: Yes I reviewed the patient's radiology results. Chest X-Ray 05/28/17 07:50 IMPRESSION: No acute abnormality. D/ / Ambrocio Torres MD / Ambrocio Torres MD Interpreting Provider: Ambrocio Torres MD
[2017-05-28 08:01] LABS: Bilirubin,Urine Negative (Negative); Blood,Urine Small (Negative); Clarity,Urine Turbid (Clear); Color,Urine Dark Yellow (Yellow); Glucose,Urine (UA) Normal (Normal); Ketones,Urine Negative (Negative); Leukocyte Esterase,Urine Large (Negative); Nitrite,Urine Negative (Negative); Protein,Urine 30 mg/dL (Neg-Trace); Specific Gravity,Urine 1.024 (1.010-1.025); Urobilinogen,Urine Normal (Normal)
[2017-05-28 08:06] LABS: Bacteria,Urine Many per hpf (None-Few); Hyaline Casts,Urine None Seen per lpf (None-Few); Squamous Epithelial Cell,Urine Many per lpf (None-Few); WBC,Urine TNTC per hpf (0-3)
[2017-05-28] MEDS: 0.9 % Sodium Chloride 1,000 ML IVC SCH ×4 (08:10→23:41)
[2017-05-28 08:19] LABS: RBC,Urine 0-3 per hpf (0-3)
[2017-05-28] MEDS ORDERED: Ondansetron 4 MG/2 ML VIAL IVP ONE (08:37)
[2017-05-28] MEDS ORDERED: Levofloxacin 750 MG/150 ML 750 MG/150 ML BAG IVPB ONE (08:48)
--- NOTE | 2017-05-28 08:52 | Emergency Department Note ---
Disposition Clinical Impression: UTI (urinary tract infection) Qualifiers: Urinary tract infection type: site unspecified Hematuria presence: with hematuria Qualified Code(s): N39.0 - Urinary tract infection, site not specified ; R31.9 - Hematuria, unspecified; R31.9 - Hematuria, unspecified Disposition: Still a Patient Referrals: Mundo Barnes MD [Primary Care Provider] - Forms: ED Satisfaction Letter General Adult HPI - General Chief complaint: ED Fever Stated complaint: Urinary S/Sx, fever Time Seen by Provider: 05/28/17 07:43 Source: patient, EMS Limitations: no limitations - History of Present Illness Pain Scale: 6 - Related Data Home Medications Medication Instructions Recorded Confirmed Docusate [Colace] 100 mg PO BID PRN 02/23/15 05/08/17 Levothyroxine [Synthroid] 125 mcg PO DAILY 02/23/15 05/08/17 Ranitidine HCl [Zantac] 150 mg PO BID 02/23/15 05/08/17 Furosemide [Lasix] 40 mg PO DAILY 12/06/15 05/08/17 Potassium Chloride [Klor-Con 10] 10 meq PO DAILY 12/06/15 05/08/17 lamoTRIgine [Lamotrigine] 200 mg PO BID 12/06/15 05/08/17 Albuterol Sulfate [Proair 2 puff IH Q4-6H PRN 12/07/15 05/08/17 Respiclick] Aspirin [Ecotrin] 81 mg PO DAILY 12/07/15 05/08/17 Atorvastatin [Lipitor] 40 mg PO HS 12/07/15 05/08/17 Cetirizine HCl [All Day Allergy] 5 mg PO HS 12/07/15 05/08/17 Cyclobenzaprine [Flexeril] 10 mg PO BID 12/07/15 05/08/17 Escitalopram [Lexapro] 20 mg PO DAILY 12/07/15 05/08/17 Gabapentin [Neurontin] 300 mg PO HS 12/07/15 05/08/17 L.acidoph,Paracasei, B.lactis 1 cap PO DAILY 12/07/15 05/08/17 [Probiotic] Montelukast [Singulair] 10 mg PO HS 12/07/15 05/08/17 clonazePAM [Klonopin] 0.5 mg PO BID 12/07/15 05/08/17 Beclomethasone Diprop 40mcg [QVAR 1 puff IH BID 09/29/16 05/08/17 40 mcg] Cyanocobalamin (Vitamin B-12) 2,500 mcg PO DAILY 09/29/16 05/08/17 [Vitamin B12] Multivitamin [Multi-Day Vitamins] 1 tab PO DAILY 09/29/16 05/08/17 Pantoprazole Sodium [Protonix] 40 mg PO DAILY 09/29/16 05/08/17 Prazosin [Minipress] 1 mg PO HS 09/29/16 05/08/17 Diclofenac Sodium [Voltaren] 75 mg PO BID 04/09/17 05/08/17 Iloperidone [Fanapt] 12 mg PO BID 04/09/17 05/08/17 Oxybutynin Chloride [Ditropan Xl] 10 mg PO DAILY 04/09/17 05/08/17 SitaGLIPtin [Januvia] 100 mg PO DAILY 04/09/17 05/08/17 Rizatriptan Benzoate [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 [employer]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] 10 mg PO DAILY PRN 05/08/17 05/08/17 Previous Rx's Medication Instructions Recorded predniSONE [PredniSONE] 40 mg PO DAILY #4 tablet 05/11/17 Allergies Allergy/AdvReac Type Severity Reaction Status Date / Time aripiprazole [From Abilify] Allergy Hallucinati Verified 05/28/17 07:55 ng Cefprozil [From Cefzil] Allergy See Verified 05/28/17 07:55 Comments codeine Allergy See Verified 05/28/17 07:55 Comments duloxetine [From Cymbalta] Allergy See Verified 05/28/17 07:55 Comments Erythromycin Base Allergy See Verified 05/28/17 07:55 Comments esomeprazole [From Nexium] Allergy See Verified 05/28/17 07:55 Comments Penicillins Allergy See Verified 05/28/17 07:55 Comments pregabalin [From Lyrica] Allergy Hallucinati Verified 05/28/17 07:55 ng Sulfa (Sulfonamide Allergy See Verified 05/08/17 09:38 Antibiotics) Comments ziprasidone [From Geodon] Allergy Hallucinati Verified 05/28/17 07:55 ng celecoxib [From Celebrex] AdvReac Hallucinati Verified 05/28/17 07:55 ng metformin AdvReac Diarrhea Verified 05/28/17 07:55 Past Medical History - Past Medical History Medical history: Reports: asthma, diabetes (Controlled w/oral medications), GERD , hyperlipidemia, hypertension, seizures (Last one in [facility] one month ago), other Surgical history: Reports: cholecystectomy Psychiatric history: Reports: anxiety, bipolar, depression, schizophrenia, previous psychiatric hospitalization FIRST RESPONDER history: Reports: no FIRST RESPONDER history - Social History Smoking Status: Never smoker Smokeless Tobacco Status: No Alcohol use: Reports: none Drug use: Reports: none Physical Exam - General Limitations: no limitations General appearance: alert, in no apparent distress Course Vital Signs Temperature 102.5 F H 05/28/17 07:42 Pulse Rate 123 05/28/17 07:42 Respiratory Rate 20 05/28/17 07:42 Blood Pressure 135/71 05/28/17 07:42 O2 Sat by Pulse Oximetry 85 05/28/17 07:42 Temperature 100.9 F H 05/28/17 08:33 Pulse Rate 117 05/28/17 08:33 Respiratory Rate 20 05/28/17 08:33 Blood Pressure 131/64 05/28/17 08:33 O2 Sat by Pulse Oximetry 93 05/28/17 08:33 Oxygen Delivery Oxygen Delivery Nasal Cannula Medical Decision Making - Lab Data Lab Results 05/28/17 05/28/17 Range/Units 07:50 07:50 Urine Color Dark Yellow (Yellow) Urine Clarity Turbid A (Clear) Urine pH 6.0 (5.0-8.0) pH Units Ur Specific [place] 1.024 (1.010-1.025) Urine Protein 30 H (Neg-Trace) mg/dL Urine Glucose (UA) Normal (Normal) mg/dL Urine Ketones Negative (Negative) mg/dL Urine Blood Small H (Negative) Urine Nitrite Negative (Negative) Urine Bilirubin Negative (Negative) Urine Urobilinogen Normal (Normal) mg/dL Ur Leukocyte Esterase Large H (Negative) Urine Microscopic RBC 0-3 (0-3) per hpf Urine Microscopic WBC TNTC H (0-3) per hpf Ur Squamous Epith Cells Many H (None-Few) per lpf Urine Bacteria Many H (None-Few) per hpf Hyaline Casts None Seen (None-Few) per lpf Ur Culture Indicated? NO. A (NO) Urine Test Negative (Negative) Attestation Statement - Attestation Attestation: I examined this patient and my medical decision-making was reviewed with the Resident Physician. I agree with the documented findings, disposition and treatment plan as described except to the extent set forth below. 42 year old female presents to the ED with complaints of fever and dysuria and that she is on multiple medications and tachycardiac on exam. PAtinet meets SEPSIS criteria and it appears the source is likely UTI. Kang do IVF hydration treat her with levaquin and continue sepsis workup.
[2017-05-28 09:01] LABS: Basophils % 0.3 %; Eosinophils # 0.2 K/mcL (0.0-0.6); Hematocrit 32.8 % (35.3-44.9); Hemoglobin 10.5 g/dL (11.5-15.4); Immature Granulocytes % 0.6 % (0-4); Lymphocytes # 0.7 K/mcL (0.6-4.6); Lymphocytes % 6.7 %; Mean Corpuscular Hemoglobin 27.4 pg (28.0-33.3); Mean Corpuscular Volume 85.6 fL (83.0-100.0); Mean Platelet Volume 9.1 fL (9.4-12.4); Monocytes # 1.2 K/mcL (0.0-1.3); Monocytes % 10.9 %; Neutrophils # 8.5 K/mcL (1.6-8.9); Platelet Count 180 K/mcL (140-400); Red Blood Count 3.83 M/mcL (3.82-4.97); Red Cell Distribution Width 15.3 % (11.5-14.5); Segmented Neutrophils % 79.5 %
[2017-05-28 09:16] LABS: Alanine Aminotransferase 15 Units/L (7-52); Albumin 3.4 g/dL (3.5-5.7); Albumin/Globulin Ratio 1.4 (1.1-2.2); Alkaline Phosphatase 49 Units/L (34-104); Aspartate Amino Transferase 12 Units/L (13-39); BUN/Creatinine Ratio 11 (6-26); Bilirubin,Direct 0.2 mg/dL (0.0-0.2); Bilirubin,Indirect 0.3 mg/dL (0.0-1.2); Bilirubin,Total 0.5 mg/dL (0.3-1.0); Blood Urea Nitrogen 8 mg/dL (6-20); Calcium 8.2 mg/dL (8.6-10.3); Carbon Dioxide 27 mEq/L (23-29); Chloride 101 mEq/L (98-107); Globulin 2.5 g/dL (2.4-3.5); Glucose 112 mg/dL (70-105); Magnesium 1.7 mg/dL (1.6-2.6); Osmolality,Calculated 281 (280-300); Phosphorous 1.6 mg/dL (2.7-4.5); Potassium 3.4 mEq/L (3.5-5.1); Sodium 136 mEq/L (136-145); Total Protein 5.9 g/dL (6.4-8.9); Troponin I < 0.03 ng/mL (< 0.04); eGFR For African Americans > 60 (> 60); eGFR For Non-African Americans > 60 (> 60)
[2017-05-28] MEDS ORDERED: Naloxone 0.4 MG/ML INJ IVP PRN (14:01)
[2017-05-28] MEDS ORDERED: (Albuterol Sulfate [Proair Respiclick] 2 PUFF) IH PRN (14:07)
--- NOTE | 2017-05-28 14:12 | Internal Med History&Physical ---
Date of Encounter: 05/28/17 Time of Encounter: 14:12 Internal Medicine - H&P: HPI Admitted From: Home Plans for Post Hospital Care: Home History of present illness: Ms. Parkinson is a 42 year old morbidly obese female who is on disability with home health care and she is not able to take care of herself at home with history of side effect of disorder, COPD takes inhaler but not on home oxygen, chronic back pain, migraine, diabetes mellitus, hypertension presents emergency department complaining of a fever, nausea, burning micturition and foul smell 3- 4 days. In ER she was found to have high temperature 102.5, tachycardia, hypoxia 85% on room air therefore restarted IV fluid, 2 L oxygen supplementation and symptomatic treatment with Motrin along with IV Levaquin. Initial lab with normal white count, lactic acid. Chest x-ray with no acute finding. Urinalysis abnormal. Initial blood culture was sent in the ER. Your physician called on-call hospitalists to admit with the diagnosis of UTI with SIRS. Past Med Surg Social Fam HX - Past Medical History Medical history: asthma, diabetes (Controlled w/oral medications), GERD, hyperlipidemia, hypertension, seizures (Last one in hospital [facility] one month ago), other Psychiatric history: anxiety, bipolar, depression, schizophrenia, previous psychiatric hospitalization - Past Surgical History Surgical History: cholecystectomy - Social History Smoking Status: Never smoker Smokeless Tobacco Status: No Alcohol use: none Drug use: none - Family History Mother Family Member Ethnicity: Non- Living Status: Still Living Hx Family Cardiac Disorders: Yes Hx Family Respiratory Disorders: Yes Hx Family Cancer: No Hx Family GI Disorders: No Hx Family Endocrine Disorder: Yes (DM) Hx Family Neuromuscular Disorders: No Hx Family Neurologic Disorders: No Hx Family HEENT Disorders: No Hx Family Autoimmune Disorders: Yes Father Family Member Ethnicity: Non- Living Status: Hx Family Cardiac Disorders: Yes (MS, HTN, HLD) Hx Family Respiratory Disorders: Yes (Enphesyma, COPD, Asthma) Hx Family Cancer: Yes (Unknown) Hx Family GI Disorders: Yes (Lactos Intolerant) Hx Family Endocrine Disorder: No Hx Family Neuromuscular Disorders: No Hx Family Neurologic Disorders: No Hx Family HEENT Disorders: No Hx Family Autoimmune Disorders: No Brother Family Member Ethnicity: Non- Living Status: Still Living Hx Family Cardiac Disorders: Yes (MS @ 29, HLD, HTN) Hx Family Endocrine Disorder: Yes (DM) Internal Medicine - H&P: Meds Docusate [Colace] 100 mg PO BID PRN 02/23/15 [History] Levothyroxine [Synthroid] 125 mcg PO DAILY 02/23/15 [History] Ranitidine HCl [Zantac] 150 mg PO BID 02/23/15 [History] Furosemide [Lasix] 40 mg PO DAILY 12/06/15 [History] Potassium Chloride [Klor-Con 10] 10 meq PO DAILY 12/06/15 [History] lamoTRIgine [Lamotrigine] 200 mg PO BID 12/06/15 [History] Albuterol Sulfate [Proair Respiclick] 2 puff IH Q4-6H PRN 12/07/15 [History] Aspirin [Ecotrin] 81 mg PO DAILY 12/07/15 [History] Atorvastatin [Lipitor] 40 mg PO HS 12/07/15 [History] Cetirizine HCl [All Day Allergy] 5 mg PO HS 12/07/15 [History] Cyclobenzaprine [Flexeril] 10 mg PO BID 12/07/15 [History] Escitalopram [Lexapro] 20 mg PO DAILY 12/07/15 [History] Gabapentin [Neurontin] 300 mg PO HS 12/07/15 [History] L.acidoph,Paracasei, B.lactis [Probiotic] 1 cap PO DAILY 12/07/15 [History] Montelukast [Singulair] 10 mg PO HS 12/07/15 [History] clonazePAM [Klonopin] 0.5 mg PO BID 12/07/15 [History] Beclomethasone Diprop 40mcg [QVAR 40 mcg] 1 puff IH BID 09/29/16 [History] Cyanocobalamin (Vitamin B-12) [Vitamin B12] 2,500 mcg PO DAILY 09/29/16 [History ] Multivitamin [Multi-Day Vitamins] 1 tab PO DAILY 09/29/16 [History] Pantoprazole Sodium [Protonix] 40 mg PO DAILY 09/29/16 [History] Prazosin [Minipress] 1 mg PO HS 09/29/16 [History] Diclofenac Sodium [Voltaren] 75 mg PO BID 04/09/17 [History] Iloperidone [Fanapt] 12 mg PO BID 04/09/17 [History] Oxybutynin Chloride [Ditropan Xl] 10 mg PO DAILY 04/09/17 [History] SitaGLIPtin [Januvia] 100 mg PO DAILY 04/09/17 [History] Rizatriptan Benzoate [Maxalt Business Agent] 10 mg PO DAILY PRN 05/08/17 [History] predniSONE [PredniSONE] 40 mg PO DAILY #4 tablet 05/11/17 [Rx] 3 Allergy/AdvReac Type Severity Reaction Status Date / Time aripiprazole [From Abilify] Allergy Hallucinati Verified 05/28/17 07:55 ng Cefprozil [From Cefzil] Allergy See Verified 05/28/17 07:55 Comments codeine Allergy See Verified 05/28/17 07:55 Comments duloxetine [From Cymbalta] Allergy See Verified 05/28/17 07:55 Comments Erythromycin Base Allergy See Verified 05/28/17 07:55 Comments esomeprazole [From Nexium] Allergy See Verified 05/28/17 07:55 Comments Penicillins Allergy See Verified 05/28/17 07:55 Comments pregabalin [From Lyrica] Allergy Hallucinati Verified 05/28/17 07:55 ng Sulfa (Sulfonamide Allergy See Verified 05/08/17 09:38 Antibiotics) Comments ziprasidone [From Geodon] Allergy Hallucinati Verified 05/28/17 07:55 ng celecoxib [From Celebrex] AdvReac Hallucinati Verified 05/28/17 07:55 ng metformin AdvReac Diarrhea Verified 05/28/17 07:55 All Systems PM: A 10-system review of systems was performed and is negative for pertinent findings except as documented above in the HPI. - Constitutional Vitals: Temp Pulse Resp BP Pulse Ox 98.9 F 105 18 102/73 95 05/28/17 12:16 05/28/17 12:16 05/28/17 12:16 05/28/17 12:16 05/28/17 12:16 Exam: General appearance: Morbidly obese, No acute distress, A&O X 3 Head exam: Atraumatic Eye exam: EOMI, PERRLA ENT exam: Moist oral mucosa Neck nontender, supple Respiratory exam: Clear to auscultation bilaterally Cardiovascular exam: Mild tachycardia with regular rhythm, no systolic murmur Abdominal exam: Soft, nontender, nondistended, morbidly obese, positive bowel sounds Extremities exam: No calf tenderness, no pedal edema Present: Skin-no rash, warm, dry, intact Neurological exam: Alert, awake, oriented 3, CN II-XII intact, no focal deficits. No facial droop. Normal speech. Internal Med - H&P Results - Labs CBC & Chem 7: 05/28/17 08:41 05/28/17 08:41 - Assessment and plan (1) UTI (urinary tract infection) Current Visit: Yes Status: Acute Assessment and plan: With SIRS. Fever, tachycardia, hypoxia but normal white count and lactic acid. Initial fluid resuscitation done in the ER along with antibiotic. Blood culture and urine culture ordered. Continue Symptomatic treatment. Qualifiers: Qualified Code(s): N39.0 - Urinary tract infection, site not specified (2) COPD (chronic obstructive pulmonary disease) Current Visit: No Status: Chronic Assessment and plan: Does not appear COPD exacerbation but patient had hypoxia that could be due to underlying COPD with acute infected event. ABG will be ordered. Oxygen supplementation. Chest x-ray with no acute finding. Spirometry. She may need home oxygen evaluation before discharge Qualifiers: COPD type: chronic bronchitis Chronic bronchitis type: unspecified Qualified Code(s): J42 - Unspecified chronic bronchitis (3) Anxiety and depression Current Visit: No Status: Chronic Assessment and plan: History of chronic psychoaffective disorder. Stable. Continue home medicine. Continue telemetry to monitor the drug interaction effect for QT prolongation (4) Chronic pain associated with significant psychosocial dysfunction Current Visit: No Status: Chronic Assessment and plan: Stable. Continue home medicine. (5) Diabetes Current Visit: No Status: Chronic Assessment and plan: Accu-Chek, low sliding scale insulin. Diabetic diet Qualifiers: Diabetes mellitus type: type 2 Diabetes mellitus oil heaterman insulin use: without oil heaterman use Diabetes mellitus complication status: without complication Qualified Code(s): E11.9 - Type 2 diabetes mellitus without complications (6) Hypertension Current Visit: No Status: Chronic Assessment and plan: Stable. Continue home medicine. Close monitoring. Qualifiers: Hypertension type: essential hypertension Qualified Code(s): I10 - Essential (primary) hypertension (7) DVT prophylaxis Current Visit: No Status: Acute Assessment and plan: SCDs. Early ambulation - Time Spent With Patient Total time spent is greater than 50% in coordination of care (as documented) at patient's floor/unit and/or counseling patient: 25 - 35 minutes
[2017-05-28] MEDS ORDERED: D5% in Water 1,000 ML IVC PRN (14:27)
[2017-05-28] MEDS ORDERED: *HR* Dextrose 50 % in Water (Syg) 50 ML SYRINGE IVP PRN (14:27)
[2017-05-28] MEDS ORDERED: Dextrose Gel 15 GM/37.5 ML TUBE PO PRN ×2 (14:27)
[2017-05-28 16:31] LABS: ABG Base Excess 3 mEq/L (-2 to 3); ABG HCO3 28 mEq/L (21-27); ABG Oxygen Saturation 89 % (95-98); ABG PCO2 48 mmHg (35-45); ABG PH 7.38 pH Units (7.32-7.45); ABG PO2 58 mmHg (85-104); ABG TCO2 30 mEq/L (20-26)
[2017-05-28] MEDS: Insulin LISPRO 300 UNITS/3 ML VIAL SQ SCH ×2 (18:59→23:46)
[2017-05-28] MEDS: Beclomethasone 40mcg MDI IH SCH (20:04)
[2017-05-28] MEDS: Acetaminophen 325 MG TABLET PO PRN (20:44)
[2017-05-28] MEDS: Gabapentin 300 MG CAPSULE PO SCH (20:46)
[2017-05-28] MEDS: Loratadine 10 MG TABLET PO SCH (20:46)
[2017-05-28] MEDS: lamoTRIgine 100 MG TABLET PO SCH (20:46)
[2017-05-28] MEDS: clonazePAM 0.5 MG TABLET PO SCH (20:46)
[2017-05-28] MEDS: Famotidine 20 MG TABLET PO SCH (20:46)
[2017-05-28] MEDS ORDERED: ILOPERIDONE 12 MG PO SCH (21:00)
[2017-05-28] MEDS ORDERED: ALBUTEROL IH PRN (22:45)
[2017-05-28] MEDS: ILOPERIDONE 12 MG PO SCH (23:03)
[2017-05-28] MEDS ORDERED: Ketorolac 30 MG/ML VIAL IVP ONE (23:25)
[2017-05-29 05:11] LABS: Basophils % 0.3 %; Eosinophils # 0.3 K/mcL (0.0-0.6); Eosinophils % 2.7 %; Hematocrit 31.3 % (35.3-44.9); Hemoglobin 9.6 g/dL (11.5-15.4); Immature Granulocytes % 0.7 % (0-4); Lymphocytes # 1.5 K/mcL (0.6-4.6); Lymphocytes % 14.4 %; Mean Corpuscular HGB Conc 30.7 g/dL (31.6-35.5); Mean Corpuscular Hemoglobin 27.4 pg (28.0-33.3); Mean Corpuscular Volume 89.2 fL (83.0-100.0); Mean Platelet Volume 9.3 fL (9.4-12.4); Monocytes # 1.5 K/mcL (0.0-1.3); Monocytes % 14.1 %; Neutrophils # 7.2 K/mcL (1.6-8.9); Nucleated Red Blood Cells 0.2 /100 WBC (0); Platelet Count 194 K/mcL (140-400); Red Blood Count 3.51 M/mcL (3.82-4.97); Red Cell Distribution Width 15.6 % (11.5-14.5); Segmented Neutrophils % 67.8 %
[2017-05-29] MEDS: Insulin LISPRO 300 UNITS/3 ML VIAL SQ SCH ×5 (05:35→20:32)
[2017-05-29 05:36] LABS: BUN/Creatinine Ratio 12 (6-26); Blood Urea Nitrogen 10 mg/dL (6-20); Calcium 8.1 mg/dL (8.6-10.3); Carbon Dioxide 26 mEq/L (23-29); Chloride 101 mEq/L (98-107); Glucose 104 mg/dL (70-105); Osmolality,Calculated 283 (280-300); Potassium 3.7 mEq/L (3.5-5.1); Sodium 137 mEq/L (136-145); eGFR For African Americans > 60 (> 60); eGFR For Non-African Americans > 60 (> 60)
[2017-05-29] MEDS: Beclomethasone 40mcg MDI IH SCH ×2 (07:47→21:15)
[2017-05-29] MEDS ORDERED: ALBUTEROL IH PRN (08:15)
[2017-05-29] MEDS: Cyanocobalamin (B-12) 1,000 MCG TABLET PO SCH (08:19)
[2017-05-29] MEDS: lamoTRIgine 100 MG TABLET PO SCH ×2 (08:20→20:25)
[2017-05-29] MEDS: clonazePAM 0.5 MG TABLET PO SCH ×2 (08:21→20:25)
[2017-05-29] MEDS: Aspirin Enteric Coated 81 MG Tablet PO SCH (08:21)
[2017-05-29] MEDS: Famotidine 20 MG TABLET PO SCH ×2 (08:21→20:25)
[2017-05-29] MEDS: *HR* SitaGLIPtin 100 MG TABLET PO SCH (08:21)
[2017-05-29] MEDS: Acetaminophen 325 MG TABLET PO PRN ×2 (08:26→21:44)
[2017-05-29] MEDS: 0.9 % Sodium Chloride 1,000 ML IVC SCH (08:34)
[2017-05-29] MEDS ORDERED: predniSONE 20 MG TABLET PO SCH (09:00)
[2017-05-29] MEDS ORDERED: Levofloxacin 750 MG/150 ML 750 MG/150 ML BAG IVPB SCH (09:00)
[2017-05-29] MEDS: ILOPERIDONE 12 MG PO SCH ×2 (10:25→21:36)
[2017-05-29] MEDS: *HR* Heparin 5,000 UNIT/ML VIAL SQ SCH (16:49)
--- NOTE | 2017-05-29 18:05 | Internal Med Progress Note ---
Date of Encounter: 05/29/17 Time of Encounter: 13:30 - Assessment and plan (1) SIRS (systemic inflammatory response syndrome) Current Visit: No Status: Acute Assessment and plan: Does meet SIRS criteria with fever, tachycardia and source of inf as UTI improving cont IV hydration cont empirical abx Levaquin no need of tele (2) UTI (urinary tract infection) Current Visit: Yes Status: Acute Assessment and plan: Cont empirical abx Levaquin Will f/u on Urine cx Qualifiers: Qualified Code(s): N39.0 - Urinary tract infection, site not specified (3) Hypertension Current Visit: No Status: Chronic Assessment and plan: Stable. Continue home medicine. Close monitoring. Qualifiers: Hypertension type: essential hypertension Qualified Code(s): I10 - Essential (primary) hypertension (4) COPD (chronic obstructive pulmonary disease) Current Visit: No Status: Chronic Assessment and plan: Does not appear COPD exacerbation Slightly hypoxic initially - could be deconditioning Currently off the O2 cont Duoneb Qualifiers: COPD type: chronic bronchitis Chronic bronchitis type: unspecified Qualified Code(s): J42 - Unspecified chronic bronchitis (5) Diabetes Current Visit: No Status: Chronic Assessment and plan: Accu-Chek, low sliding scale insulin. Diabetic diet Qualifiers: Diabetes mellitus type: type 2 Diabetes mellitus nursing home insulin use: without nursing home use Diabetes mellitus complication status: without complication Qualified Code(s): E11.9 - Type 2 diabetes mellitus without complications (6) Anxiety and depression Current Visit: No Status: Chronic Assessment and plan: Continue home meds (7) DVT prophylaxis Current Visit: No Status: Acute Assessment and plan: SCDs. Early ambulation - Time Spent With Patient Total time spent is greater than 50% in coordination of care (as documented) at patient's floor/unit and/or counseling patient: - Subjective Interval history: Ms. Parkinson is a 42 year old morbidly obese female with known COPD not on home oxygen, chronic back pain, migraine, diabetes mellitus, hypertension presented emergency department complaining of a fever, nausea, burning micturition and foul smell 3-4 days. She is admitted here for UTI. She is alert, awake and O x 3. Denied any CP / SOB. Resting comfortably - Constitutional Vitals: Temp Pulse Resp BP Pulse Ox 98.3 F 100 16 116/75 94 05/29/17 10:50 05/29/17 10:50 05/29/17 10:50 05/29/17 10:50 05/29/17 10:50 General appearance: Present: A&O X 3, no acute distress, answers questions appropriately - Head Head exam: Present: atraumatic, normal inspection - Neck Neck exam general surgery: Present: supple - Respiratory Respiratory exam: Present: decreased breath sounds. Absent: respiratory distress, rhonchi, wheezes - Cardiovascular Cardiovascular exam: Present: RRR, +S1, +S2. Absent: tachycardia - GI/Abdominal GI/Abdominal exam: Present: normal bowel sounds, soft. Absent: rebound, rigid, tenderness - Extremities Exam Extremities exam: Absent: calf tenderness, pedal edema, tenderness - Back Exam Back exam: Absent: CVA tenderness (L), CVA tenderness (R) - Neurological Exam Neurological exam: Present: alert, oriented X3 - Psychiatric Psychiatric exam: Present: normal affect, normal mood Internal Medicine: Result - Labs CBC & Chem 7: 05/29/17 04:14 05/29/17 04:14 Labs: Short CBC 05/29/17 Range/Units 04:14 WBC 10.6 (4.3-11.1) K/mcL Hgb 9.6 L (11.5-15.4) g/dL Hct 31.3 L (35.3-44.9) % Plt Count 194 (140-400) K/mcL Neutrophils # 7.2 (1.6-8.9) K/mcL BMP 05/29/17 04:14 Sodium 137 Potassium 3.7 Chloride 101 Carbon Dioxide 26 BUN 10 Creatinine 0.86 Glucose 104 Calcium 8.1 L - ABG Interpretation ABG results: ABG ABG pH 7.38 pH Units (7.32-7.45) 05/28/17 16:27 ABG pCO2 48 mmHg (35-45) H 05/28/17 16:27 ABG pO2 58 mmHg (85-104) L 05/28/17 16:27 ABG O2 Saturation 89 % (95-98) L 05/28/17 16:27 Consult Discharge Plan - Plan Referrals: Mundo Barnes MD [Primary Care Provider] -
[2017-05-29] MEDS: Loratadine 10 MG TABLET PO SCH (20:25)
[2017-05-29] MEDS: Gabapentin 300 MG CAPSULE PO SCH (20:26)
--- NOTE | 2017-05-30 06:00 | Electrocardiograph Report ---
[address] [address] Test Date: 2017-05-28 Pat Name: Radha Parkinson Department: 103 Room: 3A23 Gender: F [employer]el [employer]: REGINA : 1975 Requested By: María Elena Rajan Order Number: [id number] Reading MD: Jerry Recinos Measurements Intervals [place] Rate: 124 P: 16 NH: 171 QRS: 40 QRSD: 95 T: 44 QT: 336 QTc: 410 Interpretive Statements SINUS TACHYCARDIA INCOMPLETE RIGHT BUNDLE BRANCH BLOCK NONSPECIFIC T-WAVE ABNORMALITY ABNORMAL RHYTHM ECG Electronically Signed On 05-30-2017 5:58:49 EDT by Jerry Recinos
[2017-05-30] MEDS: *HR* Heparin 5,000 UNIT/ML VIAL SQ SCH ×2 (06:12→16:49)
[2017-05-30] MEDS: Insulin LISPRO 300 UNITS/3 ML VIAL SQ SCH ×4 (07:25→21:56)
[2017-05-30] MEDS: levoFLOXacin 750 MG TABLET PO SCH (07:26)
[2017-05-30] MEDS: *HR* SitaGLIPtin 100 MG TABLET PO SCH (07:26)
[2017-05-30] MEDS: lamoTRIgine 100 MG TABLET PO SCH ×2 (07:26→21:56)
[2017-05-30] MEDS: Aspirin Enteric Coated 81 MG Tablet PO SCH (07:26)
[2017-05-30] MEDS: clonazePAM 0.5 MG TABLET PO SCH ×2 (07:26→21:56)
[2017-05-30] MEDS: Cyanocobalamin (B-12) 1,000 MCG TABLET PO SCH (07:27)
[2017-05-30] MEDS: Famotidine 20 MG TABLET PO SCH ×2 (07:27→21:55)
[2017-05-30] MEDS: Beclomethasone 40mcg MDI IH SCH ×2 (07:51→20:47)
[2017-05-30 08:05] LABS: Hematocrit 32.4 % (35.3-44.9); Hemoglobin 10.2 g/dL (11.5-15.4); Mean Corpuscular HGB Conc 31.5 g/dL (31.6-35.5); Mean Corpuscular Hemoglobin 27.5 pg (28.0-33.3); Mean Corpuscular Volume 87.3 fL (83.0-100.0); Mean Platelet Volume 9.4 fL (9.4-12.4); Platelet Count 227 K/mcL (140-400); Red Blood Count 3.71 M/mcL (3.82-4.97); Red Cell Distribution Width 15.2 % (11.5-14.5)
[2017-05-30] MEDS: ILOPERIDONE 12 MG PO SCH ×2 (08:23→22:26)
[2017-05-30] MEDS: Acetaminophen 325 MG TABLET PO PRN ×2 (08:23→16:49)
[2017-05-30 08:38] LABS: BUN/Creatinine Ratio 15 (6-26); Blood Urea Nitrogen 10 mg/dL (6-20); Calcium 8.8 mg/dL (8.6-10.3); Carbon Dioxide 27 mEq/L (23-29); Chloride 108 mEq/L (98-107); Glucose 121 mg/dL (70-105); Osmolality,Calculated 294 (280-300); Potassium 3.8 mEq/L (3.5-5.1); Sodium 142 mEq/L (136-145); eGFR For African Americans > 60 (> 60); eGFR For Non-African Americans > 60 (> 60)
--- NOTE | 2017-05-30 10:08 | Internal Med Progress Note ---
<Roger Valdez - Last Filed: 05/30/17 17:19> Date of Encounter: 05/30/17 - Assessment and plan (1) DVT prophylaxis Current Visit: No Status: Acute (2) Hypertension Current Visit: No Status: Chronic Qualifiers: Hypertension type: essential hypertension Qualified Code(s): I10 - Essential (primary) hypertension (3) SIRS (systemic inflammatory response syndrome) Current Visit: No Status: Acute (4) COPD (chronic obstructive pulmonary disease) Current Visit: No Status: Chronic Qualifiers: COPD type: chronic bronchitis Chronic bronchitis type: unspecified Qualified Code(s): J42 - Unspecified chronic bronchitis (5) Diabetes Current Visit: No Status: Chronic Qualifiers: Diabetes mellitus type: type 2 Diabetes mellitus terminal supervisor insulin use: without terminal supervisor use Diabetes mellitus complication status: without complication Qualified Code(s): E11.9 - Type 2 diabetes mellitus without complications (6) Anxiety and depression Current Visit: No Status: Chronic (7) UTI (urinary tract infection) Current Visit: Yes Status: Acute Qualifiers: Qualified Code(s): N39.0 - Urinary tract infection, site not specified - Time Spent With Patient Total time spent is greater than 50% in coordination of care (as documented) at patient's floor/unit and/or counseling patient: - Constitutional Vitals: Temp Pulse Resp BP Pulse Ox 98.3 F 100 18 111/74 95 05/30/17 14:00 05/30/17 14:00 05/30/17 14:00 05/30/17 14:00 05/30/17 14:00 Internal Medicine: Result - Labs CBC & Chem 7: 05/30/17 07:49 05/30/17 07:49 Labs: Short CBC 05/30/17 Range/Units 07:49 WBC 9.9 (4.3-11.1) K/mcL Hgb 10.2 L (11.5-15.4) g/dL Hct 32.4 L (35.3-44.9) % Plt Count 227 (140-400) K/mcL BMP 05/30/17 07:49 Sodium 142 Potassium 3.8 Chloride 108 H Carbon Dioxide 27 BUN 10 Creatinine 0.66 Glucose 121 H Calcium 8.8 - ABG Interpretation ABG results: ABG ABG pH 7.38 pH Units (7.32-7.45) 05/28/17 16:27 ABG pCO2 48 mmHg (35-45) H 05/28/17 16:27 ABG pO2 58 mmHg (85-104) L 05/28/17 16:27 ABG O2 Saturation 89 % (95-98) L 05/28/17 16:27 Consult Discharge Plan - Plan Referrals: Mundo Barnes MD [Primary Care Provider] - - Attending Attestation I performed a history and physical examination of the patient and discussed his/ her management with the resident. I reviewed the residents note and agree with the documented findings and plan of care. <Valorie Tellez - Last Filed: 05/30/17 21:22> Date of Encounter: 05/30/17 Time of Encounter: 10:07 - Assessment and plan (1) Sepsis Current Visit: Yes Status: Acute Assessment and plan: - Secondary to UTI, SIRS criteria positive on admission with fever and tachycardia - No longer meeting SIRS criteria - On levaquin, day #3 - Continue abx and de escalate pending culture and sensitivities Qualifiers: Sepsis type: sepsis due to unspecified organism Qualified Code(s): A41.9 - Sepsis, unspecified organism (2) Hypertension Current Visit: No Status: Chronic Assessment and plan: Stable. Continue home medicine. Close monitoring. Qualifiers: Hypertension type: essential hypertension Qualified Code(s): I10 - Essential (primary) hypertension (3) SIRS (systemic inflammatory response syndrome) Current Visit: Yes Status: Resolved Assessment and plan: No longer febrile or tachycardic, no longer meeting SIRS criteria. Source of infection likely UTI improving cont IV hydration cont empirical abx Levaquin day #3 (4) COPD (chronic obstructive pulmonary disease) Current Visit: No Status: Chronic Assessment and plan: Does not appear COPD exacerbation Slightly hypoxic initially - could be deconditioning Currently tolerating 2L O2, will attempt to wean cont Duoneb, IS Qualifiers: COPD type: chronic bronchitis Chronic bronchitis type: unspecified Qualified Code(s): J42 - Unspecified chronic bronchitis (5) Diabetes Current Visit: Yes Status: Chronic Assessment and plan: Accu-Chek, low sliding scale insulin. Diabetic diet BS most recently 128 A1c 5.8% on 05/14/17 Qualifiers: Diabetes mellitus type: type 2 Diabetes mellitus fpc insulin use: without terminal supervisor use Diabetes mellitus complication status: without complication Qualified Code(s): E11.9 - Type 2 diabetes mellitus without complications (6) Anxiety and depression Current Visit: No Status: Chronic Assessment and plan: Continue home meds (7) UTI (urinary tract infection) Current Visit: Yes Status: Acute Assessment and plan: As above for sepsis, no longer meeting SIRS criteria Cont empirical abx Levaquin Will f/u on Urine cx, preliminary results showing gram negative rods Qualifiers: Urinary tract infection type: acute cystitis Hematuria presence: without hematuria Qualified Code(s): N30.00 - Acute cystitis without hematuria (8) DVT prophylaxis Current Visit: No Status: Acute Assessment and plan: SCDs. Early ambulation - Time Spent With Patient Total time spent is greater than 50% in coordination of care (as documented) at patient's floor/unit and/or counseling patient: 25 - 35 minutes - Subjective Interval history: Patient was seen and examined this morning at bedside. She still has complaints of dysuria, foul odor. Denies symptoms of fevers, chills, CP, vomiting. Does admit to SOB and mild nausea. - Constitutional Vitals: Temp Pulse Resp BP Pulse Ox 98.2 F 92 16 130/82 95 05/30/17 06:41 05/30/17 06:41 05/30/17 07:51 05/30/17 06:41 05/30/17 08:39 General appearance: Present: A&O X 3, no acute distress, answers questions appropriately - Head Head exam: Present: atraumatic, normocephalic - Eye Eye exam: Present: EOMI, sclera anicteric - Neck Neck exam general surgery: Present: supple - Respiratory Respiratory exam: Present: CTAB. Absent: accessory muscle use, respiratory distress, rhonchi, wheezes - Cardiovascular Cardiovascular exam: Present: distant heart sounds, +S1, +S2. Absent: RRR - GI/Abdominal GI/Abdominal exam: Present: normal bowel sounds, soft, tenderness (RLQ). Absent : guarding, rebound, rigid - Additional comments: suprapubic tenderness - Extremities Exam Extremities exam: Present: tenderness (Bilateral lower extremities), warm. Absent: cyanotic Additional comments: DP pulses 2+ bilaterally - Back Exam Back exam: Present: CVA tenderness (L), CVA tenderness (R), normal inspection - Neurological Exam Neurological exam: Present: alert, CN II-XII intact, oriented X3, no focal deficits. Absent: facial droop Internal Medicine: Result - Labs CBC & Chem 7: 05/30/17 07:49 05/30/17 07:49 Labs: Short CBC 05/30/17 Range/Units 07:49 WBC 9.9 (4.3-11.1) K/mcL Hgb 10.2 L (11.5-15.4) g/dL Hct 32.4 L (35.3-44.9) % Plt Count 227 (140-400) K/mcL BMP 05/30/17 07:49 Sodium 142 Potassium 3.8 Chloride 108 H Carbon Dioxide 27 BUN 10 Creatinine 0.66 Glucose 121 H Calcium 8.8 - ABG Interpretation ABG results: ABG ABG pH 7.38 pH Units (7.32-7.45) 05/28/17 16:27 ABG pCO2 48 mmHg (35-45) H 05/28/17 16:27 ABG pO2 58 mmHg (85-104) L 05/28/17 16:27 ABG O2 Saturation 89 % (95-98) L 05/28/17 16:27
[2017-05-30] MEDS: Ipratropium/Albuterol Neb 3 ML IH PRN (20:48)
[2017-05-30] MEDS: Loratadine 10 MG TABLET PO SCH (21:55)
[2017-05-30] MEDS: Gabapentin 300 MG CAPSULE PO SCH (21:56)
[2017-05-30] MEDS ORDERED: Ibuprofen 800 MG TABLET PO ONE (21:56)
[2017-05-31 02:04] LABS: BUN/Creatinine Ratio 19 (6-26); Blood Urea Nitrogen 13 mg/dL (6-20); Calcium 8.8 mg/dL (8.6-10.3); Carbon Dioxide 28 mEq/L (23-29); Chloride 107 mEq/L (98-107); Glucose 95 mg/dL (70-105); Osmolality,Calculated 290 (280-300); Potassium 3.7 mEq/L (3.5-5.1); Sodium 140 mEq/L (136-145); eGFR For African Americans > 60 (> 60); eGFR For Non-African Americans > 60 (> 60)
[2017-05-31 02:19] LABS: Basophils % 0.2 %; Eosinophils # 0.3 K/mcL (0.0-0.6); Eosinophils % 3.2 %; Hematocrit 31.7 % (35.3-44.9); Hemoglobin 9.8 g/dL (11.5-15.4); Immature Granulocytes % 1.1 % (0-4); Immature Platelets 3.8 % (1.1-6.1); Lymphocytes # 1.9 K/mcL (0.6-4.6); Lymphocytes % 21.6 %; Mean Corpuscular HGB Conc 30.9 g/dL (31.6-35.5); Mean Corpuscular Hemoglobin 26.9 pg (28.0-33.3); Mean Corpuscular Volume 87.1 fL (83.0-100.0); Mean Platelet Volume 9.7 fL (9.4-12.4); Monocytes # 0.7 K/mcL (0.0-1.3); Neutrophils # 5.7 K/mcL (1.6-8.9); Platelet Count 237 K/mcL (140-400); Red Blood Count 3.64 M/mcL (3.82-4.97); Red Cell Distribution Width 15.5 % (11.5-14.5); Segmented Neutrophils % 65.9 %
[2017-05-31] MEDS: *HR* Heparin 5,000 UNIT/ML VIAL SQ SCH ×2 (06:18→17:17)
[2017-05-31] MEDS: Ipratropium/Albuterol Neb 3 ML IH PRN ×2 (06:21→12:21)
[2017-05-31] MEDS: Aspirin Enteric Coated 81 MG Tablet PO SCH (07:24)
[2017-05-31] MEDS: clonazePAM 0.5 MG TABLET PO SCH ×2 (07:24→20:37)
[2017-05-31] MEDS: *HR* SitaGLIPtin 100 MG TABLET PO SCH (07:24)
[2017-05-31] MEDS: lamoTRIgine 100 MG TABLET PO SCH ×2 (07:25→20:37)
[2017-05-31] MEDS: ILOPERIDONE 12 MG PO SCH ×2 (07:25→20:37)
[2017-05-31] MEDS: levoFLOXacin 750 MG TABLET PO SCH (07:25)
[2017-05-31] MEDS: Famotidine 20 MG TABLET PO SCH ×2 (07:25→20:37)
[2017-05-31] MEDS: Cyanocobalamin (B-12) 1,000 MCG TABLET PO SCH (07:26)
[2017-05-31] MEDS: Insulin LISPRO 300 UNITS/3 ML VIAL SQ SCH ×4 (07:32→20:21)
[2017-05-31] MEDS: Beclomethasone 40mcg MDI IH SCH ×2 (08:07→23:26)
[2017-05-31] MEDS: Acetaminophen/Butalbital/CaffeineTABLET PO PRN ×2 (09:44→16:34)
[2017-05-31] MEDS ORDERED: Sennosides 8.6 MG TABLET PO ONE (11:51)
--- NOTE | 2017-05-31 16:47 | Internal Med Progress Note ---
<Valorie Tellez - Last Filed: 05/31/17 18:36> Date of Encounter: 05/31/17 Time of Encounter: 16:47 - Assessment and plan (1) Sepsis Current Visit: Yes Status: Resolved Assessment and plan: - Secondary to UTI, SIRS criteria positive on admission with fever and tachycardia--no longer meeting SIRS criteria - Clinically improving, afebrile - On levaquin, day #4 - Continue levaquin Qualifiers: Sepsis type: sepsis due to unspecified organism Qualified Code(s): A41.9 - Sepsis, unspecified organism (2) Hypertension Current Visit: No Status: Chronic Assessment and plan: Stable. Close monitoring. Qualifiers: Hypertension type: essential hypertension Qualified Code(s): I10 - Essential (primary) hypertension (3) SIRS (systemic inflammatory response syndrome) Current Visit: Yes Status: Resolved Assessment and plan: As above for sepsis (4) COPD (chronic obstructive pulmonary disease) Current Visit: No Status: Chronic Assessment and plan: Does not appear COPD exacerbation Slightly hypoxic initially, likely deconditioning Currently tolerating 2L O2, will attempt to wean cont Duoneb, IS, ambulation with assistance Qualifiers: COPD type: chronic bronchitis Chronic bronchitis type: unspecified Qualified Code(s): J42 - Unspecified chronic bronchitis (5) Diabetes Current Visit: Yes Status: Chronic Assessment and plan: Accu-Chek, low sliding scale insulin. Diabetic diet BS most recently 95 A1c 5.8% on 05/14/17 Qualifiers: Diabetes mellitus type: type 2 Diabetes mellitus prison insulin use: without prison use Diabetes mellitus complication status: without complication Qualified Code(s): E11.9 - Type 2 diabetes mellitus without complications (6) Anxiety and depression Current Visit: No Status: Chronic Assessment and plan: Continue home meds (7) DVT prophylaxis Current Visit: Yes Status: Acute Assessment and plan: Heparin 5,000 units SQ every 12H Ambulation with assistance (8) UTI (urinary tract infection) Current Visit: Yes Status: Acute Assessment and plan: As above for sepsis, no longer meeting SIRS criteria Urine culture growing Klebsiella pneumoniae--ESBL positive, sensitive to Levaquin Final urine sensitivities pending Improving clinically Continue PO Levaquin day #4 Qualifiers: Urinary tract infection type: acute cystitis Hematuria presence: without hematuria Qualified Code(s): N30.00 - Acute cystitis without hematuria - Time Spent With Patient Total time spent is greater than 50% in coordination of care (as documented) at patient's floor/unit and/or counseling patient: - Subjective Interval history: Patient was seen and examined this morning at bedside. Dysuria improving. Denies symptoms of fevers, chills, vomiting. Does admit to lower back pain, some SOB, nausea, abdominal discomfort, and of sharp chest pain that begins near the right mid axillary line, travels down her right side, and across the top of her abdomen. Patient states she has not had a bowel movement since being admitted and she normally takes stool softener at home for this. - Constitutional Vitals: Temp Pulse Resp BP Pulse Ox 97.7 F 100 17 98/65 95 05/31/17 15:22 05/31/17 15:22 05/31/17 15:22 05/31/17 15:22 05/31/17 15:22 General appearance: Present: A&O X 3, no acute distress, answers questions appropriately Exam: General: AAOx3, No acute distress, resting comfortably in bed HEENT: head normocephalic/atraumatic, EOMI, PERRL, sclera anicteric, moist mucus membranes Neck: Supple Cardio: Distant heart sounds, RRR, no murmurs, +S1/S2 Pulm: CTAB, no wheezing, rhonchi, rales. Normal respiratory effort. No shortness of breath during conversation Abdomen: soft, BS+, no rebound, rigidity, guarding. Generalized tenderness to palpation Extremities: No LE edema, no cyanosis, no clubbing Back: normal appearance on inspection Neuro: AAOx3, no focal deficit, no speech deficit, mentation intact, CN II-XII grossly intact, moves extremities spontaneously MSK: no visible deformities Skin: clean, dry, intact, no visible rashes Psych: Appropriate mood and affect. Answers questions appropriately. Cooperative with exam Internal Medicine: Result - Labs CBC & Chem 7: 05/31/17 01:25 05/31/17 01:25 Labs: Short CBC 05/31/17 Range/Units 01:25 WBC 8.7 (4.3-11.1) K/mcL Hgb 9.8 L (11.5-15.4) g/dL Hct 31.7 L (35.3-44.9) % Plt Count 237 (140-400) K/mcL Neutrophils # 5.7 (1.6-8.9) K/mcL BMP 05/31/17 01:25 Sodium 140 Potassium 3.7 Chloride 107 Carbon Dioxide 28 BUN 13 Creatinine 0.67 Glucose 95 Calcium 8.8 Cardiac Enzymes 05/30/17 05/31/17 05/31/17 Range/Units 20:42 01:25 07:40 Troponin I < 0.03 < 0.03 < 0.03 (< 0.04) ng/mL 05/31/17 Range/Units 14:58 Troponin I < 0.03 (< 0.04) ng/mL - ABG Interpretation ABG results: ABG ABG pH 7.38 pH Units (7.32-7.45) 05/28/17 16:27 ABG pCO2 48 mmHg (35-45) H 05/28/17 16:27 ABG pO2 58 mmHg (85-104) L 05/28/17 16:27 ABG O2 Saturation 89 % (95-98) L 05/28/17 16:27 Consult Discharge Plan - Plan Referrals: Mundo Barnes MD [Primary Care Provider] - <Roger Valdez - Last Filed: 05/31/17 21:09> Date of Encounter: 05/31/17 - Assessment and plan (1) DVT prophylaxis Current Visit: Yes Status: Acute (2) Hypertension Current Visit: No Status: Chronic Qualifiers: Hypertension type: essential hypertension Qualified Code(s): I10 - Essential (primary) hypertension (3) SIRS (systemic inflammatory response syndrome) Current Visit: Yes Status: Resolved (4) COPD (chronic obstructive pulmonary disease) Current Visit: No Status: Chronic Qualifiers: COPD type: chronic bronchitis Chronic bronchitis type: unspecified Qualified Code(s): J42 - Unspecified chronic bronchitis (5) Diabetes Current Visit: Yes Status: Chronic Qualifiers: Diabetes mellitus type: type 2 Diabetes mellitus prison insulin use: without prison use Diabetes mellitus complication status: without complication Qualified Code(s): E11.9 - Type 2 diabetes mellitus without complications (6) Anxiety and depression Current Visit: No Status: Chronic (7) Sepsis Current Visit: Yes Status: Resolved Qualifiers: Sepsis type: sepsis due to unspecified organism Qualified Code(s): A41.9 - Sepsis, unspecified organism (8) UTI (urinary tract infection) Current Visit: Yes Status: Acute Qualifiers: Urinary tract infection type: acute cystitis Hematuria presence: without hematuria Qualified Code(s): N30.00 - Acute cystitis without hematuria - Time Spent With Patient Total time spent is greater than 50% in coordination of care (as documented) at patient's floor/unit and/or counseling patient: - Constitutional Vitals: Temp Pulse Resp BP Pulse Ox 98.5 F 99 15 85/59 95 05/31/17 19:21 05/31/17 19:21 05/31/17 19:21 05/31/17 19:21 05/31/17 19:21 Internal Medicine: Result - Labs CBC & Chem 7: 05/31/17 01:25 05/31/17 01:25 Labs: Short CBC 05/31/17 Range/Units 01:25 WBC 8.7 (4.3-11.1) K/mcL Hgb 9.8 L (11.5-15.4) g/dL Hct 31.7 L (35.3-44.9) % Plt Count 237 (140-400) K/mcL Neutrophils # 5.7 (1.6-8.9) K/mcL BMP 05/31/17 01:25 Sodium 140 Potassium 3.7 Chloride 107 Carbon Dioxide 28 BUN 13 Creatinine 0.67 Glucose 95 Calcium 8.8 Cardiac Enzymes 05/30/17 05/31/17 05/31/17 Range/Units 20:42 01:25 07:40 Troponin I < 0.03 < 0.03 < 0.03 (< 0.04) ng/mL 05/31/17 Range/Units 14:58 Troponin I < 0.03 (< 0.04) ng/mL - ABG Interpretation ABG results: ABG ABG pH 7.38 pH Units (7.32-7.45) 05/28/17 16:27 ABG pCO2 48 mmHg (35-45) H 05/28/17 16:27 ABG pO2 58 mmHg (85-104) L 05/28/17 16:27 ABG O2 Saturation 89 % (95-98) L 05/28/17 16:27 - Attending Attestation I performed a history and physical examination of the patient and discussed his/ her management with the resident. I reviewed the residents note and agree with the documented findings and plan of care. Sepsis improved with Levaquin. Sensitivities returned showing appropriate treatment. ESBL + Though only resistant to Zosyn and Augmentin. Continue current treatment. Patient on room air and earlier today was weaned to room air without issue. Will increase ambulation today and have PT evaluate patient. Anticipate discharge tomorrow if improves.
[2017-05-31] MEDS: Loratadine 10 MG TABLET PO SCH (20:37)
[2017-05-31] MEDS: Gabapentin 300 MG CAPSULE PO SCH (20:38)
[2017-05-31] MEDS: Acetaminophen 325 MG TABLET PO PRN (23:24)
[2017-06-01] MEDS: *HR* Heparin 5,000 UNIT/ML VIAL SQ SCH (05:43)
[2017-06-01] MEDS: Acetaminophen/Butalbital/CaffeineTABLET PO PRN (06:53)
[2017-06-01] MEDS: Ipratropium/Albuterol Neb 3 ML IH PRN (07:26)
[2017-06-01] MEDS: Beclomethasone 40mcg MDI IH SCH (07:26)
[2017-06-01] MEDS: Insulin LISPRO 300 UNITS/3 ML VIAL SQ SCH ×2 (08:58→12:37)
[2017-06-01] MEDS: ILOPERIDONE 12 MG PO SCH (09:43)
[2017-06-01] MEDS: Cyanocobalamin (B-12) 1,000 MCG TABLET PO SCH (09:43)
[2017-06-01] MEDS: clonazePAM 0.5 MG TABLET PO SCH (09:44)
[2017-06-01] MEDS: Aspirin Enteric Coated 81 MG Tablet PO SCH (09:44)
[2017-06-01] MEDS: Famotidine 20 MG TABLET PO SCH (09:44)
[2017-06-01] MEDS: lamoTRIgine 100 MG TABLET PO SCH (09:44)
[2017-06-01] MEDS: levoFLOXacin 750 MG TABLET PO SCH (09:44)
[2017-06-01 10:59] VITALS: BP 112/67
--- NOTE | 2017-06-01 13:17 | Discharge Summary ---
<Valorie Tellez - Last Filed: 06/01/17 19:09> Orders not resulted at time of discharge: Pending orders 05/28/17 14:22 Culture,Urine [RM] Stat Date of Encounter: 06/01/17 Time of Encounter: 13:13 - Discharge Diagnosis (1) Sepsis Priority: Secondary Status: Resolved Qualifiers: Sepsis type: sepsis due to unspecified organism Qualified Code(s): A41.9 - Sepsis, unspecified organism (2) SIRS (systemic inflammatory response syndrome) Priority: Secondary Status: Resolved (3) Hypertension Priority: Secondary Status: Chronic Qualifiers: Hypertension type: essential hypertension Qualified Code(s): I10 - Essential (primary) hypertension (4) COPD (chronic obstructive pulmonary disease) Priority: Secondary Status: Chronic Qualifiers: COPD type: chronic bronchitis Chronic bronchitis type: unspecified Qualified Code(s): J42 - Unspecified chronic bronchitis (5) Diabetes Priority: Secondary Status: Chronic Qualifiers: Diabetes mellitus type: type 2 Diabetes mellitus skilled nursing insulin use: without rodent exterminator use Diabetes mellitus complication status: without complication Qualified Code(s): E11.9 - Type 2 diabetes mellitus without complications (6) Anxiety and depression Priority: Secondary Status: Chronic (7) DVT prophylaxis Priority: Secondary Status: Acute (8) UTI (urinary tract infection) Priority: Primary Status: Acute Qualifiers: Urinary tract infection type: acute cystitis Hematuria presence: without hematuria Qualified Code(s): N30.00 - Acute cystitis without hematuria Hospital course: Ms. Parkinson is a 42 year old female who presented to the emergency department with chief complaint of fever and UTI. On arrival to the emergency department she was febrile Temp 102.5, tachycardic HR 123, and hypoxic O2 sat 85%. She received ibuprofen in the emergency department and her temperature responded appropriately, temp 99.3. Given 3 L of IV fluid in the emergency department, but continued to be tachycardic. Oxygen saturation increased to 93% with 2 L nasal cannula. Lab work in the emergency department showed troponin negative x 3, lactic acid 1.3 and on repeat 0.6, white count was 10.7 at highest. Urinalysis shows large leukocyte esterase, white blood cells TNTC, urine bacteria many. Blood and urine cultures sent. Levaquin was started in the emergency department for treatment of UTI. She was admitted to the hospitalist service for continued sepsis workup. During her hospital stay the patient remained afebrile and improved clinically. Blood cultures x2 showed no growth after 48 hours. Urine culture grew Klebsiella pneumoniae that was ESBL resistant and shown to be sensitive to Levaquin. On day of discharge patient was afebrile and saturating 93% on room air Heart rate was slightly elevated on discharge, however it should be noted that her heart rate for the majority of her admission was in the mid to high 90' s and she remained hemodynamically stable. She was deemed medically stable for discharge to home and she felt ready to go home and agreed with the plan. She was discharged with Levaquin 750 mg PO prescription to complete her 14 day antibiotic course as an outpatient and her questions were answered. Discharge discussed with: patient - Time Spent with Patient Total time spent providing and/or coordinating discharge services: - Discharge Medications Prescriptions: levoFLOXacin [Levaquin] 750 mg PO DAILY #9 tablet Home Medications: Docusate [Colace] 100 mg PO BID PRN 02/23/15 [History] Levothyroxine [Synthroid] 125 mcg PO DAILY 02/23/15 [History] Ranitidine HCl [Zantac] 150 mg PO BID 02/23/15 [History] Furosemide [Lasix] 40 mg PO DAILY 12/06/15 [History] Potassium Chloride [Klor-Con 10] 10 meq PO DAILY 12/06/15 [History] lamoTRIgine [Lamotrigine] 200 mg PO BID 12/06/15 [History] Albuterol Sulfate [Proair Respiclick] 2 puff IH Q4-6H PRN 12/07/15 [History] Aspirin [Ecotrin] 81 mg PO DAILY 12/07/15 [History] Atorvastatin [Lipitor] 40 mg PO HS 12/07/15 [History] Cetirizine HCl [All Day Allergy] 5 mg PO HS 12/07/15 [History] Cyclobenzaprine [Flexeril] 10 mg PO BID 12/07/15 [History] Escitalopram [Lexapro] 20 mg PO DAILY 12/07/15 [History] Gabapentin [Neurontin] 300 mg PO HS 12/07/15 [History] L.acidoph,Paracasei, B.lactis [Probiotic] 1 cap PO DAILY 12/07/15 [History] Montelukast [Singulair] 10 mg PO HS 12/07/15 [History] clonazePAM [Klonopin] 0.5 mg PO BID 12/07/15 [History] Beclomethasone Diprop 40mcg [QVAR 40 mcg] 1 puff IH BID 09/29/16 [History] Cyanocobalamin (Vitamin B-12) [Vitamin B12] 2,500 mcg PO DAILY 09/29/16 [History ] Multivitamin [Multi-Day Vitamins] 1 tab PO DAILY 09/29/16 [History] Pantoprazole Sodium [Protonix] 40 mg PO DAILY 09/29/16 [History] Prazosin [Minipress] 1 mg PO HS 09/29/16 [History] Diclofenac Sodium [Voltaren] 75 mg PO BID 04/09/17 [History] Iloperidone [Fanapt] 12 mg PO BID 04/09/17 [History] Oxybutynin Chloride [Ditropan Xl] 10 mg PO DAILY 04/09/17 [History] SitaGLIPtin [Januvia] 100 mg PO DAILY 04/09/17 [History] Rizatriptan Benzoate [Maxalt Associate Director Of Development] 10 mg PO DAILY PRN 05/08/17 [History] levoFLOXacin [Levaquin] 750 mg PO DAILY #9 tablet 06/01/17 [Rx] Allergies/Adverse Reactions: 3 Allergy/AdvReac Type Severity Reaction Status Date / Time aripiprazole [From Abilify] Allergy Hallucinati Verified 05/28/17 07:55 ng Cefprozil [From Cefzil] Allergy See Verified 05/28/17 07:55 Comments codeine Allergy See Verified 05/28/17 07:55 Comments duloxetine [From Cymbalta] Allergy See Verified 05/28/17 07:55 Comments Erythromycin Base Allergy See Verified 05/28/17 07:55 Comments esomeprazole [From Nexium] Allergy See Verified 05/28/17 07:55 Comments Penicillins Allergy See Verified 05/28/17 07:55 Comments pregabalin [From Lyrica] Allergy Hallucinati Verified 05/28/17 07:55 ng Sulfa (Sulfonamide Allergy See Verified 05/08/17 09:38 Antibiotics) Comments ziprasidone [From Geodon] Allergy Hallucinati Verified 05/28/17 07:55 ng celecoxib [From Celebrex] AdvReac Hallucinati Verified 05/28/17 07:55 ng metformin AdvReac Diarrhea Verified 05/28/17 07:55 Date of admission: 05/28/17 14:01 Primary care physician: Mundo Barnes MD Consults: 05/31/17 15:30 Consult to Physical Therapy [CONS] Routine Comment: Evaluate, develop and implement POC Reason for Consult: Weakness, possible deconditioning Does patient have active BEDREST order?: No Is patient medically & hemodynamically stable?: Yes Discharging clinician: Valorie Tellez Anticipated date of discharge: 06/01/17 - Constitutional Vitals: Temp Pulse Resp BP Pulse Ox 97.4 F L 107 18 112/67 93 06/01/17 10:57 06/01/17 10:57 06/01/17 10:57 06/01/17 10:57 06/01/17 10:57 General appearance: Present: A&O X 3, no acute distress, answers questions appropriately Exam: General: No acute distress, sitting in bedside chair HEENT: head normocephalic/atraumatic, EOMI, PERRL, moist mucus membranes, Neck: Supple, no lymphadenopathy Cardio: RRR, no murmurs, +S1/S2, distant heart sounds Pulm: CTAB, no wheezing, rhonchi, rales. Normal respiratory effort. Abdomen: soft, nontender, BS+ Extremities: No LE edema, no cyanosis, clubbing, DP pulses 2+ bilaterally Back: normal appearance on inspection Neuro: AAOx3, no focal deficit, mentation intact, CN II-XII grossly intact, moves extremities spontaneously Skin: clean, dry, intact, no visible rashes Psych: Appropriate mood and affect. Answers questions appropriately. Cooperative with exam - Patient Status Disposition: Home Health Service Condition: Good Functional capacity at discharge: independent ambulation Overall status at discharge: patient is progressing back to baseline - Discharge Instructions Instructions: Diabetes Mellitus Type 2 in Adults (DC), Sepsis (DC) Follow Up With: Mundo Barnes MD [Primary Care Provider] - 06/07/17 1:15 pm Additional Instructions: Please see your PCP in 7-10 days Take all your medications as they are prescribed For constipation, take your Colace daily If you develop fevers, chills, chest pain, difficulty breathing, shortness of breath, abdominal pain, or your symptoms worsen, please call your PCP or return to the emergency department - Diet and Activity Activity: resume usual activities as tolerated Diet: diabetic diet <oRger Vladez - Last Filed: 06/01/17 20:39> Orders not resulted at time of discharge: Pending orders 05/28/17 14:22 Culture,Urine [RM] Stat Date of Encounter: 06/01/17 - Discharge Diagnosis (1) DVT prophylaxis Status: Acute (2) Hypertension Status: Chronic Qualifiers: Hypertension type: essential hypertension Qualified Code(s): I10 - Essential (primary) hypertension (3) SIRS (systemic inflammatory response syndrome) Status: Resolved (4) COPD (chronic obstructive pulmonary disease) Status: Chronic Qualifiers: COPD type: chronic bronchitis Chronic bronchitis type: unspecified Qualified Code(s): J42 - Unspecified chronic bronchitis (5) Diabetes Status: Chronic Qualifiers: Diabetes mellitus type: type 2 Diabetes mellitus rodent exterminator insulin use: without rodent exterminator use Diabetes mellitus complication status: without complication Qualified Code(s): E11.9 - Type 2 diabetes mellitus without complications (6) Anxiety and depression Status: Chronic (7) Sepsis Status: Resolved Qualifiers: Sepsis type: sepsis due to unspecified organism Qualified Code(s): A41.9 - Sepsis, unspecified organism (8) UTI (urinary tract infection) Status: Acute Qualifiers: Urinary tract infection type: acute cystitis Hematuria presence: without hematuria Qualified Code(s): N30.00 - Acute cystitis without hematuria Hospital course: Ms. Parkinson is a 42 year old female - Time Spent with Patient Total time spent providing and/or coordinating discharge services: Date of admission: 05/28/17 14:01 Primary care physician: Mundo Barnes MD - Constitutional Vitals: Temp Pulse Resp BP Pulse Ox 97.4 F L 107 18 112/67 93 06/01/17 10:57 06/01/17 10:57 06/01/17 10:57 06/01/17 10:57 06/01/17 10:57 - Attending Attestation I performed a history and physical examination of the patient and discussed his/ her management with the resident. I reviewed the residents note and agree with the documented findings and plan of care.
--- NOTE | 2017-06-01 13:38 | Physician Discharge Referral ---
<Valorie Tellez - Last Filed: 06/01/17 13:36> Home Health/Hosp Referral Info Transfer to: Home Health Provider in Charge Post Discharge: PCP - Diagnosis (1) Sepsis Priority: Secondary Status: Resolved (2) UTI (urinary tract infection) Priority: Primary Status: Acute (3) SIRS (systemic inflammatory response syndrome) Priority: Secondary Status: Resolved (4) Hypertension Priority: Secondary Status: Chronic (5) COPD (chronic obstructive pulmonary disease) Priority: Secondary Status: Chronic (6) Diabetes Priority: Secondary Status: Chronic (7) Anxiety and depression Priority: Secondary Status: Chronic (8) DVT prophylaxis Priority: Secondary Status: Acute - Respiratory Orders Smoking Cessation: Smoking cessation has been advised. For more information, call the [employer] Tobacco Quit Line at 9-730-XXIG-NOW. - Diet/Nutrition Diet/Nutrition: List: diabetic - Activity Activity Orders: Up ad alpa - Services Needed Following services are medically necessary services: Nursing, Home Health Aide - Transfer Medications Prescriptions: levoFLOXacin [Levaquin] 750 mg PO DAILY #9 tablet Home Medications: Docusate [Colace] 100 mg PO BID PRN 02/23/15 [History] Levothyroxine [Synthroid] 125 mcg PO DAILY 02/23/15 [History] Ranitidine HCl [Zantac] 150 mg PO BID 02/23/15 [History] Furosemide [Lasix] 40 mg PO DAILY 12/06/15 [History] Potassium Chloride [Klor-Con 10] 10 meq PO DAILY 12/06/15 [History] lamoTRIgine [Lamotrigine] 200 mg PO BID 12/06/15 [History] Albuterol Sulfate [Proair Respiclick] 2 puff IH Q4-6H PRN 12/07/15 [History] Aspirin [Ecotrin] 81 mg PO DAILY 12/07/15 [History] Atorvastatin [Lipitor] 40 mg PO HS 12/07/15 [History] Cetirizine HCl [All Day Allergy] 5 mg PO HS 12/07/15 [History] Cyclobenzaprine [Flexeril] 10 mg PO BID 12/07/15 [History] Escitalopram [Lexapro] 20 mg PO DAILY 12/07/15 [History] Gabapentin [Neurontin] 300 mg PO HS 12/07/15 [History] L.acidoph,Paracasei, B.lactis [Probiotic] 1 cap PO DAILY 12/07/15 [History] Montelukast [Singulair] 10 mg PO HS 12/07/15 [History] clonazePAM [Klonopin] 0.5 mg PO BID 12/07/15 [History] Beclomethasone Diprop 40mcg [QVAR 40 mcg] 1 puff IH BID 09/29/16 [History] Cyanocobalamin (Vitamin B-12) [Vitamin B12] 2,500 mcg PO DAILY 09/29/16 [History ] Multivitamin [Multi-Day Vitamins] 1 tab PO DAILY 09/29/16 [History] Pantoprazole Sodium [Protonix] 40 mg PO DAILY 09/29/16 [History] Prazosin [Minipress] 1 mg PO HS 09/29/16 [History] Diclofenac Sodium [Voltaren] 75 mg PO BID 04/09/17 [History] Iloperidone [Fanapt] 12 mg PO BID 04/09/17 [History] Oxybutynin Chloride [Ditropan Xl] 10 mg PO DAILY 04/09/17 [History] SitaGLIPtin [Januvia] 100 mg PO DAILY 04/09/17 [History] Rizatriptan Benzoate [Maxalt Spinal Surgeon] 10 mg PO DAILY PRN 05/08/17 [History] levoFLOXacin [Levaquin] 750 mg PO DAILY #9 tablet 06/01/17 [Rx] Allergies/Adverse Reactions: 3 Allergy/AdvReac Type Severity Reaction Status Date / Time aripiprazole [From Abilify] Allergy Hallucinati Verified 05/28/17 07:55 ng Cefprozil [From Cefzil] Allergy See Verified 05/28/17 07:55 Comments codeine Allergy See Verified 05/28/17 07:55 Comments duloxetine [From Cymbalta] Allergy See Verified 05/28/17 07:55 Comments Erythromycin Base Allergy See Verified 05/28/17 07:55 Comments esomeprazole [From Nexium] Allergy See Verified 05/28/17 07:55 Comments Penicillins Allergy See Verified 05/28/17 07:55 Comments pregabalin [From Lyrica] Allergy Hallucinati Verified 05/28/17 07:55 ng Sulfa (Sulfonamide Allergy See Verified 05/08/17 09:38 Antibiotics) Comments ziprasidone [From Geodon] Allergy Hallucinati Verified 05/28/17 07:55 ng celecoxib [From Celebrex] AdvReac Hallucinati Verified 05/28/17 07:55 ng metformin AdvReac Diarrhea Verified 05/28/17 07:55 Certification: Further, I certify that my clinical findings support that this patient is homebound (i.e. absences from home require considerable and taxing effort and are for medical reasons or advent services or infrequently or short duration when for other reasons) because: Homebound Reason: Leaving home requires considerable and taxing effort due to condition Attestation: My signature below is to certify that this patient is under my care and that I, or nurse practitioner, or a physician's early childhood assistant working with me, has a face-to -face encounter with this patient. <Roger Valdez - Last Filed: 06/01/17 20:25> - Diagnosis (1) DVT prophylaxis Status: Acute (2) Hypertension Status: Chronic (3) SIRS (systemic inflammatory response syndrome) Status: Resolved (4) COPD (chronic obstructive pulmonary disease) Status: Chronic (5) Diabetes Status: Chronic (6) Anxiety and depression Status: Chronic (7) Sepsis Status: Resolved (8) UTI (urinary tract infection) Status: Acute - Respiratory Orders Smoking Cessation: Smoking cessation has been advised. For more information, call the [place] Tobacco Quit Line at 4-104-KUNU-NOW. Certification: Further, I certify that my clinical findings support that this patient is homebound (i.e. absences from home require considerable and taxing effort and are for medical reasons or advent services or infrequently or short duration when for other reasons) because: Attestation: My signature below is to certify that this patient is under my care and that I, or nurse practitioner, or a physician's early childhood assistant working with me, has a face-to -face encounter with this patient.
--- NOTE | 2017-06-02 19:09 | Electrocardiograph Report ---
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
--- NOTE | 2017-06-03 17:01 | Electrocardiograph Report ---
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
== END 2017-06-01 14:59 | disposition home health service (06) | DRG 872 ==
LOC: EMEROO 07:40 → 3ANU 07:40
PROVIDERS: ADMIT Student in an Organized Health Care Education/Training Program; ATTEND Family Medicine

== ENCOUNTER 2017-07-01 12:33 | Inpatient (IN) ==
--- NOTE | 2017-07-01 12:49 | Emergency Department Note ---
Disposition Clinical Impression: Auditory hallucination, Suicidal ideation Disposition: Admitted As Inpatient Condition: Good General Adult HPI - General Chief complaint: ED Psychiatric Symptoms Stated complaint: SI Time Seen by Provider: 07/01/17 12:34 Source: patient Limitations: no limitations Nursing Notes Reviewed: Yes Vital Signs Reviewed: Yes - History of Present Illness HPI Narrative: 42-year-old female with a past medical history of depression and schizophrenia. She presents due to worsening of her auditory hallucinations and tactile hallucinations. She states that she feels bugs crawling all over her skin. She is hearing voices which are telling her to slap herself. She reports that this is happened in the past. She would like her medications adjusted but she says that her psychiatrist is not willing to do that. She now states that she is feeling suicidal and has attempted suicide multiple times in the past. She denies any fever or cough or chest pain. No abdominal pain. She denies actually attempting suicide. She denies taking any of her medications aside as prescribed. Consistency: constant Improves with: nothing Worsens with: nothing Associated symptoms: Reports: denies other symptoms Treatments Prior to Arrival: none - Related Data Home Medications Medication Instructions Recorded Confirmed Docusate [Colace] 100 mg PO BID PRN 02/23/15 07/01/17 Levothyroxine [Synthroid] 125 mcg PO DAILY 02/23/15 07/01/17 Furosemide [Lasix] 40 mg PO DAILY 12/06/15 07/01/17 Potassium Chloride [Klor-Con 10] 10 meq PO DAILY 12/06/15 07/01/17 Albuterol Sulfate [Proair 2 puff IH Q4-6H PRN 12/07/15 07/01/17 Respiclick] Aspirin [Ecotrin] 81 mg PO DAILY 12/07/15 07/01/17 Atorvastatin [Lipitor] 40 mg PO HS 12/07/15 07/01/17 Cetirizine HCl [All Day Allergy] 5 mg PO HS 12/07/15 07/01/17 Cyclobenzaprine [Flexeril] 10 mg PO BID 12/07/15 07/01/17 Escitalopram [Lexapro] 20 mg PO DAILY 12/07/15 07/01/17 Gabapentin [Neurontin] 300 mg PO HS 12/07/15 07/01/17 L.acidoph,Paracasei, B.lactis 1 cap PO DAILY 10/31/16 05/26/18 [Probiotic] Montelukast [Singulair] 10 mg PO HS 12/07/15 07/01/17 clonazePAM [Klonopin] 0.5 mg PO BID 12/07/15 07/01/17 Beclomethasone Diprop 40mcg [QVAR 1 puff IH BID 09/29/16 07/01/17 40 mcg] Cyanocobalamin (Vitamin B-12) 2,500 mcg PO DAILY 09/29/16 07/01/17 [Vitamin B12] Pantoprazole Sodium [Protonix] 40 mg PO DAILY 09/29/16 07/01/17 Prazosin [Minipress] 1 mg PO HS 09/29/16 07/01/17 Diclofenac Sodium [Voltaren] 75 mg PO BID 04/09/17 07/01/17 Iloperidone [Fanapt] 12 mg PO BID 04/09/17 07/01/17 Oxybutynin Chloride [Ditropan Xl] 10 mg PO DAILY 04/09/17 07/01/17 SitaGLIPtin [Januvia] 100 mg PO DAILY 04/09/17 07/01/17 Rizatriptan Benzoate [Maxalt Editor] 10 mg PO DAILY PRN 05/08/17 07/01/17 Ascorbic Acid [Vitamin C] 1,000 mg PO DAILY 07/01/17 07/01/17 Multivitamin [One Daily Essential] 1 tab PO DAILY 07/01/17 07/01/17 Ranitidine HCl [Acid Curam Developer] 150 mg PO BID 07/01/17 07/01/17 lamoTRIgine [Lamotrigine] 200 mg PO BID 07/01/17 07/01/17 Allergies Allergy/AdvReac Type Severity Reaction Status Date / Time aripiprazole [From Abilify] Allergy Hallucinati Verified 07/01/17 16:09 ng Cefprozil [From Cefzil] Allergy See Verified 07/01/17 16:09 Comments codeine Allergy See Verified 07/01/17 16:09 Comments duloxetine [From Cymbalta] Allergy See Verified 07/01/17 16:09 Comments Erythromycin Base Allergy See Verified 07/01/17 16:09 Comments esomeprazole [From Nexium] Allergy See Verified 07/01/17 16:09 Comments Penicillins Allergy See Verified 07/01/17 16:09 Comments pregabalin [From Lyrica] Allergy Hallucinati Verified 07/01/17 16:09 ng Sulfa (Sulfonamide Allergy See Verified 07/01/17 16:09 Antibiotics) Comments ziprasidone [From Geodon] Allergy Hallucinati Verified 07/01/17 16:09 ng celecoxib [From Celebrex] AdvReac Hallucinati Verified 07/01/17 16:09 ng metformin AdvReac Diarrhea Verified 07/01/17 16:09 All systems ED: reviewed and negative except as stated. Constitutional: Denies: fever ENT ED: Denies: throat pain Cardiovascular: Denies: chest pain Respiratory: Denies: cough Gastrointestinal: Denies: abdominal pain, nausea, vomiting Musculoskeletal: Denies: back pain Integumentary: Denies: rash Neurological: Denies: headache Psychiatric: Reports: depression, suicidal thoughts, auditory hallucinations Past Medical History - Past Medical History Medical history: Reports: asthma, diabetes, GERD, hyperlipidemia, hypertension, seizures, other Surgical history: Reports: cholecystectomy Psychiatric history: Reports: anxiety, bipolar, depression, schizophrenia, previous psychiatric hospitalization 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 Absent: respiratory distress - Cardiovascular Cardiovascular exam: Present: regular rate, normal rhythm - Abdominal Exam Abdominal exam: Present: soft, Non-Tender - Extremities Exam Extremities exam: Present: normal inspection - Neurological Exam Neurological exam: Present: alert, oriented X3 - Psychiatric Psychiatric exam: Present: other (She is tearful but does recognize things that she is hearing are hallucinations) - Skin Skin exam: Present: warm, dry Course Course Narrative: She is not currently exhibiting any toxidrome. We will do labs and psychiatry consultation. Medically clear for 1A Vital Signs Temperature 98.4 F 07/01/17 12:58 Pulse Rate 104 07/01/17 12:58 Respiratory Rate 16 07/01/17 12:58 Blood Pressure 146/71 07/01/17 12:58 O2 Sat by Pulse Oximetry 96 07/01/17 12:58 Temperature 98.4 F 07/01/17 12:58 Pulse Rate 104 07/01/17 12:58 Respiratory Rate 16 07/01/17 12:58 Blood Pressure 146/71 07/01/17 12:58 O2 Sat by Pulse Oximetry 96 07/01/17 12:58 Oxygen Delivery Oxygen Delivery Room Air Medical Decision Making - Medical Records Medical records reviewed: Yes I reviewed the patient's medical records. - Lab Data Lab results reviewed: Yes I reviewed the patient's lab results. Result diagrams: 07/01/17 13:03 07/01/17 14:20 Lab Results 07/01/17 07/01/17 07/01/17 Range/Units 12:38 12:38 12:38 WBC (4.3-11.1) K/mcL RBC (3.82-4.97) M/mcL Hgb (11.5-15.4) g/dL Hct (35.3-44.9) % MCV (83.0-100.0) fL MCH (28.0-33.3) pg MCHC (31.6-35.5) g/dL RDW (11.5-14.5) % Plt Count (140-400) K/mcL MPV (9.4-12.4) fL Immature Gran % (0-4) % Seg Neutrophils % % Lymphocytes % % Monocytes % % Eosinophils % % Basophils % % Neutrophils # (1.6-8.9) K/mcL Lymphocytes # (0.6-4.6) K/mcL Monocytes # (0.0-1.3) K/mcL Eosinophils # (0.0-0.6) K/mcL Basophils # (0.0-0.2) K/mcL Sodium Potassium Chloride Carbon Dioxide BUN Creatinine Est GFR ( Amer) Est GFR (Non-Af Amer) BUN/Creatinine Ratio Glucose Calculated Osmolality Calcium TSH (0.340-5.600) mcIU/mL Urine Color Yellow (Yellow) Urine Clarity Cloudy A (Clear) Urine pH 6.0 (5.0-8.0) pH Units Ur Specific [place] 1.015 (1.010-1.025) Urine Protein 30 H (Neg-Trace) mg/dL Urine Glucose (UA) Normal (Normal) mg/dL Urine Ketones Negative (Negative) mg/dL Urine Blood Large H (Negative) Urine Nitrite Negative (Negative) Urine Bilirubin Negative (Negative) Urine Urobilinogen Normal (Normal) mg/dL Ur Leukocyte Esterase Large H (Negative) Urine Microscopic RBC TNTC H (0-3) per hpf Urine Microscopic WBC 50-100 H (0-3) per hpf Ur Squamous Epith Cells Many H (None-Few) per lpf Urine Bacteria Few (None-Few) per hpf Urine Test Negative (Negative) Salicylates Urine Opiates Screen Negative (Nxaued=616) ng/mL Acetaminophen Ur Barbiturates Screen Negative (Zodtpx=537) ng/mL Ur Phencyclidine Scrn Negative (Cutoff=25) ng/mL Ur Amphetamines Screen Negative (Gikzzt=1617) ng/mL U Benzodiazepines Scrn Negative (Awiamz=542) ng/mL Urine Cocaine Screen Negative (Cutoff= 300) ng/mL U Marijuana (THC) Screen Negative (Cutoff = 50) ng/mL Ethyl Alcohol Specimen Rejected 07/01/17 07/01/17 07/01/17 Range/Units 13:03 13:03 14:12 WBC 12.1 H (4.3-11.1) K/mcL RBC 3.98 (3.82-4.97) M/mcL Hgb 11.1 L (11.5-15.4) g/dL Hct 35.2 L (35.3-44.9) % MCV 88.4 (83.0-100.0) fL MCH 27.9 L (28.0-33.3) pg MCHC 31.5 L (31.6-35.5) g/dL RDW 16.0 H (11.5-14.5) % Plt Count 246 (140-400) K/mcL MPV 8.8 L (9.4-12.4) fL Immature Gran % 0.7 (0-4) % Seg Neutrophils % 77.5 % Lymphocytes % 11.3 % Monocytes % 7.5 % Eosinophils % 2.8 % Basophils % 0.2 % Neutrophils # 9.4 H (1.6-8.9) K/mcL Lymphocytes # 1.4 (0.6-4.6) K/mcL Monocytes # 0.9 (0.0-1.3) K/mcL Eosinophils # 0.3 (0.0-0.6) K/mcL Basophils # 0.0 (0.0-0.2) K/mcL Sodium Cancelled Potassium Cancelled Chloride Cancelled Carbon Dioxide Cancelled BUN Cancelled Creatinine Cancelled Est GFR ( Amer) Cancelled Est GFR (Non-Af Amer) Cancelled BUN/Creatinine Ratio Cancelled Glucose Cancelled Calculated Osmolality Cancelled Calcium Cancelled TSH 1.758 (0.340-5.600) mcIU/mL Urine Color (Yellow) Urine Clarity (Clear) Urine pH (5.0-8.0) pH Units Ur Specific [place] (1.010-1.025) Urine Protein (Neg-Trace) mg/dL Urine Glucose (UA) (Normal) mg/dL Urine Ketones (Negative) mg/dL Urine Blood (Negative) Urine Nitrite (Negative) Urine Bilirubin (Negative) Urine Urobilinogen (Normal) mg/dL Ur Leukocyte Esterase (Negative) Urine Microscopic RBC (0-3) per hpf Urine Microscopic WBC (0-3) per hpf Ur Squamous Epith Cells (None-Few) per lpf Urine Bacteria (None-Few) per hpf Urine Test (Negative) Salicylates Cancelled Urine Opiates Screen (Gmvjrc=475) ng/mL Acetaminophen Cancelled Ur Barbiturates Screen (Ztrugw=020) ng/mL Ur Phencyclidine Scrn (Cutoff=25) ng/mL Ur Amphetamines Screen (Ijdgur=0640) ng/mL U Benzodiazepines Scrn (Itzltx=159) ng/mL Urine Cocaine Screen (Cutoff= 300) ng/mL U Marijuana (THC) Screen (Cutoff = 50) ng/mL Ethyl Alcohol Cancelled Specimen Rejected Volume 07/01/17 Range/Units 14:20 WBC (4.3-11.1) K/mcL RBC (3.82-4.97) M/mcL Hgb (11.5-15.4) g/dL Hct (35.3-44.9) % MCV (83.0-100.0) fL MCH (28.0-33.3) pg MCHC (31.6-35.5) g/dL RDW (11.5-14.5) % Plt Count (140-400) K/mcL MPV (9.4-12.4) fL Immature Gran % (0-4) % Seg Neutrophils % % Lymphocytes % % Monocytes % % Eosinophils % % Basophils % % Neutrophils # (1.6-8.9) K/mcL Lymphocytes # (0.6-4.6) K/mcL Monocytes # (0.0-1.3) K/mcL Eosinophils # (0.0-0.6) K/mcL Basophils # (0.0-0.2) K/mcL Sodium 138 Potassium 3.9 Chloride 105 Carbon Dioxide 26 BUN 7 Creatinine 0.63 Est GFR ( Amer) > 60 Est GFR (Non-Af Amer) > 60 BUN/Creatinine Ratio 11 Glucose 142 H Calculated Osmolality 286 Calcium 8.8 TSH (0.340-5.600) mcIU/mL Urine Color (Yellow) Urine Clarity (Clear) Urine pH (5.0-8.0) pH Units Ur Specific [place] (1.010-1.025) Urine Protein (Neg-Trace) mg/dL Urine Glucose (UA) (Normal) mg/dL Urine Ketones (Negative) mg/dL Urine Blood (Negative) Urine Nitrite (Negative) Urine Bilirubin (Negative) Urine Urobilinogen (Normal) mg/dL Ur Leukocyte Esterase (Negative) Urine Microscopic RBC (0-3) per hpf Urine Microscopic WBC (0-3) per hpf Ur Squamous Epith Cells (None-Few) per lpf Urine Bacteria (None-Few) per hpf Urine Test (Negative) Salicylates < 2.5 L Urine Opiates Screen (Lkftau=564) ng/mL Acetaminophen < 10 L Ur Barbiturates Screen (Shttdi=543) ng/mL Ur Phencyclidine Scrn (Cutoff=25) ng/mL Ur Amphetamines Screen (Iomcyv=8147) ng/mL U Benzodiazepines Scrn (Nxzwrj=383) ng/mL Urine Cocaine Screen (Cutoff= 300) ng/mL U Marijuana (THC) Screen (Cutoff = 50) ng/mL Ethyl Alcohol < 10 Specimen Rejected
[2017-07-01] MEDS ORDERED: Ibuprofen 600 MG TABLET PO ONE (13:10)
[2017-07-01 13:17] LABS: Basophils % 0.2 %; Eosinophils # 0.3 K/mcL (0.0-0.6); Eosinophils % 2.8 %; Hematocrit 35.2 % (35.3-44.9); Hemoglobin 11.1 g/dL (11.5-15.4); Immature Granulocytes % 0.7 % (0-4); Lymphocytes # 1.4 K/mcL (0.6-4.6); Lymphocytes % 11.3 %; Mean Corpuscular HGB Conc 31.5 g/dL (31.6-35.5); Mean Corpuscular Hemoglobin 27.9 pg (28.0-33.3); Mean Corpuscular Volume 88.4 fL (83.0-100.0); Mean Platelet Volume 8.8 fL (9.4-12.4); Monocytes # 0.9 K/mcL (0.0-1.3); Monocytes % 7.5 %; Neutrophils # 9.4 K/mcL (1.6-8.9); Platelet Count 246 K/mcL (140-400); Red Blood Count 3.98 M/mcL (3.82-4.97); Segmented Neutrophils % 77.5 %
[2017-07-01 13:20] LABS: Bilirubin,Urine Negative (Negative); Blood,Urine Large (Negative); Clarity,Urine Cloudy (Clear); Color,Urine Yellow (Yellow); Glucose,Urine (UA) Normal (Normal); Ketones,Urine Negative (Negative); Leukocyte Esterase,Urine Large (Negative); Nitrite,Urine Negative (Negative); Protein,Urine 30 mg/dL (Neg-Trace); Specific Gravity,Urine 1.015 (1.010-1.025); Urobilinogen,Urine Normal (Normal)
[2017-07-01 13:25] LABS: Amphetamine Screen,Urine Negative ng/mL (Cutoff=1000); Bacteria,Urine Few per hpf (None-Few); Barbiturate Screen,Urine Negative ng/mL (Cutoff=200); Benzodiazepines Screen,Urine Negative ng/mL (Cutoff=200); Cannabinoid Screen,Urine Negative ng/mL (Cutoff = 50); Cocaine Screen,Urine Negative ng/mL (Cutoff= 300); Opiate Screen,Urine Negative ng/mL (Cutoff=300); Phencyclidine Screen,Urine Negative ng/mL (Cutoff=25); RBC,Urine TNTC per hpf (0-3); Squamous Epithelial Cell,Urine Many per lpf (None-Few); WBC,Urine 50-100 per hpf (0-3)
--- NOTE | 2017-07-01 13:46 | Emergency Department Note ---
Disposition Clinical Impression: Auditory hallucination, Suicidal ideation Disposition: Admitted As Inpatient Condition: Good Referrals: NONE,PCP [Primary Care Provider] - Forms: ED Satisfaction Letter Time of Disposition: 16:03 General Adult HPI - General Chief complaint: ED Psychiatric Symptoms Stated complaint: SI Time Seen by Provider: 07/01/17 12:34 Source: patient Limitations: no limitations - History of Present Illness Pain Scale: 0 Improves with: nothing Worsens with: nothing Associated symptoms: Reports: denies other symptoms Treatments Prior to Arrival: none - Related Data Home Medications Medication Instructions Recorded Confirmed Docusate [Colace] 100 mg PO BID PRN 02/23/15 05/28/17 Levothyroxine [Synthroid] 125 mcg PO DAILY 02/23/15 05/28/17 Ranitidine HCl [Zantac] 150 mg PO BID 02/23/15 05/28/17 Furosemide [Lasix] 40 mg PO DAILY 12/06/15 05/28/17 Potassium Chloride [Klor-Con 10] 10 meq PO DAILY 12/06/15 05/28/17 lamoTRIgine [Lamotrigine] 200 mg PO BID 12/06/15 05/28/17 Albuterol Sulfate [Proair 2 puff IH Q4-6H PRN 12/07/15 05/28/17 Respiclick] Aspirin [Ecotrin] 81 mg PO DAILY 12/07/15 05/28/17 Atorvastatin [Lipitor] 40 mg PO HS 12/07/15 05/28/17 Cetirizine HCl [All Day Allergy] 5 mg PO HS 12/07/15 05/28/17 Cyclobenzaprine [Flexeril] 10 mg PO BID 12/07/15 05/28/17 Escitalopram [Lexapro] 20 mg PO DAILY 12/07/15 05/28/17 Gabapentin [Neurontin] 300 mg PO HS 12/07/15 05/28/17 L.acidoph,Paracasei, B.lactis 1 cap PO DAILY 12/07/15 05/28/17 [Probiotic] Montelukast [Singulair] 10 mg PO HS 12/07/15 05/28/17 clonazePAM [Klonopin] 0.5 mg PO BID 12/07/15 05/28/17 Beclomethasone Diprop 40mcg [QVAR 1 puff IH BID 09/29/16 05/28/17 40 mcg] Cyanocobalamin (Vitamin B-12) 2,500 mcg PO DAILY 09/29/16 05/28/17 [Vitamin B12] Multivitamin [Multi-Day Vitamins] 1 tab PO DAILY 09/29/16 05/28/17 Pantoprazole Sodium [Protonix] 40 mg PO DAILY 09/29/16 05/28/17 Prazosin [Minipress] 1 mg PO HS 09/29/16 05/28/17 Diclofenac Sodium [Voltaren] 75 mg PO BID 04/09/17 05/28/17 Iloperidone [Fanapt] 12 mg PO BID 04/09/17 05/28/17 Oxybutynin Chloride [Ditropan Xl] 10 mg PO DAILY 04/09/17 05/28/17 SitaGLIPtin [Januvia] 100 mg PO DAILY 04/09/17 05/28/17 Rizatriptan Benzoate [Maxalt Electric Organ Inspector And Repairer] 10 mg PO DAILY PRN 05/08/17 05/28/17 Previous Rx's Medication Instructions Recorded levoFLOXacin [Levaquin] 750 mg PO DAILY #9 tablet 06/01/17 Allergies Allergy/AdvReac Type Severity Reaction Status Date / Time aripiprazole [From Abilify] Allergy Hallucinati Verified 05/28/17 07:55 ng Cefprozil [From Cefzil] Allergy See Verified 05/28/17 07:55 Comments codeine Allergy See Verified 05/28/17 07:55 Comments duloxetine [From Cymbalta] Allergy See Verified 05/28/17 07:55 Comments Erythromycin Base Allergy See Verified 05/28/17 07:55 Comments esomeprazole [From Nexium] Allergy See Verified 05/28/17 07:55 Comments Penicillins Allergy See Verified 05/28/17 07:55 Comments pregabalin [From Lyrica] Allergy Hallucinati Verified 05/28/17 07:55 ng Sulfa (Sulfonamide Allergy See Verified 05/08/17 09:38 Antibiotics) Comments ziprasidone [From Geodon] Allergy Hallucinati Verified 05/28/17 07:55 ng celecoxib [From Celebrex] AdvReac Hallucinati Verified 05/28/17 07:55 ng metformin AdvReac Diarrhea Verified 05/28/17 07:55 Constitutional: Denies: fever ENT ED: Denies: throat pain Cardiovascular: Denies: chest pain Respiratory: Denies: cough Gastrointestinal: Denies: abdominal pain, nausea, vomiting Musculoskeletal: Denies: back pain Integumentary: Denies: rash Neurological: Denies: headache Psychiatric: Reports: depression, suicidal thoughts, auditory hallucinations Past Medical History - Past Medical History Medical history: Reports: asthma, diabetes, GERD, hyperlipidemia, hypertension, seizures, other Surgical history: Reports: cholecystectomy Psychiatric history: Reports: anxiety, bipolar, depression, schizophrenia, previous psychiatric hospitalization 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 - Social History Smoking Status: Never smoker Smokeless Tobacco Status: No Alcohol use: Reports: none Drug use: Reports: none Physical Exam - General Limitations: no limitations General appearance: alert, in no apparent distress Course Vital Signs Temperature 98.4 F 07/01/17 12:58 Pulse Rate 104 07/01/17 12:58 Respiratory Rate 16 07/01/17 12:58 Blood Pressure 146/71 07/01/17 12:58 O2 Sat by Pulse Oximetry 96 07/01/17 12:58 Temperature 98.4 F 07/01/17 12:58 Pulse Rate 104 07/01/17 12:58 Respiratory Rate 16 07/01/17 12:58 Blood Pressure 146/71 07/01/17 12:58 O2 Sat by Pulse Oximetry 96 07/01/17 12:58 Oxygen Delivery Oxygen Delivery Room Air Medical Decision Making - Lab Data Result diagrams: 07/01/17 13:03 07/01/17 14:20 Lab Results 07/01/17 07/01/17 07/01/17 Range/Units 12:38 12:38 12:38 WBC (4.3-11.1) K/mcL RBC (3.82-4.97) M/mcL Hgb (11.5-15.4) g/dL Hct (35.3-44.9) % MCV (83.0-100.0) fL MCH (28.0-33.3) pg MCHC (31.6-35.5) g/dL RDW (11.5-14.5) % Plt Count (140-400) K/mcL MPV (9.4-12.4) fL Immature Gran % (0-4) % Seg Neutrophils % % Lymphocytes % % Monocytes % % Eosinophils % % Basophils % % Neutrophils # (1.6-8.9) K/mcL Lymphocytes # (0.6-4.6) K/mcL Monocytes # (0.0-1.3) K/mcL Eosinophils # (0.0-0.6) K/mcL Basophils # (0.0-0.2) K/mcL Sodium Potassium Chloride Carbon Dioxide BUN Creatinine Est GFR ( Amer) Est GFR (Non-Af Amer) BUN/Creatinine Ratio Glucose Calculated Osmolality Calcium TSH (0.340-5.600) mcIU/mL Urine Color Yellow (Yellow) Urine Clarity Cloudy A (Clear) Urine pH 6.0 (5.0-8.0) pH Units Ur Specific [place] 1.015 (1.010-1.025) Urine Protein 30 H (Neg-Trace) mg/dL Urine Glucose (UA) Normal (Normal) mg/dL Urine Ketones Negative (Negative) mg/dL Urine Blood Large H (Negative) Urine Nitrite Negative (Negative) Urine Bilirubin Negative (Negative) Urine Urobilinogen Normal (Normal) mg/dL Ur Leukocyte Esterase Large H (Negative) Urine Microscopic RBC TNTC H (0-3) per hpf Urine Microscopic WBC 50-100 H (0-3) per hpf Ur Squamous Epith Cells Many H (None-Few) per lpf Urine Bacteria Few (None-Few) per hpf Urine Test Negative (Negative) Salicylates Urine Opiates Screen Negative (Gizlrw=368) ng/mL Acetaminophen Ur Barbiturates Screen Negative (Ftfznz=634) ng/mL Ur Phencyclidine Scrn Negative (Cutoff=25) ng/mL Ur Amphetamines Screen Negative (Qlooej=2815) ng/mL U Benzodiazepines Scrn Negative (Qxnjxk=384) ng/mL Urine Cocaine Screen Negative (Cutoff= 300) ng/mL U Marijuana (THC) Screen Negative (Cutoff = 50) ng/mL Ethyl Alcohol Specimen Rejected 07/01/17 07/01/17 07/01/17 Range/Units 13:03 13:03 14:12 WBC 12.1 H (4.3-11.1) K/mcL RBC 3.98 (3.82-4.97) M/mcL Hgb 11.1 L (11.5-15.4) g/dL Hct 35.2 L (35.3-44.9) % MCV 88.4 (83.0-100.0) fL MCH 27.9 L (28.0-33.3) pg MCHC 31.5 L (31.6-35.5) g/dL RDW 16.0 H (11.5-14.5) % Plt Count 246 (140-400) K/mcL MPV 8.8 L (9.4-12.4) fL Immature Gran % 0.7 (0-4) % Seg Neutrophils % 77.5 % Lymphocytes % 11.3 % Monocytes % 7.5 % Eosinophils % 2.8 % Basophils % 0.2 % Neutrophils # 9.4 H (1.6-8.9) K/mcL Lymphocytes # 1.4 (0.6-4.6) K/mcL Monocytes # 0.9 (0.0-1.3) K/mcL Eosinophils # 0.3 (0.0-0.6) K/mcL Basophils # 0.0 (0.0-0.2) K/mcL Sodium Cancelled Potassium Cancelled Chloride Cancelled Carbon Dioxide Cancelled BUN Cancelled Creatinine Cancelled Est GFR ( Amer) Cancelled Est GFR (Non-Af Amer) Cancelled BUN/Creatinine Ratio Cancelled Glucose Cancelled Calculated Osmolality Cancelled Calcium Cancelled TSH 1.758 (0.340-5.600) mcIU/mL Urine Color (Yellow) Urine Clarity (Clear) Urine pH (5.0-8.0) pH Units Ur Specific [place] (1.010-1.025) Urine Protein (Neg-Trace) mg/dL Urine Glucose (UA) (Normal) mg/dL Urine Ketones (Negative) mg/dL Urine Blood (Negative) Urine Nitrite (Negative) Urine Bilirubin (Negative) Urine Urobilinogen (Normal) mg/dL Ur Leukocyte Esterase (Negative) Urine Microscopic RBC (0-3) per hpf Urine Microscopic WBC (0-3) per hpf Ur Squamous Epith Cells (None-Few) per lpf Urine Bacteria (None-Few) per hpf Urine Test (Negative) Salicylates Cancelled Urine Opiates Screen (Hsouas=697) ng/mL Acetaminophen Cancelled Ur Barbiturates Screen (Wlnctx=030) ng/mL Ur Phencyclidine Scrn (Cutoff=25) ng/mL Ur Amphetamines Screen (Lmuprf=0921) ng/mL U Benzodiazepines Scrn (Lhijfm=401) ng/mL Urine Cocaine Screen (Cutoff= 300) ng/mL U Marijuana (THC) Screen (Cutoff = 50) ng/mL Ethyl Alcohol Cancelled Specimen Rejected Volume 07/01/17 Range/Units 14:20 WBC (4.3-11.1) K/mcL RBC (3.82-4.97) M/mcL Hgb (11.5-15.4) g/dL Hct (35.3-44.9) % MCV (83.0-100.0) fL MCH (28.0-33.3) pg MCHC (31.6-35.5) g/dL RDW (11.5-14.5) % Plt Count (140-400) K/mcL MPV (9.4-12.4) fL Immature Gran % (0-4) % Seg Neutrophils % % Lymphocytes % % Monocytes % % Eosinophils % % Basophils % % Neutrophils # (1.6-8.9) K/mcL Lymphocytes # (0.6-4.6) K/mcL Monocytes # (0.0-1.3) K/mcL Eosinophils # (0.0-0.6) K/mcL Basophils # (0.0-0.2) K/mcL Sodium 138 Potassium 3.9 Chloride 105 Carbon Dioxide 26 BUN 7 Creatinine 0.63 Est GFR ( Amer) > 60 Est GFR (Non-Af Amer) > 60 BUN/Creatinine Ratio 11 Glucose 142 H Calculated Osmolality 286 Calcium 8.8 TSH (0.340-5.600) mcIU/mL Urine Color (Yellow) Urine Clarity (Clear) Urine pH (5.0-8.0) pH Units Ur Specific [place] (1.010-1.025) Urine Protein (Neg-Trace) mg/dL Urine Glucose (UA) (Normal) mg/dL Urine Ketones (Negative) mg/dL Urine Blood (Negative) Urine Nitrite (Negative) Urine Bilirubin (Negative) Urine Urobilinogen (Normal) mg/dL Ur Leukocyte Esterase (Negative) Urine Microscopic RBC (0-3) per hpf Urine Microscopic WBC (0-3) per hpf Ur Squamous Epith Cells (None-Few) per lpf Urine Bacteria (None-Few) per hpf Urine Test (Negative) Salicylates < 2.5 L Urine Opiates Screen (Jfklzb=558) ng/mL Acetaminophen < 10 L Ur Barbiturates Screen (Jdchab=820) ng/mL Ur Phencyclidine Scrn (Cutoff=25) ng/mL Ur Amphetamines Screen (Avfulx=7540) ng/mL U Benzodiazepines Scrn (Oqkobv=907) ng/mL Urine Cocaine Screen (Cutoff= 300) ng/mL U Marijuana (THC) Screen (Cutoff = 50) ng/mL Ethyl Alcohol < 10 Specimen Rejected Attestation Statement - Attestation Attestation: I examined this patient and my medical decision-making was reviewed with the Resident Physician. I agree with the documented findings, disposition and treatment plan as described except to the extent set forth below. Patient emergency department complaining of auditory hallucinations. Suicidal thoughts. Only physical complaint is some pelvic cramping she is returning to a recent IUD placement. Patient tearful on examination. Plan. Medical clearance and 1A evaluation. Admitted to 1A
[2017-07-01 14:44] LABS: Acetaminophen < 10 mcg/mL (10-20)
[2017-07-01 14:53] LABS: BUN/Creatinine Ratio 11 (6-26); Blood Urea Nitrogen 7 mg/dL (6-20); Calcium 8.8 mg/dL (8.6-10.3); Carbon Dioxide 26 mEq/L (23-29); Chloride 105 mEq/L (98-107); Ethanol < 10 mg/dL (Less than 10); Glucose 142 mg/dL (70-105); Osmolality,Calculated 286 (280-300); Potassium 3.9 mEq/L (3.5-5.1); Salicylate < 2.5 mg/dL (15.0-30.0); Sodium 138 mEq/L (136-145); eGFR For African Americans > 60 (> 60); eGFR For Non-African Americans > 60 (> 60)
[2017-07-01] MEDS ORDERED: MOM Conc 10 ML UD.LIQ PO PRN (17:09)
[2017-07-01] MEDS ORDERED: Mag Hydrox/Al Hydrox/Simeth 30 ML UDC PO PRN (17:09)
[2017-07-01] MEDS ORDERED: (Rizatriptan Benzoate [Maxalt Mlt] 10 MG) PO PRN (17:19)
[2017-07-01] MEDS: Famotidine 20 MG TABLET PO SCH (18:45)
[2017-07-01] MEDS: Acetaminophen 325 MG TABLET PO PRN (18:47)
[2017-07-01] MEDS ORDERED: Gabapentin 300 MG CAPSULE PO SCH (21:00)
[2017-07-01] MEDS ORDERED: Beclomethasone 40mcg MDI IH SCH (21:00)
[2017-07-01] MEDS ORDERED: ILOPERIDONE 12 MG PO SCH (21:00)
[2017-07-01] MEDS: lamoTRIgine 100 MG TABLET PO SCH (21:16)
[2017-07-01] MEDS: Loratadine 10 MG TABLET PO SCH (21:17)
[2017-07-01] MEDS: clonazePAM 0.5 MG TABLET PO SCH (21:17)
[2017-07-01] MEDS: ILOPERIDONE 12 MG PO SCH (23:33)
[2017-07-02] MEDS: Diclofenac Sodium 75 MG TABLET PO SCH ×3 (00:08→22:02)
[2017-07-02] MEDS: Beclomethasone 40mcg MDI IH SCH ×3 (00:21→22:01)
[2017-07-02] MEDS: traZODone 50 MG TABLET PO PRN ×2 (01:00→22:00)
[2017-07-02] MEDS: Famotidine 20 MG TABLET PO SCH ×2 (08:24→15:36)
[2017-07-02] MEDS: Cyanocobalamin (B-12) 1,000 MCG TABLET PO SCH (08:24)
[2017-07-02] MEDS: Ascorbic Acid 500 MG TABLET PO SCH (08:26)
[2017-07-02] MEDS: Multivit/Ca/Min/Fe/FA 1 TAB TABLET PO SCH (08:26)
[2017-07-02] MEDS: *HR* SitaGLIPtin 100 MG TABLET PO SCH (08:26)
[2017-07-02] MEDS: Aspirin Enteric Coated 81 MG Tablet PO SCH (08:26)
[2017-07-02] MEDS: clonazePAM 0.5 MG TABLET PO SCH ×2 (08:26→22:02)
[2017-07-02] MEDS: Lactobacillus 1 EACH CAP.SPRINK PO SCH (08:27)
[2017-07-02] MEDS: lamoTRIgine 100 MG TABLET PO SCH ×2 (08:27→22:02)
[2017-07-02] MEDS: Furosemide 40 MG TABLET PO SCH (08:27)
[2017-07-02] MEDS: ILOPERIDONE 12 MG PO SCH ×2 (08:28→22:03)
[2017-07-02] MEDS ORDERED: NON-FORMULARY MEDICATION 1 EACH EACH (Pantoprazole Sodium [Protonix] 40 MG) PO SCH (09:00)
[2017-07-02] MEDS: Acetaminophen 325 MG TABLET PO PRN ×2 (09:06→15:54)
[2017-07-02] MEDS ORDERED: hydrOXYzine pamoate 25 MG CAPSULE PO STA (09:56)
--- NOTE | 2017-07-02 10:02 | Psychiatry History & Physical ---
Date of Encounter: 07/02/17 Time of Encounter: 09:41 History of Present Illness Patient Stated Chief Complaint: "Im not sleeping, hearing voices and depressed" Medicare Admission Attestation: For traditional Medicare patients the provided hospital inpatient services are reasonable and necessary and in the case of services not specified as inpatient -only under 42 CFR 419.22 (n), that they are appropriately provided as inpatient services in accordance 42 CFR 412.3. For Critical Access Hospital the patient may reasonably be expected to be discharged or transferred to a hospital within 96 hours after admission to the Critical Access Hospital. History of Present Illness: Ms. Parkinson is a 42 year old morbidly obese female, single, lives by self, on SSI with a h/o Schizoaffective disorder, anxiety disorder, multiple inpatient hospitalizations most recent about 6yrs ago, denied h/o illicit drug use, denied h/o SA, denied h/o violence/incarceration, multiple medical comorbities including CODP and DM who self presented to the ED on account of recent worsening AH and tactile hallucinations and depression. She was transferred to for stabilization. Patient has been calm and cooperative on the unit with no reported behavioral issues or incident. She was seen this morning on rounds. She reported not feeling well and also feeling cold with her blanket wrapped around her. She also reported not being able to sleep for about a month due to the voices. She received Trazodone 50mg last night with poor effect. Patient mentioned she was diagnosed with SAD 18yrs ago after graduating from college. She reported multiple inpatient hospitalizations and medication trials including Abilify, Zyprexa, Seroquel, Geodon and Risperdal. She has been stabilized on Fanapt 12mg BID for over 3yrs till the last couple of months when she started experiencing worsening AH and depressive symptoms. The Nurse Practitioner she sees initially tried to wean her off by stopped after patient started having significant reactions from it. Patient believes her Fanapt stopped working and wish to be swiched with a different medication. She is currently endorsing AH of voices cursing at her and telling her she is not worth anything, tactile hallucinations , depressed mood, increased anxiety and increased nightmares with poor sleep. Her labs on presentation was significant for slightly elevated WBC and Neutrophil. She was also noted with a Temp 100.3 and Pulse 121. We will repeat vitals and reported CBC with diff and will also get med consult involved when deemed necessary. Patient reported pelvic discomfort from an IUD inserted about a month ago. I plan to cross titrate Fanapt with Latuda and increased Prozosin 2mg qhs. Past Med Surg Social Fam HX - Past Medical History Medical history: asthma, diabetes, GERD, hyperlipidemia, hypertension, seizures , other - Past Psychiatric History Psychiatric history: Reports: no psych history, anxiety, previous psychiatric hospitalization - Past Surgical History Surgical History: cholecystectomy - Social History Smoking Status: Never smoker Smokeless Tobacco Status: No Alcohol use: none Drug use: none - Family History Mother Adopted: [place]: Ester Age: 60 Family Member Ethnicity: Non- Living Status: Still Living Hx Family Cardiac Disorders: Yes Hx Family Respiratory Disorders: Yes Hx Family Cancer: Yes (ovarian CA) Hx Family GI Disorders: No Hx Family Genitourinary Disorders: No Hx Family Endocrine Disorder: Yes Hx Family Musculoskeletal Disorders: No Hx Family Neuromuscular Disorders: No Hx Family Neurologic Disorders: No Hx Family HEENT Disorders: No Hx Family Autoimmune Disorders: No Hx Family Reproductive Disorders: Yes (ovarian CA) Hx Family Psychosocial Disorders: Yes (Depression) Hx Family Medical Disorders: Yes Father Family Member Ethnicity: Non- Living Status: Hx Family Cardiac Disorders: Yes (ID, HTN, HLD) Hx Family Respiratory Disorders: Yes (Enphesyma, COPD, Asthma) Hx Family Cancer: Yes (Unknown) Hx Family GI Disorders: Yes (Lactos Intolerant) Hx Family Endocrine Disorder: No Hx Family Neuromuscular Disorders: No Hx Family Neurologic Disorders: No Hx Family HEENT Disorders: No Hx Family Autoimmune Disorders: No Brother Family Member Ethnicity: Non- Living Status: Still Living Hx Family Cardiac Disorders: Yes (ID @ 29, HLD, HTN) Hx Family Endocrine Disorder: Yes (DM) Medications & Allergies Docusate [Colace] 100 mg PO BID PRN 02/23/15 [History] Levothyroxine [Synthroid] 125 mcg PO DAILY 02/23/15 [History] Furosemide [Lasix] 40 mg PO DAILY 12/06/15 [History] Potassium Chloride [Klor-Con 10] 10 meq PO DAILY 12/06/15 [History] Albuterol Sulfate [Proair Respiclick] 2 puff IH Q4-6H PRN 12/07/15 [History] Aspirin [Ecotrin] 81 mg PO DAILY 12/07/15 [History] Atorvastatin [Lipitor] 40 mg PO HS 12/07/15 [History] Cetirizine HCl [All Day Allergy] 5 mg PO HS 12/07/15 [History] Cyclobenzaprine [Flexeril] 10 mg PO BID 12/07/15 [History] Escitalopram [Lexapro] 20 mg PO DAILY 12/07/15 [History] Gabapentin [Neurontin] 300 mg PO HS 12/07/15 [History] L.acidoph,Paracasei, B.lactis [Probiotic] 1 cap PO DAILY 12/07/15 [History] Montelukast [Singulair] 10 mg PO HS 12/07/15 [History] clonazePAM [Klonopin] 0.5 mg PO BID 12/07/15 [History] Beclomethasone Diprop 40mcg [QVAR 40 mcg] 1 puff IH BID 09/29/16 [History] Cyanocobalamin (Vitamin B-12) [Vitamin B12] 2,500 mcg PO DAILY 09/29/16 [History ] Pantoprazole Sodium [Protonix] 40 mg PO DAILY 09/29/16 [History] Prazosin [Minipress] 1 mg PO HS 09/29/16 [History] Diclofenac Sodium [Voltaren] 75 mg PO BID 04/09/17 [History] Iloperidone [Fanapt] 12 mg PO BID 04/09/17 [History] Oxybutynin Chloride [Ditropan Xl] 10 mg PO DAILY 04/09/17 [History] SitaGLIPtin [Januvia] 100 mg PO DAILY 04/09/17 [History] Rizatriptan Benzoate [[employer] Processor] 10 mg PO DAILY PRN 05/08/17 [History] Ascorbic Acid [Vitamin C] 1,000 mg PO DAILY 07/01/17 [History] Multivitamin [One Daily Essential] 1 tab PO DAILY 07/01/17 [History] Ranitidine HCl [Acid Dual Rate Dealer] 150 mg PO BID 07/01/17 [History] lamoTRIgine [Lamotrigine] 200 mg PO BID 07/01/17 [History] 3 Allergy/AdvReac Type Severity Reaction Status Date / Time aripiprazole [From Abilify] Allergy Hallucinati Verified 07/01/17 16:09 ng Cefprozil [From Cefzil] Allergy See Verified 07/01/17 16:09 Comments codeine Allergy See Verified 07/01/17 16:09 Comments duloxetine [From Cymbalta] Allergy See Verified 07/01/17 16:09 Comments Erythromycin Base Allergy See Verified 07/01/17 16:09 Comments esomeprazole [From Nexium] Allergy See Verified 07/01/17 16:09 Comments Penicillins Allergy See Verified 07/01/17 16:09 Comments pregabalin [From Lyrica] Allergy Hallucinati Verified 07/01/17 16:09 ng Sulfa (Sulfonamide Allergy See Verified 07/01/17 16:09 Antibiotics) Comments ziprasidone [From Geodon] Allergy Hallucinati Verified 07/01/17 16:09 ng celecoxib [From Celebrex] AdvReac Hallucinati Verified 07/01/17 16:09 ng metformin AdvReac Diarrhea Verified 07/01/17 16:09 Review of Systems Constitutional: Denies: fever, chills, weakness, weight change Eyes: Denies: eye pain, vision change Ears, Nose, Throat: Denies: ear pain, throat pain, dental pain, hearing loss, congestion Cardiovascular: Denies: chest pain, palpitations, dyspnea on exertion Respiratory: Denies: cough, dyspnea, wheezes Gastrointestinal: Denies: abdominal pain, nausea, vomiting, diarrhea, constipation Genitourinary female: Denies: urgency, dysuria, frequency, abnormal menses, dyspareunia Musculoskeletal: Denies: joint swelling, joint pain Integumentary: Denies: rash, lesions, pruritus Neurological: Denies: headache, weakness, numbness, memory loss Psychiatric: Reports: depression, anxiety, auditory hallucinations, visual hallucinations, other Endocrine: Denies: fatigue, heat or cold intolerance Hematologic/Lymphatic: Denies: easy bruising, lymphadenopathy Allergic/Immunologic: Denies: urticaria, itchy eyes Exam - HEENT Head exam IM: Present: atraumatic Eye exam IM: Present: EOMI, normal appearance, PERRL ENT exam IM: Present: normal exam - Neurological Neurological exam: Present: CN II-XII intact - Respiratory Respiratory exam IM: Present: CTAB - GI/Abdominal GI/Abdominal exam IM: Present: normal bowel sounds, soft. Absent: tenderness - Extremities Extremities exam IM: Present: full ROM - Skin Skin exam IM: Present: dry, warm - Constitutional Vitals: Temp Pulse Resp BP Pulse Ox 100.3 F H 121 18 132/86 96 07/02/17 09:00 07/02/17 09:00 07/02/17 09:00 07/02/17 09:00 07/01/17 12:58 General appearance: age & developmentally appropriate, well-groomed, well- nourished - Musculoskeletal Gait: other Station: other Strength & Tone: normal for patient - Psychiatric Patient Orientation: Yes Person, Yes Time, Yes Place Level of alertness: Alert Behavior: calm, cooperative Psychomotor activity: Normal Eye Contact: Maintains Eye Contact Mood Description: Depressed Affect description: congruent with mood Speech Volume: Normal Speech pattern: normal rate, normal rhythm, normal tone, fluent, spontaneous Language & Vocabulary: consistent with education Thought Process: Logical, Goal Oriented Thought Content: Yes Intact Perceptual Disturbances: Yes Auditory hallucinations, Yes Visual hallucinations Attention Span Ability: Capable of Focused Attention Memory Description: Grossly Intact Patient Reliability: Reliable Historian Fund of knowledge: Yes abstraction ability, Yes average, Yes aware of current events Intelligence Estimate: Average Judgment: Limited Insight: Full Results - Labs Labs: Laboratory Last Values WBC 12.1 K/mcL (4.3-11.1) H 07/01/17 13:03 RBC 3.98 M/mcL (3.82-4.97) 07/01/17 13:03 Hgb 11.1 g/dL (11.5-15.4) L 07/01/17 13:03 Hct 35.2 % (35.3-44.9) L 07/01/17 13:03 MCV 88.4 fL (83.0-100.0) 07/01/17 13:03 MCH 27.9 pg (28.0-33.3) L 07/01/17 13:03 MCHC 31.5 g/dL (31.6-35.5) L 07/01/17 13:03 RDW 16.0 % (11.5-14.5) H 07/01/17 13:03 Plt Count 246 K/mcL (140-400) 07/01/17 13:03 MPV 8.8 fL (9.4-12.4) L 07/01/17 13:03 Immature Gran % 0.7 % (0-4) 07/01/17 13:03 Seg Neutrophils % 77.5 % 07/01/17 13:03 Lymphocytes % 11.3 % 07/01/17 13:03 Monocytes % 7.5 % 07/01/17 13:03 Eosinophils % 2.8 % 07/01/17 13:03 Basophils % 0.2 % 07/01/17 13:03 Neutrophils # 9.4 K/mcL (1.6-8.9) H 07/01/17 13:03 Lymphocytes # 1.4 K/mcL (0.6-4.6) 07/01/17 13:03 Monocytes # 0.9 K/mcL (0.0-1.3) 07/01/17 13:03 Eosinophils # 0.3 K/mcL (0.0-0.6) 07/01/17 13:03 Basophils # 0.0 K/mcL (0.0-0.2) 07/01/17 13:03 Sodium 138 mEq/L (136-145) 07/01/17 14:20 Potassium 3.9 mEq/L (3.5-5.1) 07/01/17 14:20 Chloride 105 mEq/L (98-107) 07/01/17 14:20 Carbon Dioxide 26 mEq/L (23-29) 07/01/17 14:20 BUN 7 mg/dL (6-20) 07/01/17 14:20 Creatinine 0.63 mg/dL (0.60-1.20) 07/01/17 14:20 Est GFR ( Amer) > 60 (> 60) 07/01/17 14:20 Est GFR (Non-Af Amer) > 60 (> 60) 07/01/17 14:20 BUN/Creatinine Ratio 11 (6-26) 07/01/17 14:20 Glucose 142 mg/dL (70-105) H 07/01/17 14:20 POC Glucose 117 mg/dL (70-99) H 07/02/17 08:18 Calculated Osmolality 286 (280-300) 07/01/17 14:20 Calcium 8.8 mg/dL (8.6-10.3) 07/01/17 14:20 TSH 1.758 mcIU/mL (0.340-5.600) 07/01/17 13:03 Urine Color Yellow (Yellow) 07/01/17 12:38 Urine Clarity Cloudy (Clear) A 07/01/17 12:38 Urine pH 6.0 pH Units (5.0-8.0) 07/01/17 12:38 Ur Specific [place] 1.015 (1.010-1.025) 07/01/17 12:38 Urine Protein 30 mg/dL (Neg-Trace) H 07/01/17 12:38 Urine Glucose (UA) Normal mg/dL (Normal) 07/01/17 12:38 Urine Ketones Negative mg/dL (Negative) 07/01/17 12:38 Urine Blood Large (Negative) H 07/01/17 12:38 Urine Nitrite Negative (Negative) 07/01/17 12:38 Urine Bilirubin Negative (Negative) 07/01/17 12:38 Urine Urobilinogen Normal mg/dL (Normal) 07/01/17 12:38 Ur Leukocyte Esterase Large (Negative) H 07/01/17 12:38 Urine Microscopic RBC TNTC per hpf (0-3) H 07/01/17 12:38 Urine Microscopic WBC 50-100 per hpf (0-3) H 07/01/17 12:38 Ur Squamous Epith Cells Many per lpf (None-Few) H 07/01/17 12:38 Urine Bacteria Few per hpf (None-Few) 07/01/17 12:38 Urine Test Negative (Negative) 07/01/17 12:38 Salicylates < 2.5 mg/dL (15.0-30.0) L 07/01/17 14:20 Urine Opiates Screen Negative ng/mL (Lwvjbl=984) 07/01/17 12:38 Acetaminophen < 10 mcg/mL (10-20) L 07/01/17 14:20 Ur Barbiturates Screen Negative ng/mL (Hadpvo=760) 07/01/17 12:38 Ur Phencyclidine Scrn Negative ng/mL (Cutoff=25) 07/01/17 12:38 Ur Amphetamines Screen Negative ng/mL (Fvbzdp=4872) 07/01/17 12:38 U Benzodiazepines Scrn Negative ng/mL (Vjlufw=152) 07/01/17 12:38 Urine Cocaine Screen Negative ng/mL (Cutoff= 300) 07/01/17 12:38 U Marijuana (THC) Screen Negative ng/mL (Cutoff = 50) 07/01/17 12:38 Ethyl Alcohol < 10 mg/dL (Less than 10) 07/01/17 14:20 Specimen Rejected Volume 07/01/17 14:12 Assessment and Plan (1) Schizoaffective disorder Current visit: Yes Status: Acute Plan: Admit inpatient for safety and stabilization Risks, benefits, side effects, alternatives discussed w/pt: Yes Patient agreeable to treatment: Yes Plans for Post Hospital Care: Home Estimated Length of Stay (Days): 7 Qualifiers: Schizoaffective disorder type: depressive Qualified Code(s): F25.1 - Schizoaffective disorder, depressive type (2) Chronic ulcer of right heel limited to breakdown of skin Current visit: No Status: Chronic Plan: Admit inpatient for safety and stabilization, Close observation, Suicide Precautions per unit protocol, Encourage participation in unit milieu, Group Therapy, Monitor sleep, Monitor appetite (3) Low back pain Current visit: No Status: Chronic Qualifiers: Chronicity: unspecified Back pain laterality: unspecified Sciatica presence: unspecified whether sciatica present Qualified Code(s): M54.5 - Low back pain
[2017-07-02 14:15] LABS: Basophils % 0.3 %; Eosinophils # 0.3 K/mcL (0.0-0.6); Eosinophils % 2.9 %; Hematocrit 33.4 % (35.3-44.9); Hemoglobin 10.7 g/dL (11.5-15.4); Immature Granulocytes % 0.8 % (0-4); Lymphocytes # 0.9 K/mcL (0.6-4.6); Lymphocytes % 10.5 %; Mean Corpuscular Hemoglobin 28.3 pg (28.0-33.3); Mean Corpuscular Volume 88.4 fL (83.0-100.0); Mean Platelet Volume 9.1 fL (9.4-12.4); Monocytes # 0.7 K/mcL (0.0-1.3); Monocytes % 7.8 %; Neutrophils # 6.7 K/mcL (1.6-8.9); Platelet Count 243 K/mcL (140-400); Red Blood Count 3.78 M/mcL (3.82-4.97); Red Cell Distribution Width 16.1 % (11.5-14.5); Segmented Neutrophils % 77.7 %
[2017-07-02] MEDS: Gabapentin 300 MG CAPSULE PO SCH ×2 (15:36→22:02)
[2017-07-02] MEDS: hydrOXYzine pamoate 25 MG CAPSULE PO PRN ×2 (17:56→22:00)
[2017-07-02] MEDS: Loratadine 10 MG TABLET PO SCH (22:02)
[2017-07-03] MEDS: *HR* SitaGLIPtin 100 MG TABLET PO SCH (09:39)
[2017-07-03] MEDS: clonazePAM 0.5 MG TABLET PO SCH ×2 (09:39→22:36)
[2017-07-03] MEDS: Gabapentin 300 MG CAPSULE PO SCH ×3 (09:39→22:36)
[2017-07-03] MEDS: Ascorbic Acid 500 MG TABLET PO SCH (09:39)
[2017-07-03] MEDS: Aspirin Enteric Coated 81 MG Tablet PO SCH (09:39)
[2017-07-03] MEDS: Lactobacillus 1 EACH CAP.SPRINK PO SCH (09:39)
[2017-07-03] MEDS: lamoTRIgine 100 MG TABLET PO SCH ×2 (09:40→22:35)
[2017-07-03] MEDS: Diclofenac Sodium 75 MG TABLET PO SCH ×2 (09:40→22:37)
[2017-07-03] MEDS: Cyanocobalamin (B-12) 1,000 MCG TABLET PO SCH (09:40)
[2017-07-03] MEDS: Furosemide 40 MG TABLET PO SCH (09:40)
[2017-07-03] MEDS: Multivit/Ca/Min/Fe/FA 1 TAB TABLET PO SCH (09:40)
[2017-07-03] MEDS: Famotidine 20 MG TABLET PO SCH ×2 (09:40→15:04)
[2017-07-03] MEDS: ILOPERIDONE 12 MG PO SCH ×2 (09:41→22:34)
[2017-07-03] MEDS: Beclomethasone 40mcg MDI IH SCH ×2 (09:58→22:33)
--- NOTE | 2017-07-03 12:25 | Psychiatry Progress Note ---
Date of Encounter: 07/03/17 Time of Encounter: 12:22 Subjective Interval history: Patient seen for follow-up. Case discussed was nursing staff. She reports poor sleep and recurrent nightmares. Medication was changed to Latuda. She denied any suicidal thoughts. She is compliant with medication and cooperative. I reviewed her history and her living situation. She is tolerating medication without side effects. She is motivated to get her symptoms under control. I we will increase her Minipress to 2 mg to address her nightmares. Review of Systems Psychiatric: Reports: depression, anxiety, auditory hallucinations, visual hallucinations, other Results - Vital Signs Vital Signs: Temp Pulse Resp BP Pulse Ox 98.6 F 105 16 102/70 96 07/03/17 09:00 07/03/17 09:00 07/03/17 09:00 07/03/17 09:00 07/01/17 12:58 - Labs Labs: Laboratory Results - last 24 hr 07/02/17 07/02/17 07/03/17 13:53 21:21 08:08 WBC 8.6 RBC 3.78 L Hgb 10.7 L Hct 33.4 L MCV 88.4 MCH 28.3 MCHC 32.0 RDW 16.1 H Plt Count 243 MPV 9.1 L Immature Gran % 0.8 Seg Neutrophils % 77.7 Lymphocytes % 10.5 Monocytes % 7.8 Eosinophils % 2.9 Basophils % 0.3 Neutrophils # 6.7 Lymphocytes # 0.9 Monocytes # 0.7 Eosinophils # 0.3 Basophils # 0.0 POC Glucose 102 H 123 H Assessment and Plan (1) Schizophrenia Current visit: No Status: Chronic Plan: Continue hospitalization, Close observation, Suicide Precautions per unit protocol, Encourage participation in unit milieu, Group Therapy, Monitor sleep, Monitor appetite Additional Plan: We will increase Minipress to 2 mg at bedtime. Risks, benefits, side effects, alternatives discussed w/pt: Yes Patient agreeable to treatment: Yes Qualifiers: Schizophrenia type: unspecified Qualified Code(s): F20.9 - Schizophrenia, unspecified Consult Discharge Plan - Plan Referrals: NONE,PCP [Primary Care Provider] - Psychiatry Exam - Constitutional Vitals: Temp Pulse Resp BP Pulse Ox 98.6 F 105 16 102/70 96 07/03/17 09:00 07/03/17 09:00 07/03/17 09:00 07/03/17 09:00 07/01/17 12:58 General appearance: age & developmentally appropriate, well-groomed, well- nourished, obese - Musculoskeletal Gait: normal, other (Uses walker) Station: relaxed Strength & Tone: normal for patient - Psychiatric Patient Orientation: Yes Person, Yes Time, Yes Place Level of alertness: Alert Behavior: calm, cooperative Psychomotor activity: Normal Eye Contact: Maintains Eye Contact Mood Description: Euthymic/stable, Anxious Affect description: congruent with mood, full range, labile Speech Volume: Normal Speech pattern: normal rate, normal rhythm, normal tone, fluent, spontaneous, clear Language & Vocabulary: consistent with education Thought Process: Linear, Goal Oriented Thought Content: No Suicidal ideation, No Homicidal ideation, No Overt delusions Perceptual Disturbances: Yes Auditory hallucinations, Yes Visual hallucinations , Yes Tactile hallucinations Attention Span Ability: Capable of Focused Attention Memory Description: Grossly Intact Patient Reliability: Reliable Historian Fund of knowledge: Yes abstraction ability, Yes aware of current events Intelligence Estimate: Average Judgment: Limited Insight: Partial
[2017-07-03] MEDS: Loratadine 10 MG TABLET PO SCH (22:36)
[2017-07-03] MEDS: hydrOXYzine pamoate 25 MG CAPSULE PO PRN (22:36)
[2017-07-03] MEDS: traZODone 50 MG TABLET PO PRN (22:37)
[2017-07-04] MEDS: Beclomethasone 40mcg MDI IH SCH ×2 (09:56→22:08)
[2017-07-04] MEDS: Furosemide 40 MG TABLET PO SCH (09:57)
[2017-07-04] MEDS: Lactobacillus 1 EACH CAP.SPRINK PO SCH (09:57)
[2017-07-04] MEDS: lamoTRIgine 100 MG TABLET PO SCH ×2 (09:57→20:55)
[2017-07-04] MEDS: Gabapentin 300 MG CAPSULE PO SCH ×3 (09:57→20:54)
[2017-07-04] MEDS: Multivit/Ca/Min/Fe/FA 1 TAB TABLET PO SCH (09:57)
[2017-07-04] MEDS: Diclofenac Sodium 75 MG TABLET PO SCH ×2 (09:58→20:54)
[2017-07-04] MEDS: Cyanocobalamin (B-12) 1,000 MCG TABLET PO SCH (09:58)
[2017-07-04] MEDS: Aspirin Enteric Coated 81 MG Tablet PO SCH (09:58)
[2017-07-04] MEDS: Ascorbic Acid 500 MG TABLET PO SCH (09:58)
[2017-07-04] MEDS: *HR* SitaGLIPtin 100 MG TABLET PO SCH (09:58)
[2017-07-04] MEDS: Famotidine 20 MG TABLET PO SCH ×2 (09:58→14:48)
[2017-07-04] MEDS: clonazePAM 0.5 MG TABLET PO SCH ×2 (09:58→20:52)
--- NOTE | 2017-07-04 12:44 | Psychiatry Progress Note ---
Date of Encounter: 07/04/17 Time of Encounter: 12:41 Subjective Interval history: Patient seen for follow-up. Case discussed with nursing staff. Patient reports improved sleep less nightmares or dreams and less auditory hallucinations. She denies any side effects to medication. She is medication compliant. Denies suicidal or homicidal ideation. She participated in activities and groups. No reports of any agitation or behavioral problems. Discharge planning is ongoing. Review of Systems Psychiatric: Reports: depression, anxiety, auditory hallucinations, visual hallucinations, other Results - Vital Signs Vital Signs: Temp Pulse Resp BP Pulse Ox 98.4 F 116 16 121/82 96 07/04/17 08:54 07/04/17 08:54 07/04/17 08:54 07/04/17 08:54 07/01/17 12:58 - Labs Labs: Laboratory Results - last 24 hr 07/03/17 07/04/17 21:20 08:03 POC Glucose 109 H 120 H Assessment and Plan (1) Schizophrenia Current visit: No Status: Chronic Plan: Continue hospitalization, Close observation, Suicide Precautions per unit protocol, Encourage participation in unit milieu, Group Therapy, Monitor sleep, Monitor appetite Risks, benefits, side effects, alternatives discussed w/pt: Yes Patient agreeable to treatment: Yes Qualifiers: Schizophrenia type: unspecified Qualified Code(s): F20.9 - Schizophrenia, unspecified Consult Discharge Plan - Plan Referrals: NONE,PCP [Primary Care Provider] - Psychiatry Exam - Constitutional Vitals: Temp Pulse Resp BP Pulse Ox 98.4 F 116 16 121/82 96 07/04/17 08:54 07/04/17 08:54 07/04/17 08:54 07/04/17 08:54 07/01/17 12:58 General appearance: age & developmentally appropriate, well-groomed, well- nourished, obese - Musculoskeletal Gait: normal, other (Walker) Station: relaxed Strength & Tone: normal for patient - Psychiatric Patient Orientation: Yes Person, Yes Time, Yes Place Level of alertness: Alert Behavior: calm, cooperative Psychomotor activity: Normal Eye Contact: Maintains Eye Contact Mood Description: Euthymic/stable Affect description: congruent with mood, constricted Speech Volume: Normal Speech pattern: normal rate, normal rhythm, normal tone, fluent, spontaneous Language & Vocabulary: consistent with education Thought Process: Linear, Goal Oriented Thought Content: No Suicidal ideation, No Homicidal ideation, No Overt delusions Perceptual Disturbances: No Auditory hallucinations, No Visual hallucinations Attention Span Ability: Capable of Focused Attention Memory Description: Grossly Intact Patient Reliability: Reliable Historian Fund of knowledge: Yes abstraction ability, Yes aware of current events Intelligence Estimate: Average Judgment: Limited Insight: Partial
[2017-07-04] MEDS: hydrOXYzine pamoate 25 MG CAPSULE PO PRN (17:46)
[2017-07-04] MEDS: Loratadine 10 MG TABLET PO SCH (20:51)
[2017-07-05 08:25] VITALS: BP 124/87
[2017-07-05] MEDS: Ascorbic Acid 500 MG TABLET PO SCH (09:20)
[2017-07-05] MEDS: Famotidine 20 MG TABLET PO SCH (09:20)
[2017-07-05] MEDS: clonazePAM 0.5 MG TABLET PO SCH (09:20)
[2017-07-05] MEDS: lamoTRIgine 100 MG TABLET PO SCH (09:20)
[2017-07-05] MEDS: Multivit/Ca/Min/Fe/FA 1 TAB TABLET PO SCH (09:21)
[2017-07-05] MEDS: *HR* SitaGLIPtin 100 MG TABLET PO SCH (09:21)
[2017-07-05] MEDS: Cyanocobalamin (B-12) 1,000 MCG TABLET PO SCH (09:21)
[2017-07-05] MEDS: Furosemide 40 MG TABLET PO SCH (09:21)
[2017-07-05] MEDS: Lactobacillus 1 EACH CAP.SPRINK PO SCH (09:21)
[2017-07-05] MEDS: Diclofenac Sodium 75 MG TABLET PO SCH (09:23)
[2017-07-05] MEDS: Beclomethasone 40mcg MDI IH SCH (09:25)
[2017-07-05] MEDS: Aspirin Enteric Coated 81 MG Tablet PO SCH (09:29)
[2017-07-05] MEDS: Gabapentin 300 MG CAPSULE PO SCH (09:30)
--- NOTE | 2017-07-05 13:00 | Discharge Summary ---
Date of Encounter: 07/05/17 Time of Encounter: 12:58 Diagnosis - Discharge Diagnosis (1) Schizoaffective disorder, bipolar type Status: Acute Medications - Discharge Medications Prescriptions: Lurasidone [Latuda] 40 mg PO DAILY #30 tablet Prazosin [Minipress] 2 mg PO HS #30 capsule Docusate [Colace] 100 mg PO BID PRN 02/23/15 [History] Levothyroxine [Synthroid] 125 mcg PO DAILY 02/23/15 [History] Furosemide [Lasix] 40 mg PO DAILY 12/06/15 [History] Potassium Chloride [Klor-Con 10] 10 meq PO DAILY 12/06/15 [History] Albuterol Sulfate [Proair Respiclick] 2 puff IH Q4-6H PRN 12/07/15 [History] Aspirin [Ecotrin] 81 mg PO DAILY 12/07/15 [History] Atorvastatin [Lipitor] 40 mg PO HS 12/07/15 [History] Cetirizine HCl [All Day Allergy] 5 mg PO HS 12/07/15 [History] Cyclobenzaprine [Flexeril] 10 mg PO BID 12/07/15 [History] Escitalopram [Lexapro] 20 mg PO DAILY 12/07/15 [History] Gabapentin [Neurontin] 300 mg PO HS 12/07/15 [History] L.acidoph,Paracasei, B.lactis [Probiotic] 1 cap PO DAILY 12/07/15 [History] Montelukast [Singulair] 10 mg PO HS 12/07/15 [History] clonazePAM [Klonopin] 0.5 mg PO BID 12/07/15 [History] Beclomethasone Diprop 40mcg [QVAR 40 mcg] 1 puff IH BID 09/29/16 [History] Cyanocobalamin (Vitamin B-12) [Vitamin B12] 2,500 mcg PO DAILY 09/29/16 [History ] Pantoprazole Sodium [Protonix] 40 mg PO DAILY 09/29/16 [History] Prazosin [Minipress] 1 mg PO HS 09/29/16 [History] Diclofenac Sodium [Voltaren] 75 mg PO BID 04/09/17 [History] Iloperidone [Fanapt] 12 mg PO BID 04/09/17 [History] Oxybutynin Chloride [Ditropan Xl] 10 mg PO DAILY 04/09/17 [History] SitaGLIPtin [Januvia] 100 mg PO DAILY 04/09/17 [History] Rizatriptan Benzoate [Maxalt Development Trainer] 10 mg PO DAILY PRN 05/08/17 [History] Ascorbic Acid [Vitamin C] 1,000 mg PO DAILY 07/01/17 [History] Multivitamin [One Daily Essential] 1 tab PO DAILY 07/01/17 [History] Ranitidine HCl [Acid Printing Roller Polisher] 150 mg PO BID 07/01/17 [History] lamoTRIgine [Lamotrigine] 200 mg PO BID 07/01/17 [History] Lurasidone [Latuda] 40 mg PO DAILY #30 tablet 07/05/17 [Rx] Prazosin [Minipress] 2 mg PO HS #30 capsule 07/05/17 [Rx] 3 Allergy/AdvReac Type Severity Reaction Status Date / Time aripiprazole [From Abilify] Allergy Hallucinati Verified 07/01/17 16:09 ng Cefprozil [From Cefzil] Allergy See Verified 07/01/17 16:09 Comments codeine Allergy See Verified 07/01/17 16:09 Comments duloxetine [From Cymbalta] Allergy See Verified 07/01/17 16:09 Comments Erythromycin Base Allergy See Verified 07/01/17 16:09 Comments esomeprazole [From Nexium] Allergy See Verified 07/01/17 16:09 Comments Penicillins Allergy See Verified 07/01/17 16:09 Comments pregabalin [From Lyrica] Allergy Hallucinati Verified 07/01/17 16:09 ng Sulfa (Sulfonamide Allergy See Verified 07/01/17 16:09 Antibiotics) Comments ziprasidone [From Geodon] Allergy Hallucinati Verified 07/01/17 16:09 ng celecoxib [From Celebrex] AdvReac Hallucinati Verified 07/01/17 16:09 ng metformin AdvReac Diarrhea Verified 07/01/17 16:09 Results Procedures and tests throughout hospitalization: Completed Lab Orders Category Date Time Status Complete Blood Count [HEME] Stat Lab 07/02/17 13:53 Completed Provider Date of admission: 07/01/17 16:05 Primary care physician: PCP NONE Discharging clinician: Jason Landin Psychiatry Exam - Constitutional Vitals: Temp Pulse Resp BP Pulse Ox 98.4 F 105 18 124/87 96 07/05/17 08:25 07/05/17 08:25 07/05/17 08:25 07/05/17 08:25 07/01/17 12:58 General appearance: age & developmentally appropriate, well-groomed, well- nourished, obese - Musculoskeletal Gait: normal Station: relaxed Strength & Tone: normal for patient - Psychiatric Patient Orientation: Yes Person, Yes Time, Yes Place Level of alertness: Alert Behavior: calm, cooperative Psychomotor activity: Normal Eye Contact: Maintains Eye Contact Mood Description: Euthymic/stable Affect description: congruent with mood, full range Speech Volume: Normal Speech pattern: normal rate, normal rhythm, normal tone, fluent, spontaneous Language & Vocabulary: consistent with education Thought Process: Linear, Goal Oriented Thought Content: No Suicidal ideation, No Homicidal ideation, No Overt delusions Perceptual Disturbances: No Auditory hallucinations, No Visual hallucinations Attention Span Ability: Capable of Focused Attention Memory Description: Grossly Intact Patient Reliability: Reliable Historian Fund of knowledge: Yes abstraction ability, Yes aware of current events Intelligence Estimate: Average Judgment: Limited Insight: Partial Hospital Course Hospital course: Ms. Parkinson is a 42 year old female admitted for visual and tactile hallucinations and increase paranoia and anxiety. For details admission please see H&P On the unit patient medication was adjusted she was switched to Latuda and responded positively reporting less auditory and visual hallucinations, denied any side effects, reported improved sleep. Her prazosin was increased and she reported less nightmares at night. Patient was medication compliant she attended group and activities. On discharge patient was medically stable denies suicidal ideation denied any hallucinations she was motivated to go back and follow-up as outpatient. Discharge plans were completed by social media marketing specialist. Patient discharged in stable condition. - Time Spent with Patient Total time spent providing and/or coordinating discharge services: Less than 30 minutes Assessment and Plan - Patient/Caregiver Discharge Instructions Activity: resume usual activities as tolerated Diet: regular diet - Follow up Plan Follow up with: [facility] [Outside] - 07/11/17 10:00 am (The above appointment is with Sarah Tay for counselling and case management.) Caryl Renee, SLOT EDITOR [Advanced Practice Nurse] - 07/19/17 3:00 pm (The above appointment is with Caryl Renee for outpatient psychiatric assessment and medication management services.) Functional capacity at discharge: independent ambulation Overall status at discharge: Stable Disposition: Home, Self-Care Quality - Multiple Antipsychotics Patient discharged on 2 or more antipsychotic medications: No Procedures - Procedures Procedures: Medication Management, Crisis Stabilization, Supportive Therapy, Group Therapy, Psychoeducational Therapy
--- NOTE | 2017-07-05 14:18 | Physician Discharge Referral ---
Home Health/Hosp Referral Info Transfer to: Home Health Attending Provider: dieter Provider in Charge Post Discharge: PCP - Diagnosis (1) Schizoaffective disorder, bipolar type Priority: Primary Status: Acute - Respiratory Orders Smoking Cessation: Smoking cessation has been advised. For more information, call the [place] Tobacco Quit Line at 3-746-OWSL-NOW. - Activity Activity Orders: Walker - Services Needed Following services are medically necessary services: Nursing, Home Health Aide ( personal counselor, med reconciliation) - Transfer Medications Prescriptions: Lurasidone [Latuda] 40 mg PO DAILY #30 tablet Prazosin [Minipress] 2 mg PO HS #30 capsule Home Medications: Docusate [Colace] 100 mg PO BID PRN 02/23/15 [History] Levothyroxine [Synthroid] 125 mcg PO DAILY 02/23/15 [History] Furosemide [Lasix] 40 mg PO DAILY 12/06/15 [History] Potassium Chloride [Klor-Con 10] 10 meq PO DAILY 12/06/15 [History] Albuterol Sulfate [Proair Respiclick] 2 puff IH Q4-6H PRN 12/07/15 [History] Aspirin [Ecotrin] 81 mg PO DAILY 12/07/15 [History] Atorvastatin [Lipitor] 40 mg PO HS 12/07/15 [History] Cetirizine HCl [All Day Allergy] 5 mg PO HS 12/07/15 [History] Cyclobenzaprine [Flexeril] 10 mg PO BID 12/07/15 [History] Escitalopram [Lexapro] 20 mg PO DAILY 12/07/15 [History] Gabapentin [Neurontin] 300 mg PO HS 12/07/15 [History] L.acidoph,Paracasei, B.lactis [Probiotic] 1 cap PO DAILY 12/07/15 [History] Montelukast [Singulair] 10 mg PO HS 12/07/15 [History] clonazePAM [Klonopin] 0.5 mg PO BID 12/07/15 [History] Beclomethasone Diprop 40mcg [QVAR 40 mcg] 1 puff IH BID 09/29/16 [History] Cyanocobalamin (Vitamin B-12) [Vitamin B12] 2,500 mcg PO DAILY 09/29/16 [History ] Pantoprazole Sodium [Protonix] 40 mg PO DAILY 09/29/16 [History] Prazosin [Minipress] 1 mg PO HS 09/29/16 [History] Diclofenac Sodium [Voltaren] 75 mg PO BID 04/09/17 [History] Iloperidone [Fanapt] 12 mg PO BID 04/09/17 [History] Oxybutynin Chloride [Ditropan Xl] 10 mg PO DAILY 04/09/17 [History] SitaGLIPtin [Januvia] 100 mg PO DAILY 04/09/17 [History] Rizatriptan Benzoate [Maxalt Fish Packer] 10 mg PO DAILY PRN 05/08/17 [History] Ascorbic Acid [Vitamin C] 1,000 mg PO DAILY 07/01/17 [History] Multivitamin [One Daily Essential] 1 tab PO DAILY 07/01/17 [History] Ranitidine HCl [Acid Manager Reimbursement] 150 mg PO BID 07/01/17 [History] lamoTRIgine [Lamotrigine] 200 mg PO BID 07/01/17 [History] Lurasidone [Latuda] 40 mg PO DAILY #30 tablet 07/05/17 [Rx] Prazosin [Minipress] 2 mg PO HS #30 capsule 07/05/17 [Rx] Allergies/Adverse Reactions: 3 Allergy/AdvReac Type Severity Reaction Status Date / Time aripiprazole [From Abilify] Allergy Hallucinati Verified 07/01/17 16:09 ng Cefprozil [From Cefzil] Allergy See Verified 07/01/17 16:09 Comments codeine Allergy See Verified 07/01/17 16:09 Comments duloxetine [From Cymbalta] Allergy See Verified 07/01/17 16:09 Comments Erythromycin Base Allergy See Verified 07/01/17 16:09 Comments esomeprazole [From Nexium] Allergy See Verified 07/01/17 16:09 Comments Penicillins Allergy See Verified 07/01/17 16:09 Comments pregabalin [From Lyrica] Allergy Hallucinati Verified 07/01/17 16:09 ng Sulfa (Sulfonamide Allergy See Verified 07/01/17 16:09 Antibiotics) Comments ziprasidone [From Geodon] Allergy Hallucinati Verified 07/01/17 16:09 ng celecoxib [From Celebrex] AdvReac Hallucinati Verified 07/01/17 16:09 ng metformin AdvReac Diarrhea Verified 07/01/17 16:09 Certification: Further, I certify that my clinical findings support that this patient is homebound (i.e. absences from home require considerable and taxing effort and are for medical reasons or moravian services or infrequently or short duration when for other reasons) because: Homebound Reason: Altered mental status requiring supervision when leaving home Attestation: My signature below is to certify that this patient is under my care and that I, or nurse practitioner, or a physician's timber management assistant working with me, has a face-to -face encounter with this patient.
== END 2017-07-05 14:35 | disposition home or self-care (01) | DRG 885 ==
LOC: EMEROO 12:33 → SUATTDRO 16:05 → 1ANU 16:05
PROVIDERS: ADMIT Psychiatry & Neurology Psychiatry; ATTEND Psychiatry & Neurology Psychiatry

== ENCOUNTER 2019-02-11 13:42 | Inpatient (IN) ==
[2019-02-11] MEDS ORDERED: 0.9 % Sodium Chloride 1,000 ML IVC ONE (16:10)
[2019-02-11] MEDS ORDERED: Prochlorperazine 10 MG/2 ML VIAL IVP PRN (16:10)
[2019-02-11 16:17] LABS: Basophils % 0.1 %; Eosinophils # 0.2 K/mcL (0.0-0.6); Eosinophils % 2.2 %; Hematocrit 39.7 % (35.3-44.9); Hemoglobin 12.7 g/dL (11.5-15.4); Immature Granulocytes % 0.4 % (0-4); Lymphocytes # 1.5 K/mcL (0.6-4.6); Lymphocytes % 15.4 %; Mean Corpuscular Hemoglobin 27.9 pg (28.0-33.3); Mean Corpuscular Volume 87.1 fL (83.0-100.0); Monocytes # 0.7 K/mcL (0.0-1.3); Monocytes % 7.5 %; Neutrophils # 7.3 K/mcL (1.6-8.9); Platelet Count 330 K/mcL (140-400); Red Blood Count 4.56 M/mcL (3.82-4.97); Red Cell Distribution Width 15.3 % (11.5-14.5); Segmented Neutrophils % 74.4 %; White Blood Count 9.8 K/mcL (4.3-11.1)
[2019-02-11 16:35] LABS: Alanine Aminotransferase 7 Units/L (7-52); Albumin 3.9 g/dL (3.5-5.7); Albumin/Globulin Ratio 1.3 (1.1-2.2); Alkaline Phosphatase 84 Units/L (34-104); Aspartate Amino Transferase 9 Units/L (13-39); BUN/Creatinine Ratio 6 (6-26); Bilirubin,Total 0.3 mg/dL (0.3-1.0); Blood Urea Nitrogen 6 mg/dL (6-20); Calcium 9.3 mg/dL (8.6-10.3); Carbon Dioxide 27 mEq/L (23-29); Chloride 104 mEq/L (98-107); Globulin 3.1 g/dL (2.4-3.5); Glucose 107 mg/dL (70-105); Osmolality,Calculated 290 (280-300); Potassium 3.5 mEq/L (3.5-5.1); Sodium 141 mEq/L (136-145); Troponin I < 0.03 ng/mL (< 0.04); eGFR For African Americans > 60 (> 60); eGFR For Non-African Americans > 60 (> 60)
[2019-02-11 19:45] LABS: Bilirubin,Urine Negative (Negative); Blood,Urine Moderate (Negative); Clarity,Urine Cloudy (Clear); Color,Urine Yellow (Yellow); Glucose,Urine (UA) Normal (Normal); Ketones,Urine Negative (Negative); Leukocyte Esterase,Urine Trace (Negative); Nitrite,Urine Negative (Negative); Protein,Urine Negative (Neg-Trace); Specific Gravity,Urine 1.013 (1.010-1.025); Urobilinogen,Urine Normal (Normal)
[2019-02-11 19:49] LABS: Bacteria,Urine None Seen per hpf (None-Few); Hyaline Casts,Urine None Seen per lpf (None-Few); Squamous Epithelial Cell,Urine Many per lpf (None-Few); WBC,Urine 0-3 per hpf (0-3)
[2019-02-11] MEDS ORDERED: *HR* FentaNYL (PF) 100 MCG/2 ML VIAL IVP ONE (20:51)
[2019-02-11 21:01] LABS: RBC,Urine 0-3 per hpf (0-3)
[2019-02-11] MEDS ORDERED: Ondansetron 4 MG/2 ML VIAL IVP PRN (23:45)
[2019-02-11] MEDS ORDERED: Naloxone 0.4 MG/ML INJ IVP PRN (23:45)
[2019-02-11] MEDS ORDERED: D5% in Water 1,000 ML IVC PRN (23:55)
[2019-02-11] MEDS ORDERED: Dextrose Gel 15 GM/37.5 ML TUBE PO PRN ×2 (23:55)
[2019-02-11] MEDS ORDERED: *HR* Dextrose 50 % in Water (Syg) 50 ML SYRINGE IVP PRN (23:55)
[2019-02-12] MEDS: 0.9 % Sodium Chloride 1,000 ML IVC SCH ×3 (00:10→15:20)
[2019-02-12 05:31] LABS: Basophils % 0.1 %; Eosinophils # 0.2 K/mcL (0.0-0.6); Eosinophils % 2.7 %; Hematocrit 35.3 % (35.3-44.9); Hemoglobin 11.2 g/dL (11.5-15.4); Immature Granulocytes % 0.3 % (0-4); Lymphocytes # 2.3 K/mcL (0.6-4.6); Lymphocytes % 26.4 %; Mean Corpuscular HGB Conc 31.7 g/dL (31.6-35.5); Mean Corpuscular Hemoglobin 27.7 pg (28.0-33.3); Mean Corpuscular Volume 87.2 fL (83.0-100.0); Mean Platelet Volume 8.6 fL (9.4-12.4); Monocytes # 0.7 K/mcL (0.0-1.3); Monocytes % 7.5 %; Neutrophils # 5.4 K/mcL (1.6-8.9); Platelet Count 286 K/mcL (140-400); Red Blood Count 4.05 M/mcL (3.82-4.97); Red Cell Distribution Width 15.3 % (11.5-14.5); White Blood Count 8.6 K/mcL (4.3-11.1)
[2019-02-12 05:32] LABS: Alanine Aminotransferase 5 Units/L (7-52); Albumin 3.2 g/dL (3.5-5.7); Albumin/Globulin Ratio 1.3 (1.1-2.2); Alkaline Phosphatase 66 Units/L (34-104); Aspartate Amino Transferase 8 Units/L (13-39); BUN/Creatinine Ratio 8 (6-26); Bilirubin,Total 0.3 mg/dL (0.3-1.0); Blood Urea Nitrogen 6 mg/dL (6-20); Calcium 8.2 mg/dL (8.6-10.3); Carbon Dioxide 23 mEq/L (23-29); Chloride 112 mEq/L (98-107); Globulin 2.4 g/dL (2.4-3.5); Glucose 82 mg/dL (70-105); Osmolality,Calculated 289 (280-300); Potassium 3.3 mEq/L (3.5-5.1); Sodium 141 mEq/L (136-145); Total Protein 5.6 g/dL (6.4-8.9); eGFR For African Americans > 60 (> 60); eGFR For Non-African Americans > 60 (> 60)
[2019-02-12] MEDS: Insulin LISPRO 300 UNITS/3 ML VIAL SQ SCH ×3 (08:26→18:16)
[2019-02-12] MEDS: *HR* Enoxaparin 40 MG/0.4 ML SYRINGE SQ SCH (09:20)
[2019-02-12] MEDS ORDERED: Ketorolac 15 MG/ML VIAL IVP ONE ×2 (09:55→21:00)
[2019-02-12] MEDS ORDERED: methylPREDNISolone 125 MG/2 ML VIAL IVP ONE ×2 (09:55→21:00)
[2019-02-12] MEDS ORDERED: *HR* Promethazine 25 MG/ML VIAL IVP ONE (09:55)
[2019-02-12] MEDS ORDERED: clonazePAM 0.5 MG TABLET PO PRN (10:32)
[2019-02-12] MEDS ORDERED: traZODone 50 MG TABLET PO PRN (10:32)
[2019-02-12] MEDS ORDERED: Aspirin Enteric Coated 325 MG Tablet PO SCH (11:00)
[2019-02-12] MEDS: Aspirin Enteric Coated 81 MG Tablet PO SCH (12:24)
[2019-02-12] MEDS: Topiramate 25 MG TABLET PO SCH ×2 (12:24→21:50)
[2019-02-12] MEDS ORDERED: lamoTRIgine 100 MG TABLET PO ONE (13:50)
[2019-02-12] MEDS: Famotidine 20 MG TABLET PO SCH (15:20)
[2019-02-12] MEDS ORDERED: Gabapentin 300 MG CAPSULE PO SCH (21:00)
[2019-02-12] MEDS ORDERED: Insulin LISPRO 300 UNITS/3 ML VIAL SQ SCH (21:00)
[2019-02-12] MEDS: lamoTRIgine 100 MG TABLET PO SCH (21:50)
[2019-02-13] MEDS: 0.9 % Sodium Chloride 1,000 ML IVC SCH ×2 (00:54→09:10)
[2019-02-13] MEDS ORDERED: Loratadine 10 MG TABLET PO SCH (09:00)
[2019-02-13] MEDS ORDERED: Furosemide 20 MG TABLET PO SCH (09:00)
[2019-02-13] MEDS: Insulin LISPRO 300 UNITS/3 ML VIAL SQ SCH ×2 (09:10→12:23)
[2019-02-13] MEDS: Famotidine 20 MG TABLET PO SCH (09:10)
[2019-02-13] MEDS: lamoTRIgine 100 MG TABLET PO SCH (09:11)
[2019-02-13] MEDS: Topiramate 25 MG TABLET PO SCH (09:11)
[2019-02-13] MEDS: Aspirin Enteric Coated 81 MG Tablet PO SCH (09:11)
[2019-02-13] MEDS: *HR* Enoxaparin 40 MG/0.4 ML SYRINGE SQ SCH (09:12)
[2019-02-13] MEDS ORDERED: Ertapenem 1,000 MG in 0.9 % Sodium Chloride Mini Bag 100 ML IVPB ONE (10:47)
[2019-02-13 10:59] VITALS: BP 105/65
== END 2019-02-13 13:51 | disposition home or self-care (01) | DRG 103 ==
LOC: EMEROOARM 13:42 → 3ANU 13:42 → SUATTDRO 20:54 → 3ANU 21:44
PROVIDERS: ADMIT Internal Medicine; ATTEND Internal Medicine

== ENCOUNTER 2019-03-02 19:37 | Observation (INO) ==
[2019-03-02 20:35] LABS: Basophils % 0.1 %; Eosinophils # 0.4 K/mcL (0.0-0.6); Eosinophils % 2.5 %; Hematocrit 42.6 % (35.3-44.9); Hemoglobin 13.9 g/dL (11.5-15.4); Immature Granulocytes % 0.5 % (0-4); Lymphocytes # 2.5 K/mcL (0.6-4.6); Lymphocytes % 15.6 %; Mean Corpuscular HGB Conc 32.6 g/dL (31.6-35.5); Mean Corpuscular Hemoglobin 27.7 pg (28.0-33.3); Mean Corpuscular Volume 84.9 fL (83.0-100.0); Mean Platelet Volume 8.5 fL (9.4-12.4); Monocytes % 6.2 %; Neutrophils # 11.8 K/mcL (1.6-8.9); Platelet Count 389 K/mcL (140-400); Red Blood Count 5.02 M/mcL (3.82-4.97); Red Cell Distribution Width 15.3 % (11.5-14.5); Segmented Neutrophils % 75.1 %; White Blood Count 15.8 K/mcL (4.3-11.1)
[2019-03-02 20:36] LABS: Estimated Average Glucose 120 mg/dl
[2019-03-02 20:38] LABS: Bilirubin,Urine Negative (Negative); Blood,Urine Negative (Negative); Clarity,Urine Cloudy (Clear); Color,Urine Yellow (Yellow); Glucose,Urine (UA) Normal (Normal); Ketones,Urine Negative (Negative); Leukocyte Esterase,Urine Small (Negative); Nitrite,Urine Negative (Negative); Protein,Urine Negative (Neg-Trace); Specific Gravity,Urine 1.009 (1.010-1.025); Urobilinogen,Urine Normal (Normal)
[2019-03-02 20:41] LABS: Amphetamine Screen,Urine Negative ng/mL (Cutoff=1000); Bacteria,Urine Few per hpf (None-Few); Barbiturate Screen,Urine Negative ng/mL (Cutoff=200); Benzodiazepines Screen,Urine Negative ng/mL (Cutoff=200); Cannabinoid Screen,Urine Negative ng/mL (Cutoff = 50); Cocaine Screen,Urine Negative ng/mL (Cutoff= 300); Hyaline Casts,Urine None Seen per lpf (None-Few); Opiate Screen,Urine Negative ng/mL (Cutoff=300); Phencyclidine Screen,Urine Negative ng/mL (Cutoff=25); Squamous Epithelial Cell,Urine Many per lpf (None-Few)
[2019-03-02 20:51] LABS: Acetaminophen < 10 mcg/mL (10-20); BUN/Creatinine Ratio 11 (6-26); Blood Urea Nitrogen 10 mg/dL (6-20); Carbon Dioxide 24 mEq/L (23-29); Chloride 101 mEq/L (98-107); Chol/HDL Ratio 4.2 (0-4.9); Cholesterol 150 mg/dL (< 200); Ethanol < 10 mg/dL (Less than 10); Glucose 138 mg/dL (70-105); HDL Cholesterol 36 mg/dL (40-59); LDL Cholesterol,Calculated 81 mg/dL (0-99); Osmolality,Calculated 285 (280-300); Potassium 3.5 mEq/L (3.5-5.1); Salicylate < 2.5 mg/dL (15.0-30.0); Sodium 137 mEq/L (136-145); Triglycerides 164 mg/dL (< 150); eGFR For African Americans > 60 (> 60); eGFR For Non-African Americans > 60 (> 60)
[2019-03-03] MEDS ORDERED: Mag Hydrox/Al Hydrox/Simeth 30 ML UDC PO PRN (00:24)
[2019-03-03] MEDS ORDERED: Naloxone 0.4 MG/ML INJ IVP PRN (00:24)
[2019-03-03] MEDS ORDERED: Acetaminophen 325 MG TABLET PO PRN (00:24)
[2019-03-03] MEDS ORDERED: *HR* LORazepam 2 MG/ML VIAL IVP PRN (00:50)
[2019-03-03] MEDS ORDERED: traZODone 50 MG TABLET PO PRN (00:51)
[2019-03-03] MEDS ORDERED: *HR* Heparin 5,000 UNIT/ML VIAL SQ SCH (06:00)
[2019-03-03 06:43] LABS: Basophils % 0.1 %; Eosinophils # 0.4 K/mcL (0.0-0.6); Eosinophils % 2.8 %; Hematocrit 38.5 % (35.3-44.9); Immature Granulocytes % 0.4 % (0-4); Lymphocytes # 2.8 K/mcL (0.6-4.6); Lymphocytes % 19.9 %; Mean Corpuscular HGB Conc 31.4 g/dL (31.6-35.5); Mean Corpuscular Hemoglobin 28.2 pg (28.0-33.3); Mean Corpuscular Volume 89.7 fL (83.0-100.0); Mean Platelet Volume 8.9 fL (9.4-12.4); Monocytes % 7.3 %; Neutrophils # 9.9 K/mcL (1.6-8.9); Platelet Count 295 K/mcL (140-400); Red Blood Count 4.29 M/mcL (3.82-4.97); Red Cell Distribution Width 15.2 % (11.5-14.5); Segmented Neutrophils % 69.5 %; White Blood Count 14.2 K/mcL (4.3-11.1)
[2019-03-03 06:44] LABS: Hemoglobin 12.1 g/dL (11.5-15.4)
[2019-03-03 07:07] LABS: Alanine Aminotransferase 7 Units/L (7-52); Albumin 3.8 g/dL (3.5-5.7); Albumin/Globulin Ratio 1.5 (1.1-2.2); Alkaline Phosphatase 62 Units/L (34-104); Aspartate Amino Transferase 10 Units/L (13-39); BUN/Creatinine Ratio 10 (6-26); Bilirubin,Total 0.5 mg/dL (0.3-1.0); Blood Urea Nitrogen 8 mg/dL (6-20); Calcium 8.7 mg/dL (8.6-10.3); Carbon Dioxide 30 mEq/L (23-29); Chloride 100 mEq/L (98-107); Globulin 2.5 g/dL (2.4-3.5); Glucose 92 mg/dL (70-105); Magnesium 2.1 mg/dL (1.6-2.6); Osmolality,Calculated 282 (280-300); Potassium 3.6 mEq/L (3.5-5.1); Sodium 137 mEq/L (136-145); Total Protein 6.3 g/dL (6.4-8.9); eGFR For African Americans > 60 (> 60); eGFR For Non-African Americans > 60 (> 60)
[2019-03-03] MEDS ORDERED: Famotidine 20 MG TABLET PO SCH (07:30)
[2019-03-03] MEDS ORDERED: NON-FORMULARY MEDICATION 1 EACH EACH (Rizatriptan Benzoate [Maxalt] 10 MG) PO PRN (07:51)
[2019-03-03] MEDS: Insulin LISPRO 300 UNITS/3 ML VIAL SQ SCH ×3 (08:44→16:17)
[2019-03-03] MEDS ORDERED: Loratadine 10 MG TABLET PO SCH (09:00)
[2019-03-03] MEDS ORDERED: Vitamin E 200 UNIT (90MG) CAPSULE PO SCH (09:00)
[2019-03-03] MEDS ORDERED: Topiramate 25 MG TABLET PO SCH (09:00)
[2019-03-03] MEDS ORDERED: Aspirin Enteric Coated 81 MG Tablet PO SCH (09:00)
[2019-03-03] MEDS ORDERED: Multivit/Ca/Min/Fe/FA 1 TAB TABLET PO SCH (09:00)
[2019-03-03] MEDS ORDERED: Furosemide 40 MG TABLET PO SCH (09:00)
[2019-03-03 16:10] VITALS: BP 122/83
[2019-03-03] MEDS ORDERED: PANTOPRAZOLE SODIUM 40 MG PO SCH (18:00)
[2019-03-03] MEDS ORDERED: Gabapentin 300 MG CAPSULE PO SCH (21:00)
[2019-03-06] MEDS ORDERED: Ergocalciferol (VIT D2) 50,000 UNIT (1.25MG) CAP PO SCH (09:00)
== END 2019-03-03 18:16 | disposition other institution (70) ==
LOC: EMEROOARM 19:37 → 3BNU 19:37
PROVIDERS: ADMIT Family Medicine; ATTEND Family Medicine

== ENCOUNTER 2019-03-04 10:20 | Inpatient (IN) ==
[2019-03-03] MEDS: MOM Conc 10 ML UD.LIQ PO PRN (20:44)
[2019-03-03] MEDS: hydrOXYzine pamoate 25 MG CAPSULE PO PRN (20:44)
[2019-03-03] MEDS: Ibuprofen 400 MG TABLET PO PRN (20:44)
[2019-03-03] MEDS: traZODone 50 MG TABLET PO PRN (20:44)
[~2019-03-04 10:20] MED LIST: *HR* LORazepam 1 MG TABLET PO PRN; *HR* LORazepam 2 MG/ML VIAL IM PRN; Haloperidol Lactate 5 MG/ML VIAL IM PRN; Mag Hydrox/Al Hydrox/Simeth 30 ML UDC PO PRN
[2019-03-04] MEDS ORDERED: (Rizatriptan Benzoate [Maxalt] 10 MG) PO PRN (15:33)
[2019-03-04] MEDS ORDERED: (Pantoprazole Sodium [Protonix] 40 MG) PO SCH (18:00)
[2019-03-04] MEDS: Gabapentin 300 MG CAPSULE PO SCH (20:59)
[2019-03-04] MEDS: lamoTRIgine 100 MG TABLET PO SCH (20:59)
[2019-03-04] MEDS: hydrOXYzine pamoate 25 MG CAPSULE PO PRN (21:02)
[2019-03-05] MEDS: Loratadine 10 MG TABLET PO SCH (08:44)
[2019-03-05] MEDS: *HR* SitaGLIPtin 100 MG TABLET PO SCH (08:44)
[2019-03-05] MEDS: Multivit/Ca/Min/Fe/FA 1 TAB TABLET PO SCH (08:44)
[2019-03-05] MEDS: Vitamin E 200 UNIT (90MG) CAPSULE PO SCH (08:45)
[2019-03-05] MEDS: Aspirin Enteric Coated 81 MG Tablet PO SCH (08:45)
[2019-03-05] MEDS: Furosemide 20 MG TABLET PO SCH (08:46)
[2019-03-05] MEDS: hydrOXYzine pamoate 25 MG CAPSULE PO PRN ×2 (12:29→20:58)
[2019-03-05] MEDS: lamoTRIgine 100 MG TABLET PO SCH (20:56)
[2019-03-05] MEDS: Ibuprofen 400 MG TABLET PO PRN (20:57)
[2019-03-05] MEDS: Gabapentin 300 MG CAPSULE PO SCH (20:57)
[2019-03-05] MEDS: traZODone 50 MG TABLET PO PRN (20:58)
[2019-03-06] MEDS: Vitamin E 200 UNIT (90MG) CAPSULE PO SCH (09:01)
[2019-03-06] MEDS: Furosemide 20 MG TABLET PO SCH (09:01)
[2019-03-06] MEDS: Aspirin Enteric Coated 81 MG Tablet PO SCH (09:01)
[2019-03-06] MEDS: *HR* SitaGLIPtin 100 MG TABLET PO SCH (09:01)
[2019-03-06] MEDS: Multivit/Ca/Min/Fe/FA 1 TAB TABLET PO SCH (09:01)
[2019-03-06] MEDS: Loratadine 10 MG TABLET PO SCH (09:01)
[2019-03-06] MEDS: Cholecalciferol (D-3) 1,000 UNIT (25MCG) TABLET PO SCH (17:11)
[2019-03-06] MEDS: Gabapentin 300 MG CAPSULE PO SCH (21:06)
[2019-03-06] MEDS: traZODone 50 MG TABLET PO PRN (21:06)
[2019-03-06] MEDS: hydrOXYzine pamoate 25 MG CAPSULE PO PRN (21:06)
[2019-03-06] MEDS: lamoTRIgine 100 MG TABLET PO SCH (21:07)
[2019-03-07] MEDS: Ibuprofen 400 MG TABLET PO PRN (08:53)
[2019-03-07] MEDS: Vitamin E 200 UNIT (90MG) CAPSULE PO SCH (08:55)
[2019-03-07] MEDS: Furosemide 20 MG TABLET PO SCH (08:56)
[2019-03-07] MEDS: Cholecalciferol (D-3) 1,000 UNIT (25MCG) TABLET PO SCH (08:57)
[2019-03-07] MEDS: Aspirin Enteric Coated 81 MG Tablet PO SCH (08:57)
[2019-03-07] MEDS: Multivit/Ca/Min/Fe/FA 1 TAB TABLET PO SCH (08:58)
[2019-03-07] MEDS: Loratadine 10 MG TABLET PO SCH (08:59)
[2019-03-07] MEDS: *HR* SitaGLIPtin 100 MG TABLET PO SCH (08:59)
[2019-03-07] MEDS: traZODone 50 MG TABLET PO PRN (20:58)
[2019-03-07] MEDS: Gabapentin 300 MG CAPSULE PO SCH (20:58)
[2019-03-07] MEDS: lamoTRIgine 100 MG TABLET PO SCH (20:58)
[2019-03-07] MEDS: hydrOXYzine pamoate 25 MG CAPSULE PO PRN (20:58)
[2019-03-07] MEDS: MOM Conc 10 ML UD.LIQ PO PRN (20:59)
[2019-03-08] MEDS: *HR* SitaGLIPtin 100 MG TABLET PO SCH (08:45)
[2019-03-08] MEDS: Furosemide 20 MG TABLET PO SCH (08:45)
[2019-03-08] MEDS: Aspirin Enteric Coated 81 MG Tablet PO SCH (08:45)
[2019-03-08] MEDS: Loratadine 10 MG TABLET PO SCH (08:45)
[2019-03-08] MEDS: Vitamin E 200 UNIT (90MG) CAPSULE PO SCH (08:46)
[2019-03-08] MEDS: Multivit/Ca/Min/Fe/FA 1 TAB TABLET PO SCH (08:46)
[2019-03-08] MEDS: Cholecalciferol (D-3) 1,000 UNIT (25MCG) TABLET PO SCH (08:46)
[2019-03-08] MEDS: lamoTRIgine 100 MG TABLET PO SCH (21:20)
[2019-03-08] MEDS: Gabapentin 300 MG CAPSULE PO SCH (21:22)
[2019-03-09] MEDS: Vitamin E 200 UNIT (90MG) CAPSULE PO SCH (08:49)
[2019-03-09] MEDS: Loratadine 10 MG TABLET PO SCH (08:51)
[2019-03-09] MEDS: Aspirin Enteric Coated 81 MG Tablet PO SCH (08:52)
[2019-03-09] MEDS: Cholecalciferol (D-3) 1,000 UNIT (25MCG) TABLET PO SCH (08:52)
[2019-03-09] MEDS: *HR* SitaGLIPtin 100 MG TABLET PO SCH (08:52)
[2019-03-09] MEDS: Furosemide 20 MG TABLET PO SCH (08:52)
[2019-03-09] MEDS: Multivit/Ca/Min/Fe/FA 1 TAB TABLET PO SCH (08:52)
[2019-03-09] MEDS: hydrOXYzine pamoate 25 MG CAPSULE PO PRN ×2 (09:18→20:35)
[2019-03-09] MEDS: Gabapentin 300 MG CAPSULE PO SCH (20:36)
[2019-03-09] MEDS: lamoTRIgine 100 MG TABLET PO SCH (20:36)
[2019-03-10] MEDS: Vitamin E 200 UNIT (90MG) CAPSULE PO SCH (09:10)
[2019-03-10] MEDS: Multivit/Ca/Min/Fe/FA 1 TAB TABLET PO SCH (09:11)
[2019-03-10] MEDS: Aspirin Enteric Coated 81 MG Tablet PO SCH (09:12)
[2019-03-10] MEDS: Furosemide 20 MG TABLET PO SCH (09:12)
[2019-03-10] MEDS: Loratadine 10 MG TABLET PO SCH (09:12)
[2019-03-10] MEDS: *HR* SitaGLIPtin 100 MG TABLET PO SCH (09:13)
[2019-03-10] MEDS: Cholecalciferol (D-3) 1,000 UNIT (25MCG) TABLET PO SCH (09:13)
[2019-03-10] MEDS: hydrOXYzine pamoate 25 MG CAPSULE PO PRN (12:43)
[2019-03-10] MEDS: Gabapentin 300 MG CAPSULE PO SCH (21:25)
[2019-03-10] MEDS: lamoTRIgine 100 MG TABLET PO SCH (21:25)
[2019-03-11] MEDS: Multivit/Ca/Min/Fe/FA 1 TAB TABLET PO SCH (08:44)
[2019-03-11] MEDS: Vitamin E 200 UNIT (90MG) CAPSULE PO SCH (08:45)
[2019-03-11] MEDS: Furosemide 20 MG TABLET PO SCH (08:45)
[2019-03-11] MEDS: Aspirin Enteric Coated 81 MG Tablet PO SCH (08:45)
[2019-03-11] MEDS: *HR* SitaGLIPtin 100 MG TABLET PO SCH (08:45)
[2019-03-11] MEDS: Loratadine 10 MG TABLET PO SCH (08:45)
[2019-03-11] MEDS: Cholecalciferol (D-3) 1,000 UNIT (25MCG) TABLET PO SCH (08:45)
[2019-03-11 08:58] VITALS: BP 129/84
== END 2019-03-11 11:55 | disposition home health service (06) | DRG 885 ==
LOC: 1ANU → SUATTDRO 10:20
PROVIDERS: ADMIT Psychiatry & Neurology Psychiatry; ATTEND Psychiatry & Neurology Psychiatry

== ENCOUNTER 2019-03-22 10:51 | Inpatient (IN) ==
[2019-03-22] MEDS ORDERED: Ibuprofen 400 MG TABLET PO ONE (11:16)
[2019-03-22 11:53] LABS: Bilirubin,Urine Negative (Negative); Blood,Urine Large (Negative); Clarity,Urine Cloudy (Clear); Color,Urine Yellow (Yellow); Glucose,Urine (UA) Normal (Normal); Ketones,Urine Negative (Negative); Leukocyte Esterase,Urine Moderate (Negative); Nitrite,Urine Negative (Negative); PH,Urine 6.5 pH Units (5.0-8.0); Protein,Urine Negative (Neg-Trace); Specific Gravity,Urine 1.013 (1.010-1.025); Urobilinogen,Urine Normal (Normal)
[2019-03-22 11:54] LABS: Amphetamine Screen,Urine Negative ng/mL (Cutoff=1000); Barbiturate Screen,Urine Negative ng/mL (Cutoff=200); Benzodiazepines Screen,Urine Negative ng/mL (Cutoff=300); Cannabinoid Screen,Urine Negative ng/mL (Cutoff = 50); Cocaine Screen,Urine Negative ng/mL (Cutoff= 300); Opiate Screen,Urine Negative ng/mL (Cutoff=300); Phencyclidine Screen,Urine Negative ng/mL (Cutoff=25)
[2019-03-22 11:55] LABS: Bacteria,Urine Few per hpf (None-Few); Hyaline Casts,Urine Few per lpf (None-Few); Squamous Epithelial Cell,Urine Many per lpf (None-Few)
[2019-03-22 12:06] LABS: RBC,Urine 0-3 per hpf (0-3)
[2019-03-22 12:24] LABS: Basophils % 0.1 %; Eosinophils # 0.3 K/mcL (0.0-0.6); Eosinophils % 3.4 %; Hematocrit 41.4 % (35.3-44.9); Hemoglobin 12.7 g/dL (11.5-15.4); Immature Granulocytes % 0.5 % (0-4); Lymphocytes # 1.9 K/mcL (0.6-4.6); Lymphocytes % 22.3 %; Mean Corpuscular HGB Conc 30.7 g/dL (31.6-35.5); Mean Corpuscular Hemoglobin 28.1 pg (28.0-33.3); Mean Corpuscular Volume 91.6 fL (83.0-100.0); Monocytes # 0.8 K/mcL (0.0-1.3); Monocytes % 9.2 %; Neutrophils # 5.6 K/mcL (1.6-8.9); Platelet Count 232 K/mcL (140-400); Red Blood Count 4.52 M/mcL (3.82-4.97); Red Cell Distribution Width 14.9 % (11.5-14.5); Segmented Neutrophils % 64.5 %; White Blood Count 8.6 K/mcL (4.3-11.1)
[2019-03-22 12:46] LABS: Acetaminophen < 10 mcg/mL (10-20); BUN/Creatinine Ratio 10 (6-26); Blood Urea Nitrogen 7 mg/dL (6-20); Calcium 9.1 mg/dL (8.6-10.3); Carbon Dioxide 27 mEq/L (23-29); Chloride 101 mEq/L (98-107); Ethanol < 10 mg/dL (Less than 10); Glucose 77 mg/dL (70-105); Osmolality,Calculated 285 (280-300); Potassium 3.7 mEq/L (3.5-5.1); Salicylate < 2.5 mg/dL (15.0-30.0); Sodium 139 mEq/L (136-145); eGFR For African Americans > 60 (> 60); eGFR For Non-African Americans > 60 (> 60)
[2019-03-22] MEDS ORDERED: MOM Conc 10 ML UD.LIQ PO PRN (15:11)
[2019-03-22] MEDS ORDERED: *HR* LORazepam 2 MG/ML VIAL IM PRN (15:11)
[2019-03-22] MEDS ORDERED: hydrOXYzine pamoate 25 MG CAPSULE PO PRN (15:11)
[2019-03-22] MEDS ORDERED: Haloperidol Lactate 5 MG/ML VIAL IM PRN (15:11)
[2019-03-22] MEDS ORDERED: *HR* LORazepam 1 MG TABLET PO PRN (15:11)
[2019-03-22] MEDS ORDERED: Mag Hydrox/Al Hydrox/Simeth 30 ML UDC PO PRN (15:11)
[2019-03-22] MEDS: traZODone 50 MG TABLET PO PRN (21:35)
[2019-03-22] MEDS ORDERED: traZODone 50 MG TABLET PO PRN (22:13)
[2019-03-22] MEDS ORDERED: (Rizatriptan Benzoate [Maxalt] 10 MG) PO PRN (22:13)
[2019-03-22] MEDS: Gabapentin 300 MG CAPSULE PO SCH (23:00)
[2019-03-22] MEDS: lamoTRIgine 100 MG TABLET PO SCH (23:03)
[2019-03-23] MEDS: Vitamin E 200 UNIT (90MG) CAPSULE PO SCH (08:46)
[2019-03-23] MEDS: Ibuprofen 400 MG TABLET PO PRN (08:46)
[2019-03-23] MEDS: Famotidine 20 MG TABLET PO SCH ×2 (08:46→21:58)
[2019-03-23] MEDS: Loratadine 10 MG TABLET PO SCH (08:47)
[2019-03-23] MEDS: Furosemide 20 MG TABLET PO SCH (08:47)
[2019-03-23] MEDS: Multivit/Ca/Min/Fe/FA 1 TAB TABLET PO SCH (08:47)
[2019-03-23] MEDS: *HR* SitaGLIPtin 100 MG TABLET PO SCH (08:47)
[2019-03-23] MEDS: Aspirin 81 MG TAB.CHEW PO SCH (08:47)
[2019-03-23] MEDS ORDERED: SUMAtriptan succinate 25 MG TABLET PO ONE ×2 (10:06→12:30)
[2019-03-23] MEDS ORDERED: *HR* LORazepam 1 MG TABLET PO ONE (10:49)
[2019-03-23] MEDS ORDERED: SUMAtriptan succinate 25 MG TABLET PO PRN (15:28)
[2019-03-23] MEDS ORDERED: Ketorolac 30 MG/ML VIAL IM ONE (16:44)
[2019-03-23] MEDS ORDERED: *HR* Promethazine 25 MG/ML VIAL IM ONE (16:44)
[2019-03-23] MEDS ORDERED: ARIPiprazole 5 MG TABLET PO SCH (21:00)
[2019-03-23] MEDS: lamoTRIgine 25 MG TABLET PO SCH (21:57)
[2019-03-23] MEDS: Gabapentin 300 MG CAPSULE PO SCH (21:58)
[2019-03-23] MEDS: lamoTRIgine 100 MG TABLET PO SCH (21:58)
[2019-03-24] MEDS: Famotidine 20 MG TABLET PO SCH ×2 (08:34→20:55)
[2019-03-24] MEDS: Vitamin E 200 UNIT (90MG) CAPSULE PO SCH (08:34)
[2019-03-24] MEDS: *HR* SitaGLIPtin 100 MG TABLET PO SCH (08:34)
[2019-03-24] MEDS: Loratadine 10 MG TABLET PO SCH (08:34)
[2019-03-24] MEDS: Multivit/Ca/Min/Fe/FA 1 TAB TABLET PO SCH (08:35)
[2019-03-24] MEDS: Furosemide 20 MG TABLET PO SCH (08:35)
[2019-03-24] MEDS: Aspirin 81 MG TAB.CHEW PO SCH (08:35)
[2019-03-24] MEDS: Topiramate 25 MG TABLET PO SCH ×2 (12:30→20:54)
[2019-03-24] MEDS: clonazePAM 1 MG TABLET PO SCH ×2 (12:30→20:54)
[2019-03-24] MEDS ORDERED: Ketorolac 30 MG/ML VIAL IM ONE (15:08)
[2019-03-24] MEDS: hydrOXYzine pamoate 25 MG CAPSULE PO PRN (20:54)
[2019-03-24] MEDS: lamoTRIgine 100 MG TABLET PO SCH (20:55)
[2019-03-24] MEDS: Gabapentin 300 MG CAPSULE PO SCH (20:55)
[2019-03-24] MEDS: traZODone 50 MG TABLET PO PRN (20:55)
[2019-03-24] MEDS: lamoTRIgine 25 MG TABLET PO SCH (20:55)
[2019-03-25] MEDS: Furosemide 20 MG TABLET PO SCH (08:33)
[2019-03-25] MEDS: Famotidine 20 MG TABLET PO SCH ×2 (08:33→21:06)
[2019-03-25] MEDS: *HR* SitaGLIPtin 100 MG TABLET PO SCH (08:33)
[2019-03-25] MEDS: Multivit/Ca/Min/Fe/FA 1 TAB TABLET PO SCH (08:33)
[2019-03-25] MEDS: Loratadine 10 MG TABLET PO SCH (08:33)
[2019-03-25] MEDS: Vitamin E 200 UNIT (90MG) CAPSULE PO SCH (08:33)
[2019-03-25] MEDS: Aspirin 81 MG TAB.CHEW PO SCH (08:33)
[2019-03-25] MEDS: clonazePAM 1 MG TABLET PO SCH ×2 (08:34→21:05)
[2019-03-25] MEDS: Topiramate 25 MG TABLET PO SCH ×2 (08:36→21:05)
[2019-03-25] MEDS: Ibuprofen 400 MG TABLET PO PRN ×2 (10:53→17:10)
[2019-03-25] MEDS ORDERED: SUMAtriptan succinate 25 MG TABLET PO ONE (11:24)
[2019-03-25] MEDS: traZODone 50 MG TABLET PO PRN (21:05)
[2019-03-25] MEDS: hydrOXYzine pamoate 25 MG CAPSULE PO PRN (21:06)
[2019-03-25] MEDS: Gabapentin 300 MG CAPSULE PO SCH (21:06)
[2019-03-25] MEDS: lamoTRIgine 100 MG TABLET PO SCH (21:06)
[2019-03-25] MEDS: lamoTRIgine 25 MG TABLET PO SCH (21:06)
[2019-03-26] MEDS: Famotidine 20 MG TABLET PO SCH (08:56)
[2019-03-26] MEDS: Multivit/Ca/Min/Fe/FA 1 TAB TABLET PO SCH (08:57)
[2019-03-26] MEDS: clonazePAM 1 MG TABLET PO SCH (08:57)
[2019-03-26] MEDS: Aspirin 81 MG TAB.CHEW PO SCH (08:57)
[2019-03-26] MEDS: Vitamin E 200 UNIT (90MG) CAPSULE PO SCH (08:58)
[2019-03-26] MEDS: Loratadine 10 MG TABLET PO SCH (08:58)
[2019-03-26] MEDS: Topiramate 25 MG TABLET PO SCH (08:59)
[2019-03-26] MEDS: Furosemide 20 MG TABLET PO SCH (08:59)
[2019-03-26] MEDS: *HR* SitaGLIPtin 100 MG TABLET PO SCH (08:59)
[2019-03-26 09:12] VITALS: BP 104/66
[2019-03-27] MEDS ORDERED: Cholecalciferol (D-3) 1,000 UNIT (25MCG) TABLET PO SCH (09:00)
== END 2019-03-26 12:30 | disposition home or self-care (01) | DRG 885 ==
LOC: 1ANU 10:51 → EMEROOARM 10:51 → 1ANU 17:27
PROVIDERS: ADMIT Psychiatry & Neurology Psychiatry; ATTEND Psychiatry & Neurology Psychiatry

== ENCOUNTER 2019-08-13 15:23 | Observation (INO) ==
[2019-08-13] MEDS ORDERED: Aspirin 325 MG TABLET PO ONE (16:36)
[2019-08-13 16:59] LABS: Basophils % 0.1 %; Hematocrit 40.4 % (35.3-44.9); Hemoglobin 12.5 g/dL (11.5-15.4); Immature Granulocytes % 0.6 % (0-4); Lymphocytes # 1.1 K/mcL (0.6-4.6); Lymphocytes % 10.9 %; Mean Corpuscular HGB Conc 30.9 g/dL (31.6-35.5); Mean Corpuscular Hemoglobin 27.7 pg (28.0-33.3); Mean Corpuscular Volume 89.4 fL (83.0-100.0); Mean Platelet Volume 8.5 fL (9.4-12.4); Monocytes # 0.7 K/mcL (0.0-1.3); Monocytes % 6.9 %; Neutrophils # 8.1 K/mcL (1.6-8.9); Platelet Count 263 K/mcL (140-400); Red Blood Count 4.52 M/mcL (3.82-4.97); Red Cell Distribution Width 14.6 % (11.5-14.5); Segmented Neutrophils % 81.5 %
[2019-08-13 17:14] LABS: INR 1.1; Prothrombin Time 12.3 Seconds (9.4-12.1)
[2019-08-13 17:16] LABS: Activated Partial Thrombo Time 27.2 Seconds (26.0-36.0)
[2019-08-13 17:38] LABS: BUN/Creatinine Ratio 17 (6-26); Blood Urea Nitrogen 12 mg/dL (6-20); Carbon Dioxide 29 mEq/L (23-29); Chloride 102 mEq/L (98-107); Glucose 133 mg/dL (70-105); Lipase 16 Units/L (11-82); Osmolality,Calculated 290 (280-300); Sodium 139 mEq/L (136-145); Troponin I < 0.03 ng/mL (< 0.04); eGFR For African Americans > 60 (> 60); eGFR For Non-African Americans > 60 (> 60)
[2019-08-13] MEDS ORDERED: Naloxone 0.4 MG/ML INJ IVP PRN (19:42)
[2019-08-13] MEDS ORDERED: Nitroglycerin 0.4 MG TAB.SUBL SL PRN (19:44)
[2019-08-13] MEDS ORDERED: Dextrose Gel 15 GM/37.5 ML TUBE PO PRN ×2 (19:45)
[2019-08-13] MEDS ORDERED: D5% in Water 1,000 ML IVC PRN (19:45)
[2019-08-13] MEDS ORDERED: *HR* Dextrose 50 % in Water (Vial) 50 ML VIAL IVP PRN (19:45)
[2019-08-13 20:53] LABS: Estimated Average Glucose 140 mg/dl
[2019-08-13] MEDS ORDERED: (Rizatriptan Benzoate [Maxalt] 10 MG) PO PRN (23:00)
[2019-08-13] MEDS: *HR* Heparin 5,000 UNIT/ML VIAL SQ SCH (23:48)
[2019-08-14 01:34] LABS: Hematocrit 38.7 % (35.3-44.9); Hemoglobin 12.4 g/dL (11.5-15.4); Mean Corpuscular Hemoglobin 28.8 pg (28.0-33.3); Mean Corpuscular Volume 89.8 fL (83.0-100.0); Mean Platelet Volume 8.7 fL (9.4-12.4); Platelet Count 273 K/mcL (140-400); Red Blood Count 4.31 M/mcL (3.82-4.97); Red Cell Distribution Width 14.5 % (11.5-14.5); White Blood Count 9.8 K/mcL (4.3-11.1)
[2019-08-14 01:51] LABS: BUN/Creatinine Ratio 15 (6-26); Blood Urea Nitrogen 11 mg/dL (6-20); Calcium 8.5 mg/dL (8.6-10.3); Carbon Dioxide 28 mEq/L (23-29); Chloride 103 mEq/L (98-107); Glucose 93 mg/dL (70-105); Osmolality,Calculated 287 (280-300); Potassium 3.7 mEq/L (3.5-5.1); Sodium 139 mEq/L (136-145); eGFR For African Americans > 60 (> 60); eGFR For Non-African Americans > 60 (> 60)
[2019-08-14] MEDS: *HR* Heparin 5,000 UNIT/ML VIAL SQ SCH ×2 (06:02→13:21)
[2019-08-14] MEDS: Insulin LISPRO 300 UNITS/3 ML VIAL SQ SCH ×2 (08:02→13:06)
[2019-08-14] MEDS ORDERED: Topiramate 25 MG TABLET PO SCH (09:00)
[2019-08-14] MEDS ORDERED: Multivit/Ca/Min/Fe/FA 1 TAB TABLET PO SCH (09:00)
[2019-08-14] MEDS ORDERED: Loratadine 10 MG TABLET PO SCH (09:00)
[2019-08-14] MEDS ORDERED: Vitamin E 200 UNIT (90MG) CAPSULE PO SCH (09:00)
[2019-08-14] MEDS ORDERED: Furosemide 20 MG TABLET PO SCH (09:00)
[2019-08-14] MEDS ORDERED: Cholecalciferol (D-3) 1,000 UNIT (25MCG) TABLET PO SCH (09:00)
[2019-08-14] MEDS ORDERED: Famotidine 20 MG TABLET PO SCH (09:00)
[2019-08-14] MEDS ORDERED: Aspirin 81 MG TAB.CHEW PO SCH (09:00)
[2019-08-14 10:25] VITALS: BP 104/69
[2019-08-14] MEDS ORDERED: Famotidine 20 MG TABLET PO PRN (15:06)
[2019-08-14] MEDS ORDERED: Furosemide 40 MG TABLET PO PRN (15:06)
[2019-08-14] MEDS ORDERED: CarBAMazepine XR (12 hr) 100 MG TAB PO SCH (21:00)
[2019-08-14] MEDS ORDERED: risperiDONE 1 MG TABLET PO SCH (21:00)
[2019-08-14] MEDS ORDERED: Gabapentin 300 MG CAPSULE PO SCH (21:00)
[2019-08-14] MEDS ORDERED: calcium polycarbophiL 625 MG TABLET PO SCH (21:00)
[2019-08-14] MEDS ORDERED: traZODone 50 MG TABLET PO SCH (21:00)
[2019-08-15] MEDS ORDERED: Venlafaxine XR (24 HR) 150 MG CAP.ER.24H PO SCH (09:00)
== END 2019-08-14 17:15 | disposition home or self-care (01) ==
LOC: EMEROOARM 15:23 → 3BNU 15:23
PROVIDERS: ADMIT Internal Medicine; ATTEND Internal Medicine